=== PATIENT | female | born 1975 | race Caucasian/White ===

== ENCOUNTER 2018-09-30 11:50 | Inpatient (IN) | payer MEDICAID ==
[~2018-09-30] VITALS: Ht 170.2 cm; Wt 165.7 kg
[2018-09-30] VITALS (7 sets, daily range): BP systolic 119–142; BP diastolic 81–98; BMI 115.6
--- NOTE | 2018-09-30 20:08 | NUR ---
Pt arrive to ICU via EMS x4. Pt sedated on vent. PERRLA 3 mm, brisk reaction to light. L eyebrow piercing noted. ETT/OGT secured. ETT size 7.0, 24 cm midline. Vent settings: A/C rate of 12, tidal volume 500, Peep 5.0, FiO2 @ 100%, O2 sat 98%. S1S2 audible, HR 92 bpm, NSR showing on monitor, ST elevation noted. Exp wheezes heard bilat throughout all lobes. ABD large, BS hypoactive x4. Collado cath intact draining clear yellow urine. B/L wrist restraints in place, skin WNL. ABD has scabs noted. B/L heels, Stage III pressure ulcers, dressings CDI. Weak pedal pulses. Radial pulses palp. Rings noted on R middle finger and L ring finger, unable to get off at this time. Generalized swelling in upper and lower ext. 20G PIVs to L upper arm, R AC, R upper arm. R upper arm infusing Propofol @ 60 mcg/kg/min. Tight parameters set on ICU monitors.
--- NOTE | 2018-09-30 21:20 | NUR ---
Dr. Rubalcava at bedside. New orders recieved.
--- NOTE | 2018-09-30 21:30 | NUR ---
Called registration to register pt in [facility].
--- NOTE | 2018-09-30 21:50 | NUR ---
Called Dr. Juarez and informed him of pt's situation. New orders recieved.
--- NOTE | 2018-09-30 22:11 | NUR ---
X-ray at bedside, x3 assist for chest X-ray. Tech called back and stated that ETT and OGT were in place. Will cont with POC.
[2018-09-30 22:16] LABS: BASOPHILS 0.2 % (0-2); HEMATOCRIT 39.4 % (36.0-48.0); HEMOGLOBIN 11.2 g/dL (12-16); IMMATURE GRANULOCYTES 0.5 % (0-5); LYMPHOCYTES 10.6 % (15-50); MCH 23.9 pg (26.0-34.0); MCHC 28.4 g/dL (31.0-37.0); MCV 84.2 fL (80.0-100.0); MEAN PLATELET VOLUME 9.6 fL (7.4-10.4); MONOCYTES 12.7 % (2-11); PLATELET COUNT 153 10x3/uL (130-400); RBC 4.68 10x6/uL (4.00-5.40); RDW 17.1 % (11.5-14.5); WBC 9.2 10x3/uL (4.8-10.8)
[2018-09-30 22:20] LABS: APPEARANCE CLEAR (CLEAR); BILIRUBIN NEGATIVE (NEGATIVE); COLOR YELLOW (YELLOW); GLUCOSE NEGATIVE (NEGATIVE); KETONE NEGATIVE (NEGATIVE); NITRITE NEGATIVE (NEGATIVE); PROTEIN 1+ mg/dL (NEGATIVE); UROBILINOGEN NORMAL (NORMAL)
[2018-09-30 22:22] LABS: EPITHELIAL CELLS 0-5 /hpf (0-5)
[2018-09-30 22:23] LABS: BACTERIA MODERATE /hpf (NONE SEEN); YEAST >1+ WITH HYPHAE /hpf (NONE SEEN)
[2018-09-30 22:38] LABS: ALBUMIN 2.1 g/dL (3.4-5.0); ANION GAP 9.5 mmol/L (8-16); BILIRUBIN - TOTAL 0.43 mg/dL (0.2-1.3); CARBON DIOXIDE 32.5 mmol/L (21.0-32.0); PROTEIN - SERUM 6.9 g/dL (6.4-8.2)
[2018-09-30 22:39] LABS: MAGNESIUM - SERUM 1.9 mg/dL (1.8-2.4); PHOSPHOROUS 4.8 mg/dL (2.5-4.9); URIC ACID 8.4 mg/dL (2.6-7.2)
--- NOTE | 2018-09-30 22:50 | NUR ---
Labs called back to Dr. Rubalcava per request. No new orders at this time. Will cont with POC.
--- NOTE | 2018-09-30 23:00 | NUR ---
REASSESSMENT COMPLETE. SEE FLOWSHEET FOR ALL DETIALS. VSS. WILL CONT CLOSE MONITORING IN ICU.
[2018-10-01] VITALS (28 sets, daily range): BP systolic 124–171; BP diastolic 77–123; Ht 170.2 cm; Wt 165.7 kg
--- NOTE | 2018-10-01 03:00 | NUR ---
REASSESSMENT COMPLETE. PT IS STABLE AT THIS TIME WITH NO S/S OF ACUTE DISTRESS NOTED. NO CHANGES IN PT CONDITION. SEE FLOWSHEET FOR FURTHER DETIALS. ORAL CARE PROVIDED, REPOSITIONED FOR COMFORT. DECREASED PROPOFOL D/T RADHA'S SCALE. SEE IV FLOWSHEET. NO FURTHER NEEDS AT THIS TIME. WILL CONT WITH POC.
[2018-10-01] MEDS ORDERED: ACETAMINOPHEN325 MG PO (03:03)
[2018-10-01] MEDS ORDERED: GLUCAGEN1 MG/VIAL SC (03:04)
[2018-10-01] MEDS ORDERED: HYDROCODON-ACE1 EAC2 PO (03:04)
[2018-10-01] MEDS ORDERED: LEVEMIR FL100 UNIT/1 SC (03:05)
[2018-10-01] MEDS ORDERED: METOLAZONE5 MG PO (03:07)
[2018-10-01] MEDS ORDERED: LEVEMIR IN100 UNITS/ SC (03:07)
[2018-10-01] MEDS ORDERED: IPRAT-ALBUT 0.5-3 ML UPD (03:07)
[2018-10-01] MEDS ORDERED: ALBUTEROL2.5 MG/3 M INH (03:08)
[2018-10-01] MEDS ORDERED: BACLOFEN20 M1 PO (03:09)
[2018-10-01] MEDS ORDERED: CETIRIZINE HCL5 MG PO (03:10)
[2018-10-01] MEDS ORDERED: NEURONTIN 300300 MG PO (03:10)
[2018-10-01] MEDS ORDERED: ADVIL200 MG PO (03:11)
[2018-10-01] MEDS ORDERED: HUMALOG 30100 UNITS/ SC (03:13)
[2018-10-01] MEDS ORDERED: PROMETRIUM200 MG PO (03:14)
--- NOTE | 2018-10-01 05:00 | NUR ---
CHG BATH PROVIDED. UNABLE TO TURN AND PROVIDE NEW LINENS D/T DECREASED STAFFING. WILL CHANGE LINENS AT SHIFT CHANGE WHEN MORE NURSES ARE AVAILABLE. DECREASED PROPOFOL AND FENTANYL GTT, SEE IV FLOWSHEET AND RADHA'S SCORE. IV TUBING LABELED AND SWAB CAPPED. PATIÑO CARE PROVIDED. ORAL CARE PROVIDED WILL CONT WITH POC.
--- NOTE | 2018-10-01 06:15 | NUR ---
LAB AT BEDSIDE TO DRAW AM LAB.
[2018-10-01 06:39] LABS: BASOPHILS 0.2 % (0-2); EOSINOPHILS 3.9 % (0-7); HEMOGLOBIN 10.6 g/dL (12-16); IMMATURE GRANULOCYTES 0.5 % (0-5); LYMPHOCYTES 11.4 % (15-50); MCH 23.8 pg (26.0-34.0); MCHC 29.4 g/dL (31.0-37.0); MEAN PLATELET VOLUME 9.2 fL (7.4-10.4); MONOCYTES 8.2 % (2-11); NEUTROPHILS 75.8 % (40-80); RBC 4.46 10x6/uL (4.00-5.40); RDW 16.9 % (11.5-14.5); WBC 8.5 10x3/uL (4.8-10.8)
[2018-10-01 06:53] LABS: ANION GAP 11.5 mmol/L (8-16); CALCIUM 8.4 mg/dL (8.5-10.1); CARBON DIOXIDE 28.9 mmol/L (21.0-32.0); POTASSIUM - SERUM 5.4 mmol/L (3.5-5.1)
[2018-10-01 07:11] LABS: MCV 80.7 fL (80.0-100.0); PLATELET COUNT 191 10x3/uL (130-400)
--- NOTE | 2018-10-01 07:21 | NUR ---
RECTAL TUBE PLACED, COMPLETE LINEN CHANGE PROVIDED.
--- NOTE | 2018-10-01 08:58 | NUR ---
0700 CHANGED LINEN REPOSITINED IN BED WITH ASSIST X 6 ASSESSMENT COMPLETE
--- NOTE | 2018-10-01 09:43 | NUR ---
Pt admitted 09/30/18 with a stage 3 pressure injury on left lateral foot measuring 2cm x 2cm x 0.5cm x 0.5cm from 12 to 12 oclock. Right heel has a stage 3 pressure injury measuring 2cm x 2cm x 1cm x 1cm from 12 to 12 oclock. On right and left ischial tuberosities there is red blanchable spots with nickel sized wound beds covered in white necrotic tissue (unstageable pressure injuries) No drainage noted. Pt is on a speciality bed and mattress. She has a f/c and a rectal tube. Recommendations: Turn/reposition every 2 hours Float heels Protect bony prominences Zinc oxide paste for perineal redness. Wound care will continue monitoring.
--- NOTE | 2018-10-01 11:05 | HP ---
PATIENT: DOT MIXON MEDICAL RECORD: [id number] ACCOUNT: [id number] LOCATION:[facility] D.2310 : 75 ADMISSION DATE: 09/30/18 PCP: RASHAD GALLEGOS MD HISTORY AND PHYSICAL EXAMINATION HISTORY OF PRESENT ILLNESS: This is a 43-year-old morbidly obese female that was admitted to [facility]. She is a chronic CO2 retainer and smoked up until 2 years ago prior to admission. All the history and physical has been taken from Dr. King's history and physical as well as conversation I had with him earlier today. REVIEW OF SYSTEMS: Unobtainable. PAST MEDICAL HISTORY: Anesthesia complication with severe nausea and vomiting, cellulitis, diabetes type 2, hyperlipidemia, hypertension, and lymphedema. PAST SURGICAL HISTORY: Dental surgery, dilatation and curettage of the uterus (D&C), leg surgery, and tonsillectomy. ALLERGIES: DOXYCYCLINE WITH FACIAL SWELLING. SHE IS ALSO ALLERGIC TO LATEX. SOCIAL HISTORY: Smoking; she is a former smoker, quit 2 years ago according to the notes. Alcohol use, no use. FAMILY HISTORY: Mother had diabetes, hypertension, and hyperlipidemia. Father had diabetes and hyperlipidemia. PHYSICAL EXAMINATION: VITAL SIGNS: She is 118/70, pulse is 86, and respiratory is ventilated. GENERAL: This is a morbidly obese female, intubated and sedated on the ventilator after arriving from [place]. She is over 700 pounds according to her scale. HEENT: Pupils are reactive to light. ET tube is in place. CHEST: Regular rhythm. LUNGS: Sounds are distant. ABDOMEN: Bowel sounds, morbidly obese. I could not appreciate hepatosplenomegaly on deep palpation. EXTREMITIES: She has +2 femoral pulses. She has +2 brachial pulses. Lymphedema with skin changes of the lower extremities. Negative Babinski bilaterally. GENITOURINARY: Collado to gravity with yellow urine. No gross hematuria. SKIN: Tattoos are noted. ASSESSMENT AND PLAN: 1. Acute kidney injury. Lab is being sent of CMP, CBC, blood cultures, uric acid, CPK, and another urinalysis. We will review her medications. 2. LATEX ALLERGY. 3. Morbid obesity. 4. Hypercapnic respiratory failure. Appreciate pulmonary critical care. 5. Hyperkalemia with acidosis. 6. Lymphedema. Difficult to ascertain her volume status, but with her acute kidney injury, we will hold diuresis at this time. 7. Hypertension. We will follow her blood pressure. Currently controlled. 8. Diabetes. We will place her on a sliding scale. 9. Hyperlipidemia. HISTORY AND PHYSICAL [id number] DOT MIXON 10. Incomplete database. No family has accompanied her. PLAN: Please see orders. TRANSINT:[id number] Voice Confirmation ID: [id number] DOCUMENT ID: [id number] YA FINLEY MD at 1105 CC: [id number] DICTATION DATE: 09/30/182036 [employer] BOATMAN: 09/30/182109 ADM IN [place] [id number] [place] [address]
--- NOTE | 2018-10-01 13:50 | MORECARE ---
CASE MANAGEMENT DISCHARGE SUMMARY PATIENT: DOT MIXON UNIT: [id number] ADM DATE: 09/30/18 AGE: 43 : 75 SEX: F ROOM/BED: D.2310 AUTHOR: RITESH LLOYD PHYSICIAN: REFERRING PHYSICIAN: YA FINLEY MD DATE OF SERVICE: 10/01/18 Discharge Plan Patient Name: DOT MIXON [facility] 1975 Planned Disposition: Anticipated Discharge Date: Discharge Date: Expected LOS: Initial Reviewer: [email or web address] Initial Review Date: 09/30/2018 Generated: 10/01/18 2:50 pm Comments DCP- Discharge Planning Updated by [email or web address]: Aundrea Noel on 10/01/18 12:[address] CM attempted to meet with patient for discharge planning /needs. Patient is currently sedated on vent no family available at this time. CM will continue to follow and assist as needed with discharge planning / needs. Patient Name: DOT MIXON Page [phone] at 1350 All edits/amendments must be made on the electronic document DICTATION DATE: 10/01/18 134 [employer] FLOOR INSTALLER: FLIP 10/01/18 134 RPT#: [id number] DC DATE: STATUS: ADM IN [facility] [address] [place] [address] END OF REPORT
[2018-10-01 14:16] LABS: APPEARANCE CLOUDY (CLEAR); BILIRUBIN NEGATIVE (NEGATIVE); COLOR YELLOW (YELLOW); GLUCOSE NEGATIVE (NEGATIVE); KETONE NEGATIVE (NEGATIVE); NITRITE NEGATIVE (NEGATIVE); PROTEIN 1+ mg/dL (NEGATIVE); UROBILINOGEN NORMAL (NORMAL)
[2018-10-01 14:17] LABS: BACTERIA MODERATE /hpf (NONE SEEN); EPITHELIAL CELLS 0-5 /hpf (0-5); MUCUS <1+ /lpf (NONE SEEN); RED CELLS - URINE 0-5 /hpf (0-5); WHITE CELLS - URINE 0-5 /hpf (0-5); YEAST >1+ WITH HYPHAE /hpf (NONE SEEN)
[2018-10-01 16:25] LABS: % SATURATION 9 % (15-55); IRON 23 ug/dl (35-150); TOTAL IRON BIND CAPACITY 244 ug/dl (260-445); UNSAT IRON BIND CAPACITY 221 ug/dl (150-375)
--- NOTE | 2018-10-01 19:00 | NUR ---
SHIFT ASSESSMENT COMPLETE. PT IS UNABLE TO FOLLOW COMMANDS AND DOES NOT RESPOND TO VERBAL OR DEEP STIMULI, DECREASED SEDATION MED TO TEST NEURO FUNCTION. PERRLA, 3 MM, BRISK REACTION TO LIGHT. ETT/OGT SECURED, ETT SIZE 7.0, 24 CM MIDLINE AT THE LIP. VENT SETTINGS: A/C RATE OF 24, TIDAL VOLUME 450, FIO2 @ 45%, PEEP 5.0, O2 SAT 98%. SUCTIONED VIA INLINE, LUIS SECRETIONS NOTED. L IJ CVL NOTED, FLUSHED, SWAB CAPPED. S1S2 AUDIBLE, HR 62 NSR SHOWING ON MONITOR. CRACKLES HEARD BILAT THROUGHOUT ALL LOBES. L FA 20G PIV S/L. R UPPER ARM 20G PIV INFUSING PROPOFOL @ 30 MCG/KG/MIN, R FA 20G PIV INFUSING FENTANYL PLANT MAINTENANCE ENGINEER + NS @ KVO. ABD LARGE, SKIN TIGHT, SCABS/SORES NOTED, BS HYPOACTIVE X4. PATIÑO CATH INTACT DRAINING CONCENTRATED URINE. RECTAL TUBE IN PLACE, NO FECAL MATTER PRESENT AT THIS TIME. B/L POSTERIOR THIGH UNSTAGABLE PRESSURE ULCERS MEASURING 2X2, NO DRAINAGE OR EXUDATE. L LATERAL HEEL STAGE III PRESSURE ULCER, 2X2X0.5, R HEEL STAGE III PRESSURE ULCER 2X2X1, NO DRAINAGE OR EXUDATE, DRESSING INTACT. TIGHT PARAMETERS SET ON ICU MONITORS. VAT PRECAUTIONS IN PLACE. ALL NEEDS MET. WILL CONT CLOSE MONITORING IN ICU.
--- NOTE | 2018-10-01 19:32 | NUR ---
0900 HAD BECOME AGITATED INCREASED PROPOFOL TO 30MCG/MIN TOLLERATING WELL
--- NOTE | 2018-10-01 19:33 | NUR ---
1100 [facility] 168 HUMALOG 4 UNIT GIVEN
--- NOTE | 2018-10-01 19:34 | NUR ---
1300 INCREASED AND DOCUMENTED PROPOFOL AT 35 MCG/ MIN FOR AGITATIOIN WITH INCREASED RR AND BP
--- NOTE | 2018-10-01 19:35 | NUR ---
1500 LEFT IJ PLACEMENT BY LC JOHNSON FOR SURGEONS STAT CXR VALIDATED PLACEMENT
--- NOTE | 2018-10-01 19:36 | NUR ---
1700 [facility] 196 HUMULIN 8UNITS SQ GIVEN PER NEW ORDER
--- NOTE | 2018-10-01 21:00 | NUR ---
CVP MONITOR SET UP.
--- NOTE | 2018-10-01 21:10 | NUR ---
PM MEDS GIVEN. ORAL CARE PROVIDED, REPOSITIONED USING BAIRMAX II BED. VSS. WILL CONT WITH POC.
--- NOTE | 2018-10-01 21:45 | NUR ---
HR, BP, AND PEAK PRESSURES INCREASED. PT BREATHING OVER VENT AND COUGHING. INCREASED SEDATION MEDS PER ORDERS, SEE IV GTT FLOWSHEET FOR FURTHER DETIALS.
--- NOTE | 2018-10-01 22:00 | NUR ---
D/C L FA PIV, CATH TIP INTACT, DRESSING APPLIED.
--- NOTE | 2018-10-01 22:10 | NUR ---
CVP READING 24. PRN LASIX ADMIN PER ORDER FOR CVP > 12.
--- NOTE | 2018-10-01 23:00 | NUR ---
REASSESSMENT COMPLETE. NO CHANGES IN PT CONDITION. REPOSITIONED VIA BAIRMAX II. ORAL CARE PROVIDED. SEE FLOWSHEET FOR FURTHER DETIALS. WILL CONT CLOSE MONITORING IN ICU.
[2018-10-02] VITALS (24 sets, daily range): BP systolic 123–174; BP diastolic 70–115
--- NOTE | 2018-10-02 01:00 | NUR ---
REPOSITIONED FOR COMFORT. RT AT BEDSIDE PROVIDING ORAL CARE. VSS. WILL CONT WITH POC.
--- NOTE | 2018-10-02 03:00 | NUR ---
REASSESSMENT COMPLETE PER FLOWSHEET. REPOSITIONED FOR COMFORT. VSS. ORAL CARE PROVIDED. ALL NEEDS MET.
--- NOTE | 2018-10-02 05:00 | NUR ---
CHG BATH AND LINEN CHANGE PROVIDED. ORAL CARE PROVIDED. VSS. NO FURTHER NEEDS AT THIS TIME.
[2018-10-02 05:41] LABS: BASOPHILS 0.1 % (0-2); EOSINOPHILS 0.1 % (0-7); HEMATOCRIT 38.1 % (36.0-48.0); HEMOGLOBIN 11.5 g/dL (12-16); IMMATURE GRANULOCYTES 0.2 % (0-5); LYMPHOCYTES 5.4 % (15-50); MCH 23.8 pg (26.0-34.0); MCHC 30.2 g/dL (31.0-37.0); MEAN PLATELET VOLUME 9.6 fL (7.4-10.4); MONOCYTES 1.7 % (2-11); NEUTROPHILS 92.5 % (40-80); PLATELET COUNT 217 10x3/uL (130-400); RBC 4.84 10x6/uL (4.00-5.40); RDW 16.8 % (11.5-14.5); WBC 8.8 10x3/uL (4.8-10.8)
[2018-10-02 06:53] LABS: ALBUMIN 1.9 g/dL (3.4-5.0); BILIRUBIN - TOTAL 0.38 mg/dL (0.2-1.3); CALCIUM 8.6 mg/dL (8.5-10.1); CREATININE - SERUM 2.1 mg/dL (0.6-1.3); PHOSPHOROUS 5.4 mg/dL (2.5-4.9); PROTEIN - SERUM 6.4 g/dL (6.4-8.2); THYROID STIMULATING HORMONE 0.95 uIU/mL (0.36-3.74)
[2018-10-02 06:54] LABS: MCV 78.7 fL (80.0-100.0)
--- NOTE | 2018-10-02 07:00 | NUR ---
RECEIVED REPORT FROM CHEESE PRODUCTION SUPERVISOR. PT RESTING IN BED ON VENT SEDATED ON PROPOFOL AND FENTANLY TO LEFT IJ. VSS. ASSISTED IN TURNING PATIENT, GIVING BED BATH, AND REMOVED RECTAL TUBE. CVP 16. HEELS PROPPED ON PILLOW. WILL CONTINUE TO MONITOR
--- NOTE | 2018-10-02 07:00 | NUR ---
BOTTOM LINENS CHANGED X4 ASSIST. LT JUGULAR CVL DRESSING CHANGE VIA BAG MACHINE TENDER, DATED AND LABELED.
[2018-10-02 07:14] LABS: ANION GAP 13.4 mmol/L (8-16)
[2018-10-02 07:16] LABS: POTASSIUM - SERUM 6.4 mmol/L (3.5-5.1)
--- NOTE | 2018-10-02 07:30 | NUR ---
NOTIFIED DR. FINLEY OF HIGH POTASSIUM PERMISSION TO GIVE PRN LASIX OBTAINED.
--- NOTE | 2018-10-02 09:00 | NUR ---
PT RESTING IN BED C VSS. SUCTIONED ETT AND ORALLY.
--- NOTE | 2018-10-02 10:00 | NUR ---
HUNG NEW TUBE FEED BAG AND STARTED OSMOLYTE 1.0 AT 20ML/HR. 100 CC FLUSH Q 4 HOURS PRESCRIBED.
--- NOTE | 2018-10-02 10:27 | NUR ---
CHANGED DRESSING TO J-TUBE SITE AND CLEANED WITH GAUZE AND DERMAL WOUND CLEANSER
--- NOTE | 2018-10-02 11:32 | NUR ---
CHANGED OUT PROPOFOL TUBING, TIMED AND DATED.
[2018-10-02 12:12] LABS: FOLATE (FOLIC ACID) - SERUM 4.8 ng/mL (>3.0)
[2018-10-02 12:37] LABS: ANION GAP 9.7 mmol/L (8-16); CALCIUM 8.4 mg/dL (8.5-10.1); CARBON DIOXIDE 34.5 mmol/L (21.0-32.0)
[2018-10-02 12:47] LABS: POTASSIUM - SERUM 6.2 mmol/L (3.5-5.1)
--- NOTE | 2018-10-02 13:30 | NUR ---
DR. PARMAR DC'D BUMEX DRIP. DR. FINLEY IS AWARE.
--- NOTE | 2018-10-02 14:33 | NUR ---
NOTIFIED DR. PARMAR OF SYSTOLIC BP IN 170'S. NO ORDERS GIVEN
--- NOTE | 2018-10-02 15:00 | NUR ---
PT RESTING IN BED SEDATED ON VENT. VSS.
--- NOTE | 2018-10-02 17:05 | NUR ---
PT RESTING IN BED SEDATED ON VENT. CALL GARDNER IN REACH.
--- NOTE | 2018-10-02 19:00 | NUR ---
SHIFT ASSESSMENT COMPLETE. DROPLET PRECAUTIONS IN PLACE AND FOLLOWED. PT IS SEDATED ON VENT, PERRLA 3 MM, BRISK REACTION TO LIGHT. ETT/OGT SECURED. VENT SETTINGS: A/C RATE OF 24, TIDAL VOLUME 450, FIO2 50%, PEEP 7.0, O2 SAT 97%. OGT PLACEMENT CHECK VIA AUSCULTATION. LT JUGULAR CVL INFUSING PROPOFOL @ 30 MCG/KG/MIN (60 ML/HR), FENTANYL @ 50 MCG/HR (1 ML/HR), NS+ABX @ KVO. S1S2 AUDIBLE, HR 81 NSR SHOWING ON MONITOR. CRACKLES HEARD BILAT THROUGHOUT ALL LOBES. SUCTIONED VIA INLINE, LUIS SECRETIONS NOTED. ABD LARGE, SKIN TIGHT, SCABS/SORES NOTED. HYPOACTIVE BS X4. 20G PIV TO R UPPER AND R FA, S/L. PATIÑO CATH INTACT DRAINING CLEAR YELLOW URINE. +2 PITTING EDEMA NOTED ON LOWER EXT. SEE SKIN ASSESSMENT FOR PRESSURE ULCER DOCUMENTATION. WEAK PEDAL PULSES. RADIAL PULSES PRESENT. PT IS ON BAIRMAX II BED THAT AUTOMATICALLY TURNS. ORAL CARE PROVIDED. TIGHT PARAMETERS SET ON ICU MONITORS, VAT PRECAUTIONS IN PLACE. WILL CONT CLOSE MONITORING IN ICU.
[2018-10-02 19:13] LABS: ANION GAP 8.6 mmol/L (8-16); CALCIUM 8.3 mg/dL (8.5-10.1); CARBON DIOXIDE 33.4 mmol/L (21.0-32.0)
--- NOTE | 2018-10-02 21:00 | NUR ---
NO FAMILY AT VISITATION. PM MEDS GIVEN. FSBS 285, 16 UN INSULIN GIVEN PER HIGH RESISTANCE SCALE. ORAL CARE PROVIDED. WILL CONT WITH POC.
--- NOTE | 2018-10-02 22:16 | NUR ---
PT THRASHING HEAD BACK AND FORTH. EDUCATED HER ON THE ETT AND VENT, SHE IS ABLE TO FOLLOW COMMANDS AT THIS TIME. INCREASED PROPOFOL PER FLOWSHEET. WILL COTN CLOSE MONITORING.
--- NOTE | 2018-10-02 22:30 | NUR ---
NEPRO TF INITATED @ 10 ML/HR WITH 20CC FLUSH Q2H.
--- NOTE | 2018-10-02 23:00 | NUR ---
REASSESSMENT COMPLETE. PT FOLLOWS COMMANDS, WHEN SHE IS AWAKE SHE BUCKS THE VENT. REORIENTED. SHE IS RESTING AT THIS TIME. S1S2 AUDIBLE, CRACKLES HEARD BILAT THROUGHOUT ALL LOBES. REPOSITIONED FOR COMFORT. NO FURTHER CHANGES. SEE FLOWSHEET FOR FURTHER DETIALS. VSS. WILL CONT WITH POC.
--- NOTE | 2018-10-02 23:44 | NUR ---
PT VERY AGGITATED AND BUCKING VENT. TRIED TO REORIENT. INCREASED PROPOFOL, SEE IV GTT FLOWSHEET.
[2018-10-03] VITALS (24 sets, daily range): BP systolic 134–175; BP diastolic 77–106
--- NOTE | 2018-10-03 01:00 | NUR ---
REPOSITIONED FOR COMFORT. VSS. ORAL CARE PROVIDED. NO CHANGES IN PT CONDITION. WILL CONT TO MONITOR CLOSELY.
--- NOTE | 2018-10-03 03:00 | NUR ---
REASSESSMENT COMPLETE. NO CHANGES IN PT CONDITION. ORAL CARE PROVIDED, PT GETS VERY AGGITATED WITH ORAL CARE. REORIENTED AND EXPLAINED THE BENEFITS OF ORAL CARE TO HER. SEE FLOWSHEET FOR FURTHER DETIALS. VSS. 2G VANC INFUSING. WILL CONT WITH POC.
[2018-10-03 04:23] LABS: BASOPHILS 0.1 % (0-2); EOSINOPHILS 0 % (0-7); HEMOGLOBIN 11.2 g/dL (12-16); IMMATURE GRANULOCYTES 0.3 % (0-5); LYMPHOCYTES 5.9 % (15-50); MCH 23.7 pg (26.0-34.0); MCHC 30.3 g/dL (31.0-37.0); MCV 78.4 fL (80.0-100.0); MEAN PLATELET VOLUME 9.6 fL (7.4-10.4); MONOCYTES 6.4 % (2-11); NEUTROPHILS 87.3 % (40-80); PLATELET COUNT 252 10x3/uL (130-400); RBC 4.72 10x6/uL (4.00-5.40); RDW 17.1 % (11.5-14.5)
[2018-10-03 04:34] LABS: WBC 11.8 10x3/uL (4.8-10.8)
--- NOTE | 2018-10-03 05:00 | NUR ---
CHG BATH GIVEN. REPOSITIONED FOR COMFORT. ORAL CARE AND PATIÑO CARE PROVIDED. PT TOLERATED WELL. WILL CONT WITH POC.
[2018-10-03 05:17] LABS: ALKALINE PHOSPHATASE 44 U/L (46-116); BILIRUBIN - TOTAL 0.26 mg/dL (0.2-1.3); CALCIUM 7.8 mg/dL (8.5-10.1); GLUCOSE 246 mg/dL (74-106); MAGNESIUM - SERUM 1.8 mg/dL (1.8-2.4); PHOSPHOROUS 4.6 mg/dL (2.5-4.9); PROTEIN - SERUM 6.7 g/dL (6.4-8.2); UREA NITROGEN 46 mg/dL (7-18)
[2018-10-03 05:20] LABS: ALT (SGPT) 5 U/L (10-68); CREATININE - SERUM 0.3 mg/dL (0.6-1.3); eGFR NON AFRICAN AMERICAN > 90 mL/min (90-120)
[2018-10-03 05:30] LABS: CALC OSMOLALITY 289 mosm/kg (275-300); CHLORIDE - SERUM 97 mmol/L (98-107); POTASSIUM - SERUM 5.9 mmol/L (3.5-5.1); SODIUM 135 mmol/L (136-145)
--- NOTE | 2018-10-03 07:00 | NUR ---
SHIFT ASSESSMENT COMPLETED. PT CARE ASSUMED. MONITORS ON AND WORKING, VITALS STABLE, PATIÑO STAT LOCKED IN PLACE. SEE FLOW SHEET FOR FURTHER DETIALS, WILL CONTINUE TO OBSERVE.
--- NOTE | 2018-10-03 09:00 | NUR ---
PT TURNED AND REPOSITIONED AT THIS TIME. MONITORS ON AND WORKING, VITALS STABLE, ORAL CARE PROVIDED, WILL CONTINUE TO OBSERVE.
--- NOTE | 2018-10-03 11:00 | NUR ---
NO CHANGES, SEE FLOW SHEET FOR FURTHER DETIALS, WILL CONTINUE TO OBSERVE.
--- NOTE | 2018-10-03 12:01 | NUR ---
Nutrition follow-up: Pt intubated, sedated with propofol currently @ 60 ml/hr OGT in place and Nepro has started @ 10 ml/hr with 20 ml H2O flush Q 2 hours Labs reviewed; K elevated Wt: 656# Recommend Nepro advance to goal rate of 30 ml/hr with propofol @ 60 ml/hr. Due to low volume TF recommend daily liquid MVI 30 ml Proteinex protein supplement TID to increase protein intake. RDN following.
--- NOTE | 2018-10-03 13:00 | NUR ---
PT TURNED AND REPOSITONED FOR COMFORT, ORAL CARE AND HCG BATH DONE AT THIS TIME WELL. NO SIGNS/SYMPTOMS OF PAIN OR DISCOMFORT NOTED. VITALS STABLE, WILL CONTINUE TO OBSERVE.
--- NOTE | 2018-10-03 15:00 | NUR ---
NO CHANGES, SEE FLOW SHEET FOR FURTHER DETAILS, MONITORS ON AND WORKING, VITALS STABLE. WILL CONTINUE TO OBSERVE.
--- NOTE | 2018-10-03 17:00 | NUR ---
PT TURNED AND REPOSITIONED, ORAL CARE PROVIDED AT THIS TIME, DRESSINGS TO HEELS CHANGED, MONITORS ON AND WORKING. ATTEMPTED TO CALL CLINICAL TRANSFORMATION SPECIALIST TO VERIFY PTS PHARMACY, CONTACT NUMBER IS NOT A WORKING NUMBER. NO SIGNS/SYMPTOMS OF PAIN OR DISCOMFORT NOTED AT THIS TIME, WILL CONTINUE TO OBSERVE.
--- NOTE | 2018-10-03 19:00 | NUR ---
SHIFT ASSESSMENT COMPLETE. PT IS SEDATED ON VENT. ETT/OGT SECURED WITH TUBE TAMER. BUDRLA, 3 MM, BRISK REACTION TO LIGHT. SHE OPENS HER EYES TO SPEECH AND IS ABLE TO LOCALIZE PAIN. ETT SIZE 7.0, 23 CM MIDLINE AT THE LIP. VENT SETTINGS: A/C RATE OF 20, TIDAL VOLUME 500, FIO2 50%, PEEP 7.0, O2 SAT 97-99%. L IJ CVL INFUSING NS @ KVO, PROPOFOL @ 40 MCG/KG/MIN (80 ML/HR), AND FENTANYL @ 75 MCG/HR (1.5 ML/HR). S1S2 AUDIBLE, HR 70-74 BPM, NSR SHOWING ON MONITOR. CRACKLES HEARD BILAT THROUGHOUT ALL LOBES. ABD TIGHT, SCABS NOTED. OGT INFUSING NEPRO @ 30 ML/HR WITH A 20CC FLUSH Q2H, PLACEMENT CHECKED WITH AUSCULTATION AND ASPIRATION, 0 RESIDUAL. BS HYPOACTIVE X4. PATIÑO CATH INTACT DRAINING CLEAR YELLOW URINE. RADIAL PULSES PALP. +1 EDEMA IN LOWER EXT. SEE SKIN ASSESSMENT FLOWSHEET FOR DETIALS OF PRESSURE ULCERS. 20G PIV TO R UPPER ARM AND FA, S/L. VSS. SEE FLOWSHEET FOR FURTHER DETIALS. ORAL CARE PROVIDED VIA RT. REPOSITIONED FOR COMFORT. WILL CONT WITH POC.
--- NOTE | 2018-10-03 21:00 | NUR ---
PM MEDS GIVEN WITHOUT DIFFICULTY. FSBS 202, 12 UN INSULIN GIVEN PER SLIDING SCALE. REPOSITIONED FOR COMFORT VIA BARIMAX II BED. ORAL CARE PROVIDED. WILL CONT WITH POC.
--- NOTE | 2018-10-03 23:00 | NUR ---
REASSESSMENT COMPLETE. B/L POSTERIOR THIGH PRESSURE ULCERS ARE UNSTAGEABLE, MEASURING 4X2. WILL INFORM AM AND WOUND NURSE OF THESE FINDINGS. CHG BED BATH AND COMPLETE LINEN CHANGE PROVIDED. PT TOLERATED WELL. NO FURTHER CHANGES AT THIS TIME. VSS. SEE FLOWSHEET FOR FURTHER DETIALS. WILL CONT WITH POC.
[2018-10-04] VITALS (22 sets, daily range): BP systolic 106–188; BP diastolic 59–109
--- NOTE | 2018-10-04 01:30 | NUR ---
ALL IV TUBING CHANGED AND LABELED. ORAL CARE PROVIDED VIA RT. REPOSITIONED VIA BARIMAXX II BED. TF BAG CHANGED, DATED, LABELED. WILL CONT WITH POC.
--- NOTE | 2018-10-04 03:15 | NUR ---
D/C R FA PIV, CATH TIP INTACT. DRESSING APPLIED TO SITE.
--- NOTE | 2018-10-04 03:58 | NUR ---
PT BUCKING VENT AND THRASHING HEAD BACK AND FORTH. INCREASED PROPOFOL PER RADHA'S SCORE AND ORDERS. WILL CONT TO MONITOR CLOSELY.
[2018-10-04 04:22] LABS: BASOPHILS 0.2 % (0-2); EOSINOPHILS 1.3 % (0-7); HEMATOCRIT 39.2 % (36.0-48.0); HEMOGLOBIN 11.7 g/dL (12-16); IMMATURE GRANULOCYTES 0.3 % (0-5); LYMPHOCYTES 7.4 % (15-50); MCH 23.6 pg (26.0-34.0); MCHC 29.8 g/dL (31.0-37.0); MCV 79.2 fL (80.0-100.0); MEAN PLATELET VOLUME 9.9 fL (7.4-10.4); MONOCYTES 5.1 % (2-11); NEUTROPHILS 85.7 % (40-80); PLATELET COUNT 273 10x3/uL (130-400); RBC 4.95 10x6/uL (4.00-5.40); RDW 17.1 % (11.5-14.5); WBC 11.7 10x3/uL (4.8-10.8)
[2018-10-04 04:31] LABS: ANION GAP 8.7 mmol/L (8-16); CALCIUM 8.6 mg/dL (8.5-10.1); CARBON DIOXIDE 35.4 mmol/L (21.0-32.0); PHOSPHOROUS 4.9 mg/dL (2.5-4.9); POTASSIUM - SERUM 5.1 mmol/L (3.5-5.1)
[2018-10-04 04:33] LABS: CREATININE - SERUM 1.8 mg/dL (0.6-1.3)
--- NOTE | 2018-10-04 05:00 | NUR ---
PT VERY AGGITATED, COUGHING AND THRASHING HEAD IN BED. INCREASED PROPOFOL PER ORDERS. WILL CONT WITH POC.
--- NOTE | 2018-10-04 07:00 | NUR ---
REPORT RECEIVED FROM NIGHT NURSE. PT RESTING IN BED SEDATED ON VENT WITH PROPOFOL AT 55MCG--111ML/HR. PROFOFOL AT 75MCG--1.5ML/HR. NS AT 5ML/HR. ALL INFUSING THROUGH LEFT IJ. VSS. WILL CONTINUE TO MONITOR
--- NOTE | 2018-10-04 08:33 | NUR ---
NOTIFIED DR. HUDSON OF HIGH PCO2 ON THIS AM ABG. NO ORDERS GIVEN.
--- NOTE | 2018-10-04 09:27 | NUR ---
RECALCULATED DIPRIVAN DRIP AFTER CHANGING WEIGHT FROM 335 KG TO NEW WEIGHT OF 310 KG. DIPRIVAN WAS AT 55MCG INFUSING AT 111ML/HR. AFTER KG CHANGE AND LEAVING AT 55MCG, NEW RATE IS 102ML/HR. WILL CONTINUE TO MONITOR
--- NOTE | 2018-10-04 09:29 | NUR ---
Nutrition follow-up: Intubated, sedated Nepro increased to 40 ml/hr labs reviewed RDN following.
--- NOTE | 2018-10-04 11:00 | NUR ---
VSS. WILL CONTINUE TO MONITOR. SEDATED ON VENT
--- NOTE | 2018-10-04 13:00 | NUR ---
SEDATED ON VENT C VSS. WILL CONTINUE TO MONITOR
--- NOTE | 2018-10-04 15:00 | NUR ---
SUCTIONED ETT AND OGT. ORAL CARE GIVEN. TITRATING FENTANYL AND DIPRIVAN TOLERATED.
--- NOTE | 2018-10-04 17:00 | NUR ---
EMPTIED PATIÑO AND SUCTIONED. VSS. WILL CONTINUE TO MONITOR
--- NOTE | 2018-10-04 17:50 | NUR ---
CHANGED PROPOFOL TUBING
--- NOTE | 2018-10-04 19:10 | NUR ---
RECEIVED PATIENT CARE - PT INTUBATED/SEDATED - SYSTOLIC BP ELEVATATION NOTED. PT COUGHING ON VENT SUCTION AND ORAL CARE PERFORMED AT THIS TIME. SEE ADL FLOWSHEET. LINES AND TUBING CHECKED AND DOCUMENTED SEE IV DRIP FLOWSHEET. OGT PLACEMENT CHECKED, AIR BOLUS AUDIBLE LUQ- NO RESIDUALS. SHIFT ASSESSMENT COMPLETED SEE FLOWSHEET. CPOC
--- NOTE | 2018-10-04 19:45 | NUR ---
PATIENT UNABLE TO TOLERATE SEDATION VACATION AT THIS TIME. BECOMES UNCOMPLIANT AND AGITATED ON THE A/C ON THE VENTILATOR. SYSTOLIC,DYSTOLIC, AND HEART RATES INCREASES. RESTORED SEDATION SETTINGS BACK TO ORIGINAL RATES, WILL CONTINUE TO MONITOR SEDATION STATUS
--- NOTE | 2018-10-04 21:58 | NUR ---
HS MEDICATIONS RECEIVED. SEE EMAR FOR ADMINISTRATION. VSS CPOC
--- NOTE | 2018-10-04 22:15 | NUR ---
SEDATION VACATION ATTEMPTED. SEE IV DRIP SHEET FOR RATE CHANGES. PATIENT UNABLE TO TOLERATE AT THIS TIME. INCREASE IN HEART RATE AND SYSTOLIC AND DYSTOLIC BLOOD PRESSURE. NON COMPLIANT WITH VENTILATOR.
--- NOTE | 2018-10-04 23:10 | NUR ---
REASSESSMENT COMPLETED SEE FLOWSHEET.
[2018-10-05] VITALS (26 sets, daily range): BP systolic 90–208; BP diastolic 47–131
--- NOTE | 2018-10-05 01:34 | NUR ---
PATIENT INTUBATED/SEDATED, NOT FOLLOWING COMMANDS, OPENS EYES TO STIMULUS. RT AT BEDSIDE. VSS CPOC
--- NOTE | 2018-10-05 03:15 | NUR ---
REASSESSMENT COMPLETED SEE FLOWSHEET
--- NOTE | 2018-10-05 05:15 | NUR ---
PATIENT INTUBATED/SEDATED VSS CPOC
--- NOTE | 2018-10-05 07:00 | NUR ---
RECEIVED BEDSIDE REPORT ON PATIENT AND ASSUMED CARE. PATIENT SEDATED ON VENT, VSS. BBS CLEAR WITH CRACKLES NOTED TO RIGHT LOWER AND DIMINISHED TO LEFT LOWER. PATIÑO CATH SECURED WITH DEVICE AND DRAINING GREEN CLEAR URINE, EMPTIED 1100 CC. BILATERAL WRIST RESTRAINTS IN PLACE, DISTAL CMS GOOD. PATIENT TURNED AND REPOSITIONED IN BED. CVL TO LEFT JUGULAR PATENT, DRESSING CDI, IVS INFUSING W/O DIFFICULTY. D/C'D IV TO RIGHT UPPER ARM. TUBE FEEDING AT GOAL AND TOLERATING WITH 25 CC RESIDUAL. PLACEMENT CHECKED VIA ASCULTATION. HEAD TO TOE ASSESSMENT COMPLETED.
[2018-10-05 07:01] LABS: BASOPHILS 0.2 % (0-2); EOSINOPHILS 1.1 % (0-7); HEMATOCRIT 35.3 % (36.0-48.0); HEMOGLOBIN 10.4 g/dL (12-16); IMMATURE GRANULOCYTES 0.2 % (0-5); LYMPHOCYTES 8.1 % (15-50); MCH 23.3 pg (26.0-34.0); MCHC 29.5 g/dL (31.0-37.0); MCV 79.1 fL (80.0-100.0); MEAN PLATELET VOLUME 9.2 fL (7.4-10.4); MONOCYTES 8.2 % (2-11); NEUTROPHILS 82.2 % (40-80); PLATELET COUNT 209 10x3/uL (130-400); RBC 4.46 10x6/uL (4.00-5.40); RDW 17.3 % (11.5-14.5); WBC 9.4 10x3/uL (4.8-10.8)
[2018-10-05 07:13] LABS: ANION GAP 8.4 mmol/L (8-16); CALCIUM 8.4 mg/dL (8.5-10.1); CARBON DIOXIDE 36.7 mmol/L (21.0-32.0); CREATININE - SERUM 1.5 mg/dL (0.6-1.3); MAGNESIUM - SERUM 1.7 mg/dL (1.8-2.4); PHOSPHOROUS 4.9 mg/dL (2.5-4.9); POTASSIUM - SERUM 5.1 mmol/L (3.5-5.1)
--- NOTE | 2018-10-05 09:00 | NUR ---
PATIENT TURNED AND REPOSITIONED. VSS.
--- NOTE | 2018-10-05 09:55 | NUR ---
PROPOFOL GTT DISCONTINUED PER DR. RIVERA AND PRECEDEX STARTED.
--- NOTE | 2018-10-05 10:00 | NUR ---
PATIENT AGITATED, HITTING SIDE RAILS ON BED, NOT FOLLOWING COMMANDS, BP 181/123 (134), PRECEDEX GTT INCREASED.
--- NOTE | 2018-10-05 10:37 | NUR ---
PATIENT AGITATED, HITTING SIDE RAILS, NOT FOLLOWING COMMANDS, UNABLE TO CONSOLE, HR 90, BP 191/131 (155), PRECEDEX GTT INCREASED AND DR. NICOLE CHEEK.
--- NOTE | 2018-10-05 10:47 | NUR ---
UPDATED DR. RIVERA, ORDERS VERSED 2 MG Q1H PRN.
--- NOTE | 2018-10-05 10:55 | NUR ---
DR. PARMAR AT ROOM UPDATED AND EXAMINES PATIENT.
--- NOTE | 2018-10-05 11:05 | NUR ---
PATIENT REASSESSMENT COMPLETED. PATIENT RESTING EASIER, HOWEVER BP REMAINS ELEVATED 194/112 (141), STILL NOT FOLLOWING COMMANDS. HR 74. REPOSITIONED IN BED.
--- NOTE | 2018-10-05 13:05 | NUR ---
PATIENT GIVEN COMPLETE BATH, BM PRESENT, SOFT BROWN, LARGE. CLEANED AND LINENS CHANGED. VSS. REPOSITIONED IN BED.
--- NOTE | 2018-10-05 13:30 | NUR ---
PATIENT FENTANYL GTT DECREASED TO 300 MCG/HR, 6 CC/HR.
--- NOTE | 2018-10-05 14:27 | NUR ---
PATIENT FENTANYL GTT DECREASED TO 200 MCG/KG/HR, PRECEDEX GTT AT 0.9 MCG/KG/H OR 69.8 CC/HR AND PRN VERSED GIVEN. PATIENT VSS STABLE.
--- NOTE | 2018-10-05 15:07 | NUR ---
PATIENT REASSESSMENT COMPLETED. VSS. TURNED AND REPOSTIONED.
--- NOTE | 2018-10-05 15:25 | NUR ---
DRESSINGS TO BILATERAL HEELS CHANGED, NO DRAINAGE NOTED.
--- NOTE | 2018-10-05 17:04 | NUR ---
PATIENT TURNED AND REPOSTIONED IN BED.
--- NOTE | 2018-10-05 21:05 | NUR ---
NO VISITORS PRESENT AT THIS TIME, ORAL CARE AND SUCTIONING PROVIDED, PT TOLERATED WELL, POSITIONED VIA BED AND SUPPORTED WITH PILLOWS.
--- NOTE | 2018-10-05 23:34 | NUR ---
EMPTIED 4800 CC OF CLEAR LIGHT GREEN URINE FROM PATIÑO, PT REPOSITIONED FOR COMFORT, ORAL CARE PROVIDED.
[2018-10-06] VITALS (24 sets, daily range): BP systolic 131–188; BP diastolic 83–116
--- NOTE | 2018-10-06 01:45 | NUR ---
ORAL CARE AND SUCTIONING PROVIDED PER RT, PT POSITIONED FOR COMFORT SUPPORTED WITH PILLOWS. VSS, SR ON CM.
[2018-10-06 05:23] LABS: BASOPHILS 0.2 % (0-2); HEMOGLOBIN 11.7 g/dL (12-16); IMMATURE GRANULOCYTES 0.2 % (0-5); LYMPHOCYTES 16.1 % (15-50); MCH 23.5 pg (26.0-34.0); MCV 78.3 fL (80.0-100.0); MEAN PLATELET VOLUME 9.9 fL (7.4-10.4); MONOCYTES 13.3 % (2-11); NEUTROPHILS 69.2 % (40-80); PLATELET COUNT 221 10x3/uL (130-400); RBC 4.98 10x6/uL (4.00-5.40); WBC 8.7 10x3/uL (4.8-10.8)
[2018-10-06 05:39] LABS: ANION GAP 7.2 mmol/L (8-16); CALCIUM 8.9 mg/dL (8.5-10.1); CARBON DIOXIDE 39.3 mmol/L (21.0-32.0); CREATININE - SERUM 1.5 mg/dL (0.6-1.3); PHOSPHOROUS 4.5 mg/dL (2.5-4.9); POTASSIUM - SERUM 4.5 mmol/L (3.5-5.1); VANCOMYCIN - RANDOM 20.7 ug/mL (10.0-20.0)
--- NOTE | 2018-10-06 06:26 | NUR ---
AGITATION NOTED, PT PULLING AT RESTRAINTS AND SHAKING HEAD. PRN VERSED 2 MG ADMINISTERED PER MD ORDER.
--- NOTE | 2018-10-06 19:00 | NUR ---
SHIFT ASSESSMENT COMPLETE. PT IS SEDATED ON VENT, RADHA SCORE OF 4. SHE IS ABLE TO FOLLOW COMMANDS. PT IS TRYING TO SPEAK. INFORMED HER THAT SHE HAS A TUBE IN HER MOUTH AND THAT I COULDN'T UNDERSTAND WHAT SHE WAS TRYING TO SAY. PROVIDED PEN AND PAPER FOR HER TO WRITE, UNABLE TO UNDERSTAND. WILL TRY AGAIN AT A LATER TIME. PERRLA, 3 MM, BRISK REACTION TO LIGHT. ETT/OGT SECURED, SIZE 7.0, 22 CM AT THE LIP. PT IS ON SPONT VENT SETTINGS AT THIS TIME, RR 18, O2 SAT 97-98%. S1S2 AUDIBLE, HR 90 BPM, NSR SHOWING ON MONITOR. DIMINISHED LUNG SOUNDS HEARD BILAT WITH CRACKLES NOTED. SUCTIONED, LUIS SECRETIONS SEEN IN TUBE. ABD LARGE, SOFT, BS HYPOACTIVE X4. NEPRO TF INFUSING VIA OGT, 0 RESIDUAL, PLACEMENT CHECKED VIA AUSCULTATION. NEPRO @ 40 ML/HR WITH 20CC FLUSH Q2H. L JUGULAR CVL INFUSING PRECEDEX @ 1 MCG/KG/MIN (77.5 ML/HR), FENTANYL @ 200 MCG/HR (4 ML/HR, WRITTEN ORDER TO INCREASE FENT VIA DR. HUDSON, SEE PROGRESS NOTE DATED 10/04/18), AND NS @ KVO+ABX (5 ML/HR). PATIÑO CATH NOTED, CLEAR YELLOW URINE NOTED. RADIAL PULSES PALP, PEDAL PULSES WEAK, GENERALIZED EDEMA NOTED. SEE SKIN ASSESSMENT FLOWSHEET FOR PRESSURE ULCER DOCUMENTATION. ORAL CARE PROVIDED. REPOSITIONED VIA BARIMAXX II BED. ALL NEEDS MET. WILL CONT WITH POC.
--- NOTE | 2018-10-06 20:03 | NUR ---
Nutrition follow-up: Pt remains intubated, sedated Nepro @ 40 ml/hr Labs reviewed Wt: 686# +BM RDN following.
--- NOTE | 2018-10-06 21:00 | NUR ---
ORAL CARE PROVIDED. RT AT BEDSIDE. VENT SETTINGS CHANGED TO A/C RATE OF 20, TIDAL VOLUME 500, FIO2 @ 65%, PEEP 7.0. SPOKE WITH DR. RIVERA AND INFORMED HIM OF THE CHANGES MADE. NO NEW ORDERS AT THIS TIME. WILL CONT WITH POC.
--- NOTE | 2018-10-06 23:00 | NUR ---
REASSESSMENT COMPLETE. NO CHANGES IN PT CONDITION. VSS. SEE FLOWSHEET FOR FURTHER DETIALS. WILL CONT WITH POC.
--- NOTE | 2018-10-06 23:30 | NUR ---
PT'S TEMP 99.7 AXILLARY, FAN ON PT, SHE IS VERY WARM TO TOUCH. WILL CONT TO MONITOR TEMP CLOSELY.
[2018-10-07] VITALS (28 sets, daily range): BP systolic 85–193; BP diastolic 52–101
--- NOTE | 2018-10-07 01:00 | NUR ---
COMPLETE LINEN CHANGE PROVIDED. PT PASSING GAS AND LOOSE STOOL. REDDNESS NOTED ON BUTTOCKS. L LATERAL PRESSURE ULCER OOZING BLOODY DRAINAGE. CLEANSED. REPOSITIONED FOR COMFORT. ORAL CARE PROVIDED VIA RT. NO FURTHER NEEDS AT THIS TIME. WILL CONT WITH POC.
--- NOTE | 2018-10-07 01:00 | NUR ---
REPAIRER HANDTOOLS AND PRIMARY TUBING CHANGED, DATED AND LABELED.
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
--- NOTE | 2018-10-07 03:50 | NUR ---
PT GRABBING SIDE RAILS AND SHAKING BED BACK AND FORTH. TRIED TO REORIENT. BP 191/108, HR 108 SINUS TACH. PRN VERSED ADMIN. WILL CONT TO REORIENT.
--- NOTE | 2018-10-07 05:00 | NUR ---
PT'S BP REMAINS ELEVATED AT THIS TIME SECONDARY TO AGGITATION. TRYING TO REORIENT. WILL CALL BP IN TO PRIMARY IF BP DOES NOT START TO TREND DOWN WHEN PT CALMS DOWN. PRN MEDS GIVEN. WILL CONT TO MONITOR CLOSELY.
--- NOTE | 2018-10-07 05:49 | NUR ---
PT'S BP REMAINS ELEVATED. PAGING DR. PARMAR.
--- NOTE | 2018-10-07 05:54 | NUR ---
DR. PARMAR NOTIFIED OF BP. NO NEW ORDERS AT THIS TIME. WILL CONT WITH POC.
--- NOTE | 2018-10-07 06:09 | NUR ---
UNABLE TO GIVE LASIX AT THIS TIME DUE TO DECREASED SUPPLY IN [facility]. PAGING PHARMACY NOW FOR LASIX AND PRECEDEX.
--- NOTE | 2018-10-07 06:31 | NUR ---
PAGED PHARMACY AGAIN. NO ANSWER AT THIS TIME. WILL TRY BACK FOR MEDS.
--- NOTE | 2018-10-07 07:00 | NUR ---
RECEIVED BEDSDIE REPORT ON PATIENT AND ASSUMED CARE. VSS. PATIENT AWAKE ON VENT, FOLLOWING COMMANDS. FENTANYL GTT AT 200 MCG/HR, PRECEDEX IS CURRENTLY NOT INFUSING DO TO BEING OUT AND NONE ON UNIT. PHARMACY CONTACTED. HEAD TO TOE ASSESSMENT COMPLETED. PATIENT TURNED AND REPOSITIONED IN BED.
--- NOTE | 2018-10-07 08:05 | NUR ---
DR. RIVERA AT ROOM UPDATED AND EXAMINES PATIENT. VSS. TO PLACE ON PRESSURE SUPPORT TRAIL TO WEAN FROM VENT SUPPORT, FENTANYL HELD AND TUBE FEEDING HELD FOR POSSIBLE EXTUBATION.
--- NOTE | 2018-10-07 09:15 | NUR ---
PATIENT TURNED AND RESPOSITIONED IN BED. VSS. MEDS GIVEN PER JUL.
--- NOTE | 2018-10-07 11:00 | NUR ---
REASSESSMENT COMPLETED. VSS. TURNED AND REPOSITIONED IN BED.
--- NOTE | 2018-10-07 12:21 | NUR ---
DR. RIVERA AT ROOM UPDATED, ADVISED TO DECREASE PRESSURE SUPPORT TO 10/7 AND TO GET AN ABG IN 30 MINUTES. RT ADVISED.
--- NOTE | 2018-10-07 13:01 | NUR ---
PATIENT TURNED AND REPOSITIONED IN BED. PRECEDEX GTT WEANING DECREASED TO 0.7 MCG/KG/HR.
--- NOTE | 2018-10-07 13:16 | NUR ---
RT AT ROOM FOR NIF TEST AND ABGS. PRECEDEX TURNED OFF PENDING POSSIBLE EXTUBATION.
--- NOTE | 2018-10-07 13:46 | NUR ---
SPOKE TO DR. RIVERA AND UPDATED ON ABG PH 7.402; PCO2 64.1; PO2 102 HC03 39.3; BE 12.3 SPO3 97.6 NIF -50 RSVI 24, ADVISED TO EXTUBATE TO BIPAP 25/11 WITH FIO2 40%. D/C SEDATION ON JUL. RT ADVISED AND PATIENT EXTUBATED AT 1348.
--- NOTE | 2018-10-07 14:02 | NUR ---
PATIENT ON BIPAP 15/7 AT 40% FIO2, VSS. TOLERATING WELL.
--- NOTE | 2018-10-07 14:27 | NUR ---
FIO2 INCREASED FROM 40% TO 50% PER RT DUE TO SPO2 89%.
--- NOTE | 2018-10-07 15:07 | NUR ---
REASSESSMENT COMPLETED. PATIENT ON BIPAP FIO2 50% SPO2 92%, VSS. RESTING QUIETLY.
--- NOTE | 2018-10-07 17:00 | NUR ---
PATIENT WITH LARGE SOFT BROWN BM, CLEANED AND COMPLETE BATH GIVEN, LINEN CHANGED. PATIENT DESAT TO UPPER 70%, FIO2 INCREASED TO 100% ADN THEN DECREASED TO 80% AFTER RECOVERED, SPO2 - 93%, HR - 110. TURNED AND REPOSITIONED IN BED. RT TO BEDSIDE.
--- NOTE | 2018-10-07 17:28 | NUR ---
SPOKE TO DR. RIVERA REGARDING PATIENTS DESAT AND CURRENTLY ON 80% WITH SPO2 - 92% AND HR IN 110-115. ADVISED TO WATCH AND MAY NEED TO REINTUBATE IF FURTHER DECOMPENSATION. STATED HE WOULD USE A 8.0-8.5 ETT IF REINTUBATION IS REQUIRED. STATED TO HOLD ALL PO MEDS AT CURRENT TIME.
--- NOTE | 2018-10-07 19:05 | NUR ---
Received patient resting in bed with eyes open, assessment completed per flowsheet. Patient answers appropriately/follows instructions. S1/S2 noted Sinus Tach on telemetry with HR 113, rythmic and regular. Breathing is shallow/irregular on BiPAP 80% with O2 sat 93%, lung sounds clear bilateral upper with diminished lower. Abdomen is obese/soft with bowel sounds hypoactive x4, non-tender. Collado secured, clear yellow urine noted. Upper pulses palpable with lower pulses weak, cap refill < 3 sec with skin warm/dry. Denies pain or other needs at this time, see flowsheet for details. All VSS and will continue to monitor.
--- NOTE | 2018-10-07 20:40 | NUR ---
Spoke to Dr Juarez via phone with new orders received, BiPAP changed to 18/8 by RT and BP meds held.
--- NOTE | 2018-10-07 23:00 | NUR ---
Patient laying in bed with eyes closed, no s/s of distress at this time. S1/S2 noted NSR on telemetry with HR 93, rythmic and regular. Breathing is shallow/unlabored on BiPAP 80% with O2 sat 95%, lung sounds clear bilateral upper with diminished mid and lower. All pulses palpable with cap refill < 3 sec, skin warm/dry. Repositioned for comfort, no further needs at this time. See flowsheet for details, all VSS and will continue to monitor.
[2018-10-08] VITALS (25 sets, daily range): BP systolic 80–113; BP diastolic 41–95
--- NOTE | 2018-10-08 01:00 | NUR ---
Patient resting in bed on BiPAP 80% with O2 sat 95%, no s/s of distress at this time. Repositioned for comfort, no further needs and will continue to monitor.
--- NOTE | 2018-10-08 02:58 | NUR ---
Reassessment completed per flowsheet, no changes noted from previous assessment. S1/S2 noted NSR on telemetry with HR 95, rythmic and regular. Braething is shallow/unlabored on BiPAP 80% with O2 sat 94%, lung sounds clear bilateral upper with diminished mid and lower. Upper pulses palpable with lower pulses weak, cap refill < 3 sec with skin warm/dry. Repositioned for comfort, see flowsheet for details. All VSS and will continue to monitor.
--- NOTE | 2018-10-08 04:00 | NUR ---
Bed Bath given, partial linen change performed. Patient tolerated, no s/s of distress and will continue to monitor.
[2018-10-08 04:43] LABS: BASOPHILS 0.2 % (0-2); EOSINOPHILS 2.3 % (0-7); HEMOGLOBIN 10.9 g/dL (12-16); IMMATURE GRANULOCYTES 0.3 % (0-5); LYMPHOCYTES 7.8 % (15-50); MCH 23.4 pg (26.0-34.0); MCHC 27.3 g/dL (31.0-37.0); MEAN PLATELET VOLUME 9.4 fL (7.4-10.4); MONOCYTES 7.5 % (2-11); NEUTROPHILS 81.9 % (40-80); PLATELET COUNT 239 10x3/uL (130-400); RBC 4.65 10x6/uL (4.00-5.40); RDW 17.3 % (11.5-14.5)
--- NOTE | 2018-10-08 05:00 | NUR ---
Patient resting on BiPAP 80% with O2 sat 94%, repositioned for comfort. All VSS and will continue to monitor.
[2018-10-08 05:08] LABS: ALBUMIN 2.2 g/dL (3.4-5.0); ANION GAP 6.8 mmol/L (8-16); BILIRUBIN - TOTAL 0.45 mg/dL (0.2-1.3); CALCIUM 8.6 mg/dL (8.5-10.1); CREATININE - SERUM 1.8 mg/dL (0.6-1.3); POTASSIUM - SERUM 4.8 mmol/L (3.5-5.1); PROTEIN - SERUM 7.7 g/dL (6.4-8.2)
--- NOTE | 2018-10-08 07:15 | NUR ---
REPORT RECEIVED. 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 PT IS ON BIPAP AT 80%. PT HAS LEFT IJ. SHE HAS A PATIÑO. HEAD TO TOE ASSESSMENT COMPLETED. SEVERAL WOUNDS NOTED AND DOCUMENTED. LUNGS ARE COARSE. VSS. WILL CONTINUE TO MONITOR.
--- NOTE | 2018-10-08 09:30 | NUR ---
PT HAD INCONTINENT BOWEL MOVEMENT. PT GIVEN BED BATH. USED CHG. PT REPOSITIONED.
--- NOTE | 2018-10-08 09:55 | NUR ---
NUTRITION F/U PT REMAINS IN ISOLATION. EXTUBATED. TUBE FEEDS DC'D. WILL PROVIDE DIET WHEN ORDERED, MONITOR PT PROGRESS. RD FOLLOWING
--- NOTE | 2018-10-08 11:45 | NUR ---
BLOOD GAS BEING DRAWN FOR DR RIVERA.
--- NOTE | 2018-10-08 12:02 | NUR ---
DR RIVERA IN WITH PT.
--- NOTE | 2018-10-08 13:32 | NUR ---
PT RESTING QUIETLY. BIPAP HAS BEEN CHANGED TO 60% FIO2. OTHER SETTINGS CHANGED PER RT. VSS. WILL CONTINUE TO MONITOR.
--- NOTE | 2018-10-08 15:46 | NUR ---
DRESSINGS TO RIGHT HEEL AND LEFT FOOT CHANGED. WET TO DRY DRESSINGS DONE. PT TOLERATED WELL. REPOSITIONED IN BED. VSS.
--- NOTE | 2018-10-08 17:38 | NUR ---
VSS. ON BIPAP. MASK FIXED PER RT. 60%. BS 143. REQUIRED NO COVERAGE. REPOSITIONED.
--- NOTE | 2018-10-08 19:15 | NUR ---
Received patient resting in bed on BiPAP with eyes closed, assessment completed per flowsheet. Patient speech garbled, answers/nods appropriately and follows instructions. S1/S2 noted NSR on telemetry with HR 94, rythmic and regular. Breathing is shallow on BiPAP 60% with O2 sat 96%, crackles noted bilateral upper and mid with diminished lower. Abdomen is obese/soft with bowel sounds hypoactive x4, non-tender. Collado secured, clear yellow urine noted. Swelling/weakness noted all extremties, all pulses palpable with cap refill < 3 sec. Denies pain or other needs, repositioned for comfort. See flowsheet for details, all VSS and will continue to monitor.
--- NOTE | 2018-10-08 19:52 | MORECARE ---
CASE MANAGEMENT DISCHARGE SUMMARY PATIENT: DOT MIXON UNIT: [id number] ADM DATE: 09/30/18 AGE: 43 : 75 SEX: F ROOM/BED: D.2310 AUTHOR: RITESH LLOYD PHYSICIAN: REFERRING PHYSICIAN: YA FINLEY MD DATE OF SERVICE: 10/08/18 Discharge Plan Patient Name: DOT MIXON Facility: [facility]:[place] : 1975 Planned Disposition: Anticipated Discharge Date: Discharge Date: Expected LOS: Initial Reviewer: [email or web address] Initial Review Date: 09/30/2018 Generated: 10/08/18 8:52 pm Comments DCP- Discharge Planning Updated by [email or web address]: Aundrea Noel on 10/08/18 6:[address] CM attempted to meet with patient for discharge planning /needs. Patient is currently on BiPap and wasn't able to speak to CM. No family available at this time. CM will continue to follow and assist as needed with discharge planning / needs. DCP- Discharge Planning Updated by [email or web address]: Aundrea Noel on 10/01/18 12:[address] CM attempted to meet with patient for discharge planning /needs. Patient is currently sedated on vent no family available at this time. CM will continue to follow and assist as needed with discharge planning / needs. Last DP export: 10/01/18 12:50 p Patient Name: DOT MIXON Page [id number] at 1952 All edits/amendments must be made on the electronic document DICTATION DATE: 10/08/181951 SECURITIES CLERK: FLIP 10/08/181951 RPT#: [id number] DC DATE: STATUS: ADM IN [facility] [address] [place] [address] END OF REPORT
--- NOTE | 2018-10-08 21:00 | NUR ---
No visitors at this time, explained medication/BiPAP with patient stated understanding. Repositioned for comfort, no further needs and will continue to monitor.
--- NOTE | 2018-10-08 23:10 | NUR ---
Reassessment completed per flowsheet, no changes from previous assessment. Patient answers/nods appropriately, follows instructions. S1/S2 noted NSR on telemetry with HR 98, rythmic and regular. Breathing is shallow on BiPAP 60% with O2 sat 92%, crackles noted bilateral upper and mid with diminished lower. All pulses palpable with cap refill < 3 sec, skin warm/dry. Denies pain or other needs, repositioned for comfort. See flowsheet for details, all VSS and will continue to monitor.
[2018-10-09] VITALS (24 sets, daily range): BP systolic 92–144; BP diastolic 53–81
--- NOTE | 2018-10-09 01:00 | NUR ---
Patient sleeping in bed on BiPAP 60% with O2 sat 94%, no s/s of distress at this time. All VSS and will continue to monitor.
--- NOTE | 2018-10-09 02:45 | NUR ---
Reassessment completed per flowsheet, no changes from previous assessment. S1/S2 noted Sinus Tach on telemetry with HR 101, rythmic and regular. Breathing is shallow on BiPAP 60% with O2 sat 94%, crackles noted bilateral upper and mid with diminished lower. All pulses palpable wtih cap refill < 3 sec, skin warm/dry. Repositioned for comfort, denies pain or other needs at this time. See flowsheet for details, all VSS and will continue to monitor.
--- NOTE | 2018-10-09 04:40 | NUR ---
Partial bed bath/linen change performed, CVL dressing changed per protocol. Repositioned for comfort, no further needs and will continue to monitor.
[2018-10-09 05:44] LABS: BASOPHILS 0.3 % (0-2); EOSINOPHILS 4.6 % (0-7); HEMATOCRIT 35.3 % (36.0-48.0); IMMATURE GRANULOCYTES 0.3 % (0-5); LYMPHOCYTES 8.5 % (15-50); MCH 23.8 pg (26.0-34.0); MCHC 28.3 g/dL (31.0-37.0); NEUTROPHILS 79.3 % (40-80); RBC 4.21 10x6/uL (4.00-5.40); RDW 17.1 % (11.5-14.5); WBC 11.8 10x3/uL (4.8-10.8)
[2018-10-09 05:49] LABS: MCV 83.8 fL (80.0-100.0); PLATELET COUNT 182 10x3/uL (130-400)
[2018-10-09 06:22] LABS: ALBUMIN 2.1 g/dL (3.4-5.0); ANION GAP 6.9 mmol/L (8-16); BILIRUBIN - TOTAL 0.36 mg/dL (0.2-1.3); CALCIUM 8.5 mg/dL (8.5-10.1); CARBON DIOXIDE 39.7 mmol/L (21.0-32.0); CREATININE - SERUM 2.2 mg/dL (0.6-1.3); POTASSIUM - SERUM 4.6 mmol/L (3.5-5.1)
--- NOTE | 2018-10-09 07:00 | NUR ---
SHIFT ASSESSMENT COMPLETED. PT CARE ASSUMED, MONITORS ON AND WORKING, VITALS STABLE, NO SIGNS/SYMPTOMS OF PAIN OR DISCOMFORT NOTED. PT ON BIPAP, AWAKE AND ALERT, SEE FLOW SHEET FOR FURTHER DETAILS. CALL LIGHT WITHIN REACH, WILL CONTINUE TO OBSERVE.
--- NOTE | 2018-10-09 09:00 | NUR ---
PT ON HIGH FLOW NC AND TOLERATING WELL. NO SIGNS/SYMPTOMS OF PAIN OR DISCOMFORT NOTED. WILL CONTINUE TO OBSERVE.
--- NOTE | 2018-10-09 09:01 | NUR ---
NUTRITION F/U PT REMAINS ON BIPAP. NO CURRENT DIET ORDER. WILL CONTINUE TO MONITOR PT PROGRESS, PROVIDE DIET WHEN ADVANCED. RD FOLLOWING
--- NOTE | 2018-10-09 11:00 | NUR ---
NO CHANGES, PT CHANGED TO ROOM 2303 TO CLEAN OTHER SIDE OF UNIT. MONITORS ON AND WORKING, VITALS STABLE, NO SIGNS/SYMPTOMS OF PAIN OR DISCOMFORT NOTED. SEE FLOW SHEET FOR FURTHER DETAILS. WILL CONTINUE TO OBSERVE.
--- NOTE | 2018-10-09 13:00 | NUR ---
PT TOLERATING HIGH FLOW NC WELL, NO SIGNS/SYMPTOMS OF PAIN OR DISCOMFORT NOTED. PT AWAKE AND ALERT, CALL LIGHT WITHIN REACH, WILL CONTINUE TO OBSERVE.
--- NOTE | 2018-10-09 15:00 | NUR ---
NO CHNAGES SEE FLOW SHEET FOR FURTHER DETAILS, CALL LIGHT WITHIN REACH, WILL CONTINUE TO OBSERVE.
--- NOTE | 2018-10-09 16:49 | MORECARE ---
CASE MANAGEMENT DISCHARGE SUMMARY PATIENT: DOT MIXON UNIT: [id number] ADM DATE: 09/30/18 AGE: 43 : 75 SEX: F ROOM/BED: D.2303 AUTHOR: RITESH LLOYD PHYSICIAN: REFERRING PHYSICIAN: YA FINLEY MD DATE OF SERVICE: 10/09/18 Discharge Plan Patient Name: DOT MIXON Facility: [facility]:[place] : 1975 Planned Disposition: Anticipated Discharge Date: Discharge Date: Expected LOS: Initial Reviewer: [email or web address] Initial Review Date: 10/09/2018 Generated: 10/09/18 5:49 pm DCP- Discharge Planning Updated by [email or web address]: Aundrea Noel on 10/08/18 6:[address] CM attempted to meet with patient for discharge planning /needs. Patient is currently on BiPap and wasn't able to speak to CM. No family available at this time. CM will continue to follow and assist as needed with discharge planning / needs. DCP- Discharge Planning Updated by [email or web address]: Aundrea Noel on 10/01/18 12:[address] CM attempted to meet with patient for discharge planning /needs. Patient is currently sedated on vent no family available at this time. CM will continue to follow and assist as needed with discharge planning / needs. Last DP export: 10/08/18 6:52 p Patient Name: DOT MIXON Page [id number] at 1649 All edits/amendments must be made on the electronic document DICTATION DATE: 10/09/181647 VISION CARE ASSOCIATE: FLIP 10/09/181647 RPT#: [id number] DC DATE: STATUS: ADM IN [facility] [address] [place] [address] END OF REPORT
--- NOTE | 2018-10-09 16:58 | MORECARE ---
CASE MANAGEMENT DISCHARGE SUMMARY PATIENT: DOT MIXON UNIT: [id number] ADM DATE: 09/30/18 AGE: 43 : 75 SEX: F ROOM/BED: D.2303 AUTHOR: PREMA,DOC PHYSICIAN: REFERRING PHYSICIAN: YA FINLEY MD DATE OF SERVICE: 10/09/18 Discharge Plan Patient Name: DOT MIXON Facility: [facility]:[place] : 1975 Planned Disposition: Anticipated Discharge Date: Discharge Date: Expected LOS: Initial Reviewer: [email or web address] Initial Review Date: 10/09/2018 Generated: 10/09/18 5:58 pm DCP- Discharge Planning Updated by [email or web address]: Aundrea Noel on 10/08/18 6:[address] CM attempted to meet with patient for discharge planning /needs. Patient is currently on BiPap and wasn't able to speak to CM. No family available at this time. CM will continue to follow and assist as needed with discharge planning / needs. DCP- Discharge Planning Updated by [id number]: Aundrea Noel on 10/01/18 12:[address] CM attempted to meet with patient for discharge planning /needs. Patient is currently sedated on vent no family available at this time. CM will continue to follow and assist as needed with discharge planning / needs. DCPIA - Discharge Planning Initial Assessment Updated by [id number]: Aundrea Noel on 10/09/18 4:55 pm * Is the patient Alert and Oriented? Yes * How many steps to enter\exit or inside your home? * PCP Lauren with [facility] * Pharmacy [facility] [place] * Preadmission Environment Home with Family * ADLs Partial Dependent * Partial ADLs (Assistance needed) Ambulation Bathing Dressing Eating Medication Management Toileting Transfers * Other Equipment Electric Lift chair, BSC, Trilogy ([facility]) * List name and contact numbers for known caregivers / representatives who currently or will assist patient after discharge: Raquel celestin? - [phone] * Verbal permission to speak to the caregivers and representatives has been obtained from the patient. Yes * Community resources currently utilized Home Health * Please name any agencies selected above. [facility] * Additional services required to return to the preadmission environment? No * Can the patient safely return to the preadmission environment? Yes * Has this patient been hospitalized within the prior 30 days at any hospital? No Last DP export: 10/09/18 3:49 p Patient Name: DOT MIXON Page 11914 at 1658 All edits/amendments must be made on the electronic document DICTATION DATE: 10/09/181656 PROGRESSIVE CARE UNIT REGISTERED NURSE: FLIP 10/09/181656 RPT#: [id number] DC DATE: STATUS: ADM IN [facility] [address] [place] [address] END OF REPORT
--- NOTE | 2018-10-09 17:00 | NUR ---
PT TURNED AND REPOSITIONED FOR COMFORT, NO SIGNS/SYMPTOMS OF PAIN OR DISCOMFORT NOTED AT THIS TIME, WILL CONTINUE TO OBSERVE.
--- NOTE | 2018-10-09 17:17 | MORECARE ---
CASE MANAGEMENT DISCHARGE SUMMARY PATIENT: DOT MIXON UNIT: [id number] ADM DATE: 09/30/18 AGE: 43 : 75 SEX: F ROOM/BED: D.2303 AUTHOR: RITESH LLOYD PHYSICIAN: REFERRING PHYSICIAN: YA RUBALCAVA MD DATE OF SERVICE: 10/09/18 Discharge Plan Patient Name: DOT MIXON Facility: [facility]:[place] : 1975 Planned Disposition: Anticipated Discharge Date: Discharge Date: Expected LOS: Initial Reviewer: [email or web address] Initial Review Date: 10/09/2018 Generated: 10/09/18 6:17 pm Comments DCP- Discharge Planning Updated by [email or web address]: Aundrea Noel on 10/09/18 4:[address] Patient Name: DOT MIXON Admission Status: Urgent Accout number: [id number] Admission Date: 09-30-2018 : 1975 Admission Diagnosis:ACUTE KIDNEY FAILURE, UNSPECIFIED Attending: Ya Rubalcava Current LOS: 9 Anticipated DC Date: Planned Disposition: Primary Insurance: [place] Discharge Planning Comments: CM met with patient at bedside. She states that she lives [address] [place] [address] . She lives with her harsha García Flinton [phone]. She states that she does have home health with [facility] and her fianc? is her caregiver. She states that she has an Electric chair, BSC and trilogy with [facility]. Patient states that she needs a shower chair, walker and suction cup grab bars for shower. Patient would like to go home upon discharge and resume care with [facility]. KATY form signed for [facility]. Patient is not a candidate for LTACH due Medicaid being a payer source and not covered under Medicaid. CM will continue to follow and assist as needed with discharge planning / needs. Automatic Pilot Mechanic: Aundrea Noel DCP- Discharge Planning Updated by [email or web address]: Aundrea Noel on 10/08/18 6:[address] CM attempted to meet with patient for discharge planning /needs. Patient is currently on BiPap and wasn't able to speak to CM. No family available at this time. CM will continue to follow and assist as needed with discharge planning / needs. DCP- Discharge Planning Updated by [email or web address]: Aundrea Noel on 10/01/18 12:[address] CM attempted to meet with patient for discharge planning /needs. Patient is currently sedated on vent no family available at this time. CM will continue to follow and assist as needed with discharge planning / needs. DCPIA - Discharge Planning Initial Assessment Updated by [email or web address]: Aundrea Noel on 10/09/18 4:55 pm * Is the patient Alert and Oriented? Yes * How many steps to enter\exit or inside your home? * PCP Lauren with [facility] * Pharmacy [facility] [place] * Preadmission Environment Home with Family * ADLs Partial Dependent * Partial ADLs (Assistance needed) Ambulation Bathing Dressing Eating Medication Management Toileting Transfers * Other Equipment Electric Lift chair, BSC, Trilogy ([facility]) * List name and contact numbers for known caregivers / representatives who currently or will assist patient after discharge: Raquel celestin? - [phone] * Verbal permission to speak to the caregivers and representatives has been obtained from the patient. Yes * Community resources currently utilized Home Health * Please name any agencies selected above. [facility] * Additional services required to return to the preadmission environment? No * Can the patient safely return to the preadmission environment? Yes * Has this patient been hospitalized within the prior 30 days at any hospital? No Last DP export: 10/09/18 3:58 p Patient Name: DOT MIXON Page [id number] at 1717 All edits/amendments must be made on the electronic document DICTATION DATE: 10/09/181715 MANAGER TRAINEE: FLIP 10/09/181715 RPT#: [id number] DC DATE: STATUS: ADM IN [facility] [address] [place] [address] END OF REPORT
--- NOTE | 2018-10-09 19:22 | NUR ---
PT LAYING IN BED WITH BIPAP ON. AAOX4. ANSWERS ALL QUESTIONS. DENIES ANY NEEDS AT THIS TIME. LEFT IJ NOTED. ASSESSMENT COMPLETE. SEE FLOWSHEET FOR FULL H2T DETAILS. F/C DRAINING TO GRAVITY. BED ROTATION ON. VSS. SAFETY MEASURES IN PLACE. CBIR.
--- NOTE | 2018-10-09 21:25 | NUR ---
HS MEDS GIVEN. TOLERATED WELL. PT ASKING FOR A SHOWER AND A BEDSIDE COMMODE. EXPLAINED TO PT HOW CRITICAL HER CONDITION IS. VERBALIZED UNDERSTANDING. VSS.
--- NOTE | 2018-10-09 23:09 | NUR ---
REASSESSMET COMPLETE. NO CHANGES NOTED IN PT CONDITION. VSS. REMAINS NPO. BED TURN ASSIST ON, SAFETY MEASURES IN PLACE. CBIR.
[2018-10-10] VITALS (22 sets, daily range): BP systolic 17–147; BP diastolic 59–88
[2018-10-10 04:59] LABS: BASOPHILS 0.2 % (0-2); EOSINOPHILS 3.5 % (0-7); HEMOGLOBIN 9.7 g/dL (12-16); IMMATURE GRANULOCYTES 0.6 % (0-5); LYMPHOCYTES 9.7 % (15-50); MCH 23.2 pg (26.0-34.0); MCHC 27.7 g/dL (31.0-37.0); MCV 83.7 fL (80.0-100.0); MEAN PLATELET VOLUME 9.9 fL (7.4-10.4); MONOCYTES 6.8 % (2-11); NEUTROPHILS 79.2 % (40-80); PLATELET COUNT 174 10x3/uL (130-400); RBC 4.18 10x6/uL (4.00-5.40); RDW 16.8 % (11.5-14.5); WBC 9.5 10x3/uL (4.8-10.8)
[2018-10-10 05:09] LABS: ANION GAP 8.3 mmol/L (8-16); CALCIUM 8.4 mg/dL (8.5-10.1); CARBON DIOXIDE 39.3 mmol/L (21.0-32.0); CREATININE - SERUM 2.2 mg/dL (0.6-1.3); PHOSPHOROUS 5.4 mg/dL (2.5-4.9); POTASSIUM - SERUM 4.6 mmol/L (3.5-5.1)
--- NOTE | 2018-10-10 07:00 | NUR ---
RECEIVED REPORT FROM BHARATH GALLO. PT RESTING STABLE IN BED AWAKE AND ALERT ON BIPAP TO ORDERED SETTINGS.
--- NOTE | 2018-10-10 07:41 | NUR ---
PATIENT GIVEN FULL HIBBA CLEANSE BATH. ALL LINENS CHANGED INCLUDING GOWN. ALSO REPLACED PATIÑO CATHETER SINCE IT FELL OUT DURING BATH.
--- NOTE | 2018-10-10 07:41 | NUR ---
UPDATE GIVEN TO DR. RIVERA, NEW ORDERS RECIEVED
--- NOTE | 2018-10-10 09:00 | NUR ---
PT COMPLAINS OF PAIN. DR. RIVERA WILL NOT ALLOW ANY PAIN MEDICATION IT MAY DEPRESS RESPIRATION
--- NOTE | 2018-10-10 11:45 | NUR ---
PLACED PATIENT ON HIGH FLOW NC AT 7 LITERS. O2 SATS 89%-92%. DR. RIVERA STATED JUST DONT LET IT DROP BELOW 88%
--- NOTE | 2018-10-10 13:33 | NUR ---
ASSISTED PATIENT ONTO BED LEE.
--- NOTE | 2018-10-10 15:00 | NUR ---
PT RESTING IN BED ALERT AND ORIENTED DOING WELL ON NASAL CANULA AT 7 LITERS/MIN. STILL COMPLAINS OF PAIN. VSS
[2018-10-10 15:05] LABS: APPEARANCE CLEAR (CLEAR); COLOR STRAW (YELLOW); GLUCOSE NEGATIVE (NEGATIVE); KETONE MODERATE mg/dL (NEGATIVE); NITRITE NEGATIVE (NEGATIVE); PROTEIN 2+ mg/dL (NEGATIVE); SPECIFIC GRAVITY 1.015 (1.005-1.020)
[2018-10-10 15:06] LABS: BILIRUBIN NEGATIVE (NEGATIVE); UROBILINOGEN NORMAL (NORMAL)
[2018-10-10 15:12] LABS: WHITE CELLS - URINE 0-5 /hpf (0-5)
[2018-10-10 15:13] LABS: AMORPHOUS SEDIMENT <1+ /lpf (NONE SEEN); BACTERIA MODERATE /hpf (NONE SEEN); EPITHELIAL CELLS 0-5 /hpf (0-5)
--- NOTE | 2018-10-10 17:00 | NUR ---
TURNED PATIENT TO RIGHT SIDE.
--- NOTE | 2018-10-10 19:46 | NUR ---
BEDSIDE SHIFT REPORT GIVEN BY DEPARTING RN. PT LAYING IN BED WITH EYES CLOSED. REQUESTS JELLO AND APPLESAUCE. ACCOMMODATED. AAOX4. LEFT IJ NOTED AND INFUSING MD FIERRODERED MEDS. VSS. NO DISTRESS NOTED. ASSESSMENT COMPLETE. SEE FLOWSHEET FOR DETAILS. SAFETY MEASURES IN PLACE. CBIR. BED ROTATION ON.
--- NOTE | 2018-10-10 21:55 | NUR ---
HS MEDS GIVEN. TOLERATED WELL.
--- NOTE | 2018-10-10 23:11 | NUR ---
REASSESSMENT COMPLETE. NO CHANGES NOTED IN PT CONDITION. VSS. DENIES ANY NEEDS. NO SS OF DISTRESS. SAFETY MEASURES IN PLACE. BED ROTATION ON. CBIR.
[2018-10-11] VITALS (26 sets, daily range): BP systolic 80–198; BP diastolic 60–843
--- NOTE | 2018-10-11 | NUR ---
MONITOR ALARMING O2 82% SOLID WAVE FORM. UPON ENTERING ROOM, PT HIGH FLOW NASAL CANNULA OFF. BIPAP PLACED. TOLERATING WELL. O2 95%.
--- NOTE | 2018-10-11 02:55 | NUR ---
REASSESSMENT COMPLETE. NO NEW CHANGES NOTED IN PT CONDITION. BED ROTATION ON. VSS. ASLEEP SHOWING NO SS OF DISTRESS. SAFETY MEASURES IN PLACE. CBIR.
[2018-10-11 05:01] LABS: BASOPHILS 0.3 % (0-2); EOSINOPHILS 4.1 % (0-7); HEMATOCRIT 34.6 % (36.0-48.0); IMMATURE GRANULOCYTES 0.5 % (0-5); LYMPHOCYTES 11.9 % (15-50); MCH 24.3 pg (26.0-34.0); MCHC 28.9 g/dL (31.0-37.0); MCV 84.2 fL (80.0-100.0); MEAN PLATELET VOLUME 9.5 fL (7.4-10.4); MONOCYTES 10.7 % (2-11); NEUTROPHILS 72.5 % (40-80); PLATELET COUNT 182 10x3/uL (130-400); RBC 4.11 10x6/uL (4.00-5.40); WBC 7.5 10x3/uL (4.8-10.8)
[2018-10-11 05:18] LABS: ANION GAP 5.9 mmol/L (8-16); CALCIUM 8.6 mg/dL (8.5-10.1); CREATININE - SERUM 2.2 mg/dL (0.6-1.3); PHOSPHOROUS 4.8 mg/dL (2.5-4.9); POTASSIUM - SERUM 4.5 mmol/L (3.5-5.1)
[2018-10-11 05:22] LABS: CARBON DIOXIDE 40.6 mmol/L (21.0-32.0)
--- NOTE | 2018-10-11 07:47 | NUR ---
C/O SOB, PLACED ON BIPAP
--- NOTE | 2018-10-11 09:44 | NUR ---
NUTRITION F/U CHART REVIEWED. PT ON PUREED DIET WITH HONEY THICK LIQUIDS. PER NURSING REPORT PT WITH ONLY APPLESAUCE THIS AM 2/2 BIPAP. WILL CONTINUE TO PROVIDE DIET, MONITOR PT PROGRESS. RD FOLLOWING
--- NOTE | 2018-10-11 11:27 | EC ---
PATIENT:DOT MIXON DATE OF SERVICE: 09/30/18 SEX: F MEDICAL RECORD: [id number] DATE OF : [birth year] LOCATION:D[facility] D.230 AGE OF PATIENT: 43 ADMISSION DATE: 09/30/18 REFERRING PHYSICIAN: INTERPRETING PHYSICIAN: ZANDRA ADDISON MD ECHOCARDIOGRAM REPORT ECHO CHARGES 4 ECHO COMPLETE Date: 10/01/18 CLINICAL DIAGNOSIS: SOB ECHOCARDIOGRAPHIC MEASUREMENTS (adult normal given) AC root (d.<3.7cm) 3.2 cm LV Septum d (<1.2 cm> 1.6 cm Valve Excursion 2.0 cm LV Septum (systole) 2.3 cm Left Atria (s.<4.0cm> 5.1 cm LVPW d(<1.2cm) 1.4 cm RV (d.<2.3cm) 3.6 cm LVPW (sytole) 1.9 cm LV diastole(<5.6CM) 4.9 cm MV E-F(>70mm/sec) cm LV systole 2.8 cm LVOT Diameter 2.2 cm MV exc.(>10mm) cm Est.ejection fraction (50-75%) % DOPPLER: LVIT cm/sec A 65.0 cm/sec E 101 cm/sec LA cm/sec RVSP 50.1 mmHg LVOT 81.0 cm/sec AOP1/2T m/s Asc. Ao 116 cm/sec RVOT 76.0 cm/sec RA cm/sec PA 100 cm/sec AV Gradient Peak 5.4 mmHg AV Mean 2.8 mmHg AV Area 2.5 cm MV Gradient Peak 4.2 mmHg MV Mean 1.6 mmHg MV Area cm COMMENTS: Pharmacovigilance Specialist: Carlo QUINNOE Lead Sewage Plant Operator: 1 Dr. Addison TAPE# PACS Pericardial Effusion N DATE OF SERVICE: 10/01/2018 PROCEDURE: Echocardiogram. FINDINGS: 1. Left ventricular chamber size is within normal limits. Left ventricular systolic function is normal. Overall ejection fraction estimated at 50%. 2. Left atrium is enlarged at 5.1 cm. Right atrium and right ventricular chamber sizes are as well mildly dilated. 3. Valvular structures have normal structure and motion. ECHOCARDIOGRAM REPORT [id number] DOT MIXON 4. Doppler interrogation reveals mild tricuspid regurgitation, no other valvular insufficiency or stenosis. Pulmonary systolic pressure is elevated estimated at 50 mmHg. 5. No evidence of pericardial effusion or left ventricular thrombus. TRANSINT:[id number] Voice Confirmation ID: [id number] DOCUMENT ID: [id number] ZANDRA ADDISON MD at 1127 CC: [id number] DICTATION DATE: 10/02/18 1021 PAN DEVULCANIZER HELPER: 10/02/18 1107 ADM IN [place] [id number] [place] [id number]
--- NOTE | 2018-10-11 14:17 | NUR ---
PER DR RIVERA, TAKE PT OFF BIPAP AND PLACE BACK ON HS FOR SLEEP
--- NOTE | 2018-10-11 15:42 | MORECARE ---
CASE MANAGEMENT DISCHARGE SUMMARY PATIENT: DOT MIXON UNIT: [id number] ADM DATE: 09/30/18 AGE: 43 : [birth year] SEX: F ROOM/BED: D.2303 AUTHOR: RITESH LLOYD PHYSICIAN: REFERRING PHYSICIAN: YA RUBALCAVA MD DATE OF SERVICE: 10/11/18 Discharge Plan Patient Name: DOT MIXON Facility: [facility]:[place] : 1975 Planned Disposition: Anticipated Discharge Date: Discharge Date: Expected LOS: Initial Reviewer: [email or web address] Initial Review Date: 10/09/2018 Generated: 10/11/18 4:42 pm Comments DCP- Discharge Planning Updated by [email or web address]: Aundrea Noel on 10/11/18 2:[address] CM spoke with regarding LTACH placement. Patient is Medicaid only therefore patient is not an LTACH candidate. Dr. Juarez states he would like patient transferred back to [facility] once patient is more stable. CM will continue to follow and assist as needed with discharge planning / needs. DCP- Discharge Planning Updated by [email or web address]: Aundrea Noel on 10/09/18 4:[address] Patient Name: DOT MIXON Admission Status: Urgent Accout number: [id number] Admission Date: 09-30-2018 : 1975 Admission Diagnosis:ACUTE KIDNEY FAILURE, UNSPECIFIED Attending: Ya Rubalcava Current LOS: 9 Anticipated DC Date: Planned Disposition: Primary Insurance: [place] Discharge Planning Comments: CM met with patient at bedside. She states that she lives [address] [place] [address] . She lives with her fiancRosy Schofield [phone]. She states that she does have home health with [facility] and her fianc? is her caregiver. She states that she has an Electric chair, BSC [facility]. Patient states that she needs a shower chair, walker and suction cup grab bars for shower. Patient would like to go home upon discharge and resume care with [facility]. KATY form signed for [facility]. Patient is not a candidate for LTACH due Medicaid being a payer source and not covered under Medicaid. CM will continue to follow and assist as needed with discharge planning / needs. Golf Coach: Aundrea Noel DCP- Discharge Planning Updated by [id number]: Aundrea Noel on 10/08/18 6:[address] CM attempted to meet with patient for discharge planning /needs. Patient is currently on BiPap and wasn't able to speak to CM. No family available at this time. CM will continue to follow and assist as needed with discharge planning / needs. DCP- Discharge Planning Updated by [id number]: Aundrea Noel on 10/01/18 12:[address] CM attempted to meet with patient for discharge planning /needs. Patient is currently sedated on vent no family available at this time. CM will continue to follow and assist as needed with discharge planning / needs. DCPIA - Discharge Planning Initial Assessment Updated by [id number]: Aundrea Noel on 10/09/18 4:55 pm * Is the patient Alert and Oriented? Yes * How many steps to enter\exit or inside your home? * PCP Lauren with [facility] * Pharmacy [facility] * Preadmission Environment Home with Family * ADLs Partial Dependent * Partial ADLs (Assistance needed) Ambulation Bathing Dressing Eating Medication Management Toileting Transfers * Other Equipment Electric Lift chair, BSC, Trilogy ([facility]) * List name and contact numbers for known caregivers / representatives who currently or will assist patient after discharge: Raquel celestin? - [phone] * Verbal permission to speak to the caregivers and representatives has been obtained from the patient. Yes * Community resources currently utilized Home Health * Please name any agencies selected above. [facility] * Additional services required to return to the preadmission environment? No * Can the patient safely return to the preadmission environment? Yes * Has this patient been hospitalized within the prior 30 days at any hospital? No Last DP export: 10/09/18 4:17 p Patient Name: DOT MIXON Page [id number] at 1542 All edits/amendments must be made on the electronic document DICTATION DATE: 10/11/18 1541 CONTACT CENTER DIRECTOR: FLIP 10/11/18 1541 RPT#: [id number] DC DATE: STATUS: ADM IN [facility] [address] [place] [address] END OF REPORT
--- NOTE | 2018-10-11 19:00 | NUR ---
REPORT RECEIVED INITIAL ASSESSMENT COMPLETE. MORBIDLY OBESE PT SUPINE IN [facility] BED II. ALERT AND ORIENTED FOLLOWS COMMANDS ON CM WITH ALARMS ON AND AUDIBLE. BIPAP NOTED 60% WITH O2 SAT 98%. BREATH SOUNDS REL CLEAR SOME RHONCHI DIFFICULT TO AUSCULTATE DUE TO SIZE. ABD LARGE ROTUND BOWEL SOUNDS ACTIVE. PATIÑO PATENT DRAINING CLEAR YELLOW URINE TO BSD. GENERALIZED EDEMA BRUISING SCAB AND SORES GENERALIZED. PT REQUESTING BED LEE. PT UNABLE TO ASSIST WITH TURNING VERY DIFFICULT TO REPOSITION TO PLACE BEDPAN. CALL LIGHT IN REACH AND BED TURNED TO RELIEVE PRESSURE. NO DISTRESS NOTED DENIES PAIN WILL CONTINUE TO MONITOR
--- NOTE | 2018-10-11 19:20 | NUR ---
ANSWERED PTS CALL LIGHT SHE WANTS BIPAP OFF AND NEEDS BED LEE AGAIN. MODERATE BROWN SEMISOFT BM CLEANED AND PATIÑO CARE PROVIDED ALSO.
--- NOTE | 2018-10-11 19:55 | NUR ---
PTS HEART RATE UP TO 190'S UNCONTROLLED AFIB PAGED JC HEAD APN SHE ORDERED CARDIOLOGY CONSULT NO OTHER ORDERS AT THIS TIME
--- NOTE | 2018-10-11 20:00 | NUR ---
[facility] CARDIOLOGY MEDICAL CODING INSTRUCTOR INFORMED OF CONSULT AND OF HEART RHYTHM RATE CHANGE HE ORDERED CARDIZEM GTT AT 10 CC AN HOUR.
--- NOTE | 2018-10-11 20:30 | NUR ---
ANSWERED CALL LIGHT PT REQUESTING BED LEE, ONE LARGE SEMISOFT LIGHT BROWN BM PT CLEANED AND BED TURN ENGAGED
--- NOTE | 2018-10-11 21:30 | NUR ---
ANSWERED PTS CALL LIGHT REQUESTING WATER AND C/O NAUSEA INFORMED HAD TO CALL/PAGE PHYSICIAN TO GET ORDER FOR NAUSEA. BUT COULDNT DRINK WATER IF NAUSEATED AND ON BIPAP.
--- NOTE | 2018-10-11 21:33 | NUR ---
HAM HEAD APN INFORMED PT NAUSEATED. NEW ORDER SEBASTIAN NOTED.
--- NOTE | 2018-10-11 21:54 | NUR ---
MEDICATED WITH PRN MMED FOR N/V SEE EMAR
--- NOTE | 2018-10-11 22:30 | NUR ---
DENIES NAUSEA MED EFFECTIVE
--- NOTE | 2018-10-11 23:00 | NUR ---
REASSESSMENT MADE. BIPAP OFF FOR DRINK OF WATER AND THEN BACK ON. SEE FLOWSHEET. CARDIZEM GTT CONTINUES HEART RATE COMING DOWN
--- NOTE | 2018-10-11 23:20 | NUR ---
ANSWERED PTS CALL LIGHT REQUESTING WATER REMOVED BIPAP LONG ENOUGH TO BE GIVEN WATER THEN REPLACED BIPAP.
[2018-10-12] VITALS (25 sets, daily range): BP systolic 101–146; BP diastolic 53–81
--- NOTE | 2018-10-12 | NUR ---
ANSWERED PTS CALL LIGHT NEEDING BED LEE AGAIN LARGE SEMISOFT LIGHT BROWN BM COMPLETE CHG BED BATH AND PATIÑO CARE DONE
--- NOTE | 2018-10-12 01:00 | NUR ---
ANSWERED PTS CALL LIGHT NEEDS BED LEE SMALL PASTY LIGHT BROWN BM REPOSITIONED FOR COMFORT
--- NOTE | 2018-10-12 01:30 | NUR ---
BIPAP ALARM PT HAD TAKEN BIPAP OFF DROPS SATS TO 86% INFORMED TO KEEP ON NEEDED THE O2 AT THIS TIME
--- NOTE | 2018-10-12 03:00 | NUR ---
REASSESSMENT NO DISTRESS NOTED HEART RATE DOWN TO 110'S ON CARDIZEM GTT REPOSITIONED WITH BED TURN MODE CALL LIGHT IN REACH
--- NOTE | 2018-10-12 04:30 | NUR ---
ANSWERED PTS CALL LIGHT WANTS DRINK OF WATER BIPAP OFF FOR FEW MIN WATER GIVEN AND SATS DROPPED DOWN TO 80'S.
--- NOTE | 2018-10-12 06:00 | NUR ---
BIPAP ALARMING PT HAD TAKEN OFF BIPAP SATS DOWN TO 78% REPLACED BIPAP UP TO 92%
[2018-10-12 06:59] LABS: BASOPHILS 0.5 % (0-2); EOSINOPHILS 3.7 % (0-7); HEMATOCRIT 35.3 % (36.0-48.0); HEMOGLOBIN 9.7 g/dL (12-16); IMMATURE GRANULOCYTES 0.5 % (0-5); LYMPHOCYTES 11.5 % (15-50); MCH 23.3 pg (26.0-34.0); MCHC 27.5 g/dL (31.0-37.0); MCV 84.9 fL (80.0-100.0); MEAN PLATELET VOLUME 9.9 fL (7.4-10.4); MONOCYTES 8.6 % (2-11); NEUTROPHILS 75.2 % (40-80); PLATELET COUNT 211 10x3/uL (130-400); RBC 4.16 10x6/uL (4.00-5.40); WBC 8.5 10x3/uL (4.8-10.8)
[2018-10-12 07:15] LABS: ANION GAP 7.5 mmol/L (8-16); CALCIUM 8.8 mg/dL (8.5-10.1); CARBON DIOXIDE 39.2 mmol/L (21.0-32.0); PHOSPHOROUS 4.9 mg/dL (2.5-4.9); POTASSIUM - SERUM 4.7 mmol/L (3.5-5.1)
--- NOTE | 2018-10-12 07:56 | NUR ---
pt taken off bipap and placed on 15l high flow. face cleaned and i.s. started. encouraged use of is. PT PULLS 1000 WITH FAIR EFFORT.
--- NOTE | 2018-10-12 13:01 | NUR ---
BIPAP REMOVED AND ASSISTED PT WITH MEAL TRAY. INSTRUCTED PT TO TAKE SM BITES AND NOT TO TALK WHILE EATING. PT STILL TAKING VERY LARGE AMTS OF FOOD IN AT ONCE AND IS TALKING WHILE EATING. BEGAN TO FEED PT AND INSTRUCT MEANING OF SM BITS. PT CONTINUES TO TALK WITH FOOD IN MOUTH. DR CACERES HERE ON ROUNDS.
--- NOTE | 2018-10-12 19:00 | NUR ---
REPORT RECEIVED INITIAL ASSESSMENT COMPLETE. MORBID OBESE PT ON BIPAP AT 60% SHALLOW RESP ENCOURAGED PT TO TAKE DEEP BREATHS O2 SAT 93% PT KEEPS TALKING WANTING TO EAT BUT UNABLE TO TAKE OFF BIPAP LONG ENOUGH TO EAT AT THIS TIME. PT CONTINUES TO TALK INSTEAD OF TAKE DEEP BREATHS. BREATH SOUNDS DIFFICULT TO AUSCULTATE DUE TO PTS OBESITY. OBESE TO THE POINT ROM COMPROMISED. ON BARIKARE II BED WHICH HELPS TURN FOR POSITION CHANGES. CM READING SR ALARMS ON AND AUDIBLE CARDIZEM STILL INFUSING ORDERED. CALL LIGHT IN REACH SEE FLOWSHEETS FOR ASSESMENTS.
--- NOTE | 2018-10-12 21:00 | NUR ---
ANSWERED PTS CALL LIGHT SHE WANTS ICE CREAM INFORMED UNABLE TO BE OFF BIPAP AT THIS TIME
--- NOTE | 2018-10-12 23:00 | NUR ---
REASSESSMENT COMPLETE NO CHANGES SEE FLOWSHEETS CONTINUE POC
[2018-10-13] VITALS (23 sets, daily range): BP systolic 111–170; BP diastolic 64–95
--- NOTE | 2018-10-13 01:15 | NUR ---
PT RESTING WITH EYES CLOSED VSS NO DISTRESS NOTED BIPAP IN PLACE CPOC
--- NOTE | 2018-10-13 02:00 | NUR ---
ANSWERED PTS CALL LIGHT REPOSITIONED FOR COMFORT WITH WEDGES AND BED TURN WELL
--- NOTE | 2018-10-13 03:00 | NUR ---
REASSESSMENT MADE SEE FLOWSHEETS. PT CONTINUES ON CARDIZEM GTT. PT REQUIRING MORE O2 FROM LAST NIGHT PER BIPAP STILL AT 70 BUT HAVE HAD TO WAKE PT UP TO TAKE DEEPER BREATHS XRAY ORDERED FOR THIS AM UNABLE TO POSIITON PT FOR FILM WILL HAVE TO WAIT UNTIL NEXT SHIFT WITH MORE AVAILABLE ASSISTANCE DUE TO PTS SIZE
--- NOTE | 2018-10-13 05:00 | NUR ---
PT O2 SATS TRENDING DOWN MID 80'S RESTING WITH EYES CLOSED ONCE INSTRUCTED TO DEEP BREATHE IN FROM NOSE AND OUT MOUTH COMES UP TO 91%. BIPAP O2 INCREASED TO 80 ONCE REACHED 94% BACK DOWN TO 70.
--- NOTE | 2018-10-13 06:00 | NUR ---
PT REQUESTING REPOSITIONED UP IN BED. MAX INFLATE COMFORT GLIDE SHEET MOVED UP WITH ASSIST OF 4 NURSES.
[2018-10-13 06:34] LABS: BASOPHILS 0.5 % (0-2); EOSINOPHILS 5.1 % (0-7); HEMATOCRIT 36.5 % (36.0-48.0); HEMOGLOBIN 9.6 g/dL (12-16); LYMPHOCYTES 12.7 % (15-50); MCH 22.9 pg (26.0-34.0); MCHC 26.3 g/dL (31.0-37.0); MEAN PLATELET VOLUME 9.9 fL (7.4-10.4); MONOCYTES 6.8 % (2-11); NEUTROPHILS 73.9 % (40-80); PLATELET COUNT 213 10x3/uL (130-400); RBC 4.19 10x6/uL (4.00-5.40); RDW 16.9 % (11.5-14.5)
[2018-10-13 06:36] LABS: MCV 87.1 fL (80.0-100.0); WBC 6.3 10x3/uL (4.8-10.8)
[2018-10-13 06:49] LABS: ANION GAP 6.9 mmol/L (8-16); CREATININE - SERUM 1.8 mg/dL (0.6-1.3); PHOSPHOROUS 4.6 mg/dL (2.5-4.9); POTASSIUM - SERUM 4.7 mmol/L (3.5-5.1)
[2018-10-13 06:52] LABS: CARBON DIOXIDE 41.8 mmol/L (21.0-32.0)
--- NOTE | 2018-10-13 09:19 | NUR ---
PHYSICAL THERAPY HERE. PT ON BIPAP 80%. SPO2 90%.
--- NOTE | 2018-10-13 10:48 | NUR ---
BIPAP TAKEN OFF AND 15L OXYMIZER PLACED. PT FED APPLE SAUCE AND THICKENED WATER AND APPLE JUICE. INSTRUCTED PT TO SWALLOW AND NOT TALK DURING FEEDING. SPO2 DROPS TO 87% WHILE ON OXYMIZER. ENC TO COUGH AND DEEPBREATH AND USED IS. PT PULLS 250 ON I.S. DIFFICULTY TAKING DIRECTION.
--- NOTE | 2018-10-13 12:41 | NUR ---
OXYMIZER PLACED AND FED PT. SPO2 DROPS TO 87% AFTER OFF BIPAP X 5 MIN APPROX. INST PT TO COUGH AND DEEP BREATH AND SPO2 COMES BACK TO 90%. PT ATE APROX 50% OF MEAL. NO S&S ASPIRATION NOTED. FEEDING STOPPED WHEN SPO2 UNABLE TO RETURN TO 90%. BIPAP PLACED AGAIN. PT JUDIE WELL.
--- NOTE | 2018-10-13 15:30 | NUR ---
PARTIAL BATH AND LINENS CHANGED.
--- NOTE | 2018-10-13 15:40 | NUR ---
CHANGED BIPAP SETTING 31/12 INCREASED RATE PER ABG AND DR CACERES
--- NOTE | 2018-10-13 17:44 | NUR ---
BIPAP OFF, HIGHFLOW ON 15L. PT FED. SPO2 DROPS TO 84% AFTER 10MIN. BIPAP PLACED BACK ON. SPO2 90%.
--- NOTE | 2018-10-13 20:05 | NUR ---
PT RECEIVED ON BIPAP, TOLERATING WELL. NO NEEDS OR CONCERNS MADE KNOWN. CALL LIGHT IN REACH. WILL CONTINUE TO OBSERVE.
--- NOTE | 2018-10-13 21:50 | NUR ---
PT PLACED ON HIGH FLOW CANNULA AND RECEIVED THICKENED WATER. BEGAN TO DESAT AND PLACE BACK ON BIPAP. PT RESTING WITH EYES CLOSED AND CHEST RISING. CALL LIGHT IN REACH.
--- NOTE | 2018-10-13 23:39 | NUR ---
PT GIVEN THICKENED APPLE JUICE WITH BIPAP PLACE BACK ON PT. REASSESSMENT COMPLETED, SEE FLOW SHEET. WARM BLANKETS PROVIDED PER REQUEST. CALL LIGHT IN REACH.
[2018-10-14] VITALS (25 sets, daily range): BP systolic 106–163; BP diastolic 61–96
--- NOTE | 2018-10-14 01:04 | NUR ---
DRESSINGS TO RIGHT HEEL AND LEFT LATERAL FOOT. PT TOLERATED WELL. WILL CONTINUE TO OBSERVE.
--- NOTE | 2018-10-14 03:58 | NUR ---
PT RECEIVED THICKENED APPLE JUICE. ON BIPAP AT THIS TIME. REASSESSMENT COMPLETED, SEE FLOW SHEET. WILL CONTINUE TO OBSERVE.
[2018-10-14 05:40] LABS: BASOPHILS 0.5 % (0-2); EOSINOPHILS 5.6 % (0-7); HEMATOCRIT 35.1 % (36.0-48.0); HEMOGLOBIN 9.5 g/dL (12-16); IMMATURE GRANULOCYTES 0.6 % (0-5); LYMPHOCYTES 12.7 % (15-50); MCH 23.3 pg (26.0-34.0); MCHC 27.1 g/dL (31.0-37.0); MEAN PLATELET VOLUME 9.7 fL (7.4-10.4); MONOCYTES 9.8 % (2-11); NEUTROPHILS 70.8 % (40-80); PLATELET COUNT 222 10x3/uL (130-400); RBC 4.08 10x6/uL (4.00-5.40); RDW 16.6 % (11.5-14.5); WBC 6.2 10x3/uL (4.8-10.8)
[2018-10-14 05:52] LABS: ANION GAP 1.2 mmol/L (8-16); CALCIUM 9.2 mg/dL (8.5-10.1); CREATININE - SERUM 1.7 mg/dL (0.6-1.3); PHOSPHOROUS 3.7 mg/dL (2.5-4.9); POTASSIUM - SERUM 4.5 mmol/L (3.5-5.1)
[2018-10-14 05:54] LABS: CARBON DIOXIDE 45.3 mmol/L (21.0-32.0)
--- NOTE | 2018-10-14 06:41 | NUR ---
PT USING CALL LIGHT. REQUESTING ICE CHIPS AND REMINDED THAT SHE IS ON THICKENED LIQUIDS AT THIS TIME, DUE TO RISK FOR ASPIRATION. NO OTHER NEEDS. WILL CONTINUE TO OBSERVE.
--- NOTE | 2018-10-14 07:00 | NUR ---
SHIFT ASSESSMENT COMPLETED. PT CARE ASSUMED. MONITORS ON AND WORKING, VITALS STABLE, PT AWAKE AND ALERT, NO SIGNS/SYMPTOMS OF PAIN OR DISCOMFORT NOTED, CALL LIGHT WITHIN REACH, WILL CONTINUE TO OBSERVE.
--- NOTE | 2018-10-14 09:00 | NUR ---
PT SITTING UP IN BED EATING BREAKFAST, PT TOLERATES WELL. MONITORS ON AND WORKING, VITALS STABLE. NO SIGNS/SYMPTOMS OF PAIN OR DISCOMFORT NOTED AT THIS TIME, CALL LIGHT WITHIN REACH, WILL CONTINUE TO OBSERVE.
--- NOTE | 2018-10-14 09:39 | NUR ---
Nutrition follow-up: Diet: ADA puree with honey thick liquids PO intake ~50% of some meals; pt desats while eating. BIPAP most of the time; pt able to be off BIPAP for small amount of time Labs reviewed Wt: 625# RDN following.
--- NOTE | 2018-10-14 11:00 | NUR ---
PT SITTING UP IN BED EATING LUNCH, MONITORS ON AND WORKING VITALS STABLE, PT TOLERATING DIET WELL. CALL LIGHT WITHIN REACH, SEE FLOW SHEET FOR FURTHER DETIALS. WILL CONTINUE TO OBSERVE.
--- NOTE | 2018-10-14 13:00 | NUR ---
PT RESTING ON BIPAP. MONITORS ON AND WORKING, VITALS STABLE, NO SIGNS/SYMPTOMS OF PAIN OR DISOCOMFORT NOTED, WILL CONTINUE TO OBSERVE.
--- NOTE | 2018-10-14 15:00 | NUR ---
PT LYING IN BED RESTING, MONITORS ON AND WORKING, VITALS STABLE, CALL LIGHT WITHIN REACH. WILL CONTINUE TO OBSERVE.
--- NOTE | 2018-10-14 17:15 | NUR ---
PT PUT ON O2 AT 13L HIGH FLOW. PT IS ATTEMPTING TO EAT DINNER. STATES SHE IS WEAK AND SHAKEY AND NEEDS ASSISTANCE. ENCOURAGED PT TO TRY TO FEED SELF AND WOULD COME IN AND CHECK ON HER AND ASSIST. PT VERBALIZED UNDERSTANDING. VSS. WILL CONTINUE TO MONITOR.
--- NOTE | 2018-10-14 20:20 | NUR ---
MS RECEIVED WITH EYES OPEN. ON BIPAP WITH RT AT BEDSIDE. NO NEEDS MADE KNOWN AT THIS TIME. ASSESSMENT COMPLETED, SEE FLOW SHEET. CALL LIGHT IN REACH. WILL CONTINUE TO OBSERVE.
--- NOTE | 2018-10-14 22:13 | NUR ---
PT RECEIVED MEDICATIONS PER MAR, TOLERATED WELL. BIPAP REMOVED FOR ADIMINISTRATION OF MEDICATIONS AND TO DRINK. PLACED ON HIGH FLOW N/C 13LPM. PT REPOSITIONED FOR COMFORT. PT PLACE BACK ON BIPAP AND RESTING WITH EYES CLOSED AND CHEST RISING AT THIS TIME. CALL LIGHT IN REACH. WILL CONTINUE TO OBSERVE.
--- NOTE | 2018-10-14 23:45 | NUR ---
PT REQUESTING TO REMOVE BIPAP, REMINDED THAT SHE NEEDS TO MAINTAIN BIPAP USE AND NEEDS TO KEEP IT ON MUCH POSSIBLE. REASESSMENT COMPLETED. WILL CONTINUE TO OBSERVE. CALL LIGHT IN REACH.
[2018-10-15] VITALS (24 sets, daily range): BP systolic 121–166; BP diastolic 61–98
--- NOTE | 2018-10-15 01:20 | NUR ---
PT CONTINUES BIPAP. EYES CLOSED AND CHEST RISING AT THIS TIME. VSS. NO S/S OF DISTRESS. CALL LIGHT IN REACH. WILL CONTINUE TO OBSERVE.
--- NOTE | 2018-10-15 04:26 | NUR ---
REASSESSMENT COMPLETED, SEE FLOW SHEET. CONTINUES BIPAP. DRINK PROVIDED, AND TOLERATED WELL, BUT BEGINNING TO DESAT, WITH BIPAP STARTED. LABS DRAWN. CALL LIGHT IN REACH. WILL CONTINUE TO OBSERVE.
[2018-10-15 04:43] LABS: BASOPHILS 0.5 % (0-2); EOSINOPHILS 4.4 % (0-7); HEMOGLOBIN 9.7 g/dL (12-16); IMMATURE GRANULOCYTES 0.6 % (0-5); LYMPHOCYTES 12.6 % (15-50); MCH 23.2 pg (26.0-34.0); MCHC 26.9 g/dL (31.0-37.0); MCV 85.9 fL (80.0-100.0); MEAN PLATELET VOLUME 9.3 fL (7.4-10.4); MONOCYTES 10.7 % (2-11); NEUTROPHILS 71.2 % (40-80); PLATELET COUNT 216 10x3/uL (130-400); RBC 4.19 10x6/uL (4.00-5.40); RDW 16.7 % (11.5-14.5); WBC 6.4 10x3/uL (4.8-10.8)
[2018-10-15 04:59] LABS: CALC OSMOLALITY 300 mosm/kg (275-300); CALCIUM 9.1 mg/dL (8.5-10.1); CHLORIDE - SERUM 103 mmol/L (98-107); CREATININE - SERUM 1.5 mg/dL (0.6-1.3); GLUCOSE 189 mg/dL (74-106); MAGNESIUM - SERUM 1.9 mg/dL (1.8-2.4); PHOSPHOROUS 3.3 mg/dL (2.5-4.9); POTASSIUM - SERUM 4.3 mmol/L (3.5-5.1); SODIUM 141 mmol/L (136-145); UREA NITROGEN 55 mg/dL (7-18); eGFR NON AFRICAN AMERICAN 40 mL/min (90-120)
[2018-10-15 05:05] LABS: CARBON DIOXIDE 46.2 mmol/L (21.0-32.0)
--- NOTE | 2018-10-15 07:20 | NUR ---
REPORT RECEIVED. ASSESSMENT COMPLETE PER FLOW SHEET. VSS. WILL CONTNIUE TO MONITOR
--- NOTE | 2018-10-15 09:20 | NUR ---
DR HUDSON AT SIDE GIVEN UPDATE
--- NOTE | 2018-10-15 10:40 | NUR ---
DR PARMAR AT BEDSIDE GIVEN UDPATE
--- NOTE | 2018-10-15 11:00 | NUR ---
REASSESSMENT COMPLETE PER FLOW SHEET. VSS. NO NEW CHANGES WILL CONTINUE TO MONTIOR
--- NOTE | 2018-10-15 13:00 | NUR ---
COMPLETE BB LINEN CHANGE ADM. CHG BATH ADM.
--- NOTE | 2018-10-15 13:01 | NUR ---
OT NOTE: ATTEMPTED TO PERFORM SUPINE TO SIT ON EOB, HOWEVER, REQUIRED MAX ASSIST OF 3-4. PT CONT TO STATE THAT SHE COULD NOT BREATH AND HAD TO LIE DOWN. ABLE TO TOLERATE APPROX 1 MIN. EDUCATED ON IMPORTANCE OF MOVING UE/LE THROUGHOUT THE DAY, OR SHE WOULD ONLY GET MORE WEAK. PT ABLE TO DEMONSTRATE ABILITY TO REACH FOR AND HOLD TRAPEZE..WHETHER SHE WILL PERFORM 10 REPS THROUGHOUT THE DAY IS QUESTIONABLE. POSITIONED PT UP IN BED WITH MAX ASSIST X 3 FOR BETTER POSITIONING FOR FEEDING. PT ABLE TO REACH TRAY AND FEED SELF AFTER FULL SET UP OF TRAY. UBALDO MCKINLEY, OTR/L
--- NOTE | 2018-10-15 14:55 | NUR ---
OT NOTE: PT COMPLETED BED MOB TASKS WITH MAX X3. PT EXHIBITS SELF LIMITING BEHAVIORS. PT COMPLETED BUE AROM AX WITH EXTENSIVE ENCOURAGEMENT. THANK YOU, ELI OAKES
--- NOTE | 2018-10-15 15:07 | NUR ---
REASSESSMENT COMPLET EPER FLOW SHEET. VSS. NO NEW CHANGES PT RESTING COMFORTABLY WILL CONTNIUE TO MONITOR
--- NOTE | 2018-10-15 17:05 | NUR ---
PT RESTING AT THIS TIME, NO NEEDS NOTED, WILL CON'T TO MONITOR
--- NOTE | 2018-10-15 19:00 | NUR ---
REPORT RECEIVED, RECEIVED PATIENT IN BED. AWAKE, ALERT AND ORIENTED X 4. SPEECH CLEAR. DENIES PAIN. SHIFT ASSESSMENT COMPLETED PER FLOW SHEET WITH NO ACUTE DISTRESS OBSERVED. MONITORS CONNECTED TO PATIENT WITH ALARMS SET. VSS. CALL LIGHT IN REACH AND ABLE TO UTILIZE TO MAKE NEEDS KNOWN.
--- NOTE | 2018-10-15 20:13 | MORECARE ---
CASE MANAGEMENT DISCHARGE SUMMARY PATIENT: DOT MIXON UNIT: [id number] ADM DATE: 09/30/18 AGE: 43 : 75 SEX: F ROOM/BED: D.2303 AUTHOR: RITESH LLOYD PHYSICIAN: REFERRING PHYSICIAN: YA RUBALCAVA MD DATE OF SERVICE: 10/15/18 Discharge Plan Patient Name: DOT MIXON Facility: [facility]:[place] : 1975 Planned Disposition: Anticipated Discharge Date: Discharge Date: Expected LOS: Initial Reviewer: [email or web address] Initial Review Date: 10/09/2018 Generated: 10/15/18 9:13 pm Comments DCP- Discharge Planning Updated by [email or web address]: Aundrea Noel on 10/15/18 7:[address] CM checking with residential facilities regarding possible placement. CM having barriers related to patient's weight and facilities not being able to accommodate a patient of her size. At this time [facility], [facility], [place], and [place] have all denied patient. CM will continue to seek placement. CM will continue to follow and assist as needed with discharge planning / needs. DCP- Discharge Planning Updated by [email or web address]: Aundrea Noel on 10/11/18 2:[address] CM spoke with regarding LTACH placement. Patient is Medicaid only therefore patient is not an LTACH candidate. Dr. Juarez states he would like patient transferred back to [facility] once patient is more stable. CM will continue to follow and assist as needed with discharge planning / needs. DCP- Discharge Planning Updated by [id number]: Aundrea Noel on 10/09/18 4:[address] Patient Name: DOT MIXON Admission Status: Urgent Accout number: [id number] Admission Date: 09-30-2018 : 1975 Admission Diagnosis:ACUTE KIDNEY FAILURE, UNSPECIFIED Attending: Ya Rubalcava Current LOS: 9 Anticipated DC Date: Planned Disposition: Primary Insurance: MED[place]ID [place] Discharge Planning Comments: CM met with patient at bedside. She states that she lives [address] [place] [address] . She lives with her fianc? Raquel Schofield [phone]. She states that she does have home health with [facility] and her fianc? is her caregiver. She states that she has an Electric chair, BSC and trilogy with [facility]. Patient states that she needs a shower chair, walker and suction cup grab bars for shower. Patient would like to go home upon discharge and resume care with [facility] . KATY form signed for [facility] . Patient is not a candidate for LTACH due Medicaid being a payer source and not covered under Medicaid. CM will continue to follow and assist as needed with discharge planning / needs. Rough Carpenter: Aundrea Noel DCP- Discharge Planning Updated by [email or web address]: Aundrea Noel on 10/08/18 6:[address] CM attempted to meet with patient for discharge planning /needs. Patient is currently on BiPap and wasn't able to speak to CM. No family available at this time. CM will continue to follow and assist as needed with discharge planning / needs. DCP- Discharge Planning Updated by [email or web address]: Aundrea Noel on 10/01/18 12:[address] CM attempted to meet with patient for discharge planning /needs. Patient is currently sedated on vent no family available at this time. CM will continue to follow and assist as needed with discharge planning / needs. DCPIA - Discharge Planning Initial Assessment Updated by [email or web address]: Aundrea Noel on 10/09/18 4:55 pm * Is the patient Alert and Oriented? Yes * How many steps to enter\exit or inside your home? * PCP Lauren with [facility] * Pharmacy [facility] * Preadmission Environment Home with Family * ADLs Partial Dependent * Partial ADLs (Assistance needed) Ambulation Bathing Dressing Eating Medication Management Toileting Transfers * Other Equipment Electric Lift chair, BSC, Trilogy ([facility]) * List name and contact numbers for known caregivers / representatives who currently or will assist patient after discharge: Raquel celestin? - [phone] * Verbal permission to speak to the caregivers and representatives has been obtained from the patient. Yes * Community resources currently utilized Home Health * Please name any agencies selected above. [facility] * Additional services required to return to the preadmission environment? No * Can the patient safely return to the preadmission environment? Yes * Has this patient been hospitalized within the prior 30 days at any hospital? No Last DP export: 10/11/18 2:42 p Patient Name: DOT MIXON Page [id number] at 2013 All edits/amendments must be made on the electronic document DICTATION DATE: 10/15/182012 POLISHER EYEGLASS FRAMES: FLIP 10/15/182012 RPT#: [id number] DC DATE: STATUS: ADM IN [facility] [address] [place] [address] END OF REPORT
--- NOTE | 2018-10-15 21:00 | NUR ---
VSS. NO ACUTE DISTRESS OBSERVED.
--- NOTE | 2018-10-15 23:00 | NUR ---
REASSESSMENT COMPLETED PER FLOW SHEET WITH NO ACUTE DISTRESS OBSERVED. VSS
[2018-10-16] VITALS (23 sets, daily range): BP systolic 129–164; BP diastolic 71–99
--- NOTE | 2018-10-16 01:00 | NUR ---
RESTING WITH EYES CLOSED, EASILY ROUSED AND ALERT. VSS. NO ACUTE DISTRESS OBSERVED. CALL LIGHT IN REACH
--- NOTE | 2018-10-16 03:00 | NUR ---
REASSESSMENT COMPLETED PER FLOW SHEET WITH NO CHANGES OR ACUTE DISTRESS OBSERVED. VSS. CALL LIGHT IN REACH
--- NOTE | 2018-10-16 05:00 | NUR ---
CVL DRSG CHANGED. VSS. NO ACUTE DISTRESS OBSERVED. CALL LIGHT IN REACH
[2018-10-16 05:13] LABS: BASOPHILS 0.3 % (0-2); EOSINOPHILS 0.5 % (0-7); HEMATOCRIT 37.7 % (36.0-48.0); HEMOGLOBIN 10.3 g/dL (12-16); IMMATURE GRANULOCYTES 0.8 % (0-5); LYMPHOCYTES 6.3 % (15-50); MCH 23.4 pg (26.0-34.0); MCHC 27.3 g/dL (31.0-37.0); MCV 85.5 fL (80.0-100.0); MEAN PLATELET VOLUME 9.5 fL (7.4-10.4); MONOCYTES 0.9 % (2-11); NEUTROPHILS 91.2 % (40-80); PLATELET COUNT 221 10x3/uL (130-400); RBC 4.41 10x6/uL (4.00-5.40); WBC 7.6 10x3/uL (4.8-10.8)
[2018-10-16 05:26] LABS: CALCIUM 9.4 mg/dL (8.5-10.1); CREATININE - SERUM 1.5 mg/dL (0.6-1.3); MAGNESIUM - SERUM 1.9 mg/dL (1.8-2.4); PHOSPHOROUS 3.6 mg/dL (2.5-4.9)
[2018-10-16 05:27] LABS: ANION GAP 2.3 mmol/L (8-16); POTASSIUM - SERUM 5.2 mmol/L (3.5-5.1)
[2018-10-16 05:28] LABS: CARBON DIOXIDE 44.9 mmol/L (21.0-32.0)
--- NOTE | 2018-10-16 07:00 | NUR ---
REPORT RECEIVED. ASSESSMENT COMPLETE PER FLOW SHEET. VSS PT SLEEPING COMFORRTABLY DR FINLEY AT BEDSIDE. GIVEN UPDATE. WILL CONTINUE TO MONITOR
--- NOTE | 2018-10-16 08:55 | NUR ---
OSMAN FROM [facility] AT BEDSIDE. GIVEN UPDATE
--- NOTE | 2018-10-16 09:07 | NUR ---
NUTRITION F/U LOW CARB, LOW FAT 1200 CALORIE DIET PER MD. PUREED WITH THICKENED LIQUIDS. WILL CONTINUE TO MONITOR PT PROGRESS. RD FOLLOWING
--- NOTE | 2018-10-16 11:00 | NUR ---
REASSESSMENT COMPLETE PER FLOW SHEET. VSS. NO NEW CHANGES WILL CONTINUE TO MONITOR
--- NOTE | 2018-10-16 13:10 | NUR ---
PT SLEEPING COMFORTABLY VSS NO NEW CHANGES WILL CONTINUE TO MONITOR
--- NOTE | 2018-10-16 14:09 | NUR ---
OT NOTE: PT CURRENTLY WITH BIPAP IN PLACE; SATS AT 96. PERFORMED PROM TO LES AND A/AROM EXS WITH UES. PT ABLE TO TOLERATED LESS THAN 5 REPS. PT NOT INITITATING ANY TASKS INCLUDING PULLING UP BLANKET, MOVING PILLOW, REPOSITIONING ETC. EXPLAINED TO PT THAT THE LESS SHE DOES, THE WEAKER SHE WILL GET. VERY POOR MOTIVATION ON THIS DATE. WILL CONT TO WORK WITH PT FOR STRENGTH AND ENDURANCE. UBALDO MCKINLEY, OTR/L
--- NOTE | 2018-10-16 15:03 | NUR ---
REASSESSMENT COMPLETE PER FLOW SHEET. VSS. NO NEW CHANGES PT RESTING COMFORTALBY WILL CONTINUE ZOFIA ONITOR
--- NOTE | 2018-10-16 17:00 | NUR ---
ASSISTED ONTO BED SMALL BM NOTED. ATE 100% DINNER. NEEDS MET
--- NOTE | 2018-10-16 19:00 | NUR ---
REPORT RECEIVED. RECEIVED PATIENT IN BED. AWAKE AND ALERT, ORIENTED X 4. SPEECH CLEAR AND APPROPRIATE. MONITORS CONNECTED TO PATIENT WITH ALARMS SET. VSS. SHIFT ASSESSMENT COMPLETED PER FLOW SHEET WITH NO ACUTE DISTRESS OBSERVED. CALL LIGHT IN REACH AND ABLE TO UTILIZE TO MAKE NEEDS KNOWN
--- NOTE | 2018-10-16 21:00 | NUR ---
AWAKE AND ALERT. VSS. NO ACUTE DISTRESS OBSERVED.
--- NOTE | 2018-10-16 23:00 | NUR ---
REASSESSMENT COMPLETED PER FLOW SHEET WITH NO CHANGES OR ACUTE DISTRESS OBSERVED AT PRESENT. VSS
[2018-10-17] VITALS (21 sets, daily range): BP systolic 124–160; BP diastolic 71–104
[2018-10-17 04:48] LABS: BASOPHILS 0.1 % (0-2); EOSINOPHILS 0 % (0-7); HEMATOCRIT 37.1 % (36.0-48.0); HEMOGLOBIN 10.3 g/dL (12-16); IMMATURE GRANULOCYTES 1.2 % (0-5); LYMPHOCYTES 6.5 % (15-50); MCH 23.3 pg (26.0-34.0); MCHC 27.8 g/dL (31.0-37.0); MCV 83.9 fL (80.0-100.0); MEAN PLATELET VOLUME 9.4 fL (7.4-10.4); MONOCYTES 0.9 % (2-11); NEUTROPHILS 91.3 % (40-80); PLATELET COUNT 221 10x3/uL (130-400); RBC 4.42 10x6/uL (4.00-5.40); RDW 16.5 % (11.5-14.5); WBC 7.7 10x3/uL (4.8-10.8)
[2018-10-17 05:03] LABS: ANION GAP 6.2 mmol/L (8-16); CALCIUM 9.3 mg/dL (8.5-10.1); CREATININE - SERUM 1.6 mg/dL (0.6-1.3); MAGNESIUM - SERUM 1.8 mg/dL (1.8-2.4); PHOSPHOROUS 3.6 mg/dL (2.5-4.9); POTASSIUM - SERUM 5.3 mmol/L (3.5-5.1)
--- NOTE | 2018-10-17 05:05 | NUR ---
AWAKE AND ALERT. VSS. NO ACUTE DISTRESS OBSERVED. CALL LIGHT IN REACH
[2018-10-17 05:09] LABS: CARBON DIOXIDE 41.1 mmol/L (21.0-32.0)
--- NOTE | 2018-10-17 07:00 | NUR ---
RECEIVED PATIENT FROM BHARATH CORRAL. PATIENT RESTING IN BED ON BIPAP. AWAKE ALERT AND ORIENTED. LIJ SALINE LOCKED. ON BIPAP AT 20/8 55% FI02. DRESSINGS TO HEELS BILATERALLY. PATIÑO IN PLACE. VSS. WILL CONTINUE TO MONITOR.
--- NOTE | 2018-10-17 09:00 | NUR ---
PT ATE 100% BREAKFAST. PLACED BIPAP BACK ON AT THIS TIME TO ASSIST WITH CO2 REMOVAL. VSS. TURNED PT TO LEFT SIDE.
--- NOTE | 2018-10-17 11:00 | NUR ---
REMOVED BIPAP AND PLACED BACK ON NC AT 11 LITERS/MIN PER DR. HUDSON ORDERS. SERVED BREAKFAST TRAY
--- NOTE | 2018-10-17 13:00 | NUR ---
PT ATE 100% LUNCH. TOLERATING HIGH FLOW NC WELL.
--- NOTE | 2018-10-17 14:35 | NUR ---
PLACED PT ON BED LEE FOR BM. HAD SMALL BM. NURSE CLEANED.
--- NOTE | 2018-10-17 19:00 | NUR ---
REPORT RECEIVED. RECEIVED PATIENT IN BED. AWAKE AND ALERT. ORIENTED X 4. SPEECH CLEAR. SHIFT ASSESSMENT COMPLETED PER FLOW SHEET WITH NO ACUTE DISTRESS OBERVED. MONITORS CONNECTED TO PATIENT WITH ALARMS SET. VSS. CALL LIGHT IN REACH AND ABLE TO UTILIZE TO MAKE NEEDS KNOWN.
--- NOTE | 2018-10-17 21:00 | NUR ---
AWAKE AND ALERT. VSS. NO ACUTE DISTRESS OBSERVED
--- NOTE | 2018-10-17 23:00 | NUR ---
REASSESSMENT COMPLETED PER FLOW SHEET WITH NO CHANGES OR ACUTE DISTRESS OBSERVED. VSS
[2018-10-18] VITALS (24 sets, daily range): BP systolic 120–156; BP diastolic 76–118
--- NOTE | 2018-10-18 01:00 | NUR ---
RESTING WITH EYES CLOSED. VSS
--- NOTE | 2018-10-18 03:00 | NUR ---
REASSESSMENT COMPLETED PER FLOW SHEET WITH NO CHANGES OR ACUTE DISTRESS OBSERVED. VSS.
--- NOTE | 2018-10-18 05:00 | NUR ---
AWAKE AND ALERT. VSS. NO ACUTE DISTRESS OBSERVED. ASSISTED WITH REPOSITIONING
[2018-10-18 05:52] LABS: BASOPHILS 0 % (0-2); EOSINOPHILS 0 % (0-7); HEMATOCRIT 36.4 % (36.0-48.0); HEMOGLOBIN 10.3 g/dL (12-16); IMMATURE GRANULOCYTES 0.8 % (0-5); LYMPHOCYTES 6.2 % (15-50); MCH 23.6 pg (26.0-34.0); MCHC 28.3 g/dL (31.0-37.0); MCV 83.3 fL (80.0-100.0); MEAN PLATELET VOLUME 9.4 fL (7.4-10.4); MONOCYTES 1.6 % (2-11); NEUTROPHILS 91.4 % (40-80); PLATELET COUNT 211 10x3/uL (130-400); RBC 4.37 10x6/uL (4.00-5.40); RDW 16.7 % (11.5-14.5); WBC 7.3 10x3/uL (4.8-10.8)
[2018-10-18 06:13] LABS: ANION GAP 6.5 mmol/L (8-16); CALCIUM 9.4 mg/dL (8.5-10.1); CARBON DIOXIDE 38.9 mmol/L (21.0-32.0); CREATININE - SERUM 1.7 mg/dL (0.6-1.3); MAGNESIUM - SERUM 1.7 mg/dL (1.8-2.4); PHOSPHOROUS 4.4 mg/dL (2.5-4.9); POTASSIUM - SERUM 5.4 mmol/L (3.5-5.1)
--- NOTE | 2018-10-18 07:00 | NUR ---
PT RESTING IN BED C CALL GARDNER IN REACH ON HIGH FLOW NC AT 10 L/MIN. VSS. WILL CONTINUE TO MONITOR
--- NOTE | 2018-10-18 08:53 | NUR ---
Nutrition follow-up: Diet: puree with honey thick liquids strict weight loss diet. No carbs, fat, sugar; only protein and nonstarchy vegetables. Pt allowed snacks of sugar free low calorie foods 3x/day. PO intake 100% of meals, snacks at this time Labs reviewed Wt: 664# -> 74# weight loss since admit due to diuresing, low shauna diet +BM RDN following.
--- NOTE | 2018-10-18 09:00 | NUR ---
PT ATE 100% BREAKFAST. MAINTAINANCE HERE TO FIX CALL LIGHT THAT RIPPED OUT OF THE WALL. VSS
--- NOTE | 2018-10-18 11:00 | NUR ---
PT RESTING IN BED C CALL GARDNER IN REACH. NO COMPLAINTS. WILL CONTINUE TO MONITOR. STILL ON HIGH FLOW NC AT 10 LITERS.
--- NOTE | 2018-10-18 13:00 | NUR ---
SITTING UP IN BED AWAKE AND ALERT WITH STABLE VS. ATE 75% LUNCH. TOLERATING HIGH FLOW NC AT 10 LITERS WELL. WILL CONTINUE TO MONITOR
--- NOTE | 2018-10-18 15:00 | NUR ---
PATIENT HAD BM. NURSES CLEANED AND CHANGED
[2018-10-18 15:30] LABS: ANION GAP 8.1 mmol/L (8-16); CALCIUM 8.9 mg/dL (8.5-10.1); CARBON DIOXIDE 37.2 mmol/L (21.0-32.0); CREATININE - SERUM 1.7 mg/dL (0.6-1.3); POTASSIUM - SERUM 5.3 mmol/L (3.5-5.1)
--- NOTE | 2018-10-18 17:00 | NUR ---
TOOK PATIENT OFF BIPAP AND BACK ON HIGH FLOW NC AT 11L/MIN. SERVED DINNER TRAY. WILL CONTINUE TO MONITOR
--- NOTE | 2018-10-18 19:58 | NUR ---
PT RECEIVED WITH EYES OPEN. CONCERNED OF TV, WAS RECEIVING SOUND BUT NO PICTURE, CONNECTIONS SECURE. TOLD PT I WOULD SEE IF IT IS JUST HER ROOM OR ALL TVS. PROGRAMMING STARTED RESETTING I WAS LEAVING ROOM. NO OTHER NEEDS MADE KNOWN. CALL LIGHT IN REACH. WILL CONTINUE TO OBSERVE.
--- NOTE | 2018-10-18 21:59 | NUR ---
PT RECEIVED MEDICATIONS PER MAR, TOLERATED. PT REPOSITIONED FOR COMFORT. CALL LIGHT IN REACH. WILL CONTINUE TO OBSERVE.
--- NOTE | 2018-10-18 23:20 | NUR ---
PT RESTING WITH EYES CLOSED AND CHEST RISING. EASILY AWOKEN. REASSESSMENT COMPLETED, SEE FLOW SHEET. CALL LIGHT IN REACH. WILL CONTINUE TO OBSERVE.
[2018-10-19] VITALS (22 sets, daily range): BP systolic 95–158; BP diastolic 72–100
--- NOTE | 2018-10-19 02:30 | NUR ---
PT RESTING WITH EYES CLOSED AND CHEST RISING. NO S/S OF DISTRESS. CALL LIGHT IN REACH. WILL CONTINUE TO OBSERVE.
--- NOTE | 2018-10-19 03:13 | NUR ---
REASSESSMENT COMPLETED, SEE FLOW SHEET.
[2018-10-19 04:44] LABS: BASOPHILS 0 % (0-2); EOSINOPHILS 0 % (0-7); HEMATOCRIT 37.9 % (36.0-48.0); HEMOGLOBIN 10.7 g/dL (12-16); IMMATURE GRANULOCYTES 1.3 % (0-5); MCH 23.8 pg (26.0-34.0); MCHC 28.2 g/dL (31.0-37.0); MCV 84.2 fL (80.0-100.0); MEAN PLATELET VOLUME 9.2 fL (7.4-10.4); MONOCYTES 1.4 % (2-11); NEUTROPHILS 91.3 % (40-80); PLATELET COUNT 194 10x3/uL (130-400); RDW 16.9 % (11.5-14.5); WBC 7.7 10x3/uL (4.8-10.8)
[2018-10-19 04:55] LABS: ANION GAP 8.2 mmol/L (8-16); CALCIUM 8.9 mg/dL (8.5-10.1); CARBON DIOXIDE 36.1 mmol/L (21.0-32.0); CREATININE - SERUM 1.5 mg/dL (0.6-1.3); MAGNESIUM - SERUM 1.8 mg/dL (1.8-2.4); PHOSPHOROUS 4.9 mg/dL (2.5-4.9); POTASSIUM - SERUM 5.3 mmol/L (3.5-5.1)
--- NOTE | 2018-10-19 08:37 | NUR ---
PT TAKEN OFF BIPAP FOR BREAKFAST AND PLACED ON HIGHFLO 10L NC. TAKEN OFF BED LEE. MOD SIZE STOOL NOTED.
--- NOTE | 2018-10-19 09:31 | NUR ---
PT PLACED BACK ON BIPAP ORDERED. PT JUDIE WELL.
--- NOTE | 2018-10-19 12:22 | NUR ---
ASSISTED PT WITH GETTING ON AND OFF BED LEE X 2 PERSON ASST. PT HAD SOFT BROWN STOOL. LG AMT.
--- NOTE | 2018-10-19 14:48 | NUR ---
PT PLACED BACK ON BIPAP ORDERED.
--- NOTE | 2018-10-19 18:55 | NUR ---
1630- PT PLACED BACK ON OXYMIZER, DINNER TRAY GIVEN AND PT FEEDS SELF WITH OUT PROBLEMS.
--- NOTE | 2018-10-19 19:00 | NUR ---
PT IN BED IN LOW FOWLERS POSITION. ALERT AND ORIENTED X4. RESPIRATIONS EVEN AND UNLABORED. VITAL SIGNS STABLE AND AFEBRILE. NO VISUAL CUES OF DISTRESS NOTED. DENIES ANY OTHER NEEDS AT THIS TIME. BED LOW, SIDE RAILS UP X2. CALL LIGHT IN REACH. WILL CONTINUE TO MONITOR.
--- NOTE | 2018-10-19 22:39 | NUR ---
pt on bipap for the night. 31/12, 55% SPO2 98% HR 103
[2018-10-20] VITALS (23 sets, daily range): BP systolic 113–172; BP diastolic 57–112
[2018-10-20 03:53] LABS: BASOPHILS 0 % (0-2); EOSINOPHILS 0.6 % (0-7); HEMATOCRIT 36.8 % (36.0-48.0); HEMOGLOBIN 10.5 g/dL (12-16); IMMATURE GRANULOCYTES 1.3 % (0-5); LYMPHOCYTES 6.6 % (15-50); MCH 23.7 pg (26.0-34.0); MCHC 28.5 g/dL (31.0-37.0); MCV 83.1 fL (80.0-100.0); MEAN PLATELET VOLUME 9.4 fL (7.4-10.4); MONOCYTES 2.4 % (2-11); NEUTROPHILS 89.1 % (40-80); PLATELET COUNT 159 10x3/uL (130-400); RBC 4.43 10x6/uL (4.00-5.40); RDW 17.3 % (11.5-14.5); WBC 7.1 10x3/uL (4.8-10.8)
[2018-10-20 04:25] LABS: ANION GAP 7.2 mmol/L (8-16); CALCIUM 8.9 mg/dL (8.5-10.1); CREATININE - SERUM 1.6 mg/dL (0.6-1.3); MAGNESIUM - SERUM 1.9 mg/dL (1.8-2.4); PHOSPHOROUS 4.5 mg/dL (2.5-4.9); POTASSIUM - SERUM 5.2 mmol/L (3.5-5.1)
--- NOTE | 2018-10-20 08:30 | NUR ---
PT TAKEN OFF BED LEE. BM SM AMT. BATHED AND REPOSITIONED FOR BREAKFAST. PLACED OFF BIPAP AND ON HIGHFLOW NC. PT JUDIE WELL.
--- NOTE | 2018-10-20 11:23 | NUR ---
PT ON 10L OXYMIZER. DR HUDSON HERE. DR PARMAR HERE.
--- NOTE | 2018-10-20 13:52 | NUR ---
OT NOTE: PT DOING BETTER TODAY; BED MOB WITH MAX ASSIST; UE AND LE EXS WITH ASSIST FOR LES. UBALDO MCKINLEY, OTR/L
--- NOTE | 2018-10-20 14:04 | NUR ---
OT NOTE: PT COMPLETED UE AROM AX. THANK YOU, ELI OAKES
--- NOTE | 2018-10-20 15:05 | NUR ---
PT ON BIPAP FOR 2 HRS. BIPAP OFF AND OXYMIZER PLACED ORDERED.
--- NOTE | 2018-10-20 17:49 | NUR ---
MEAL TRAY PROVIDED AND PT FED SELF.
--- NOTE | 2018-10-20 18:17 | NUR ---
PT ASKING FOR BIPAP. STATES " SLEEPY". BIPAP PLACED 55% ORDERED.
--- NOTE | 2018-10-20 19:47 | NUR ---
PT RECEIVED ON BIPAP 55% WATCHING TV. HEAD OF BED RAISED PER REQUEST FOR COMFORT. BIPAP REMOVED AND HIGHFLOW CANNULA AT 10LMP PLACED. NO OTHER NEEDS MADE KNOWN. CALL LIGHT IN REACH. WILL CONTINUE TO OBSERVE.
--- NOTE | 2018-10-20 21:55 | NUR ---
PT WITH EYES OPEN WATCHING TV WITH HIGH FLOW N/C 10L. TOLERATING WELL. MEDICATIONS GIVEN PER MAR. NO NEEDS MADE KNOWN. CALL LIGHT IN REACH.
--- NOTE | 2018-10-20 23:38 | NUR ---
REASSESSMENT COMPLETED, SEE FLOW SHEET. NO NEEDS NOTED. VSS. CALL LIGHT IN REACH. WILL CONTINUE TO OBSERVE.
[2018-10-21] VITALS (24 sets, daily range): BP systolic 128–191; BP diastolic 76–108
--- NOTE | 2018-10-21 01:10 | NUR ---
PT RESTING ON BIPAP WITH EYES CLOSED. NO S/S OF DISTRESS. CALL LIGHT IN REACH. WILL CONTINUE TO OBSERVE.
--- NOTE | 2018-10-21 03:27 | NUR ---
REASSESSMENT COMPLETED, SEE FLOW SHEET.
[2018-10-21 06:02] LABS: BASOPHILS 0 % (0-2); EOSINOPHILS 0.3 % (0-7); HEMATOCRIT 36.6 % (36.0-48.0); HEMOGLOBIN 10.8 g/dL (12-16); IMMATURE GRANULOCYTES 0.9 % (0-5); MCH 23.6 pg (26.0-34.0); MCHC 29.5 g/dL (31.0-37.0); MEAN PLATELET VOLUME 9.4 fL (7.4-10.4); MONOCYTES 3.4 % (2-11); NEUTROPHILS 86.4 % (40-80); PLATELET COUNT 136 10x3/uL (130-400); RBC 4.58 10x6/uL (4.00-5.40); WBC 6.7 10x3/uL (4.8-10.8)
[2018-10-21 06:04] LABS: MCV 79.9 fL (80.0-100.0)
[2018-10-21 06:31] LABS: ANION GAP 6.5 mmol/L (8-16); CALCIUM 8.7 mg/dL (8.5-10.1); CARBON DIOXIDE 34.8 mmol/L (21.0-32.0); CREATININE - SERUM 1.3 mg/dL (0.6-1.3); MAGNESIUM - SERUM 1.7 mg/dL (1.8-2.4); PHOSPHOROUS 4.4 mg/dL (2.5-4.9); POTASSIUM - SERUM 5.3 mmol/L (3.5-5.1)
--- NOTE | 2018-10-21 07:00 | NUR ---
PT RESTING IN BED WITH VSS. ASSISTED PATIENT ON AND OFF BED LEE. CLEANED AND WIPED WITH HELP OF OTHER NURSE.
--- NOTE | 2018-10-21 09:00 | NUR ---
AWAKE ALERT AND ORIENTED WITH VSS ON HIGH FLOW NC AT 7L/MIN. WILL CONTINUE TO MONITOR
--- NOTE | 2018-10-21 09:27 | NUR ---
Nutrition follow-up: Diet: ADA puree with honey thick liquids PO intake 100% of meals Labs reviewed No new wt to assess +BM Pt remains on BIPAP RDN following.
--- NOTE | 2018-10-21 09:50 | NUR ---
PT TAKEN TO ELECTRONIC ENGINEERING DRAFTSPERSON AT THIS TIME
--- NOTE | 2018-10-21 11:00 | NUR ---
PT ASSISTED PATIENT TO SIT UP ON SIDE OF BED TO DANGLE FEET FOR A FEW MINUTES. PATIENT GOT DIZZY SO THEY LAYED HER BACK DOWN.
--- NOTE | 2018-10-21 12:49 | NUR ---
PLACED PATIENT BACK ON BIPAP AFTER LUNCH
--- NOTE | 2018-10-21 17:47 | NUR ---
OT NOTE: PT WITH INCREASED PARTICIPATION TODAY. ATTEMPTED BED MOB WITH MAX ASSIST BUT WAS ATLEAST ATTEMPTING TO ASSIST WITH ROLLING SIDE TO SIDE; ABLE TO PERFORM SUPINE TO SIT WITH MAX ASSIST X 2. UNABLE TO TOLERATE SITTING UP FOR GREATER THAN 45 SECONDS SHE STATED THAT SHE WAS TOO DIZZY AND HAD TO LIE BACK DOWN. SIT TO SUPINE WITH MAX ASSIST X 2; PT ABLE TO USE TRAPEZE BAR TO ASSIST WITH SCOOTING UP IN BED. 02 SATS REMAINED AROUND 92% WITH02 ONLY. UE AROM EXS AND LE EXS WITH EXT ASSIST FOR Drake OLIVAS. UBALDO MCKINLEY, OTR/L
--- NOTE | 2018-10-21 19:45 | NUR ---
PT WITH EYES OPEN WATCHING TV. HR 104, OTHER VSS. ON HIGH FLOW N/C 7LPM. PT WANTING PHONE AND ASSISTANCE PROVIDED. NO OTHER NEEDS MADE KNOWN. CALL LIGHT IN REACH. WILL CONTINUE TO OBSERVE.
--- NOTE | 2018-10-21 21:55 | NUR ---
PT ASSISTED ON BEDPAN. PT REMOVED FROM BEDPAN WITH MEDIUM BM NOTED. BACK WASHED AND NEW PAD PROVIDED. PT TOLERATED WELL. CALL LIGHT IN REACH. WILL CONTINUE TO OBSERVE.
--- NOTE | 2018-10-21 22:34 | NUR ---
BATH GIVEN WITH COMPLETE LINEN CHANGE. PT ABLE TO PARTIALLY ROLL AND CAN HOLD SELF ONCE ROLLED ON SIDE, WITHOUT S/S OF DISTRESS. SPO2 MAINTAINED 90% OR GREATER WHILE ON SIDE ON 7LPM HI FLOW N/C. PT WASHES FACE AND ABLE TO PULL SKIN FOLDS. NO OTHER NEEDS MADE KNOWN. CALL LIGHT IN REACH. WILL CONTINUE TO OBSERVE.
[2018-10-22] VITALS (9 sets, daily range): BP systolic 134–161; BP diastolic 75–90
--- NOTE | 2018-10-22 01:50 | NUR ---
PT CONTINUES BIPAP, TOLERATING WELL. CALL LIGHT IN REACH. WILL CONTINUE TO OBSERVE.
--- NOTE | 2018-10-22 03:34 | NUR ---
PT CONTINUES BIPAP. REASSESSMENT COMPLETED, SEE FLOW SHEET. CALL LIGHT IN REACH. WILL CONTINUE TO OBSERVE.
[2018-10-22 06:02] LABS: BASOPHILS 0 % (0-2); EOSINOPHILS 0.4 % (0-7); HEMATOCRIT 36.8 % (36.0-48.0); IMMATURE GRANULOCYTES 0.4 % (0-5); LYMPHOCYTES 6.8 % (15-50); MCH 23.8 pg (26.0-34.0); MCHC 29.9 g/dL (31.0-37.0); MCV 79.7 fL (80.0-100.0); MEAN PLATELET VOLUME 9.7 fL (7.4-10.4); MONOCYTES 4.1 % (2-11); NEUTROPHILS 88.3 % (40-80); PLATELET COUNT 127 10x3/uL (130-400); RBC 4.62 10x6/uL (4.00-5.40); RDW 17.4 % (11.5-14.5); WBC 7.5 10x3/uL (4.8-10.8)
--- NOTE | 2018-10-22 06:06 | NUR ---
PT RESTING WITH EYES CLOSED. CONTINUES BIPAP. NO S/S OF DISTRESS. CALL LIGHT IN REACH.
[2018-10-22 06:21] LABS: ALBUMIN 2.5 g/dL (3.4-5.0); ANION GAP 7.8 mmol/L (8-16); BILIRUBIN - TOTAL 0.44 mg/dL (0.2-1.3); CALCIUM 8.8 mg/dL (8.5-10.1); CARBON DIOXIDE 34.5 mmol/L (21.0-32.0); CREATININE - SERUM 1.3 mg/dL (0.6-1.3); POTASSIUM - SERUM 5.3 mmol/L (3.5-5.1); PROTEIN - SERUM 7.5 g/dL (6.4-8.2)
--- NOTE | 2018-10-22 07:15 | NUR ---
REPORT RECEIVED. PT RESTING QUIETLY. CURRENTLY ON BIPAP AT 45%. WEARS AT NIGHT AND BID FOR 2 HRS EACH. WEARS HIGH FLOW NC AT 7L WHEN OFF BIPAP. PT HAS KAYLYN. PT ON [facility] SOFT DIET. HEAD TO TOE ASSESSMENT COMPLETE. ON ROTATING ABILIO MAX BED. VSS. WILL CONTINUE TO MONITOR. CALL LIGHT IN REACH.
--- NOTE | 2018-10-22 09:00 | NUR ---
ON O2 AT 4L VIA NC.
--- NOTE | 2018-10-22 09:40 | NUR ---
DR RIVERA STATED PT COULD GO TO FLOOR AFTER GETTING PERIPHERAL IV ACCESS.
--- NOTE | 2018-10-22 11:15 | NUR ---
PT RESTING QUIETLY. ON O2 AT 4L VIA NC. VSS. NO COMPLAINTS OR NEEDS AT THIS TIME. WILL CONTINUE TO MONITOR.
--- NOTE | 2018-10-22 11:53 | MORECARE ---
CASE MANAGEMENT DISCHARGE SUMMARY PATIENT: DOT MIXON UNIT: [id number] ADM DATE: 09/30/18 AGE: 43 : 75 SEX: F ROOM/BED: D.2303 AUTHOR: PREMA,DOC PHYSICIAN: REFERRING PHYSICIAN: YA RUBALCAVA MD DATE OF SERVICE: 10/22/18 Discharge Plan Patient Name: DOT MIXON Facility: [facility]:[place] : 1975 Planned Disposition: Anticipated Discharge Date: Discharge Date: Expected LOS: Initial Reviewer: [email or web address] Initial Review Date: 10/09/2018 Generated: 10/22/18 12:52 pm Comments DCP- Discharge Planning Updated by [email or web address]: Aundrea Noel on 10/22/18 10:[address] Angel from [facility] came by last week to see patient and to obtain records. KATY was given verbally per patient for [facility] at that time. Angel later called back and stated to notify him when patient is closer to discharge. CM attempted to call Angel this morning in regards possible discharge by the end of the week. He stated he was in a meeting and would call back later. Meantime I have asked nursing for a weight on patient since there hasn't been one recorded since 10/10/18. Nursing stated that the bed scale isn't working. CM will continue to follow and assist as needed for discharge planning / needs. DCP- Discharge Planning Updated by [id number]: Aundrea Noel on 10/15/18 7:[address] CM checking with shelter facilities regarding possible placement. CM having barriers related to patient's weight and facilities not being able to accommodate a patient of her size. At this time [facility], [facility], [facility], and [facility] have all denied patient. CM will continue to seek placement. CM will continue to follow and assist as needed with discharge planning / needs. DCP- Discharge Planning Updated by [email or web address]: Aundrea Noel on 10/11/18 2:[address] CM spoke with regarding LTACH placement. Patient is Medicaid only therefore patient is not an LTACH candidate. Dr. Juarez states he would like patient transferred back to [facility] once patient is more stable. CM will continue to follow and assist as needed with discharge planning / needs. DCP- Discharge Planning Updated by [id number]: Aundrea Noel on 10/09/18 4:[address] Patient Name: DOT MIXON Admission Status: Urgent Accout number: [id number] Admission Date: 09-30-2018 : 1975 Admission Diagnosis:ACUTE KIDNEY FAILURE, UNSPECIFIED Attending: Ya Rubalcava Current LOS: 9 Anticipated DC Date: Planned Disposition: Primary Insurance: [place] Discharge Planning Comments: CM met with patient at bedside. She states that she lives [address] [phone]. She lives with her fianc? Raquel Schofield [phone]. She states that she does have home health with [facility] and her fianc? is her caregiver. She states that [facility] Electric [facility] Patient states that she needs a shower chair, walker and suction cup grab bars for shower. Patient would like to go home upon discharge and resume care with [facility]. KATY form signed for [facility]. Patient is not a candidate for LTACH due Medicaid being a payer source and not covered under Medicaid. CM will continue to follow and assist as needed with discharge planning / needs. Batting Machine Operator Insulation: Aundrea Noel DCP- Discharge Planning Updated by [id number]: Aundrea Noel on 10/08/18 6:[address] CM attempted to meet with patient for discharge planning /needs. Patient is currently on BiPap and wasn't able to speak to CM. No family available at this time. CM will continue to follow and assist as needed with discharge planning / needs. DCP- Discharge Planning Updated by [email or web address]: Aundrea Noel on 10/01/18 12:[address] CM attempted to meet with patient for discharge planning /needs. Patient is currently sedated on vent no family available at this time. CM will continue to follow and assist as needed with discharge planning / needs. DCPIA - Discharge Planning Initial Assessment Updated by [email or web address]: Aundrea Noel on 10/09/18 4:55 pm * Is the patient Alert and Oriented? Yes * How many steps to enter\exit or inside your home? * PCP Lauren with [facility] * Pharmacy [facility] * Preadmission Environment Home with Family * ADLs Partial Dependent * Partial ADLs (Assistance needed) Ambulation Bathing Dressing Eating Medication Management Toileting Transfers * Other Equipment Electric Lift chair, BSC, Trilogy ([facility]) * List name and contact numbers for known caregivers / representatives who currently or will assist patient after discharge: Raquel celestin? - [phone] * Verbal permission to speak to the caregivers and representatives has been obtained from the patient. Yes * Community resources currently utilized Home Health * Please name any agencies selected above. [facility] * Additional services required to return to the preadmission environment? No * Can the patient safely return to the preadmission environment? Yes * Has this patient been hospitalized within the prior 30 days at any hospital? No Last DP export: 10/15/18 7:13 pm Patient Name: ODT MIXON Page [id number] at 1153 All edits/amendments must be made on the electronic document DICTATION DATE: 10/22/18 1152 SCHOOL LUNCH MONITOR: FLIP 10/22/18 1152 RPT#: [id number] DC DATE: STATUS: ADM IN [facility] [address] [place] [address] END OF REPORT
--- NOTE | 2018-10-22 12:01 | MORECARE ---
CASE MANAGEMENT DISCHARGE SUMMARY PATIENT: DOT MIXON UNIT: [id number] ADM DATE: 09/30/18 AGE: 43 : 75 SEX: F ROOM/BED: D.2303 AUTHOR: PREMA,DOC PHYSICIAN: REFERRING PHYSICIAN: YA RUBALCAVA MD DATE OF SERVICE: 10/22/18 Discharge Plan Patient Name: DOT MIXON Facility: [facility]:[place] : 1975 Planned Disposition: Anticipated Discharge Date: Discharge Date: Expected LOS: Initial Reviewer: [email or web address] Initial Review Date: 10/09/2018 Generated: 10/22/18 1:01 pm Comments DCP- Discharge Planning Updated by [email or web address]: Aundrea Noel on 10/22/18 10:[address] CM has been working with patient to try to get in touch with her Fianc? Raquel Schofield. He hasn't been answering the phone. CM tried to assist by looking up his mother and sister on Facebook to see if there was a phone number linked to their accounts but there wasn't. 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 CM gave patient phone numbers to both [place] in [place]. CM also looked up her [facility] phone number so she could call about her belongings in her home. CM will continue to follow and assist as needed with discharge planning / needs. DCP- Discharge Planning Updated by [email or web address]: Aundrea Noel on 10/22/18 10:[address] Angel from [facility] came by last week to see patient and to obtain records. KATY was given verbally per patient for [facility] at that time. Angel later called back and stated to notify him when patient is closer to discharge. CM attempted to call Angel this morning in regards possible discharge by the end of the week. He stated he was in a meeting and would call back later. Meantime I have asked nursing for a weight on patient since there hasn't been one recorded since 10/10/18. Nursing stated that the bed scale isn't working. CM will continue to follow and assist as needed for discharge planning / needs. DCP- Discharge Planning Updated by [id number]: Aundrea Noel on 10/15/18 7:[address] CM checking with alf facilities regarding possible placement. CM having barriers related to patient's weight and facilities not being able to accommodate a patient of her size. At this time [facility], [facility], [place], and [facility] have all denied patient. CM will continue to seek placement. CM will continue to follow and assist as needed with discharge planning / needs. DCP- Discharge Planning Updated by [id number]: Aundrea Noel on 10/11/18 2:[address] CM spoke with regarding LTACH placement. Patient is Medicaid only therefore patient is not an LTACH candidate. Dr. Juarez states he would like patient transferred back to [facility] once patient is more stable. CM will continue to follow and assist as needed with discharge planning / needs. DCP- Discharge Planning Updated by [email or web address]: Aundrea Noel on 10/09/18 4:[address] Patient Name: DOT MIXON Admission Status: Urgent Accout number: [id number] Admission Date: 09-30-2018 : 1975 Admission Diagnosis:ACUTE KIDNEY FAILURE, UNSPECIFIED Attending: Ya Rubalcava Current LOS: 9 Anticipated DC Date: Planned Disposition: Primary Insurance: MEDICAID [place] Discharge Planning Comments: CM met with patient at bedside. She states that she lives [address] [place] [address] . She lives with her harsha Schofield [phone]. She states that she does have home health with [facility] and her fianc? is her caregiver. She states that she has an Electric chair, BSC and [facility]. Patient states that she needs a shower chair, walker and suction cup grab bars for shower. Patient would like to go home upon discharge and resume care with [facility] . KATY form signed for [facility] . Patient is not a candidate for LTACH due Medicaid being a payer source and not covered under Medicaid. CM will continue to follow and assist as needed with discharge planning / needs. Scrap Breaker: Aundrea Noel DCP- Discharge Planning Updated by [email or web address]: Aundrea Noel on 10/08/18 6:[address] CM attempted to meet with patient for discharge planning /needs. Patient is currently on BiPap and wasn't able to speak to CM. No family available at this time. CM will continue to follow and assist as needed with discharge planning / needs. DCP- Discharge Planning Updated by [email or web address]: Aundrea Noel on 10/01/18 12:[address] CM attempted to meet with patient for discharge planning /needs. Patient is currently sedated on vent no family available at this time. CM will continue to follow and assist as needed with discharge planning / needs. DCPIA - Discharge Planning Initial Assessment Updated by [email or web address]: Aundrea Noel on 10/09/18 4:55 pm * Is the patient Alert and Oriented? Yes * How many steps to enter\exit or inside your home? * PCP Lauren with [facility] * Pharmacy [facility] [place] * Preadmission Environment Home with Family * ADLs Partial Dependent * Partial ADLs (Assistance needed) Ambulation Bathing Dressing Eating Medication Management Toileting Transfers * Other Equipment Electric Lift chair, BSC, Trilogy ([facility]) * List name and contact numbers for known caregivers / representatives who currently or will assist patient after discharge: Raquel celestin? - [phone] * Verbal permission to speak to the caregivers and representatives has been obtained from the patient. Yes * Community resources currently utilized Home Health * Please name any agencies selected above. [facility] * Additional services required to return to the preadmission environment? No * Can the patient safely return to the preadmission environment? Yes * Has this patient been hospitalized within the prior 30 days at any hospital? No Last DP export: 10/22/18 10:52 a Patient Name: DOT MIXON Page [id number] at 1201 All edits/amendments must be made on the electronic document DICTATION DATE: 10/22/18 1200 COMPUTER GAME PROGRAMMER: FLIP 10/22/18 1200 RPT#: [id number] DC DATE: STATUS: ADM IN [facility] [address] [place] [address] END OF REPORT
--- NOTE | 2018-10-22 12:38 | NUR ---
TRIED TO CALL REPORT TO MED 2. SAT ON HOLD FOR 15 MINUTES.
--- NOTE | 2018-10-22 14:33 | NUR ---
PATIENT ARRIVED FROM ICU WITH ICU STAFF AND A BARIATRIC BED. WE ARE IN THE PROCESS OF INFLATING THE BED NOW. CALLED [employer] FOR WEDGES TO KEEP THE PATIENT COMFORTABLE. WE HAVE CALLED ICU AND THEY ARE ATTEMPTING TO INFLATE, CALLED WOUND CARE AND [facility] THEY ARE COMING TO HELP US INFLATE THE BED.
--- NOTE | 2018-10-22 14:38 | NUR ---
I HAVE CALL RICKY TO SEE ABOUT HAVING SOMEONE COME LOOK AT BED. SHE TRANSFERRED ME TO [facility] AND SHE IS GOING TO HAVE TO CALL LOUISA BRAND TO HAVE SOMEONE COME LOOK AT BED. WE HAVE WEDGES COMING.
--- NOTE | 2018-10-22 18:30 | NUR ---
PATIENT IS RESTING COMFORTABLY AT THIS TIME ON HER BACK. SHE IS DOING HER RESPIRATORY TREATMENT. SHE ASKED TO USE THE BEDPAN AND SHE WAS ABLE TO ROLL WITH THE USE OF THE SPECIALTY BED AND THE TRAPEAZE BAR. THE AIR MATTRESS ISSUE WAS RESOLVED SHORTLY AFTER CONTACTING THE MANUFACTURE COMPANY.
--- NOTE | 2018-10-22 22:11 | NUR ---
WATHCING TV QUIELTY WITH NO DISTRESS NOTED. O2 @ 4L PER NC ON. NO DISTRESS NOTED. LEFT IJ INTACT WITH NO REDNESS OR EDEMA NOTED. PATIÑO PATENT AND DRAINING CLEAR YELLOW URINE. CL IN REACH.NO COMPLAINTS VOICED.
[2018-10-23] VITALS: BP 158/88
--- NOTE | 2018-10-23 02:58 | NUR ---
I have reviewed this patient and I concur with the Shift Assessment completed by the Licensed Practical Nurse today this shift.
[2018-10-23 04:00] VITALS: BP 149/81
[2018-10-23 05:10] LABS: BASOPHILS 0 % (0-2); EOSINOPHILS 1.3 % (0-7); HEMATOCRIT 38.9 % (36.0-48.0); HEMOGLOBIN 11.6 g/dL (12-16); IMMATURE GRANULOCYTES 0.5 % (0-5); LYMPHOCYTES 8.9 % (15-50); MCH 23.8 pg (26.0-34.0); MCHC 29.8 g/dL (31.0-37.0); MCV 79.7 fL (80.0-100.0); MEAN PLATELET VOLUME 10.1 fL (7.4-10.4); MONOCYTES 4.7 % (2-11); NEUTROPHILS 84.6 % (40-80); PLATELET COUNT 130 10x3/uL (130-400); RBC 4.88 10x6/uL (4.00-5.40); RDW 17.6 % (11.5-14.5); WBC 8.6 10x3/uL (4.8-10.8)
[2018-10-23 05:36] LABS: ANION GAP 7.7 mmol/L (8-16); CARBON DIOXIDE 33.2 mmol/L (21.0-32.0); CREATININE - SERUM 1.4 mg/dL (0.6-1.3); POTASSIUM - SERUM 4.9 mmol/L (3.5-5.1)
--- NOTE | 2018-10-23 08:19 | NUR ---
RESUMING PT CARE, PT LAYING IN BED WITH EYES CLOSED, RESPIRATIONS EVEN AND UNLABORED. CALL LIGHT IN REACH. WILL CONTINUE TO MONITOR AND FOLLOW PLAN OF CARE.
[2018-10-23 08:44] VITALS: BP 146/67
[2018-10-23 11:40] VITALS: BP 140/69
--- NOTE | 2018-10-23 12:30 | NUR ---
PT RESTING IN BED, DENIES ANY NEEDS AT THIS TIME. WILL CONT TO FOLLOW POC
--- NOTE | 2018-10-23 13:19 | NUR ---
PT PLACED ON HOME TRIOLGY WITH 3LO2 BLEED IN. WILL CHECK AGB IN 2HRS
[2018-10-23 15:46] VITALS: BP 139/68
--- NOTE | 2018-10-23 18:05 | MORECARE ---
CASE MANAGEMENT DISCHARGE SUMMARY PATIENT: DOT MIXON UNIT: [id number] ADM DATE: 09/30/18 AGE: 43 : 75 SEX: F ROOM/BED: D.2108 AUTHOR: PREMA,DOC PHYSICIAN: REFERRING PHYSICIAN: ELOISE GIVENS MD DATE OF SERVICE: 10/23/18 Discharge Plan Patient Name: DOT MIXON Facility: [facility]:[place] : 1975 Planned Disposition: Anticipated Discharge Date: Discharge Date: Expected LOS: Initial Reviewer: [email or web address] Initial Review Date: 10/09/2018 Generated: 10/23/18 7:05 pm Comments DCP- Discharge Planning Updated by [id number]: Eunice Vo on 10/23/18 5:[address] LATE ENTRY Abel GARCIA, COST ACCOUNTING ANALYST, SPOKE W/ ME THIS AM. SHE HAD NOT REC CB FROM [facility]. CM WILL FOLLOW UP IN THE AM REGARDING DECISION AND PROJECTED DISCHARGE DATE. FOLLOW UP SPEECH THERAPY EVAL COMPLETED. UPDATED WEIGHT REPORTEDLY IS 660 LBS. PATIENT TO HAVE ABG'S TODAY AFTER TRILOGY. PULMONARY NOTE REQUEST SNF PLACEMENT IN [place]. THE PATIENT'S PLAN IS FOR SNF REHAB AT [facility]. CM WORKING ON PLACEMENT AT APPROPRIATE FACILITY W/ CAPABILITY TO PROVIDE HER NEEDS, [facility]. DCP- Discharge Planning Updated by [id number]: Aundrea Noel on 10/22/18 10:[address] CM has been working with patient to try to get in touch with her Igor Schofield. He hasn't been answering the phone. CM tried to assist by looking up his mother and sister on Facebook to see if there was a phone number linked to their accounts but there wasn't. 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 CM gave patient phone numbers to both [place] in [place]. CM also looked up her landlords phone number so she could call about her belongings in her home. CM will continue to follow and assist as needed with discharge planning / needs. DCP- Discharge Planning Updated by [id number]: Aundrea Noel on 10/22/18 10:[address] Angel from [facility] came by last week to see patient and to obtain records. KATY was given verbally per patient for [facility] at that time. Anegl later called back and stated to notify him when patient is closer to discharge. CM attempted to call Angel this morning in regards possible discharge by the end of the week. He stated he was in a meeting and would call back later. Meantime I have asked nursing for a weight on patient since there hasn't been one recorded since 10/10/18. Nursing stated that the bed scale isn't working. CM will continue to follow and assist as needed for discharge planning / needs. DCP- Discharge Planning Updated by [id number]: Aundrea Noel on 10/15/18 7:[address] CM checking with long term facilities regarding possible placement. CM having barriers related to patient's weight and facilities not being able to accommodate a patient of her size. At this time [facility], [facility], [place], and [place] have all denied patient. CM will continue to seek placement. CM will continue to follow and assist as needed with discharge planning / needs. DCP- Discharge Planning Updated by [email or web address]: Aundrea Noel on 10/11/18 2:[address] CM spoke with regarding LTACH placement. Patient is Medicaid only therefore patient is not an LTACH candidate. Dr. Juarez states he would like patient transferred back to [facility] once patient is more stable. CM will continue to follow and assist as needed with discharge planning / needs. DCP- Discharge Planning Updated by [id number]: Aundrea Noel on 10/09/18 4:[address] Patient Name: DOT MIXON Admission Status: Urgent Accout number: [id number] Admission Date: 09-30-2018 : 1975 Admission Diagnosis:ACUTE KIDNEY FAILURE, UNSPECIFIED Attending: Junior Rubalcava Current LOS: 9 Anticipated DC Date: Planned Disposition: Primary Insurance: MEDICAID [place] Discharge Planning Comments: CM met with patient at bedside. She states that she lives [address] [place] [address] . She lives with her firuth Schofield [phone]. She states that she does have home health with [facility] and her fianc? is her caregiver. She states that she has an Electric chair, BSC and trilogy with [facility]. Patient states that she needs a shower chair, walker and suction cup grab bars for shower. Patient would like to go home upon discharge and resume care with [facility]. KATY form signed for [facility]. Patient is not a candidate for LTACH due Medicaid being a payer source and not covered under Medicaid. CM will continue to follow and assist as needed with discharge planning / needs. Environmental Marketing Representative: Aundrea Noel DCP- Discharge Planning Updated by [email or web address]: Aundrea Noel on 10/08/18 6:[address] CM attempted to meet with patient for discharge planning /needs. Patient is currently on BiPap and wasn't able to speak to CM. No family available at this time. CM will continue to follow and assist as needed with discharge planning / needs. DCP- Discharge Planning Updated by [id number]: Aundrea Noel on 10/01/18 12:[address] CM attempted to meet with patient for discharge planning /needs. Patient is currently sedated on vent no family available at this time. CM will continue to follow and assist as needed with discharge planning / needs. DCPIA - Discharge Planning Initial Assessment Updated by [email or web address]: Aundrea Noel on 10/09/18 4:55 pm * Is the patient Alert and Oriented? Yes * How many steps to enter\exit or inside your home? * PCP Lauren with [facility] * Pharmacy [facility] * Preadmission Environment Home with Family * ADLs Partial Dependent * Partial ADLs (Assistance needed) Ambulation Bathing Dressing Eating Medication Management Toileting Transfers * Other Equipment Electric Lift chair, BSC, Trilogy ([facility]) * List name and contact numbers for known caregivers / representatives who currently or will assist patient after discharge: Raquel celestin? - [phone] * Verbal permission to speak to the caregivers and representatives has been obtained from the patient. Yes * Community resources currently utilized Home Health * Please name any agencies selected above. [facility] * Additional services required to return to the preadmission environment? No * Can the patient safely return to the preadmission environment? Yes * Has this patient been hospitalized within the prior 30 days at any hospital? No Last DP export: 10/22/18 11:01 a Patient Name: DOT MIXON Page 40762 at 1805 All edits/amendments must be made on the electronic document DICTATION DATE: 10/23/181803 CONCRETE BLOCK MASON: FLIP 10/23/181803 RPT#: [id number] DC DATE: STATUS: ADM IN [facility] [address] [place] [address] END OF REPORT
--- NOTE | 2018-10-23 19:25 | NUR ---
PT HAS RESP IN ROOM GIVING A BREATHING TREATMENT. PT IS ALERT, ASKING AND ANSWERING QUESTIONS PROPERLY. PT BEDLOW AND CALL LIGHT IN REACH. PT RECEIVED NO SUGAR ADDED ICE CREAM. NAME AND DATE PLACED ON BOARD. VERBALIZED UNDERSTANDING OF ISOLATION PROTOCOL. PT HAS NO S/S OF DISTRESS. DENIES ANY OTHER NEEDS. WILL CPOC
[2018-10-23 20:00] VITALS: BP 108/56
--- NOTE | 2018-10-23 22:31 | NUR ---
FSBS IS 255 16 UNITS GIVEN ORDERED. LOVENOX GIVEN ORDERED. PT SOLU MED GIVEN. FLUSHED LEFT ARM 22G BRUISE NOTED IV PATENT. LEFT IJ TRIPLE LUMEN FLUSHED ALL THREE LUMEN. SWAB CAP PLACED. PT GIVEN A NOURISHEMENT. PATIÑO NOTED. PT HAS NO S/S OF DISTRESS. WILL CPOC
[2018-10-24] VITALS (7 sets, daily range): BP systolic 129–156; BP diastolic 60–81
--- NOTE | 2018-10-24 02:39 | NUR ---
ASKED PT IF SHE WAS READY TO PUT TRILOGY ON. SHE BECAME BELLIGERANT. SAYS NO SHE DOESN'T UNDERSTAND WHY SHE HAS TO PUT IT ON AT THIS TIME. IT IS 0230 I EXPLAINED THAT MD WANTS HER ON THE MACHINE IN ORDER TO SEE THAT IT WILL MAINTAIN HER ADEQUATELY BEFORE SHE LEAVES HERE. I EXPLAINED THAT I UNDERSTAND THAT SHE HAS REFUSED IT FROM MY OTHER THERAPIST REPEATEDLY. I ALSO REMINDED HER THAT SHE WAS CRITICALLY ILL, NEAR WHEN SHE ARRIVED AND HAS MADE REMARKABLE PROGRESS AND DOES NOT NEED TO BACKSLIDE BY NOT WEARING HER TROLOGY/BIPAP ORDERED BY . SHE SAID "GIVE ME THE GODDAMN THING, DON'T TOUCH ME" "ILL PUT IT ON, YOU CAN TURN IT ON AND GET OUT" PT PUT TRILOGY ON THEN TOLD ME TO GET OUT AND SHUT HER DOOR. I THANKED HER I LEFT AND LET RN KNOW IT WAS IN PLACE.
--- NOTE | 2018-10-24 07:32 | NUR ---
ROUNDING DONE WITH PATIENT BEING IN DROPLET ISOLATION. ON TRILOGY AT THIS MOMENT. VERY OBESE, ON BARIATRIC BED. ON EP, NO LABS AT THIS MOMENT.
--- NOTE | 2018-10-24 13:02 | NUR ---
CLEANED UP AGAIN FROM STOOL ON BEDPAN. EMPTIED 1900 CC OF URINE FROM PATIÑO CATH, THIS IS ADDED TO 1000 CC ALREADY EMPTIED. CALL LIGHT IN USE. PATIENT WANTED TO BE PLACED ON HER TRIOLOGY, DONE.
--- NOTE | 2018-10-24 14:18 | NUR ---
OFF TRILOGY AND BACK ON NASAL CANNULA.
[2018-10-24 15:08] LABS: BASOPHILS 0 % (0-2); EOSINOPHILS 0 % (0-7); HEMATOCRIT 40.1 % (36.0-48.0); HEMOGLOBIN 12.3 g/dL (12-16); IMMATURE GRANULOCYTES 0.4 % (0-5); LYMPHOCYTES 5.8 % (15-50); MCH 23.9 pg (26.0-34.0); MCHC 30.7 g/dL (31.0-37.0); MEAN PLATELET VOLUME 10.5 fL (7.4-10.4); MONOCYTES 1.5 % (2-11); NEUTROPHILS 92.3 % (40-80); PLATELET COUNT 126 10x3/uL (130-400); RBC 5.14 10x6/uL (4.00-5.40); RDW 17.9 % (11.5-14.5); WBC 10.2 10x3/uL (4.8-10.8)
[2018-10-24 15:24] LABS: CALCIUM 8.6 mg/dL (8.5-10.1); CARBON DIOXIDE 31.3 mmol/L (21.0-32.0); CREATININE - SERUM 1.5 mg/dL (0.6-1.3); POTASSIUM - SERUM 5.3 mmol/L (3.5-5.1)
--- NOTE | 2018-10-24 16:57 | MORECARE ---
CASE MANAGEMENT DISCHARGE SUMMARY PATIENT: DOT MIXON UNIT: [id number] ADM DATE: 09/30/18 AGE: 43 : 75 SEX: F ROOM/BED: D.2108 AUTHOR: PREMA,DOC PHYSICIAN: REFERRING PHYSICIAN: ELOISE GIVENS MD DATE OF SERVICE: 10/24/18 Discharge Plan Patient Name: DOT MIXON Facility: [facility]:[place] : 1975 Planned Disposition: Anticipated Discharge Date: Discharge Date: Expected LOS: Initial Reviewer: [email or web address] Initial Review Date: 10/09/2018 Generated: 10/24/18 5:57 pm Comments DCP- Discharge Planning Updated by [email or web address]: Eunice Vo on 10/24/18 3:[address] LATE ENTRY 0915 REC TELEPHONE CALL FROM ANGEL SÁNCHEZ THIS AM. [facility] NURSING TO REVIEW CLINICAL TODAY. HE WILL ADVISE THIS AFTERNOON REGARDING ACCEPTANCE. 1325 REC TELEPHONE CALL FROM ANGEL. [facility] CANNOT MEET THE PATIENT'S NEEDS. THEIR BARIATRIC SERVICES HAS CAPABILITY FOR 550 LBS. KADI SINGH, SPOKE WITH ENOCH CARDOZO, CLINICAL LIAISON, FOR [facility] SERVICE. SHE DOES NOT HAVE A FACILITY THAT CAN PROVIDE CARE FOR THIS PATIENT. HER FACILITIES ARE [facility], [facility], [facility], [facility] AND [facility]. WILL CONTINUE TO SEARCH. WILL UPDATE THE PATIENT. DCP- Discharge Planning Updated by [email or web address]: Eunice Vo on 10/23/18 5:[address] LATE ENTRY 1100 RADHA, DIRECTOR OF ONCOLOGY, SPOKE W/ ME THIS AM. SHE HAD NOT REC CB FROM ANGEL AT [facility]. KADI WILL FOLLOW UP IN THE AM REGARDING DECISION AND PROJECTED DISCHARGE DATE. FOLLOW UP SPEECH THERAPY EVAL COMPLETED. UPDATED WEIGHT REPORTEDLY IS 660 LBS. PATIENT TO HAVE ABG'S TODAY AFTER TRILOGY. PULMONARY NOTE REQUEST SNF PLACEMENT IN [place]. THE PATIENT'S PLAN IS FOR SNF REHAB [facility]. CM WORKING ON PLACEMENT AT APPROPRIATE FACILITY W/ CAPABILITY TO PROVIDE HER NEEDS, [facility]. DCP- Discharge Planning Updated by [id number]: Radha Noel on 10/22/18 10:[address] CM has been working with patient to try to get in touch with her Igor Schofield. He hasn't been answering the phone. CM tried to assist by looking up his mother and sister on [employer] to see if there was a phone number linked to their accounts but there wasn't. 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 CM gave patient phone numbers to both [place] in [place]. CM also looked up her landlor phone number so she could call about her belongings in her home. CM will continue to follow and assist as needed with discharge planning / needs. DCP- Discharge Planning Updated by [email or web address]: Radha Noel on 10/22/18 10:[address] Angel from [facility] came by last week to see patient and to obtain records. KATY was given verbally per patient for [facility] at that time. Angel later called back and stated to notify him when patient is closer to discharge. CM attempted to call Angel this morning in regards possible discharge by the end of the week. He stated he was in a meeting and would call back later. Meantime I have asked nursing for a weight on patient since there hasn't been one recorded since 10/10/18. Nursing stated that the bed scale isn't working. CM will continue to follow and assist as needed for discharge planning / needs. DCP- Discharge Planning Updated by [email or web address]: Radha Noel on 10/15/18 7:[address] CM checking with senior living facilities regarding possible placement. CM having barriers related to patient's weight and facilities not being able to accommodate a patient of her size. At this time [facility], [facility], [place], and [place] have all denied patient. CM will continue to seek placement. CM will continue to follow and assist as needed with discharge planning / needs. DCP- Discharge Planning Updated by [email or web address]: Radha Noel on 10/11/18 2:[address] CM spoke with regarding LTACH placement. Patient is Medicaid only therefore patient is not an LTACH candidate. Dr. Juarez states he would like patient transferred back to [facility] once patient is more stable. CM will continue to follow and assist as needed with discharge planning / needs. DCP- Discharge Planning Updated by [email or web address]: Radha Noel on 10/09/18 4:[address] Patient Name: DOT MIXON Admission Status: Urgent Accout number: [id number] Admission Date: 09-30-2018 : 1975 Admission Diagnosis:ACUTE KIDNEY FAILURE, UNSPECIFIED Attending: Junior Rubalcava Current LOS: 9 Anticipated DC Date: Planned Disposition: Primary Insurance: MEDICAID [place] Discharge Planning Comments: CM met with patient at bedside. She states that she lives [address] [phone]. She lives with her fianc? Raquel Schofield [phone]. She states that she does have home health with [facility] and her fianc? is her caregiver. She states that she has an Electric chair, BSC and trilogy with [facility]. Patient states that she needs a shower chair, walker and suction cup grab bars for shower. Patient would like to go home upon discharge and resume care with [facility]. KATY form signed for [facility]. Patient is not a candidate for LTACH due Medicaid being a payer source and not covered under Medicaid. CM will continue to follow and assist as needed with discharge planning / needs. Lemon Grower: Radha Noel DCP- Discharge Planning Updated by [email or web address]: Radha Noel on 10/08/18 6:[address] CM attempted to meet with patient for discharge planning /needs. Patient is currently on BiPap and wasn't able to speak to CM. No family available at this time. CM will continue to follow and assist as needed with discharge planning / needs. DCP- Discharge Planning Updated by [id number]: Radha Noel on 10/01/18 12:[address] CM attempted to meet with patient for discharge planning /needs. Patient is currently sedated on vent no family available at this time. CM will continue to follow and assist as needed with discharge planning / needs. DCPIA - Discharge Planning Initial Assessment Updated by [email or web address]: Radha Noel on 10/09/18 4:55 pm * Is the patient Alert and Oriented? Yes * How many steps to enter\exit or inside your home? * PCP Lauren with [facility] * Pharmacy [facility] * Preadmission Environment Home with Family * ADLs Partial Dependent * Partial ADLs (Assistance needed) Ambulation Bathing Dressing Eating Medication Management Toileting Transfers * Other Equipment Electric Lift chair, BSC, Trilogy ([facility]) * List name and contact numbers for known caregivers / representatives who currently or will assist patient after discharge: Raquel celestin? - [phone] * Verbal permission to speak to the caregivers and representatives has been obtained from the patient. Yes * Community resources currently utilized Home Health * Please name any agencies selected above. [facility] * Additional services required to return to the preadmission environment? No * Can the patient safely return to the preadmission environment? Yes * Has this patient been hospitalized within the prior 30 days at any hospital? No Last DP export: 10/23/18 5:05 p Patient Name: DOT MIXON Page [id number] at 1657 All edits/amendments must be made on the electronic document DICTATION DATE: 10/24/181655 HAND WRAPPER OPERATOR: FLIP 10/24/181655 RPT#: [id number] DC DATE: STATUS: ADM IN [facility] [address] [place] [address] END OF REPORT
--- NOTE | 2018-10-24 18:11 | NUR ---
OT NOTE: PT COMPLETED BED TASKS WITH MAX A. PT COMPLETED EOB SITTING WITH CGA. PT COMPLETED BUE AROM AXS AT EOB. THANK YOU,ELI OAKES
--- NOTE | 2018-10-24 20:03 | NUR ---
RECIEVED UP IN BED WITH O2@3 LITERS PER NC IN PLACE. ALERT AND ORIENTED X4. F/C INTACT WITH CLEAR YELLOW UNRINE IN BEDSIDE DRAINAGE BAG. REMAINS IN DROPLET ISOLATION R/T MRSA. DENIES ANY NEEDS AT THIS TIME.
[2018-10-25 01:29] VITALS: BP 134/71
[2018-10-25 05:53] LABS: BASOPHILS 0 % (0-2); EOSINOPHILS 0 % (0-7); HEMATOCRIT 38.3 % (36.0-48.0); HEMOGLOBIN 11.6 g/dL (12-16); IMMATURE GRANULOCYTES 0.3 % (0-5); LYMPHOCYTES 7.5 % (15-50); MCH 23.7 pg (26.0-34.0); MCHC 30.3 g/dL (31.0-37.0); MCV 78.3 fL (80.0-100.0); MEAN PLATELET VOLUME 10.5 fL (7.4-10.4); MONOCYTES 1.4 % (2-11); NEUTROPHILS 90.8 % (40-80); PLATELET COUNT 107 10x3/uL (130-400); RBC 4.89 10x6/uL (4.00-5.40); RDW 18.1 % (11.5-14.5)
[2018-10-25 05:57] LABS: ANION GAP 10.3 mmol/L (8-16); CALCIUM 9.1 mg/dL (8.5-10.1); CARBON DIOXIDE 30.1 mmol/L (21.0-32.0); CREATININE - SERUM 1.4 mg/dL (0.6-1.3); MAGNESIUM - SERUM 1.8 mg/dL (1.8-2.4); POTASSIUM - SERUM 5.4 mmol/L (3.5-5.1)
[2018-10-25 06:00] LABS: WBC 7.1 10x3/uL (4.8-10.8)
[2018-10-25 06:22] VITALS: BP 140/76
--- NOTE | 2018-10-25 07:00 | NUR ---
ALERT ABLE TO VOICE NEEDS. USES TRAPEZE BAR TO HELP ROLL SELF OVER. SHE IS NOT ABLE TO USE LEGS WELL ARMS. HER LOWER LEGS/FEET ARE BROWN IN COLOR WITH SOME LYPHEMDEMIC APPEARENCE. SHE IS OBESE. CL IN REACH. F/C IS PATENT WITH CLEAR YELLOW URINE DRAINING. LEFT IJ IS INTACT WITH SITE CLEAR.
[2018-10-25 08:13] VITALS: BP 132/58
[2018-10-25 11:45] VITALS: BP 147/72
--- NOTE | 2018-10-25 12:00 | NUR ---
ONLY COMPLAINT WAS WITH HER FOOD AND SHE CALLED AND SPOKE WITH THE KITCHEN. RESP EVEN WITHOUT LABOR O2 ON. SHE WAS PLACED ON BEDPAN AND ABLE TO HELP TURN FOR THIS.
--- NOTE | 2018-10-25 12:34 | NUR ---
Nutrition follow-up: ADA diet upgraded to mechanical soft with thin liquids per speech PO intake 100% of meals Labs reviewed Last weight recorded: 664# +BM RDN following.
--- NOTE | 2018-10-25 12:45 | NUR ---
SHE HAS RIGHT 3RD TOE AMPUTATION. LEGS ARE UP ON PILLOWS. ALERT ABLE TO VOICE NEEDS.
--- NOTE | 2018-10-25 15:00 | NUR ---
SHE HAS A UNSTAGEABLE PU TO HER LEFT LATERAL FOOT AND HER RIGHT HEEL. WOUND CARE NURSE STATED BECAUSE ITS NOT OPEN JUST PAINT THE AREAS WITH BETADINE.
--- NOTE | 2018-10-25 17:30 | NUR ---
ALERT NO C/O VOICED. CL IN REACH. RESP EVEN WITHOUT LABOR NO CHANGE IN STATUS NOTED.
--- NOTE | 2018-10-25 19:16 | MORECARE ---
CASE MANAGEMENT DISCHARGE SUMMARY PATIENT: DOT MIXON UNIT: [id number] ADM DATE: 09/30/18 AGE: 43 : 75 SEX: F ROOM/BED: D.2101 AUTHOR: PREMA,DOC PHYSICIAN: REFERRING PHYSICIAN: ELOISE GIVENS MD DATE OF SERVICE: 10/25/18 Discharge Plan Patient Name: DOT MIXON Facility: [facility]:[place] : 1975 Planned Disposition: Anticipated Discharge Date: Discharge Date: Expected LOS: Initial Reviewer: [email or web address] Initial Review Date: 10/09/2018 Generated: 10/25/18 8:15 pm Comments DCP- Discharge Planning Updated by [id number]: Eunice Vo on 10/25/18 6:[address] CM SPOKE CECILIA PATIENT 10/24/18 PM REGARDING SERACH. SHE WANTS TO GO TO FACILITY NEAR [place]. CM EXPLAINED SHE HAD SPECIAL NEEDS THAT COULD NOT BE MET AT ANY FACILITY IN [place]. SHE UNDERSTANDS. SHE STATES SHE CANNOT RETURN TO HER HOME. 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 THE TRAILER WOULD NEED A NEW REINFORCED FLOOR. SHE CANNOT AMBULATE . SHE MISSES HER FRIENDS. INTERNET SEARCH WITH NO FINDINGS FOR FACILITIES. TC TO [facility] CASE MANAGEMENT DEPARTMENT. WANDA SAAVEDRA, PERFORATOR- SUPERVISIOR TO THERAPY ADMINISTRATIVE ASSISTANT. HAD TO LEAVE A VOICE MAIL REQUESTING ASSISTANCE FOR RESOURCE FOR SNF BARIATRIC SERVICES. AWAITED CALL BACK. TELEPHONE CALL TO [facility] [place]. LEFT VOICE MAIL MESSAGE FOR MS ROONEY, ADMISSION COORDINATOR. NO SERVICE AVAILABLE AT HER FACILITY. SHE STATES THERE IS A FACILITY IN [place] , THE ONLY ONE IN [facility], THAT CAN ACCOMMODATE A PATIENT UP TO 1000 LBS. SHE COULD NOT RECALL THE NAME. SHE STATES THEY GENERALLY HAVE A WAITING LIST. CM WILL SEARCH. DCP- Discharge Planning Updated by [id number]: Eunice Vo on 10/24/18 3:[address] LATE ENTRY 914 REC TELEPHONE CALL FROM ANGEL SÁNCHEZ THIS AM. [facility] NURSING TO REVIEW CLINICAL TODAY. HE WILL ADVISE THIS AFTERNOON REGARDING ACCEPTANCE. 1325 REC TELEPHONE CALL FROM ANGEL. [facility] CANNOT MEET THE PATIENT'S NEEDS. THEIR BARIATRIC SERVICES HAS CAPABILITY FOR 550 LBS. KADI SINGH, SPOKE WITH ENOCH CARDOZO, CLINICAL LIAISON, FOR [facility] SERVICE. SHE DOES NOT HAVE A FACILITY THAT CAN PROVIDE CARE FOR THIS PATIENT. HER FACILITIES ARE [facility], [facility], [facility], [facility] AND [facility]. WILL CONTINUE TO SEARCH. WILL UPDATE THE PATIENT. DCP- Discharge Planning Updated by [id number]: Eunice Vo on 10/23/18 5:[address] LATE ENTRY 1100 RADHA, CONSTRUCTION DRIVER, SPOKE W/ ME THIS AM. SHE HAD NOT REC CB FROM ANGEL AT [facility]. CM WILL FOLLOW UP IN THE AM REGARDING DECISION AND PROJECTED DISCHARGE DATE. FOLLOW UP SPEECH THERAPY EVAL COMPLETED. UPDATED WEIGHT REPORTEDLY IS 660 LBS. PATIENT TO HAVE ABG'S TODAY AFTER TRILOGY. PULMONARY NOTE REQUEST SNF PLACEMENT IN [place]. THE PATIENT'S PLAN IS FOR SNF REHAB AT [facility]. CM WORKING ON PLACEMENT AT APPROPRIATE FACILITY W/ CAPABILITY TO PROVIDE HER NEEDS, [facility]. DCP- Discharge Planning Updated by [id number]: Radha Noel on 10/22/18 10:[address] CM has been working with patient to try to get in touch with her RejililiRosy García Chandu. He hasn't been answering the phone. KADI tried to assist by looking up his mother and sister on [employer] to see if there was a phone number linked to their accounts but there wasn't. 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 CM gave patient phone numbers to both [place] in [place]. KADI also looked up her [employer] phone number so she could call about her belongings in her home. CM will continue to follow and assist as needed with discharge planning / needs. DCP- Discharge Planning Updated by [email or web address]: Radha Noel on 10/22/18 10:[address] Angel from [facility] came by last week to see patient and to obtain records. KATY was given verbally per patient for [facility] at that time. Angel later called back and stated to notify him when patient is closer to discharge. CM attempted to call Angel this morning in regards possible discharge by the end of the week. He stated he was in a meeting and would call back later. Meantime I have asked nursing for a weight on patient since there hasn't been one recorded since 10/10/18. Nursing stated that the bed scale isn't working. CM will continue to follow and assist as needed for discharge planning / needs. DCP- Discharge Planning Updated by [id number]: Radha Noel on 10/15/18 7:[address] CM checking with jail facilities regarding possible placement. CM having barriers related to patient's weight and facilities not being able to accommodate a patient of her size. At this time [facility], [facility], [place], and [place] have all denied patient. CM will continue to seek placement. CM will continue to follow and assist as needed with discharge planning / needs. DCP- Discharge Planning Updated by [id number]: Radha Noel on 10/11/18 2:[address] CM spoke with regarding LTACH placement. Patient is Medicaid only therefore patient is not an LTACH candidate. Dr. Juarez states he would like patient transferred back to [facility] once patient is more stable. CM will continue to follow and assist as needed with discharge planning / needs. DCP- Discharge Planning Updated by [id number]: Radha Noel on 10/09/18 4:[address] Patient Name: DOT MIXON Admission Status: Urgent Accout number: [id number] Admission Date: 09-30-2018 : 1975 Admission Diagnosis:ACUTE KIDNEY FAILURE, UNSPECIFIED Attending: Junior Rubalcava Current LOS: 9 Anticipated DC Date: Planned Disposition: Primary Insurance: MEDICAID [place] Discharge Planning Comments: CM met with patient at bedside. She states that she lives [address] [place] [address] . She lives with her fiancRosy Schofield [phone]. She states that she does have home health with [facility] and her fianc? is her caregiver. She states that she has an Electric chair, BSC and trilogy with [facility]. Patient states that she needs a shower chair, walker and suction cup grab bars for shower. Patient would like to go home upon discharge and resume care with [facility] . KATY form signed for [facility]. Patient is not a candidate for LTACH due Medicaid being a payer source and not covered under Medicaid. CM will continue to follow and assist as needed with discharge planning / needs. Pulverizing And Sifting Operator: Radha Noel DCP- Discharge Planning Updated by [id number]: Radha Noel on 10/08/18 6:[address] CM attempted to meet with patient for discharge planning /needs. Patient is currently on BiPap and wasn't able to speak to CM. No family available at this time. CM will continue to follow and assist as needed with discharge planning / needs. DCP- Discharge Planning Updated by [id number]: Radha Noel on 10/01/18 12:[address] CM attempted to meet with patient for discharge planning /needs. Patient is currently sedated on vent no family available at this time. CM will continue to follow and assist as needed with discharge planning / needs. DCPIA - Discharge Planning Initial Assessment Updated by [email or web address]: Radha Noel on 10/09/18 4:55 pm * Is the patient Alert and Oriented? Yes * How many steps to enter\exit or inside your home? * PCP Lauren with [facility] * Pharmacy [facility] [place] * Preadmission Environment Home with Family * ADLs Partial Dependent * Partial ADLs (Assistance needed) Ambulation Bathing Dressing Eating Medication Management Toileting Transfers * Other Equipment Electric Lift chair, BSC, Trilogy ([facility]) * List name and contact numbers for known caregivers / representatives who currently or will assist patient after discharge: Raquel celestin? - [phone] * Verbal permission to speak to the caregivers and representatives has been obtained from the patient. Yes * Community resources currently utilized Home Health * Please name any agencies selected above. [facility] * Additional services required to return to the preadmission environment? No * Can the patient safely return to the preadmission environment? Yes * Has this patient been hospitalized within the prior 30 days at any hospital? No Last DP export: 10/24/18 3:57 p Patient Name: DOT MIXON Page 54770 at 1916 All edits/amendments must be made on the electronic document DICTATION DATE: 10/25/181914 BLOW TORCH BURNER: DM 10/25/181914 RPT#: [id number] DC DATE: STATUS: ADM IN [facility] [address] [place] [address] END OF REPORT
[2018-10-25 20:00] VITALS: BP 143/74
--- NOTE | 2018-10-25 20:01 | NUR ---
EVENING ROUNDS COMPLETED. REPORT RECEIVED. PT SITTING UP IN BED WITH EYES OPEN, RR EVEN AND UNLABORED. BED IN LOW POSITION. NO S/S OF DISTRESS NOTED. OXYGEN AT 3 LITERS BY NASAL CANNULA. 800 MLS OF CLEAR LIGHT YELLOW OUTPUT EMPTIED FROM PATIÑO. INTRODUCED SELF TO PT. PT DENIES FURTHER NEEDS AT THIS TIME. CALL LIGHT IN REACH. WILL CTM.
--- NOTE | 2018-10-26 00:48 | NUR ---
I HAVE ASKED THE PATIENT TWICE TONIGHT TO PUT HER BIPAP/TRILOGY ON AND PATIENT STATED SHE WILL PUT IT ON WHEN SHE GETS READY.TIME IS 00:49
--- NOTE | 2018-10-26 03:13 | NUR ---
ASSISTED PT IN APPLYING TRILOGY DEVICE, EMPTIED 500 MLS LIGHT YELLOW OUTPUT FROM PATIÑO. PT DENIES FURTHER NEEDS AT THIS TIME. CALL LIGHT IN REACH. WILL CTM.
[2018-10-26 04:00] VITALS: BP 142/70
[2018-10-26 05:50] LABS: BASOPHILS 0 % (0-2); EOSINOPHILS 0 % (0-7); HEMATOCRIT 38.9 % (36.0-48.0); IMMATURE GRANULOCYTES 0.4 % (0-5); LYMPHOCYTES 8.4 % (15-50); MCH 24.1 pg (26.0-34.0); MCHC 30.8 g/dL (31.0-37.0); MCV 78.1 fL (80.0-100.0); MONOCYTES 1.9 % (2-11); NEUTROPHILS 89.3 % (40-80); PLATELET COUNT 121 10x3/uL (130-400); RBC 4.98 10x6/uL (4.00-5.40); RDW 18.3 % (11.5-14.5); WBC 7.8 10x3/uL (4.8-10.8)
[2018-10-26 06:06] LABS: CALCIUM 9.2 mg/dL (8.5-10.1); CARBON DIOXIDE 28.9 mmol/L (21.0-32.0); CREATININE - SERUM 1.5 mg/dL (0.6-1.3); MAGNESIUM - SERUM 1.9 mg/dL (1.8-2.4); POTASSIUM - SERUM 4.9 mmol/L (3.5-5.1)
--- NOTE | 2018-10-26 07:10 | NUR ---
REPORT RECEIVED FROM PATTERNMAKER AND PATIENT CARE ASSUMED. PATIENT AWAKE, ALERT AND ORIENTED X 4. PATIENT IS STABLE AND VSS. PATIENT CONTINUES TO BE ON DROPLET PRECAUTIONS. PATIENT DENIES ANY NEEDS OR PAIN. WILL CONTINUE WITH PLAN OF CARE. SR UP X 2 BED IN LOW POSITION AND CALL LIGHT IN REACH.
[2018-10-26 08:33] VITALS: BP 142/86
--- NOTE | 2018-10-26 10:47 | NUR ---
PATIENT IS STABLE AND VSS. PATIENT TALKING ON TELEPHONE DENIES ANY NEEDS OR PAIN. ASSESSMENT COMPLETED. SR UP X 2 BED IN LOW POSITION AND CALL LIGHT IN REACH.
[2018-10-26 12:16] VITALS: BP 158/76
[2018-10-26 15:45] VITALS: BP 134/77
--- NOTE | 2018-10-26 16:15 | NUR ---
PATIENT HAD SMALL, SOFT BROWN BM. PATIENT CLEANED AND LINEN CHANGED. PATIENT DENIES ANY NEEDS OR PAIN. WILL CONTINUE TO MONITOR. SR UP X 2 BED IN LOW POSTION AND CALL LIGHT IN REACH.
--- NOTE | 2018-10-26 19:45 | NUR ---
RECIEVED UP IN BED WITH EYES OPEN AND TV ON. ALERT AND ORIENTED X4. BEDFAST AT THIS TIME. IJ TO LEFTSIDE OF NECK. 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 F/C INTACT WITH CLEAR YELLOW URINE TO BEDSIDE DRAINAGE BAG. DENIES ANY NEEDS AT THIS TIME.
[2018-10-26 20:00] VITALS: BP 138/67
[2018-10-27] VITALS: BP 148/76
[2018-10-27 04:00] VITALS: BP 136/70
[2018-10-27 06:42] LABS: BASOPHILS 0 % (0-2); EOSINOPHILS 1.3 % (0-7); HEMATOCRIT 38.7 % (36.0-48.0); HEMOGLOBIN 11.8 g/dL (12-16); IMMATURE GRANULOCYTES 0.2 % (0-5); LYMPHOCYTES 17.1 % (15-50); MCHC 30.5 g/dL (31.0-37.0); MCV 78.7 fL (80.0-100.0); MEAN PLATELET VOLUME 10.7 fL (7.4-10.4); MONOCYTES 6.9 % (2-11); NEUTROPHILS 74.5 % (40-80); RBC 4.92 10x6/uL (4.00-5.40); RDW 18.7 % (11.5-14.5); WBC 8.5 10x3/uL (4.8-10.8)
[2018-10-27 06:47] LABS: PLATELET COUNT 155 10x3/uL (130-400)
--- NOTE | 2018-10-27 07:00 | NUR ---
RECEIVED REPORT. ASSUMED CARE OF PATIENT. PATIENT REMAINS IN ISOLATION. RESTING WILL WITH EYES CLOSED. RESP EVEN AND UNLABORED. PATIENT USING HOME TRILOGY UNIT AT THIS TIME. NO DISTRESS.
[2018-10-27 07:11] LABS: ANION GAP 14.1 mmol/L (8-16); CARBON DIOXIDE 27.8 mmol/L (21.0-32.0); CREATININE - SERUM 1.4 mg/dL (0.6-1.3); MAGNESIUM - SERUM 1.6 mg/dL (1.8-2.4); POTASSIUM - SERUM 3.9 mmol/L (3.5-5.1)
[2018-10-27 08:31] VITALS: BP 136/74
--- NOTE | 2018-10-27 09:40 | NUR ---
FSBS 176. 40 UNITS LANTUS ADMINISTERED ORDERED.
--- NOTE | 2018-10-27 11:37 | NUR ---
FSBS 167. 8 UNITS HUMULIN R ADMINISTERED PER SLIDING SCALE.
[2018-10-27 12:06] VITALS: BP 137/69
[2018-10-27 15:04] VITALS: BP 132/71
--- NOTE | 2018-10-27 16:59 | NUR ---
FSBS 272. 16 UNITS HUMULIN INSULIN ADMINISTERED PER SLIDING SCALE.
[2018-10-27 20:00] VITALS: BP 135/76
--- NOTE | 2018-10-27 20:23 | NUR ---
RECIEVED UP IN BED WITH EYES OPEN AND TV ON. ALERT AND ORIENTED X4. BEDFAST AT THIS TIME. 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 F/C PATENT WITH CLEAR YELLOW URINE TO BEDSIDE DRAINAGE SYSTEM. IJ TO LEFT SIDE OF NECK WITH TRIPLE LUMENS. SL AT THIS TIME. DENIES ANY NEEDS AT THIS TIME.
[2018-10-28] VITALS: BP 126/70
[2018-10-28 04:00] VITALS: BP 133/67
[2018-10-28 07:12] LABS: BASOPHILS 0 % (0-2); EOSINOPHILS 1.8 % (0-7); HEMATOCRIT 38.6 % (36.0-48.0); IMMATURE GRANULOCYTES 0.6 % (0-5); MCH 24.2 pg (26.0-34.0); MCHC 31.1 g/dL (31.0-37.0); MCV 77.8 fL (80.0-100.0); MONOCYTES 7.3 % (2-11); NEUTROPHILS 71.3 % (40-80); PLATELET COUNT 133 10x3/uL (130-400); RBC 4.96 10x6/uL (4.00-5.40); RDW 18.6 % (11.5-14.5)
[2018-10-28 07:48] LABS: CALCIUM 8.8 mg/dL (8.5-10.1); CARBON DIOXIDE 27.7 mmol/L (21.0-32.0); CREATININE - SERUM 1.5 mg/dL (0.6-1.3); MAGNESIUM - SERUM 1.8 mg/dL (1.8-2.4); POTASSIUM - SERUM 3.7 mmol/L (3.5-5.1)
--- NOTE | 2018-10-28 07:57 | MORECARE ---
CASE MANAGEMENT DISCHARGE SUMMARY PATIENT: DOT MIXON UNIT: [id number] ADM DATE: 09/30/18 AGE: 43 : 75 SEX: F ROOM/BED: D.2101 AUTHOR: RITESH LLOYD PHYSICIAN: REFERRING PHYSICIAN: ELOISE GIVENS MD DATE OF SERVICE: 10/28/18 Discharge Plan Patient Name: DOT MIXON Facility: [facility]:[place] : 1975 Planned Disposition: Senior Living Facility Anticipated Discharge Date: Discharge Date: Expected LOS: Initial Reviewer: [email or web address] Initial Review Date: 10/09/2018 Generated: 10/28/18 8:57 am Comments DCP- Discharge Planning Updated by [id number]: Eunice Vo on 10/25/18 6:[address] [facility] REGARDING SERACH. SHE WANTS TO GO TO FACILITY NEAR [place]. CM EXPLAINED SHE HAD SPECIAL NEEDS THAT COULD NOT BE MET AT ANY FACILITY IN [place]. SHE UNDERSTANDS. SHE STATES SHE CANNOT RETURN TO HER HOME. 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 THE TRAILER WOULD NEED A NEW REINFORCED FLOOR. SHE CANNOT AMBULATE . SHE MISSES HER FRIENDS. INTERNET SEARCH WITH NO FINDINGS FOR FACILITIES. TC TO [facility] CASE MANAGEMENT DEPARTMENT. WANDA SAAVEDRA, WIREWORKER- SUPERVISIOR TO PERSONAL TRAINER. HAD TO LEAVE A VOICE MAIL REQUESTING ASSISTANCE FOR RESOURCE FOR SNF BARIATRIC SERVICES. AWAITED CALL BACK. TELEPHONE CALL TO [facility] [place]. LEFT VOICE MAIL MESSAGE FOR MS ROONEY, ADMISSION COORDINATOR. NO SERVICE AVAILABLE AT HER FACILITY. SHE STATES THERE IS A FACILITY IN [place] , THE ONLY ONE IN THE [facility], THAT CAN ACCOMMODATE A PATIENT UP TO 1000 LBS. SHE COULD NOT RECALL THE NAME. SHE STATES THEY GENERALLY HAVE A WAITING LIST. CM WILL SEARCH. DCP- Discharge Planning Updated by [id number]: Eunice Vo on 10/24/18 3:[address] LATE ENTRY 914 REC TELEPHONE CALL FROM ANGEL SÁNCHEZ THIS AM. [facility] NURSING TO REVIEW CLINICAL TODAY. HE WILL ADVISE THIS AFTERNOON REGARDING ACCEPTANCE. 1325 REC TELEPHONE CALL FROM ANGEL. [facility] CANNOT MEET THE PATIENT'S NEEDS. THEIR BARIATRIC SERVICES HAS CAPABILITY FOR 550 LBS. KADI SINGH, SPOKE WITH ENOCH CARDOZO, CLINICAL LIAISON, FOR [facility] SERVICE. SHE DOES NOT HAVE A FACILITY THAT CAN PROVIDE CARE FOR THIS PATIENT. HER FACILITIES ARE [facility], [facility], [facility], [facility]. WILL CONTINUE TO SEARCH. WILL UPDATE THE PATIENT. DCP- Discharge Planning Updated by [id number]: Eunice Vo on 10/23/18 5:[address] LATE ENTRY Abel GARCIA, BLOCK MECHANIC, SPOKE W/ ME THIS AM. SHE HAD NOT REC CB FROM ANGEL AT [facility]. CM WILL FOLLOW UP IN THE AM REGARDING DECISION AND PROJECTED DISCHARGE DATE. FOLLOW UP SPEECH THERAPY EVAL COMPLETED. UPDATED WEIGHT REPORTEDLY IS 660 LBS. PATIENT TO HAVE ABG'S TODAY AFTER TRILOGY. PULMONARY NOTE REQUEST SNF PLACEMENT IN [place]. THE PATIENT'S PLAN IS FOR SNF REHAB AT [facility]. CM WORKING ON PLACEMENT AT APPROPRIATE FACILITY W/ CAPABILITY TO PROVIDE HER NEEDS, [facility]. DCP- Discharge Planning Updated by [id number]: Aundrea Noel on 10/22/18 10:[address] KADI has been working with patient to try to get in touch with her RejililiRosy Antonyes. He hasn't been answering the phone. CM tried to assist by looking up his mother and sister on [employer] to see if there was a phone number linked to their accounts but there wasn't. 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 CM gave patient phone numbers to both [place] in [place]. CM also looked [facility] phone number so she could call about her belongings in her home. CM will continue to follow and assist as needed with discharge planning / needs. DCP- Discharge Planning Updated by [id number]: Aundrea Noel on 10/22/18 10:[address] Angel from [facility] came by last week to see patient and to obtain records. KATY was given verbally per patient for [facility] at that time. Angel later called back and stated to notify him when patient is closer to discharge. CM attempted to call Angel this morning in regards possible discharge by the end of the week. He stated he was in a meeting and would call back later. Meantime I have asked nursing for a weight on patient since there hasn't been one recorded since 10/10/18. Nursing stated that the bed scale isn't working. CM will continue to follow and assist as needed for discharge planning / needs. DCP- Discharge Planning Updated by [id number]: Aundrea Noel on 10/15/18 7:[address] CM checking with penitentiary facilities regarding possible placement. CM having barriers related to patient's weight and facilities not being able to accommodate a patient of her size. At this time [facility], [facility], [place], and [place] have all denied patient. CM will continue to seek placement. CM will continue to follow and assist as needed with discharge planning / needs. DCP- Discharge Planning Updated by [email or web address]: Aundrea Noel on 10/11/18 2:[address] CM spoke with regarding LTACH placement. Patient is Medicaid only therefore patient is not an LTACH candidate. Dr. Juarez states he would like patient transferred back to [facility] once patient is more stable. CM will continue to follow and assist as needed with discharge planning / needs. DCP- Discharge Planning Updated by [email or web address]: Aundrea Noel on 10/09/18 4:[address] Patient Name: DOT MIXON Admission Status: Urgent Accout number: [id number] Admission Date: 09-30-2018 : 1975 Admission Diagnosis:ACUTE KIDNEY FAILURE, UNSPECIFIED Attending: Junior Rubalcava Current LOS: 9 Anticipated DC Date: Planned Disposition: Primary Insurance: MEDICAID [place] Discharge Planning Comments: CM met with patient at bedside. She states that she lives [address] [place] [address] . She lives with her fianc? Raquel Schofield [phone]. She states that she does have home health with [facility] and her fianc? is her caregiver. She states that she has an Electric chair, BSC and [facility]. Patient states that she needs a shower chair, walker and suction cup grab bars for shower. Patient would like to go home upon discharge and resume care with [facility]. KATY form signed for Parmjit . Patient is not a candidate for LTACH due Medicaid being a payer source and not covered under Medicaid. CM will continue to follow and assist as needed with discharge planning / needs. Cleat Blanker: Aundrea Noel DCP- Discharge Planning Updated by [id number]: Aundrea Noel on 10/08/18 6:[address] CM attempted to meet with patient for discharge planning /needs. Patient is currently on BiPap and wasn't able to speak to CM. No family available at this time. CM will continue to follow and assist as needed with discharge planning / needs. DCP- Discharge Planning Updated by [id number]: Aundrea Noel on 10/01/18 12:[address] CM attempted to meet with patient for discharge planning /needs. Patient is currently sedated on vent no family available at this time. CM will continue to follow and assist as needed with discharge planning / needs. DCPIA - Discharge Planning Initial Assessment Updated by [email or web address]: Aundrea Noel on 10/09/18 4:55 pm * Is the patient Alert and Oriented? Yes * How many steps to enter\exit or inside your home? * PCP Lauren with [facility] * Pharmacy [facility] [place] * Preadmission Environment Home with Family * ADLs Partial Dependent * Partial ADLs (Assistance needed) Ambulation Bathing Dressing Eating Medication Management Toileting Transfers * Other Equipment Electric Lift chair, BSC, Trilogy ([facility]) * List name and contact numbers for known caregivers / representatives who currently or will assist patient after discharge: Raquel celestin? - [phone] * Verbal permission to speak to the caregivers and representatives has been obtained from the patient. Yes * Community resources currently utilized Home Health * Please name any agencies selected above. [facility] * Additional services required to return to the preadmission environment? No * Can the patient safely return to the preadmission environment? Yes * Has this patient been hospitalized within the prior 30 days at any hospital? No Last DP export: 10/25/18 6:15 p Patient Name: DOT MIXON Page 20338 at 0757 All edits/amendments must be made on the electronic document DICTATION DATE: 10/28/18 0756 LIGHT INDUSTRIAL SUPERVISOR: FLIP 10/28/18 0756 RPT#: [id number] DC DATE: STATUS: ADM IN [facility] [address] [place] [address] END OF REPORT
[2018-10-28 09:04] VITALS: BP 131/68
--- NOTE | 2018-10-28 14:02 | NUR ---
OT NOTE: MADE NUMEROUS ATTEMPTS TO FIGURE OUT HOW TO PERFORM SIT TO STAND. PERFORMED SUPINE TO SIT WITH MAX ASSIST. STATIC SITTING ON EOB BUT PT BEGAN TO SLIDE OFF OF BED. REQUIRED MAX X 3 TO RETURN FROM SIT TO SUPINE. MAX ASSIST FOR BED LEE PLACEMENT; MAX ASSIST TO REPOSITION UP IN BED. UBALDO MCKINLEY, OTR/L
--- NOTE | 2018-10-28 14:40 | NUR ---
OT NOTE: PT COMPLETED BED MOB TASKS WITH STEWART Lisa THANK YOU, ELI OAKES
[2018-10-28 17:06] VITALS: BP 127/68
--- NOTE | 2018-10-28 17:15 | MORECARE ---
CASE MANAGEMENT DISCHARGE SUMMARY PATIENT: DOT MIXON UNIT: [id number] ADM DATE: 09/30/18 AGE: 43 : 75 SEX: F ROOM/BED: D.2101 AUTHOR: PREMA,DOC PHYSICIAN: REFERRING PHYSICIAN: ELOISE GIVENS MD DATE OF SERVICE: 10/28/18 Discharge Plan Patient Name: DOT MIXON Facility: [facility]:[place] : 1975 Planned Disposition: Chcf Facility Anticipated Discharge Date: Discharge Date: Expected LOS: Initial Reviewer: [id number] Initial Review Date: 10/09/2018 Generated: 10/28/18 6:15 pm Comments DCP- Discharge Planning Updated by [email or web address]: Sam Basurto on 10/28/18 4:[address] Patient Name: DOT MIXON Encounter No: [id number] : 1975 Primary Insurance: MEDICAID [place] Anticipated DC Date: Planned Disposition: Chcf Facility External Planned Provider: TO BE DETERMINED DCP follow-up note: CM REVIEWED CHART, MET WITH PT IN ROOM. PT CONCERNED THAT HER FIANCE AND "FUR BABIES" ARE BEING EVICTED FROM THE APARTMENT. PT ENCOURAGED PT TO FOCUS ON HER RECOVERY. PT IS AWARE THAT SHE NEEDS GENERAL SURGERY PHYSICIAN ASSISTANT NURSING CARE AND WILL GO TO ANY ACCEPTING FACILITY AT THIS TIME. PT HAS BEEN ASKING THERAPY TO GET HER OUT OF BED BUT THE BED WILL NOT GO LOW ENOUGH AND THE MATTRESS IS TO SLIPPERY AND THEY ARE AFRAID THEY WILL DROP HER AND SHE WILL NOT BE ABLE TO GET BACK IN BED. CM CALLED [facility] IN [place], THEY ARE NOT ABLE TO MEET PT'S NEEDS. CM CALLED [facility] [place], THEY HAVE NO AVAILABLE BERIATRIC BED AT THIS TIME. CM CALLED [facility] [place], THEY CANNOT MEET PT'S NEEDS. CM WAS DIRECTED IN CONVERSTATIONS WITH ABOVE PROVIDERS TO CALL [facility] [place] [facility] FOR POSSIBLE PLACEMENT. CM WILL CONTINUE TO WORK TO ATTEMPT TO SECURE PLACEMENT AT ANY ACCEPTING NURSING FACILITY. Sam Basurto, CASE MANAGEMENT DCP- Discharge Planning Updated by [email or web address]: Eunice Vo on 10/25/18 6:[address] CM SPOKE [facility] PATIENT 6/13/19 PM REGARDING SERACH. SHE WANTS TO GO TO FACILITY NEAR [place]. CM EXPLAINED SHE HAD SPECIAL NEEDS THAT COULD NOT BE MET AT ANY FACILITY IN [place]. SHE UNDERSTANDS. SHE STATES SHE CANNOT RETURN TO HER HOME. 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 THE TRAILER WOULD NEED A NEW REINFORCED FLOOR. SHE CANNOT AMBULATE . SHE MISSES HER FRIENDS. INTERNET SEARCH WITH NO FINDINGS FOR FACILITIES. TC TO [facility] CASE MANAGEMENT DEPARTMENT. AWAIT MARIMAR SAAVEDRA, SOIL FERTILITY EXTENSION SPECIALIST- SUPERVISIOR TO CORRECTIONS CASEWORKER. HAD TO LEAVE A VOICE MAIL REQUESTING ASSISTANCE FOR RESOURCE FOR SNF BARIATRIC SERVICES. AWAITED CALL BACK. TELEPHONE CALL TO [facility]. LEFT VOICE MAIL MESSAGE FOR MS ROONEY, ADMISSION COORDINATOR. NO SERVICE AVAILABLE AT HER FACILITY. SHE STATES THERE IS A FACILITY IN [place] , THE ONLY ONE [facility], THAT CAN ACCOMMODATE A PATIENT UP TO 1000 LBS. SHE COULD NOT RECALL THE NAME. SHE STATES THEY GENERALLY HAVE A WAITING LIST. CM WILL SEARCH. DCP- Discharge Planning Updated by [id number]: Eunice Vo on 10/24/18 3:[address] LATE ENTRY 0915 REC TELEPHONE CALL FROM ANGEL SÁNCHEZ THIS AM. [facility] NURSING TO REVIEW CLINICAL TODAY. HE WILL ADVISE THIS AFTERNOON REGARDING ACCEPTANCE. 1325 REC TELEPHONE CALL FROM ANGEL. [facility] CANNOT MEET THE PATIENT'S NEEDS. THEIR BARIATRIC SERVICES HAS CAPABILITY FOR 550 LBS. KADI SINGH, SPOKE WITH ENOCH CARDOZO, CLINICAL LIAISON, FOR [facility] SERVICE. SHE DOES NOT HAVE A FACILITY THAT CAN PROVIDE CARE FOR THIS PATIENT. HER FACILITIES ARE [facility], [facility], [facility], [facility] AND [facility]. WILL CONTINUE TO SEARCH. WILL UPDATE THE PATIENT. DCP- Discharge Planning Updated by [id number]: Eunice Vo on 10/23/18 5:[address] LATE ENTRY 1100 RADHA, SEWER TAPPER, SPOKE W/ ME THIS AM. SHE HAD NOT REC CB FROM ANGEL AT [facility]. KADI WILL FOLLOW UP IN THE AM REGARDING DECISION AND PROJECTED DISCHARGE DATE. FOLLOW UP SPEECH THERAPY EVAL COMPLETED. UPDATED WEIGHT REPORTEDLY IS 660 LBS. PATIENT TO HAVE ABG'S TODAY AFTER TRILOGY. PULMONARY NOTE REQUEST SNF PLACEMENT IN [place]. THE PATIENT'S PLAN IS FOR SNF REHAB AT [facility]. CM WORKING ON PLACEMENT AT APPROPRIATE FACILITY W/ CAPABILITY TO PROVIDE HER NEEDS, [facility]. DCP- Discharge Planning Updated by [email or web address]: Radha Noel on 10/22/18 10:[address] CM has been working with patient to try to get in touch with her Igor Schofield. He hasn't been answering the phone. CM tried to assist by looking up his mother and sister on [employer] to see if there was a phone number linked to their accounts but there wasn't. 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 CM gave patient phone numbers to both [place] in [place]. CM also [facility] phone number so she could call about her belongings in her home. CM will continue to follow and assist as needed with discharge planning / needs. DCP- Discharge Planning Updated by [id number]: Radha Noel on 10/22/18 10:[address] Angel from [facility] came by last week to see patient and to obtain records. KATY was given verbally per patient for [facility] at that time. Angel later called back and stated to notify him when patient is closer to discharge. CM attempted to call Angel this morning in regards possible discharge by the end of the week. He stated he was in a meeting and would call back later. Meantime I have asked nursing for a weight on patient since there hasn't been one recorded since 10/10/18. Nursing stated that the bed scale isn't working. CM will continue to follow and assist as needed for discharge planning / needs. DCP- Discharge Planning Updated by [email or web address]: Radha Noel on 10/15/18 7:[address] CM checking with mcc facilities regarding possible placement. CM having barriers related to patient's weight and facilities not being able to accommodate a patient of her size. At this time [facility], [facility], [place], and [place] have all denied patient. CM will continue to seek placement. CM will continue to follow and assist as needed with discharge planning / needs. DCP- Discharge Planning Updated by [id number]: Radha Noel on 10/11/18 2:[address] CM spoke with regarding LTACH placement. Patient is Medicaid only therefore patient is not an LTACH candidate. Dr. Juarez states he would like patient transferred back to [facility] once patient is more stable. CM will continue to follow and assist as needed with discharge planning / needs. DCP- Discharge Planning Updated by [id number]: Radha Noel on 10/09/18 4:[address] Patient Name: DOT MIXON Admission Status: Urgent Accout number: [id number] Admission Date: 09-30-2018 : 1975 Admission Diagnosis:ACUTE KIDNEY FAILURE, UNSPECIFIED Attending: Junior Rubalcava Current LOS: 9 Anticipated DC Date: Planned Disposition: Primary Insurance: MEDICAID [place] Discharge Planning Comments: CM met with patient at bedside. She states that she lives [address] [place] [address] . She lives with her firuth Schofield [phone]. She states that she does have home health with [facility] and her fianc? is her caregiver. She states that she has an Electric chair, BSC and [facility]. Patient states that she needs a shower chair, walker and suction cup grab bars for shower. Patient would like to go home upon discharge and resume care with [facility]. KATY form signed for [facility] . Patient is not a candidate for LTACH due Medicaid being a payer source and not covered under Medicaid. CM will continue to follow and assist as needed with discharge planning / needs. Health Center Associate: Radha Noel DCP- Discharge Planning Updated by [id number]: Radha Noel on 10/08/18 6:[address] CM attempted to meet with patient for discharge planning /needs. Patient is currently on BiPap and wasn't able to speak to CM. No family available at this time. CM will continue to follow and assist as needed with discharge planning / needs. DCP- Discharge Planning Updated by [id number]: Radha Noel on 10/01/18 12:[address] CM attempted to meet with patient for discharge planning /needs. Patient is currently sedated on vent no family available at this time. CM will continue to follow and assist as needed with discharge planning / needs. DCPIA - Discharge Planning Initial Assessment Updated by [email or web address]: Radha Noel on 10/09/18 4:55 pm * Is the patient Alert and Oriented? Yes * How many steps to enter\\exit or inside your home? * PCP Lauren with [facility] * Pharmacy [facility] [place] * Preadmission Environment Home with Family * ADLs Partial Dependent * Partial ADLs (Assistance needed) Ambulation Bathing Dressing Eating Medication Management Toileting Transfers * Other Equipment Electric Lift chair, BSC, Trilogy ([facility]) * List name and contact numbers for known caregivers / representatives who currently or will assist patient after discharge: Raquel celestin? - [phone] * Verbal permission to speak to the caregivers and representatives has been obtained from the patient. Yes * Community resources currently utilized Home Health * Please name any agencies selected above. [facility] * Additional services required to return to the preadmission environment? No * Can the patient safely return to the preadmission environment? Yes * Has this patient been hospitalized within the prior 30 days at any hospital? No Last DP export: 10/28/18 6:57 a Patient Name: DOT MIXON Page 03911 at 1715 All edits/amendments must be made on the electronic document DICTATION DATE: 10/28/181714 DIRECTOR OF INDUSTRIAL RELATIONS: FLIP 10/28/181714 RPT#: [id number] DC DATE: STATUS: ADM IN [facility] [address] [place] [address] END OF REPORT
[2018-10-28 18:38] VITALS: BP 124/80
--- NOTE | 2018-10-28 19:22 | NUR ---
RECIEVED UP IN BED WITH EYES CLOSED. EASILY AROUSES WITH VERBAL STIMULI. DSG TO BOTH FEET CDI. ORIENTED X4. IV ACCESS TO LEFT IJ SL.. REMAINS IN DROPLET ISOLATION. DENIES ANY NEEDS AT TTHIS TIME.
[2018-10-28 20:00] VITALS: BP 128/69
[2018-10-29] VITALS: BP 139/74
[2018-10-29 00:58] LABS: APPEARANCE CLOUDY (CLEAR); COLOR YELLOW (YELLOW); NITRITE NEGATIVE (NEGATIVE)
[2018-10-29 00:59] LABS: BILIRUBIN NEGATIVE (NEGATIVE); GLUCOSE 500 mg/dL (NEGATIVE); KETONE NEGATIVE (NEGATIVE); PROTEIN 3+ mg/dL (NEGATIVE); UROBILINOGEN NORMAL (NORMAL)
[2018-10-29 01:04] LABS: BACTERIA FEW /hpf (NONE SEEN); EPITHELIAL CELLS 0-5 /hpf (0-5); RED CELLS - URINE 0-5 /hpf (0-5); WHITE CELLS - URINE 0-5 /hpf (0-5); YEAST >1+ WITH HYPHAE /hpf (NONE SEEN)
[2018-10-29 04:00] VITALS: BP 133/73
[2018-10-29 05:14] LABS: BASOPHILS 0 % (0-2); EOSINOPHILS 0.9 % (0-7); HEMATOCRIT 37.6 % (36.0-48.0); HEMOGLOBIN 11.5 g/dL (12-16); IMMATURE GRANULOCYTES 0.7 % (0-5); LYMPHOCYTES 15.9 % (15-50); MCHC 30.6 g/dL (31.0-37.0); MCV 78.3 fL (80.0-100.0); MEAN PLATELET VOLUME 10.1 fL (7.4-10.4); MONOCYTES 7.7 % (2-11); NEUTROPHILS 74.8 % (40-80); PLATELET COUNT 128 10x3/uL (130-400); RDW 18.7 % (11.5-14.5); WBC 8.6 10x3/uL (4.8-10.8)
[2018-10-29 05:24] LABS: ANION GAP 10.3 mmol/L (8-16); CALCIUM 8.5 mg/dL (8.5-10.1); CARBON DIOXIDE 29.3 mmol/L (21.0-32.0); CREATININE - SERUM 1.8 mg/dL (0.6-1.3); MAGNESIUM - SERUM 1.7 mg/dL (1.8-2.4); POTASSIUM - SERUM 3.6 mmol/L (3.5-5.1)
--- NOTE | 2018-10-29 08:17 | NUR ---
AWAKE NO DISTRESS. HILL ROM REP HERE AND ADJUSTED BED FOR COMFORT. NO DISTRESS AT PRESENT TIME.
[2018-10-29 08:20] VITALS: BP 130/78
--- NOTE | 2018-10-29 10:11 | NUR ---
SITTING UP IN BED ALERT AND ORIENTED X4. PLEASANT AFFECT. DENIES ANY NEEDS OR PAIN. CONTINUES ON 3L VIA NC
[2018-10-29 12:31] VITALS: BP 130/86
--- NOTE | 2018-10-29 13:57 | NUR ---
SITTING UP IN BED WATCHING TV. DENIES ANY NEEDS OR PAIN. NO SIGNS OF DISTRESS NOTED. CALL LIGHT WITHIN REACH, FALL PRECAUTIONS IN PLACE. WILL CONTINUE TO MONITOR
--- NOTE | 2018-10-29 15:13 | NUR ---
Nutrition follow-up: Visited with pt re: food choices Pt has been unhappy with menu selections. RDN helped pt with menus selections and provided education of diet. RDN will continue to help pt with menu selections during hospital stay.
--- NOTE | 2018-10-29 16:15 | MORECARE ---
CASE MANAGEMENT DISCHARGE SUMMARY PATIENT: DOT MIXON UNIT: [id number] ADM DATE: 09/30/18 AGE: 43 : 75 SEX: F ROOM/BED: D.2101 AUTHOR: PREMA,DOC PHYSICIAN: REFERRING PHYSICIAN: ELOISE GIVENS MD DATE OF SERVICE: 10/29/18 Discharge Plan Patient Name: DOT MIXON Facility: [facility]:[place] : 1975 Planned Disposition: Residential Facility Anticipated Discharge Date: Discharge Date: Expected LOS: Initial Reviewer: [id number] Initial Review Date: 10/09/2018 Generated: 10/29/18 5:15 pm Comments DCP- Discharge Planning Updated by [id number]: Sam Basurto on 10/28/18 4:[address] Patient Name: DOT MIXON Encounter No: [id number] : 1975 Primary Insurance: MEDICAID [place] Anticipated DC Date: Planned Disposition: Residential Facility External Planned Provider: TO BE DETERMINED DCP follow-up note: CM REVIEWED CHART, MET WITH PT IN ROOM. PT CONCERNED THAT HER FIANCE AND "FUR BABIES" ARE BEING EVICTED FROM THE APARTMENT. PT ENCOURAGED PT TO FOCUS ON HER RECOVERY. PT IS AWARE THAT SHE NEEDS EDUCATIONAL TECHNOLOGY COORDINATOR NURSING CARE AND WILL GO TO ANY ACCEPTING FACILITY AT THIS TIME. PT HAS BEEN ASKING THERAPY TO GET HER OUT OF BED BUT THE BED WILL NOT GO LOW ENOUGH AND THE MATTRESS IS TO SLIPPERY AND THEY ARE AFRAID THEY WILL DROP HER AND SHE WILL NOT BE ABLE TO GET BACK IN BED. CM CALLED [facility] IN [place], THEY ARE NOT ABLE TO MEET PT'S NEEDS. CM CALLED [facility] IN [place], THEY HAVE NO AVAILABLE BERIATRIC BED AT THIS TIME. CM CALLED [facility] IN [place], THEY CANNOT MEET PT'S NEEDS. CM WAS DIRECTED IN CONVERSTATIONS WITH ABOVE PROVIDERS TO CALL [facility] IN [place] AND [facility] FOR POSSIBLE PLACEMENT. CM WILL CONTINUE TO WORK TO ATTEMPT TO SECURE PLACEMENT AT ANY ACCEPTING NURSING FACILITY. Sam Basurto, CASE MANAGEMENT DCP- Discharge Planning Updated by [id number]: Eunice Vo on 10/25/18 6:[address] [facility] PATIENT 6/13/19 PM REGARDING SERACH. SHE WANTS TO GO TO FACILITY NEAR [place]. CM EXPLAINED SHE HAD SPECIAL NEEDS THAT COULD NOT BE MET AT ANY FACILITY IN [place]. SHE UNDERSTANDS. SHE STATES SHE CANNOT RETURN TO HER HOME. 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 THE TRAILER WOULD NEED A NEW REINFORCED FLOOR. SHE CANNOT AMBULATE . SHE MISSES HER FRIENDS. INTERNET SEARCH WITH NO FINDINGS FOR FACILITIES. TC TO [facility] CASE MANAGEMENT DEPARTMENT. AWAIT MARIMAR SAAVEDRA, DRESS CUTTER- SUPERVISIOR TO PRODUCTION REPAIRER. HAD TO LEAVE A VOICE MAIL REQUESTING ASSISTANCE FOR RESOURCE FOR SNF BARIATRIC SERVICES. AWAITED CALL BACK. TELEPHONE CALL TO [facility]. LEFT VOICE MAIL MESSAGE FOR MS ROONEY, ADMISSION COORDINATOR. NO SERVICE AVAILABLE AT HER FACILITY. SHE STATES THERE IS A FACILITY IN [place] , THE ONLY ONE IN THE [facility], THAT CAN ACCOMMODATE A PATIENT UP TO 1000 LBS. SHE COULD NOT RECALL THE NAME. SHE STATES THEY GENERALLY HAVE A WAITING LIST. CM WILL SEARCH. DCP- Discharge Planning Updated by [id number]: Eunice Vo on 10/24/18 3:[address] LATE ENTRY 0915 REC TELEPHONE CALL FROM ANGEL SÁNCHEZ THIS AM. [facility] NURSING TO REVIEW CLINICAL TODAY. HE WILL ADVISE THIS AFTERNOON REGARDING ACCEPTANCE. 1325 REC TELEPHONE CALL FROM ANGEL. [facility] CANNOT MEET THE PATIENT'S NEEDS. THEIR BARIATRIC SERVICES HAS CAPABILITY FOR 550 LBS. KADI SINGH, SPOKE WITH ENOCH CARDOZO, CLINICAL LIAISON, FOR [facility] SERVICE. SHE DOES NOT HAVE A FACILITY THAT CAN PROVIDE CARE FOR THIS PATIENT. HER FACILITIES ARE [facility], [facility], [facility], [facility] AND [facility]. WILL CONTINUE TO SEARCH. WILL UPDATE THE PATIENT. DCP- Discharge Planning Updated by [id number]: Eunice Vo on 10/23/18 5:[address] LATE ENTRY 1100 RADHA, DIETETIC AIDE, SPOKE W/ ME THIS AM. SHE HAD NOT REC CB FROM ANGEL AT [facility]. KADI WILL FOLLOW UP IN THE AM REGARDING DECISION AND PROJECTED DISCHARGE DATE. FOLLOW UP SPEECH THERAPY EVAL COMPLETED. UPDATED WEIGHT REPORTEDLY IS 660 LBS. PATIENT TO HAVE ABG'S TODAY AFTER TRILOGY. PULMONARY NOTE REQUEST SNF PLACEMENT IN [place]. THE PATIENT'S PLAN IS FOR SNF REHAB AT [facility]. CM WORKING ON PLACEMENT AT APPROPRIATE FACILITY W/ CAPABILITY TO PROVIDE HER NEEDS, [facility]. DCP- Discharge Planning Updated by [email or web address]: Radha Noel on 10/22/18 10:[address] CM has been working with patient to try to get in touch with her Igor Schofield. He hasn't been answering the phone. CM tried to assist by looking up his mother and sister on Facebook to see if there was a phone number linked to their accounts but there wasn't. 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 CM gave patient phone numbers to both [place] in [place]. CM also [facility] phone number so she could call about her belongings in her home. CM will continue to follow and assist as needed with discharge planning / needs. DCP- Discharge Planning Updated by [id number]: Radha Noel on 10/22/18 10:[address] Angel from [facility] came by last week to see patient and to obtain records. KATY was given verbally per patient for [facility] at that time. Angel later called back and stated to notify him when patient is closer to discharge. CM attempted to call Angel this morning in regards possible discharge by the end of the week. He stated he was in a meeting and would call back later. Meantime I have asked nursing for a weight on patient since there hasn't been one recorded since 10/10/18. Nursing stated that the bed scale isn't working. CM will continue to follow and assist as needed for discharge planning / needs. DCP- Discharge Planning Updated by [email or web address]: Radha Noel on 10/15/18 7:[address] CM checking with [facility] facilities regarding possible placement. CM having barriers related to patient's weight and facilities not being able to accommodate a patient of her size. At this time [facility], [facility], [place], and [place] have all denied patient. CM will continue to seek placement. CM will continue to follow and assist as needed with discharge planning / needs. DCP- Discharge Planning Updated by [id number]: Radha Noel on 10/11/18 2:[address] CM spoke with regarding LTACH placement. Patient is Medicaid only therefore patient is not an LTACH candidate. Dr. Juarez states he would like patient transferred back to [facility] once patient is more stable. CM will continue to follow and assist as needed with discharge planning / needs. DCP- Discharge Planning Updated by [id number]: Radha Noel on 10/09/18 4:[address] Patient Name: DOT MIXON Admission Status: Urgent Accout number: [id number] Admission Date: 09-30-2018 : 1975 Admission Diagnosis:ACUTE KIDNEY FAILURE, UNSPECIFIED Attending: Junior Rubalcava Current LOS: 9 Anticipated DC Date: Planned Disposition: Primary Insurance: MEDICAID [place] Discharge Planning Comments: CM met with patient at bedside. She states that she lives [address] [place] [address] . She lives with her firuth Schofield [phone]. She states that she does have home health with [facility] and her fianc? is her caregiver. She states that she has an Electric chair, BSC and [facility]. Patient states that she needs a shower chair, walker and suction cup grab bars for shower. Patient would like to go home upon discharge and resume care with [facility]. KATY form signed for [facility] . Patient is not a candidate for LTACH due Medicaid being a payer source and not covered under Medicaid. CM will continue to follow and assist as needed with discharge planning / needs. Grease And Tallow Pumper: Radha Noel DCP- Discharge Planning Updated by [id number]: Radha Noel on 10/08/18 6:[address] CM attempted to meet with patient for discharge planning /needs. Patient is currently on BiPap and wasn't able to speak to CM. No family available at this time. CM will continue to follow and assist as needed with discharge planning / needs. DCP- Discharge Planning Updated by [email or web address]: Radha Noel on 10/01/18 12:[address] CM attempted to meet with patient for discharge planning /needs. Patient is currently sedated on vent no family available at this time. CM will continue to follow and assist as needed with discharge planning / needs. DCPIA - Discharge Planning Initial Assessment Updated by [id number]: Radha Noel on 10/09/18 4:55 pm * Is the patient Alert and Oriented? Yes * How many steps to enter\\exit or inside your home? * PCP Lauren with [facility] * [facility]acy [facility] * Preadmission Environment Home with Family * ADLs Partial Dependent * Partial ADLs (Assistance needed) Ambulation Bathing Dressing Eating Medication Management Toileting Transfers * Other Equipment Electric Lift chair, BSC, Trilogy ([facility]) * List name and contact numbers for known caregivers / representatives who currently or will assist patient after discharge: Raquel celestin? - [phone] * Verbal permission to speak to the caregivers and representatives has been obtained from the patient. Yes * Community resources currently utilized Home Health * Please name any agencies selected above. [facility] * Additional services required to return to the preadmission environment? No * Can the patient safely return to the preadmission environment? Yes * Has this patient been hospitalized within the prior 30 days at any hospital? No External Providers External Provider: OTHER-OTHER Next Contact Date: 10/29/2018 Service Request Date: Service Type: Resolution: Reviewer: Comments: External Provider: OTHER-OTHER Next Contact Date: 10/29/2018 Service Request Date: Service Type: Resolution: Reviewer: Comments: External Provider: [facility] Next Contact Date: 10/29/2018 Service Request Date: Service Type: Resolution: Reviewer: Comments: Last DP export: 10/28/18 4:15 p Patient Name: DOT MIXON Page 19591 at 1615 All edits/amendments must be made on the electronic document DICTATION DATE: 10/29/18 1615 ENVIRONMENTAL AIDE: FLIP 10/29/18 1615 RPT#: [id number] RI DATE: STATUS: ADM IN [facility] [address] [place] [address] END OF REPORT
--- NOTE | 2018-10-29 16:23 | MORECARE ---
CASE MANAGEMENT DISCHARGE SUMMARY PATIENT: DOT MIXON UNIT: [id number] ADM DATE: 09/30/18 AGE: 43 : 75 SEX: F ROOM/BED: D.2101 AUTHOR: PREMA,DOC PHYSICIAN: REFERRING PHYSICIAN: ELOISE GIVENS MD DATE OF SERVICE: 10/29/18 Discharge Plan Patient Name: DOT MIXON Facility: [facility]:[place] : 1975 Planned Disposition: Snf Facility Anticipated Discharge Date: Discharge Date: Expected LOS: Initial Reviewer: [id number] Initial Review Date: 10/09/2018 Generated: 10/29/18 5:23 pm Comments DCP- Discharge Planning Updated by [email or web address]: Sam Basurto on 10/28/18 4:[address] Patient Name: DOT MIXON Encounter No: [id number] : 1975 Primary Insurance: MEDICAID [place] Anticipated DC Date: Planned Disposition: Snf Facility External Planned Provider: TO BE DETERMINED DCP follow-up note: CM REVIEWED CHART, MET WITH PT IN ROOM. PT CONCERNED THAT HER FIANCE AND "FUR BABIES" ARE BEING EVICTED FROM THE APARTMENT. PT ENCOURAGED PT TO FOCUS ON HER RECOVERY. PT IS AWARE THAT SHE NEEDS ASPHALT MIXER NURSING CARE AND WILL GO TO ANY ACCEPTING FACILITY AT THIS TIME. PT HAS BEEN ASKING THERAPY TO GET HER OUT OF BED BUT THE BED WILL NOT GO LOW ENOUGH AND THE MATTRESS IS TO SLIPPERY AND THEY ARE AFRAID THEY WILL DROP HER AND SHE WILL NOT BE ABLE TO GET BACK IN BED. CM CALLED [facility] IN [place], THEY ARE NOT ABLE TO MEET PT'S NEEDS. CM CALLED [facility] IN [place], THEY HAVE NO AVAILABLE BERIATRIC BED AT THIS TIME. CM CALLED [facility] IN [place], THEY CANNOT MEET PT'S NEEDS. CM WAS DIRECTED IN CONVERSTATIONS WITH ABOVE PROVIDERS TO CALL [facility] IN [place] AND [facility] FOR POSSIBLE PLACEMENT. CM WILL CONTINUE TO WORK TO ATTEMPT TO SECURE PLACEMENT AT ANY ACCEPTING NURSING FACILITY. Sam Basurto, CASE MANAGEMENT DCP- Discharge Planning Updated by [id number]: Eunice Vo on 10/25/18 6:[address] CM SPOKE [facility] PATIENT 6/13/19 PM REGARDING SERACH. SHE WANTS TO GO TO FACILITY NEAR [place]. CM EXPLAINED SHE HAD SPECIAL NEEDS THAT COULD NOT BE MET AT ANY FACILITY IN [place]. SHE UNDERSTANDS. SHE STATES SHE CANNOT RETURN TO HER HOME. 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 THE TRAILER WOULD NEED A NEW REINFORCED FLOOR. SHE CANNOT AMBULATE . SHE MISSES HER FRIENDS. INTERNET SEARCH WITH NO FINDINGS FOR FACILITIES. TC TO [facility] CASE MANAGEMENT DEPARTMENT. AWAIT MARIMAR SAAVEDRA, IRRIGATION EQUIPMENT INSTALLER- SUPERVISIOR TO WHITE METAL CASTER. HAD TO LEAVE A VOICE MAIL REQUESTING ASSISTANCE FOR RESOURCE FOR SNF BARIATRIC SERVICES. AWAITED CALL BACK. TELEPHONE CALL TO [facility]. LEFT VOICE MAIL MESSAGE FOR MS ROONEY, ADMISSION COORDINATOR. NO SERVICE AVAILABLE AT HER FACILITY. SHE STATES THERE IS A FACILITY IN [place] , THE ONLY ONE IN THE [facility], THAT CAN ACCOMMODATE A PATIENT UP TO 1000 LBS. SHE COULD NOT RECALL THE NAME. SHE STATES THEY GENERALLY HAVE A WAITING LIST. CM WILL SEARCH. DCP- Discharge Planning Updated by [id number]: Eunice Vo on 10/24/18 3:[address] LATE ENTRY 0915 REC TELEPHONE CALL FROM ANGEL SÁNCHEZ THIS AM. [facility] NURSING TO REVIEW CLINICAL TODAY. HE WILL ADVISE THIS AFTERNOON REGARDING ACCEPTANCE. 1325 REC TELEPHONE CALL FROM ANGEL. [facility] CANNOT MEET THE PATIENT'S NEEDS. THEIR BARIATRIC SERVICES HAS CAPABILITY FOR 550 LBS. KADI SINGH, SPOKE WITH ENOCH CARDOZO, CLINICAL LIAISON, FOR [facility] SERVICE. SHE DOES NOT HAVE A FACILITY THAT CAN PROVIDE CARE FOR THIS PATIENT. HER FACILITIES ARE [facility], [facility], [facility] AND [facility]. WILL CONTINUE TO SEARCH. WILL UPDATE THE PATIENT. DCP- Discharge Planning Updated by [email or web address]: Eunice Vo on 10/23/18 5:[address] LATE ENTRY 1100 RADHA, INFORMATION SECURITY SPECIALIST, SPOKE W/ ME THIS AM. SHE HAD NOT REC CB FROM ANGEL AT [facility]. KADI WILL FOLLOW UP IN THE AM REGARDING DECISION AND PROJECTED DISCHARGE DATE. FOLLOW UP SPEECH THERAPY EVAL COMPLETED. UPDATED WEIGHT REPORTEDLY IS 660 LBS. PATIENT TO HAVE ABG'S TODAY AFTER TRILOGY. PULMONARY NOTE REQUEST SNF PLACEMENT IN [place]. THE PATIENT'S PLAN IS FOR SNF REHAB AT [facility]. CM WORKING ON PLACEMENT AT APPROPRIATE FACILITY W/ CAPABILITY TO PROVIDE HER NEEDS, [facility]. DCP- Discharge Planning Updated by [id number]: Radha Noel on 10/22/18 10:[address] CM has been working with patient to try to get in touch with her Igor Schofield. He hasn't been answering the phone. CM tried to assist by looking up his mother and sister on Facebook to see if there was a phone number linked to their accounts but there wasn't. 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 CM gave patient phone numbers to both [place] in [place]. CM also looked up her [facility] phone number so she could call about her belongings in her home. CM will continue to follow and assist as needed with discharge planning / needs. DCP- Discharge Planning Updated by [id number]: Radha Noel on 10/22/18 10:[address] Angel from [facility] came by last week to see patient and to obtain records. KATY was given verbally per patient for [facility] at that time. Angel later called back and stated to notify him when patient is closer to discharge. CM attempted to call Angel this morning in regards possible discharge by the end of the week. He stated he was in a meeting and would call back later. Meantime I have asked nursing for a weight on patient since there hasn't been one recorded since 10/10/18. Nursing stated that the bed scale isn't working. CM will continue to follow and assist as needed for discharge planning / needs. DCP- Discharge Planning Updated by [id number]: Radha Noel on 10/15/18 7:[address] CM checking with care home facilities regarding possible placement. CM having barriers related to patient's weight and facilities not being able to accommodate a patient of her size. At this time [facility], [facility], [place], and [place] have all denied patient. CM will continue to seek placement. CM will continue to follow and assist as needed with discharge planning / needs. DCP- Discharge Planning Updated by [id number]: Radha Noel on 10/11/18 2:[address] CM spoke with regarding LTACH placement. Patient is Medicaid only therefore patient is not an LTACH candidate. Dr. Juarez states he would like patient transferred back to [facility] once patient is more stable. CM will continue to follow and assist as needed with discharge planning / needs. DCP- Discharge Planning Updated by [email or web address]: Radha Noel on 10/09/18 4:[address] Patient Name: DOT MIXON Admission Status: Urgent Accout number: [id number] Admission Date: 09-30-2018 : 1975 Admission Diagnosis:ACUTE KIDNEY FAILURE, UNSPECIFIED Attending: Junior Rubalcava Current LOS: 9 Anticipated DC Date: Planned Disposition: Primary Insurance: MEDICAID [place] Discharge Planning Comments: CM met with patient at bedside. She states that she lives [address] [place] [address] . She lives with her firuth Schofield [phone]. She states that she does have home health with [facility] and her fianc? is her caregiver. She states that she has an Electric chair, BSC and [facility]. Patient states that she needs a shower chair, walker and suction cup grab bars for shower. Patient would like to go home upon discharge and resume care with [facility]. KATY form signed for [facility] . Patient is not a candidate for LTACH due Medicaid being a payer source and not covered under Medicaid. CM will continue to follow and assist as needed with discharge planning / needs. Cook Jelly: Radha Noel DCP- Discharge Planning Updated by [email or web address]: Radha Noel on 10/08/18 6:[address] CM attempted to meet with patient for discharge planning /needs. Patient is currently on BiPap and wasn't able to speak to CM. No family available at this time. CM will continue to follow and assist as needed with discharge planning / needs. DCP- Discharge Planning Updated by [id number]: Radha Noel on 10/01/18 12:[address] CM attempted to meet with patient for discharge planning /needs. Patient is currently sedated on vent no family available at this time. CM will continue to follow and assist as needed with discharge planning / needs. DCPIA - Discharge Planning Initial Assessment Updated by [id number]: Radha Noel on 10/09/18 4:55 pm * Is the patient Alert and Oriented? Yes * How many steps to enter\\exit or inside your home? * PCP Lauren with [facility] * [facility]acy [facility] * Preadmission Environment Home with Family * ADLs Partial Dependent * Partial ADLs (Assistance needed) Ambulation Bathing Dressing Eating Medication Management Toileting Transfers * Other Equipment Electric Lift chair, BSC, Trilogy ([facility]) * List name and contact numbers for known caregivers / representatives who currently or will assist patient after discharge: Raquel celestin? - [phone] * Verbal permission to speak to the caregivers and representatives has been obtained from the patient. Yes * Community resources currently utilized Home Health * Please name any agencies selected above. [facility] * Additional services required to return to the preadmission environment? No * Can the patient safely return to the preadmission environment? Yes * Has this patient been hospitalized within the prior 30 days at any hospital? No External Providers External Provider: OTHER-OTHER Next Contact Date: 10/29/2018 Service Request Date: Service Type: Resolution: Reviewer: Comments: External Provider: OTHER-OTHER Next Contact Date: 10/29/2018 Service Request Date: Service Type: Resolution: Reviewer: Comments: External Provider: OTHER-OTHER Next Contact Date: 10/29/2018 Service Request Date: Service Type: Resolution: Reviewer: Comments: Last DP export: 10/29/18 3:15 p Patient Name: DOT MIXON Page 16100 at 1623 All edits/amendments must be made on the electronic document DICTATION DATE: 10/29/181621 BASS MECHANISM MAKER: FLIP 10/29/181621 RPT#: [id number] DC DATE: STATUS: ADM IN [facility] [address] [place] [address] END OF REPORT
--- NOTE | 2018-10-29 16:30 | MORECARE ---
CASE MANAGEMENT DISCHARGE SUMMARY PATIENT: DOT MIXON UNIT: [id number] ADM DATE: 09/30/18 AGE: 43 : 75 SEX: F ROOM/BED: D.2101 AUTHOR: PREMA,DOC PHYSICIAN: REFERRING PHYSICIAN: ELOISE GIVENS MD DATE OF SERVICE: 10/29/18 Discharge Plan Patient Name: DOT MIXON Facility: [facility]:[place] : 1975 Planned Disposition: Long-Term Facility Anticipated Discharge Date: Discharge Date: Expected LOS: Initial Reviewer: [id number] Initial Review Date: 10/09/2018 Generated: 10/29/18 5:30 pm Comments DCP- Discharge Planning Updated by [email or web address]: Sam Basurto on 10/28/18 4:[address] Patient Name: DOT MIXON Encounter No: [id number] : 1975 Primary Insurance: MEDICAID [place] Anticipated DC Date: Planned Disposition: Long-Term Facility External Planned Provider: TO BE DETERMINED DCP follow-up note: CM REVIEWED CHART, MET WITH PT IN ROOM. PT CONCERNED THAT HER FIANCE AND "FUR BABIES" ARE BEING EVICTED FROM THE APARTMENT. PT ENCOURAGED PT TO FOCUS ON HER RECOVERY. PT IS AWARE THAT SHE NEEDS THREAD CUTTER NURSING CARE AND WILL GO TO ANY ACCEPTING FACILITY AT THIS TIME. PT HAS BEEN ASKING THERAPY TO GET HER OUT OF BED BUT THE BED WILL NOT GO LOW ENOUGH AND THE MATTRESS IS TO SLIPPERY AND THEY ARE AFRAID THEY WILL DROP HER AND SHE WILL NOT BE ABLE TO GET BACK IN BED. CM CALLED [facility] IN [place], THEY ARE NOT ABLE TO MEET PT'S NEEDS. CM CALLED [facility] IN [place], THEY HAVE NO AVAILABLE BERIATRIC BED AT THIS TIME. CM CALLED [facility] IN [place], THEY CANNOT MEET PT'S NEEDS. CM WAS DIRECTED IN CONVERSTATIONS WITH ABOVE PROVIDERS TO CALL [facility] IN [place] AND [facility] FOR POSSIBLE PLACEMENT. CM WILL CONTINUE TO WORK TO ATTEMPT TO SECURE PLACEMENT AT ANY ACCEPTING NURSING FACILITY. Sam Basurto, CASE MANAGEMENT DCP- Discharge Planning Updated by [id number]: Eunice Vo on 10/25/18 6:[address] CM SPOKE [facility] PATIENT 6/13/19 PM REGARDING SERACH. SHE WANTS TO GO TO FACILITY [place]AR [place]. CM EXPLAINED SHE HAD SPECIAL NEEDS THAT COULD NOT BE MET AT ANY FACILITY IN [place]. SHE UNDERSTANDS. SHE STATES SHE CANNOT RETURN TO HER HOME. 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 THE TRAILER WOULD NEED A NEW REINFORCED FLOOR. SHE CANNOT AMBULATE . SHE MISSES HER FRIENDS. INTERNET SEARCH WITH NO FINDINGS FOR FACILITIES. TC TO [facility] CASE MANAGEMENT DEPARTMENT. AWAIT MARIMAR SAAVEDRA, MECHATRONICS TECHNICIAN- SUPERVISIOR TO CROP ADJUSTER. HAD TO LEAVE A VOICE MAIL REQUESTING ASSISTANCE FOR RESOURCE FOR SNF BARIATRIC SERVICES. AWAITED CALL BACK. TELEPHONE CALL TO [facility]. LEFT VOICE MAIL MESSAGE FOR MS ROONEY, ADMISSION COORDINATOR. NO SERVICE AVAILABLE AT HER FACILITY. SHE STATES THERE IS A FACILITY IN [place] , THE ONLY ONE IN THE [facility], THAT CAN ACCOMMODATE A PATIENT UP TO 1000 LBS. SHE COULD NOT RECALL THE NAME. SHE STATES THEY GENERALLY HAVE A WAITING LIST. CM WILL SEARCH. DCP- Discharge Planning Updated by [id number]: Eunice Vo on 10/24/18 3:[address] LATE ENTRY 0915 REC TELEPHONE CALL FROM ANGEL SÁNCHEZ THIS AM. [facility] NURSING TO REVIEW CLINICAL TODAY. HE WILL ADVISE THIS AFTERNOON REGARDING ACCEPTANCE. 1325 REC TELEPHONE CALL FROM ANGEL. [facility] CANNOT MEET THE PATIENT'S NEEDS. THEIR BARIATRIC SERVICES HAS CAPABILITY FOR 550 LBS. KADI SINGH, SPOKE WITH ENOCH CARDOZO, CLINICAL LIAISON, FOR [facility] SERVICE. SHE DOES NOT HAVE A FACILITY THAT CAN PROVIDE CARE FOR THIS PATIENT. HER FACILITIES ARE THE [facility], [facility], [facility], [facility] AND [facility]. WILL CONTINUE TO SEARCH. WILL UPDATE THE PATIENT. DCP- Discharge Planning Updated by [email or web address]: Eunice Vo on 10/23/18 5:[address] LATE ENTRY 1100 RADHA, INVOICE MACHINE OPERATOR, SPOKE W/ ME THIS AM. SHE HAD NOT REC CB FROM ANGEL AT [facility]. KADI WILL FOLLOW UP IN THE AM REGARDING DECISION AND PROJECTED DISCHARGE DATE. FOLLOW UP SPEECH THERAPY EVAL COMPLETED. UPDATED WEIGHT REPORTEDLY IS 660 LBS. PATIENT TO HAVE ABG'S TODAY AFTER TRILOGY. PULMONARY NOTE REQUEST SNF PLACEMENT IN [place]. THE PATIENT'S PLAN IS FOR SNF REHAB AT [facility]. CM WORKING ON PLACEMENT AT APPROPRIATE FACILITY W/ CAPABILITY TO PROVIDE HER NEEDS, [facility]. DCP- Discharge Planning Updated by [email or web address]: Radha Noel on 10/22/18 10:[address] CM has been working with patient to try to get in touch with her Igor Schofield. He hasn't been answering the phone. CM tried to assist by looking up his mother and sister on Facebook to see if there was a phone number linked to their accounts but there wasn't. 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 CM gave patient phone numbers to both [place] in [place]. CM also looked up her [facility] phone number so she could call about her belongings in her home. CM will continue to follow and assist as needed with discharge planning / needs. DCP- Discharge Planning Updated by [email or web address]: Radha Noel on 10/22/18 10:[address] Angel from [facility] came by last week to see patient and to obtain records. KATY was given verbally per patient for [facility] at that time. Angel later called back and stated to notify him when patient is closer to discharge. CM attempted to call Angel this morning in regards possible discharge by the end of the week. He stated he was in a meeting and would call back later. Meantime I have asked nursing for a weight on patient since there hasn't been one recorded since 10/10/18. Nursing stated that the bed scale isn't working. CM will continue to follow and assist as needed for discharge planning / needs. DCP- Discharge Planning Updated by [id number]: Radha Noel on 10/15/18 7:[address] CM checking with custodial facilities regarding possible placement. CM having barriers related to patient's weight and facilities not being able to accommodate a patient of her size. At this time [facility], [facility], [facility], and [place] have all denied patient. CM will continue to seek placement. CM will continue to follow and assist as needed with discharge planning / needs. DCP- Discharge Planning Updated by [email or web address]: Radha Noel on 10/11/18 2:[address] CM spoke with regarding LTACH placement. Patient is Medicaid only therefore patient is not an LTACH candidate. Dr. Juarez states he would like patient transferred back to [facility] once patient is more stable. CM will continue to follow and assist as needed with discharge planning / needs. DCP- Discharge Planning Updated by [id number]: Radha Noel on 10/09/18 4:[address] Patient Name: DOT MIXON Admission Status: Urgent Accout number: [id number] Admission Date: 09-30-2018 : 1975 Admission Diagnosis:ACUTE KIDNEY FAILURE, UNSPECIFIED Attending: Junior Rubalcava Current LOS: 9 Anticipated DC Date: Planned Disposition: Primary Insurance: MEDICAID [place] Discharge Planning Comments: CM met with patient at bedside. She states that she lives [address] [place] [address] . She lives with her firuth Schofield [phone]. She states that she does have home health with [facility] and her fianc? is her caregiver. She states that she [facility] Electric [facility]. Patient states that she needs a shower chair, walker and suction cup grab bars for shower. Patient would like to go home upon discharge and resume care with [facility]. KATY form signed for [facility] . Patient is not a candidate for LTACH due Medicaid being a payer source and not covered under Medicaid. CM will continue to follow and assist as needed with discharge planning / needs. Cattle Driver: Radha Noel DCP- Discharge Planning Updated by [email or web address]: Radha Nole on 10/08/18 6:[address] CM attempted to meet with patient for discharge planning /needs. Patient is currently on BiPap and wasn't able to speak to CM. No family available at this time. CM will continue to follow and assist as needed with discharge planning / needs. DCP- Discharge Planning Updated by [id number]: Radha Noel on 10/01/18 12:[address] CM attempted to meet with patient for discharge planning /needs. Patient is currently sedated on vent no family available at this time. CM will continue to follow and assist as needed with discharge planning / needs. DCPIA - Discharge Planning Initial Assessment Updated by [email or web address]: Radha Noel on 10/09/18 4:55 pm * Is the patient Alert and Oriented? Yes * How many steps to enter\\exit or inside your home? * PCP Lauren with [facility] * [facility]acy [facility] [place] * Preadmission Environment Home with Family * ADLs Partial Dependent * Partial ADLs (Assistance needed) Ambulation Bathing Dressing Eating Medication Management Toileting Transfers * Other Equipment Electric Lift chair, BSC, Trilogy ([facility]) * List name and contact numbers for known caregivers / representatives who currently or will assist patient after discharge: Raquel celestin? - [phone] * Verbal permission to speak to the caregivers and representatives has been obtained from the patient. Yes * Community resources currently utilized Home Health * Please name any agencies selected above. [facility] * Additional services required to return to the preadmission environment? No * Can the patient safely return to the preadmission environment? Yes * Has this patient been hospitalized within the prior 30 days at any hospital? No External Providers External Provider: OTHER-OTHER Next Contact Date: 10/29/2018 Service Request Date: Service Type: Resolution: Reviewer: Comments: Last DP export: 10/29/18 3:23 p Patient Name: DOT MIXON Page 38211 at 1630 All edits/amendments must be made on the electronic document DICTATION DATE: 10/29/18 1630 ARMHOLE BASTER JUMPBASTING: FLIP 10/29/18 1630 RPT#: [id number] [place] DATE: STATUS: ADM IN [place] [address] [place] [address] END OF REPORT
--- NOTE | 2018-10-29 16:46 | MORECARE ---
CASE MANAGEMENT DISCHARGE SUMMARY PATIENT: DOT MIXON UNIT: [id number] ADM DATE: 09/30/18 AGE: 43 : 75 SEX: F ROOM/BED: D.2102 AUTHOR: PREMA,DOC PHYSICIAN: REFERRING PHYSICIAN: ELOISE GIVENS MD DATE OF SERVICE: 10/29/18 Discharge Plan Patient Name: DOT MIXON Facility: [facility]:[place] : 1975 Planned Disposition: Correction Facility Anticipated Discharge Date: Discharge Date: Expected LOS: Initial Reviewer: [id number] Initial Review Date: 10/09/2018 Generated: 10/29/18 5:45 pm Comments DCP- Discharge Planning Updated by [id number]: Sam Basurto on 10/29/18 3:[address] Patient Name: DOT MIXON Encounter No: [id number] : 1975 Primary Insurance: MEDICAID [place] Anticipated DC Date: Planned Disposition: Correction Facility External Planned Provider: TO BE DETERMINED DCP follow-up note: CM SPOKE TO PT VIA PHONE WHO INFORMED CM THAT THEY GOT HER ON A NEW BED AND HER WEIGHT IS 314 POUNDS. CM MET WITH PT IN ROOM, LOOKED AT BED SCALE TO DETERMINE IF IT WAS SHOWING POUNDS OR KILOGRAMS. DURING CONVERSATION WITH PT, PT WAS OFFENDED WHEN CM ASKED ABOUT PT'S KNOWN WEIGHT PRIOR TO HOSPITAL STAY AND WHERE PT'S WEIGHT WAS OBTAINED. CM OBSERVED THAT STANDARD BATHROOM SCALES AVAILABLE AT MOST RETAILERS DO NOT GO UP TO PT'S CURRENT WEIGHT FOR HOME MEEASUREMENT. CM APOLOGIZED TO PT FOR ANY OFFENSE, EXPLAINED THAT ACCURATE WEIGHT WAS ABSOLUTELY NECESSARY TO FIND PLACEMENT FOR PT; PT REPORTED UNDERSTANDING. CM SPOKE TO NURSE AND DISCUSSED NEW BED SCALE. AFTER INVESTIGATION, IT WAS DETERMINED THAT THE BED WAS REGISTERING KILOGRAMS, NOT POUNDS. PT;S CURRENT WEIGHT IS [address] CM SPO[address] JUAREZ WHO INFORMED CM THAT PT IS STABLE AND HE WANTS HER OUT OF THE HOSPITAL. CM NOTIFIED CM ARCHITECTURAL INTERN OF DR. ORR WISHES AND ASSURED ARCHITECTURAL INTERN THAT CM IS WORKING TO FIND A SAFE DISCHARGE PLACEMENT. CM CALLED [facility] [place] AND [facility] FOR POSSIBLE PLACEMENT, NEITHER HAS CAPABILITY OF CARING FOR PT AT HER CURRENT WEIGHT AND HAD NO RECOMMMENDATIONS. CM CALLED [facility], SPOKE TO SUAD WHO WILL REVIEW PT AND GET BACK WITH CM. CM FAXED REFERRAL TO [facility] FOR FPC CARE. CM FAXED REFERRALS WITH REQUEST FOR PLACEMENT AND TO FORWARD REFERRAL TO ANY FACILITY THAT MIGHT CONSIDER PATIENT FOR SKILLED NURSING CARE TO: [facility], [facility], [place], [facility] AND [facility]. [facility] [place], THEY CANNOT TAKE PT THEIR EQUIPMENT WILL NOT HANDLE THE WEIGHT AND HAD NO SUGGESTIONS FOR PLACEMENT. CM WAITING ADMISSION DETERMINATION FROM [facility], [facility], [facility] AND [facility]. CM WILL CONTINUE TO WORK TO ATTEMPT TO SECURE PLACEMENT AT ANY ACCEPTING NURSING FACILITY. Sam Basurto, CASE MANAGEMENT DCP- Discharge Planning Updated by [id number]: Sam Basurto on 10/28/18 4:[address] Patient Name: DOT MIXON Encounter No: [id number] : 1975 Primary Insurance: MEDICAID [place] Anticipated DC Date: Planned Disposition: Correction Facility External Planned Provider: TO BE DETERMINED DCP follow-up note: CM REVIEWED CHART, MET WITH PT IN ROOM. PT CONCERNED THAT HER FIANCE AND "FUR BABIES" ARE BEING EVICTED FROM THE APARTMENT. PT ENCOURAGED PT TO FOCUS ON HER RECOVERY. PT IS AWARE THAT SHE NEEDS SKILLED NURSING NURSING CARE AND WILL GO TO ANY ACCEPTING FACILITY AT THIS TIME. PT HAS BEEN ASKING THERAPY TO GET HER OUT OF BED BUT THE BED WILL NOT GO LOW ENOUGH AND THE MATTRESS IS TO SLIPPERY AND THEY ARE AFRAID THEY WILL DROP HER AND SHE WILL NOT BE ABLE TO GET BACK IN BED. CM CALLED [facility] IN [place], THEY ARE NOT ABLE TO MEET PT'S NEEDS. CM CALLED [facility] IN [place], THEY HAVE NO AVAILABLE BERIATRIC BED AT THIS TIME. CM CALLED [facility] IN [place], THEY CANNOT MEET PT'S NEEDS. CM WAS DIRECTED IN CONVERSTATIONS WITH ABOVE PROVIDERS TO CALL [facility] IN [place] AND [facility] FOR POSSIBLE PLACEMENT. CM WILL CONTINUE TO WORK TO ATTEMPT TO SECURE PLACEMENT AT ANY ACCEPTING NURSING FACILITY. Sam Basurto, CASE MANAGEMENT DCP- Discharge Planning Updated by [id number]: Eunice Vo on 10/25/18 6:[address] CM SPOKE [facility] PATIENT 10/24/18 PM REGARDING SERACH. SHE WANTS TO GO TO FACILITY NEAR [place]. CM EXPLAINED SHE HAD SPECIAL NEEDS THAT COULD NOT BE MET AT ANY FACILITY IN [place]. SHE UNDERSTANDS. SHE STATES SHE CANNOT RETURN TO HER HOME. 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 THE TRAILER WOULD NEED A NEW REINFORCED FLOOR. SHE CANNOT AMBULATE . SHE MISSES HER FRIENDS. INTERNET SEARCH WITH NO FINDINGS FOR FACILITIES. TC TO [facility] CASE MANAGEMENT DEPARTMENT. AWAIT MARIMAR SAAVEDRA, PATENT ATTORNEY- SUPERVISIOR TO SEWER DIGGER. HAD TO LEAVE A VOICE MAIL REQUESTING ASSISTANCE FOR RESOURCE FOR SNF BARIATRIC SERVICES. AWAITED CALL BACK. TELEPHONE CALL TO [place]. LEFT VOICE MAIL MESSAGE FOR MS ROONEY, ADMISSION COORDINATOR. NO SERVICE AVAILABLE AT HER FACILITY. SHE STATES THERE IS A FACILITY IN [place] , THE ONLY ONE IN THE [facility], THAT CAN ACCOMMODATE A PATIENT UP TO 1000 LBS. SHE COULD NOT RECALL THE NAME. SHE STATES THEY GENERALLY HAVE A WAITING LIST. CM WILL SEARCH. DCP- Discharge Planning Updated by [id number]: Eunice Vo on 10/24/18 3:[address] LATE ENTRY 0915 REC TELEPHONE CALL FROM ANGEL SÁNCHEZ THIS AM. [facility] NURSING TO REVIEW CLINICAL TODAY. HE WILL ADVISE THIS AFTERNOON REGARDING ACCEPTANCE. 1325 REC TELEPHONE CALL FROM ANGEL. [facility] CANNOT MEET THE PATIENT'S NEEDS. THEIR BARIATRIC SERVICES HAS CAPABILITY FOR 550 LBS. KADI SINGH, SPOKE WITH ENOCH CARDOZO, CLINICAL LIAISON, FOR [facility] SERVICE. SHE DOES NOT HAVE A FACILITY THAT CAN PROVIDE CARE FOR THIS PATIENT. HER FACILITIES ARE THE [facility], [facility], [facility], [facility] AND [facility]. WILL CONTINUE TO SEARCH. WILL UPDATE THE PATIENT. DCP- Discharge Planning Updated by [id number]: Eunice Vo on 10/23/18 5:[address] LATE ENTRY 1100 RADHA, CONTINUOUS IMPROVEMENT COORDINATOR, SPOKE W/ ME THIS AM. SHE HAD NOT REC CB FROM ANGEL AT [facility]. CM WILL FOLLOW UP IN THE AM REGARDING DECISION AND PROJECTED DISCHARGE DATE. FOLLOW UP SPEECH THERAPY EVAL COMPLETED. UPDATED WEIGHT REPORTEDLY IS 660 LBS. PATIENT TO HAVE ABG'S TODAY AFTER TRILOGY. PULMONARY NOTE REQUEST SNF PLACEMENT IN [place]. THE PATIENT'S PLAN IS FOR SNF REHAB AT [facility]. CM WORKING ON PLACEMENT AT APPROPRIATE FACILITY W/ CAPABILITY TO PROVIDE HER NEEDS, [facility]. DCP- Discharge Planning Updated by [id number]: Radha Noel on 10/22/18 10:[address] CM has been working with patient to try to get in touch with her Firuth Schofield. He hasn't been answering the phone. CM tried to assist by looking up his mother and sister on Facebook to see if there was a phone number linked to their accounts but there wasn't. 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 CM gave patient phone numbers to both [place] in [place]. CM also looked up her [employer] phone number so she could call about her belongings in her home. CM will continue to follow and assist as needed with discharge planning / needs. DCP- Discharge Planning Updated by [id number]: aRdha Noel on 10/22/18 10:[address] Angel from [facility] came by last week to see patient and to obtain records. KATY was given verbally per patient for [facility] at that time. Angel later called back and stated to notify him when patient is closer to discharge. CM attempted to call Angel this morning in regards possible discharge by the end of the week. He stated he was in a meeting and would call back later. Meantime I have asked nursing for a weight on patient since there hasn't been one recorded since 10/10/18. Nursing stated that the bed scale isn't working. CM will continue to follow and assist as needed for discharge planning / needs. DCP- Discharge Planning Updated by [id number]: Radha Noel on 10/15/18 7:[address] CM checking with intermediate facilities regarding possible placement. CM having barriers related to patient's weight and facilities not being able to accommodate a patient of her size. At this time [facility], [facility], [facility], and [place] have all denied patient. CM will continue to seek placement. CM will continue to follow and assist as needed with discharge planning / needs. DCP- Discharge Planning Updated by [id number]: Radha Noel on 10/11/18 2:[address] CM spoke with regarding LTACH placement. Patient is Medicaid only therefore patient is not an LTACH candidate. Dr. Juarez states he would like patient transferred back to [facility] once patient is more stable. CM will continue to follow and assist as needed with discharge planning / needs. DCP- Discharge Planning Updated by [email or web address]: Radha Noel on 10/09/18 4:[address] Patient Name: DOT MIXON Admission Status: Urgent Accout number: [id number] Admission Date: 09-30-2018 : 1975 Admission Diagnosis:ACUTE KIDNEY FAILURE, UNSPECIFIED Attending: Junior Rubalcava Current LOS: 9 Anticipated DC Date: Planned Disposition: Primary Insurance: MEDICAID [place] Discharge Planning Comments: CM met with patient at bedside. She states that she lives [address] [place] [address] . She lives with her firuth Schofield [phone]. She states that she does have home health with [facility] and her filili? is her caregiver. She states that she has an Electric chair, BSC and [facility]. Patient states that she needs a shower chair, walker and suction cup grab bars for shower. Patient would like to go home upon discharge and resume care with [facility]. KATY form signed for [facility] . Patient is not a candidate for LTACH due Medicaid being a payer source and not covered under Medicaid. CM will continue to follow and assist as needed with discharge planning / needs. Office Inspector: Radha Noel DCP- Discharge Planning Updated by [id number]: Radha Noel on 10/08/18 6:[address] CM attempted to meet with patient for discharge planning /needs. Patient is currently on BiPap and wasn't able to speak to CM. No family available at this time. CM will continue to follow and assist as needed with discharge planning / needs. DCP- Discharge Planning Updated by [email or web address]: Radha Noel on 10/01/18 12:[address] CM attempted to meet with patient for discharge planning /needs. Patient is currently sedated on vent no family available at this time. CM will continue to follow and assist as needed with discharge planning / needs. DCPIA - Discharge Planning Initial Assessment Updated by [id number]: Radha Noel on 10/09/18 4:55 pm * Is the patient Alert and Oriented? Yes * How many steps to enter\\exit or inside your home? * PCP Lauren with [facility] * Pharmacy [facility] [place] * Preadmission Environment Home with Family * ADLs Partial Dependent * Partial ADLs (Assistance needed) Ambulation Bathing Dressing Eating Medication Management Toileting Transfers * Other Equipment Electric Lift chair, BSC, Trilogy ([facility]) * List name and contact numbers for known caregivers / representatives who currently or will assist patient after discharge: Raquel celestin? - [phone] * Verbal permission to speak to the caregivers and representatives has been obtained from the patient. Yes * Community resources currently utilized Home Health * Please name any agencies selected above. [facility] * Additional services required to return to the preadmission environment? No * Can the patient safely return to the preadmission environment? Yes * Has this patient been hospitalized within the prior 30 days at any hospital? No Last DP export: 10/29/18 3:30 p Patient Name: DOT MIXON Page [id number] at 1646 All edits/amendments must be made on the electronic document DICTATION DATE: 10/29/181644 PROFESSOR OF MEDICINE: FLIP 10/29/181644 RPT#: [id number] DC DATE: STATUS: ADM IN [facility] [address] [place] [address] END OF REPORT
--- NOTE | 2018-10-29 18:26 | NUR ---
BLOOD SUGAR RECHECK. 469. DR PARMAR HERE AND ORDERS RECEIVED. 25 UNITS OF INSULIN ORDERED. LANTUS UP TO 65 U
[2018-10-29 18:42] VITALS: BP 126/86
--- NOTE | 2018-10-29 19:04 | NUR ---
RECIEVED UP IN BED WITH EYES OPEN AND TV ON. APPEARS IN A GOOD MOOD. VERY TALKATIVE. ALERT AND ORIENTED X4. LEFT IJ SL. REMAINS BEDFAST AND ON DROPLET PRECAUTIONS. F/C INTACT WITH CLOUDY YELLOW URINE TO BEDSIDE DRAINAGE BAG. O2@ 2 LITERS PER N/C IN PLACE. REPORTED ELEVATED BLOODE SUGARS AND INTERVENTIONS BY OFF GOING NURSE. WILL RECHECK BLOOD SUGARS WHEN NIGHT MEDICATIONS ARE GIVEN. DSGS TO BOTH FEET CDI. DENIES ANY NEEDS AT THIS TIME.
[2018-10-29 20:00] VITALS: BP 123/70
[2018-10-30 04:00] VITALS: BP 135/72
--- NOTE | 2018-10-30 07:30 | NUR ---
RECEIVED A/A/OX4. DENIES ANY PAIN AT PRESENT TIME AND VOICES NO REQUESTS. LEFT IJ TRIALYSIS PATENT WITH DRESSING C/D/I. ASSESSMENT COMPLETED. PATIÑO DRAINING CLOUDY YELLOW URINE TO BEDSIDE DRAINAGE. WILL CONTINUE POC.
[2018-10-30 07:35] LABS: BASOPHILS 0.1 % (0-2); EOSINOPHILS 1.3 % (0-7); HEMATOCRIT 38.9 % (36.0-48.0); HEMOGLOBIN 12.1 g/dL (12-16); IMMATURE GRANULOCYTES 0.6 % (0-5); LYMPHOCYTES 14.9 % (15-50); MCH 24.2 pg (26.0-34.0); MCHC 31.1 g/dL (31.0-37.0); MCV 77.8 fL (80.0-100.0); MONOCYTES 7.1 % (2-11); RDW 18.9 % (11.5-14.5); WBC 9.5 10x3/uL (4.8-10.8)
[2018-10-30 07:43] LABS: PLATELET COUNT 180 10x3/uL (130-400)
[2018-10-30 08:19] LABS: ANION GAP 14.3 mmol/L (8-16); CALCIUM 9.3 mg/dL (8.5-10.1); CARBON DIOXIDE 26.4 mmol/L (21.0-32.0); CREATININE - SERUM 1.5 mg/dL (0.6-1.3); POTASSIUM - SERUM 3.7 mmol/L (3.5-5.1)
[2018-10-30 09:23] VITALS: BP 135/72
--- NOTE | 2018-10-30 12:55 | NUR ---
I have reviewed this patient and I concur with the Shift Assessment completed by the Licensed Practical Nurse today this shift.
[2018-10-30 13:18] VITALS: BP 140/52
--- NOTE | 2018-10-30 15:58 | NUR ---
OT NOTE: PT STATED THAT SHE WAS IN A BAD MOOD BECAUSE DR WOULD NOT LISTEN TO WHAT SHE HAD TO SAY. SHE STATED THAT DR WANTED TO DISCHARGE HER HOME, BUT SHE TOLD HIM THAT SHE COULD NOT WALK. PT CONTINUED TO VENT FRUSTRATIONS. INSTRUCTED PT THAT WE HAD TO GET TO WORK AND INSTRUCTED TO SIT UP ON EOB. PT CONTINUES TO REQUIRE EXTENSIVE ASSIST WITH SUPINE TO SIT, HOWEVER, HAS IMPROVED GREATLY SINCE ICU. AFTER GETTING PT TO EOB, HER SITTING BALANCE WAS GOOD. SHE WAS ABLE TO TOLERATED SITTING ON EOB X 15 MIN. ABLE TO PERFORM UE AROM EXS WITH EXTENSIVE REST BREAKS. ATTEMPTED TO GET PT TO PERFORM KNEE EXTENSION WHILE SITTING ON EOB. PT UNABLE TO EXT EITHER LEG AGAINST GRAVITY. IT WILL BE IMPOSSIBLE FOR PT TO BEAR WT THROUGH LES IF SHE CANT EXTEND AGAINST GRAVITY. EXPLAINED THIS TO PT AND EXPLAINED THAT SHE WOULD NOT BE ABLE TO RETURN HOME WITHOUT ASSIST OF A ALYSSA. PT STATES THAT HER FIANCE WAS HELPING HER TRANSFER TO [facility] CHAIR WHEN SHE WAS AT HOME, BUT WAS NOT SURE WHERE SHE WOULD BE GOING UPON DC. EDUCATED PT ON IMPORTANCE OF DOING UE AND LE EXS IN BED IF SHE EVER WANTED TO BE ABLE TO AMBULATE OR TRANSFER AGAIN. UBALDO MCKINLEY, OTR/L
--- NOTE | 2018-10-30 16:30 | NUR ---
PT MOVED OFF OF ABILIO BED AND BED TO ZERO. PLACED BACK ON BED AND READING OF 374 LBS. DRESSING TO TRIALYSIS CHANGED AND PT TOLERATED WELL.
--- NOTE | 2018-10-30 17:56 | NUR ---
OT NOTE: PT COMPLETED BED MOB WITH MAX A. PT COMPLETED EOB SITTING WITH SBA. PT COMPLETED UE AROM WITH SBA. PT COMPLETED GROOMING TASK WITH SET UP. THANK YOU, ELI OAKES
--- NOTE | 2018-10-30 19:49 | NUR ---
REPORT REECIEVED AND ROUNDING COMPLETE. PT LAYING IN BED RECIEVING A BREATHING TREATMENT AT THIS TIME. PT IS ISO FOR DROPLET. PT HAS A PATIÑO WITH YELLOW/CONENTRATED URINNE IN BAG. PT IS SHOWING NO S/SX OF DISTRESS AT THIS TIME. CALL LIGHT WITHIN REACH AND BED IN LOWEST POSITION.
[2018-10-30 20:00] VITALS: BP 118/64
[2018-10-31] VITALS (7 sets, daily range): BP systolic 118–138; BP diastolic 62–73
--- NOTE | 2018-10-31 04:00 | NUR ---
I have reviewed this patient and I concur with the Shift Assessment completed by the Licensed Practical Nurse today this shift.
[2018-10-31 04:52] LABS: ANION GAP 13.4 mmol/L (8-16); CARBON DIOXIDE 27.2 mmol/L (21.0-32.0); CREATININE - SERUM 1.6 mg/dL (0.6-1.3); POTASSIUM - SERUM 3.6 mmol/L (3.5-5.1)
[2018-10-31 05:11] LABS: BASOPHILS 0.1 % (0-2); EOSINOPHILS 0.7 % (0-7); HEMATOCRIT 37.5 % (36.0-48.0); HEMOGLOBIN 11.9 g/dL (12-16); IMMATURE GRANULOCYTES 0.7 % (0-5); LYMPHOCYTES 12.8 % (15-50); MCH 24.5 pg (26.0-34.0); MCHC 31.7 g/dL (31.0-37.0); MCV 77.3 fL (80.0-100.0); MEAN PLATELET VOLUME 10.7 fL (7.4-10.4); MONOCYTES 5.3 % (2-11); NEUTROPHILS 80.4 % (40-80); RBC 4.85 10x6/uL (4.00-5.40); RDW 18.8 % (11.5-14.5); WBC 11.1 10x3/uL (4.8-10.8)
[2018-10-31 05:12] LABS: PLATELET COUNT 132 10x3/uL (130-400)
--- NOTE | 2018-10-31 08:02 | MORECARE ---
CASE MANAGEMENT DISCHARGE SUMMARY PATIENT: DOT MIXON UNIT: [id number] ADM DATE: 09/30/18 AGE: 43 : 75 SEX: F ROOM/BED: D.2102 AUTHOR: PREMA,DOC PHYSICIAN: REFERRING PHYSICIAN: ELOISE GIVENS MD DATE OF SERVICE: 10/31/18 Discharge Plan Patient Name: DOT MIXON Facility: [facility]:[place] : 1975 Planned Disposition: Group Home Facility Anticipated Discharge Date: Discharge Date: Expected LOS: Initial Reviewer: [id number] Initial Review Date: 10/09/2018 Generated: 10/31/18 9:01 am Comments DCP- Discharge Planning Updated by [id number]: Sam Basurto on 10/29/18 3:[address] Patient Name: DOT MIXON Encounter No: [id number] : 1975 Primary Insurance: MEDICAID [place] Anticipated DC Date: Planned Disposition: Group Home Facility External Planned Provider: TO BE DETERMINED DCP follow-up note: CM SPOKE TO PT VIA PHONE WHO INFORMED CM THAT THEY GOT HER ON A NEW BED AND HER WEIGHT IS 314 POUNDS. CM MET WITH PT IN ROOM, LOOKED AT BED SCALE TO DETERMINE IF IT WAS SHOWING POUNDS OR KILOGRAMS. DURING CONVERSATION WITH PT, PT WAS OFFENDED WHEN CM ASKED ABOUT PT'S KNOWN WEIGHT PRIOR TO HOSPITAL STAY AND WHERE PT'S WEIGHT WAS OBTAINED. CM OBSERVED THAT STANDARD BATHROOM SCALES AVAILABLE AT MOST RETAILERS DO NOT GO UP TO PT'S CURRENT WEIGHT FOR HOME MEEASUREMENT. CM APOLOGIZED TO PT FOR ANY OFFENSE, EXPLAINED THAT ACCURATE WEIGHT WAS ABSOLUTELY NECESSARY TO FIND PLACEMENT FOR PT; PT REPORTED UNDERSTANDING. CM SPOKE TO NURSE AND DISCUSSED NEW BED SCALE. AFTER INVESTIGATION, IT WAS DETERMINED THAT THE BED WAS REGISTERING KILOGRAMS, NOT POUNDS. PT;S CURRENT WEIGHT IS [address] CM SPOKE TO DR JUAREZ WHO INFORMED CM THAT PT IS STABLE AND HE WANTS HER OUT OF THE HOSPITAL. CM NOTIFIED CM DAIRY ASSOCIATE OF DR. ORR WISHES AND ASSURED DAIRY ASSOCIATE THAT CM IS WORKING TO FIND A SAFE DISCHARGE PLACEMENT. CM CALLED [facility] IN [place] AND [facility] FOR POSSIBLE PLACEMENT, NEITHER HAS CAPABILITY OF CARING FOR PT AT HER CURRENT WEIGHT AND HAD NO RECOMMMENDATIONS. CM CALLED [facility], SPOKE TO SUAD WHO WILL REVIEW PT AND GET BACK WITH CM. CM FAXED REFERRAL TO [facility] FOR USP CARE. CM FAXED REFERRALS WITH REQUEST FOR PLACEMENT AND TO FORWARD REFERRAL TO ANY FACILITY THAT MIGHT CONSIDER PATIENT FOR INTERMEDIATE CARE TO: [facility], [facility], [facility] AND [facility]. CM CALLED [facility] IN [place], THEY CANNOT TAKE PT THEIR EQUIPMENT WILL NOT HANDLE THE WEIGHT AND HAD NO SUGGESTIONS FOR PLACEMENT. CM WAITING ADMISSION DETERMINATION FROM [facility], [place], [facility] AND [facility]. CM WILL CONTINUE TO WORK TO ATTEMPT TO SECURE PLACEMENT AT ANY ACCEPTING NURSING FACILITY. Sam Basurto, CASE MANAGEMENT DCP- Discharge Planning Updated by [id number]: Sam Basurto on 10/28/18 4:[address] Patient Name: DOT MIXON Encounter No: [id number] : 1975 Primary Insurance: MEDICAID [place] Anticipated DC Date: Planned Disposition: Group Home Facility External Planned Provider: TO BE DETERMINED DCP follow-up note: CM REVIEWED CHART, MET WITH PT IN ROOM. PT CONCERNED THAT HER FIANCE AND "FUR BABIES" ARE BEING EVICTED FROM THE APARTMENT. PT ENCOURAGED PT TO FOCUS ON HER RECOVERY. PT IS AWARE THAT SHE NEEDS INTERMEDIATE NURSING CARE AND WILL GO TO ANY ACCEPTING FACILITY AT THIS TIME. PT HAS BEEN ASKING THERAPY TO GET HER OUT OF BED BUT THE BED WILL NOT GO LOW ENOUGH AND THE MATTRESS IS TO SLIPPERY AND THEY ARE AFRAID THEY WILL DROP HER AND SHE WILL NOT BE ABLE TO GET BACK IN BED. CM CALLED [facility] IN [place], THEY ARE NOT ABLE TO MEET PT'S NEEDS. CM CALLED [facility] IN [place], THEY HAVE NO AVAILABLE BERIATRIC BED AT THIS TIME. CM CALLED [facility] IN [place], THEY CANNOT MEET PT'S NEEDS. CM WAS DIRECTED IN CONVERSTATIONS WITH ABOVE PROVIDERS TO CALL [facility] IN [place] AND [facility] FOR POSSIBLE PLACEMENT. CM WILL CONTINUE TO WORK TO ATTEMPT TO SECURE PLACEMENT AT ANY ACCEPTING NURSING FACILITY. Sam Basurto, CASE MANAGEMENT DCP- Discharge Planning Updated by [id number]: Eunice Vo on 10/25/18 6:[address] CM SPOKE JOSE CARLOS PATIENT 10/24/18 PM REGARDING SERACH. SHE WANTS TO GO TO FACILITY [place]AR [place]. CM EXPLAINED SHE HAD SPECIAL NEEDS THAT COULD NOT BE MET AT ANY FACILITY IN [place]. SHE UNDERSTANDS. SHE STATES SHE CANNOT RETURN TO HER HOME. 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 THE TRAILER WOULD NEED A NEW REINFORCED FLOOR. SHE CANNOT AMBULATE . SHE MISSES HER FRIENDS. INTERNET SEARCH WITH NO FINDINGS FOR FACILITIES. TC TO [facility] CASE MANAGEMENT DEPARTMENT. AWAIT MARIMAR SAAVEDRA, WOOD MACHINE CARVER- SUPERVISIOR TO CHEMICAL PATHOLOGIST. HAD TO LEAVE A VOICE MAIL REQUESTING ASSISTANCE FOR RESOURCE FOR SNF BARIATRIC SERVICES. AWAITED CALL BACK. TELEPHONE CALL TO [place]. LEFT VOICE MAIL MESSAGE FOR MS ROONEY, ADMISSION COORDINATOR. NO SERVICE AVAILABLE AT HER FACILITY. SHE STATES THERE IS A FACILITY IN [place] , THE ONLY ONE IN THE [facility], THAT CAN ACCOMMODATE A PATIENT UP TO 1000 LBS. SHE COULD NOT RECALL THE NAME. SHE STATES THEY GENERALLY HAVE A WAITING LIST. CM WILL SEARCH. DCP- Discharge Planning Updated by [id number]: Eunice Vo on 10/24/18 3:[address] LATE ENTRY 0915 REC TELEPHONE CALL FROM ANGEL SÁNCHEZ THIS AM. [facility] NURSING TO REVIEW CLINICAL TODAY. HE WILL ADVISE THIS AFTERNOON REGARDING ACCEPTANCE. 1325 REC TELEPHONE CALL FROM ANGEL. [facility] CANNOT MEET THE PATIENT'S NEEDS. THEIR BARIATRIC SERVICES HAS CAPABILITY FOR 550 LBS. KADI SINGH, SPOKE WITH ENOCH CARDOZO, CLINICAL LIAISON, FOR [facility] SERVICE. SHE DOES NOT HAVE A FACILITY THAT CAN PROVIDE CARE FOR THIS PATIENT. HER FACILITIES ARE [facility], [facility], [facility], [facility] AND [facility]. WILL CONTINUE TO SEARCH. WILL UPDATE THE PATIENT. DCP- Discharge Planning Updated by [id number]: Eunice Vo on 10/23/18 5:[address] LATE ENTRY 1100 RADHA, RAILROAD SIGNAL TECHNICIAN, SPOKE W/ ME THIS AM. SHE HAD NOT REC CB FROM ANGEL AT [facility]. CM WILL FOLLOW UP IN THE AM REGARDING DECISION AND PROJECTED DISCHARGE DATE. FOLLOW UP SPEECH THERAPY EVAL COMPLETED. UPDATED WEIGHT REPORTEDLY IS 660 LBS. PATIENT TO HAVE ABG'S TODAY AFTER TRILOGY. PULMONARY NOTE REQUEST SNF PLACEMENT IN [place]. THE PATIENT'S PLAN IS FOR SNF REHAB AT [facility]. CM WORKING ON PLACEMENT AT APPROPRIATE FACILITY W/ CAPABILITY TO PROVIDE HER NEEDS, [facility]. DCP- Discharge Planning Updated by [id number]: Radha Noel on 10/22/18 10:[address] CM has been working with patient to try to get in touch with her Firuth Schofield. He hasn't been answering the phone. CM tried to assist by looking up his mother and sister on Facebook to see if there was a phone number linked to their accounts but there wasn't. 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 CM gave patient phone numbers to both ME in [place]. CM also looked up her [employer] phone number so she could call about her belongings in her home. CM will continue to follow and assist as needed with discharge planning / needs. DCP- Discharge Planning Updated by [id number]: Radha Noel on 10/22/18 10:[address] Angel from [facility] ([place], [place]) came by last week to see patient and to obtain records. KATY was given verbally per patient for [facility] ([place], [place]) at that time. Angel later called back and stated to notify him when patient is closer to discharge. CM attempted to call Angel this morning in regards possible discharge by the end of the week. He stated he was in a meeting and would call back later. Meantime I have asked nursing for a weight on patient since there hasn't been one recorded since 10/10/18. Nursing stated that the bed scale isn't working. CM will continue to follow and assist as needed for discharge planning / needs. DCP- Discharge Planning Updated by [id number]: Radha Noel on 10/15/18 7:[address] CM checking with care home facilities regarding possible placement. CM having barriers related to patient's weight and facilities not being able to accommodate a patient of her size. At this time [facility], [facility], [facility], and [facility] have all denied patient. CM will continue to seek placement. CM will continue to follow and assist as needed with discharge planning / needs. DCP- Discharge Planning Updated by [id number]: Radha Noel on 10/11/18 2:[address] CM spoke with regarding LTACH placement. Patient is Medicaid only therefore patient is not an LTACH candidate. Dr. Juarez states he would like patient transferred back to [facility] once patient is more stable. CM will continue to follow and assist as needed with discharge planning / needs. DCP- Discharge Planning Updated by [id number]: Radha Noel on 10/09/18 4:[address] Patient Name: DOT MIXON Admission Status: Urgent Accout number: [id number] Admission Date: 09-30-2018 : 1975 Admission Diagnosis:ACUTE KIDNEY FAILURE, UNSPECIFIED Attending: Junior Rubalcava Current LOS: 9 Anticipated DC Date: Planned Disposition: Primary Insurance: MEDICAID [place] Discharge Planning Comments: CM met with patient at bedside. She states that she lives [address] [place] [address] . She lives with her firuth Schofield [phone]. She states that she does have home health with [facility] and her filili? is her caregiver. She states that she has an Electric chair, BSC and [facility]. Patient states that she needs a shower chair, walker and suction cup grab bars for shower. Patient would like to go home upon discharge and resume care with [facility]. KATY form signed for [facility] . Patient is not a candidate for LTACH due Medicaid being a payer source and not covered under Medicaid. CM will continue to follow and assist as needed with discharge planning / needs. Deputy Clerk Of Superior Court: Radha Noel DCP- Discharge Planning Updated by [id number]: Radha Noel on 10/08/18 6:[address] CM attempted to meet with patient for discharge planning /needs. Patient is currently on BiPap and wasn't able to speak to CM. No family available at this time. CM will continue to follow and assist as needed with discharge planning / needs. DCP- Discharge Planning Updated by [id number]: Radha Noel on 10/01/18 12:[address] CM attempted to meet with patient for discharge planning /needs. Patient is currently sedated on vent no family available at this time. CM will continue to follow and assist as needed with discharge planning / needs. DCPIA - Discharge Planning Initial Assessment Updated by [id number]: Radha Noel on 10/09/18 4:55 pm * Is the patient Alert and Oriented? Yes * How many steps to enter\\exit or inside your home? * PCP Lauren with [facility] * Pharmacy [facility] [place] * Preadmission Environment Home with Family * ADLs Partial Dependent * Partial ADLs (Assistance needed) Ambulation Bathing Dressing Eating Medication Management Toileting Transfers * Other Equipment Electric Lift chair, BSC, Trilogy ([facility]) * List name and contact numbers for known caregivers / representatives who currently or will assist patient after discharge: Raquel celestin? - [phone] * Verbal permission to speak to the caregivers and representatives has been obtained from the patient. Yes * Community resources currently utilized Home Health * Please name any agencies selected above. [facility] * Additional services required to return to the preadmission environment? No * Can the patient safely return to the preadmission environment? Yes * Has this patient been hospitalized within the prior 30 days at any hospital? No External Providers External Provider: [facility] Next Contact Date: 10/31/2018 Service Request Date: Service Type: Resolution: Reviewer: Comments: Last DP export: 10/29/18 3:46 p Patient Name: DOT MIXON Page [id number] at 0802 All edits/amendments must be made on the electronic document DICTATION DATE: 10/31/18800 SHEET METAL INSTALLER: FLIP 10/31/18800 RPT#: [id number] DC DATE: STATUS: ADM IN [facility] [address] [place] [address] END OF REPORT
--- NOTE | 2018-10-31 08:09 | MORECARE ---
CASE MANAGEMENT DISCHARGE SUMMARY PATIENT: DOT MIXON UNIT: [id number] ADM DATE: 09/30/18 AGE: 43 : 75 SEX: F ROOM/BED: D.2103 AUTHOR: PREMA,DOC PHYSICIAN: REFERRING PHYSICIAN: ELOISE GIVENS MD DATE OF SERVICE: 10/31/18 Discharge Plan Patient Name: DOT MIXON Facility: [facility]:[place] : 1975 Planned Disposition: Snf Facility Anticipated Discharge Date: Discharge Date: Expected LOS: Initial Reviewer: [id number] Initial Review Date: 10/09/2018 Generated: 10/31/18 9:08 am Comments DCP- Discharge Planning Updated by [email or web address]: Sam Basurto on 10/29/18 3:[address] Patient Name: DOT MIXON Encounter No: [id number] : 1975 Primary Insurance: MEDICAID [place] Anticipated DC Date: Planned Disposition: Snf Facility External Planned Provider: TO BE DETERMINED DCP follow-up note: CM SPOKE TO PT VIA PHONE WHO INFORMED CM THAT THEY GOT HER ON A NEW BED AND HER WEIGHT IS 314 POUNDS. CM MET WITH PT IN ROOM, LOOKED AT BED SCALE TO DETERMINE IF IT WAS SHOWING POUNDS OR KILOGRAMS. DURING CONVERSATION WITH PT, PT WAS OFFENDED WHEN CM ASKED ABOUT PT'S KNOWN WEIGHT PRIOR TO HOSPITAL STAY AND WHERE PT'S WEIGHT WAS OBTAINED. CM OBSERVED THAT STANDARD BATHROOM SCALES AVAILABLE AT MOST RETAILERS DO NOT GO UP TO PT'S CURRENT WEIGHT FOR HOME MEEASUREMENT. CM APOLOGIZED TO PT FOR ANY OFFENSE, EXPLAINED THAT ACCURATE WEIGHT WAS ABSOLUTELY NECESSARY TO FIND PLACEMENT FOR PT; PT REPORTED UNDERSTANDING. CM SPOKE TO NURSE AND DISCUSSED NEW BED SCALE. AFTER INVESTIGATION, IT WAS DETERMINED THAT THE BED WAS REGISTERING KILOGRAMS, NOT POUNDS. PT;S CURRENT WEIGHT IS [address] CM SPO[address] JUAREZ WHO INFORMED CM THAT PT IS STABLE AND HE WANTS HER OUT OF THE HOSPITAL. CM NOTIFIED CM NEWS VIDEOTAPE EDITOR OF DR. ORR WISHES AND ASSURED NEWS VIDEOTAPE EDITOR THAT CM IS WORKING TO FIND A SAFE DISCHARGE PLACEMENT. CM CALLED [facility] IN [place] AND [facility] FOR POSSIBLE PLACEMENT, NEITHER HAS CAPABILITY OF CARING FOR PT AT HER CURRENT WEIGHT AND HAD NO RECOMMMENDATIONS. CM CALLED [facility], SPOKE TO SUAD WHO WILL REVIEW PT AND GET BACK WITH CM. CM FAXED REFERRAL TO [facility] FOR ALF CARE. CM FAXED REFERRALS WITH REQUEST FOR PLACEMENT AND TO FORWARD REFERRAL TO ANY FACILITY THAT MIGHT CONSIDER PATIENT FOR SHELTER CARE TO: [facility], [facility], [facility]. CM CALLED [facility] IN [place], THEY CANNOT TAKE PT THEIR EQUIPMENT WILL NOT HANDLE THE WEIGHT AND HAD NO SUGGESTIONS FOR PLACEMENT. CM WAITING ADMISSION DETERMINATION FROM [facility], [facility], [facility] AND [facility]. CM WILL CONTINUE TO WORK TO ATTEMPT TO SECURE PLACEMENT AT ANY ACCEPTING NURSING FACILITY. Sam Basurto, CASE MANAGEMENT DCP- Discharge Planning Updated by [id number]: Sam Basurto on 10/28/18 4:[address] Patient Name: DOT MIXON Encounter No: [id number] : 1975 Primary Insurance: MEDICAID [place] Anticipated DC Date: Planned Disposition: Snf Facility External Planned Provider: TO BE DETERMINED DCP follow-up note: CM REVIEWED CHART, MET WITH PT IN ROOM. PT CONCERNED THAT HER FIANCE AND "FUR BABIES" ARE BEING EVICTED FROM THE APARTMENT. PT ENCOURAGED PT TO FOCUS ON HER RECOVERY. PT IS AWARE THAT SHE NEEDS SHELTER NURSING CARE AND WILL GO TO ANY ACCEPTING FACILITY AT THIS TIME. PT HAS BEEN ASKING THERAPY TO GET HER OUT OF BED BUT THE BED WILL NOT GO LOW ENOUGH AND THE MATTRESS IS TO SLIPPERY AND THEY ARE AFRAID THEY WILL DROP HER AND SHE WILL NOT BE ABLE TO GET BACK IN BED. CM CALLED [facility] IN [place], THEY ARE NOT ABLE TO MEET PT'S NEEDS. CM CALLED [facility] IN [place], THEY HAVE NO AVAILABLE BERIATRIC BED AT THIS TIME. CM CALLED [facility] IN [place], THEY CANNOT MEET PT'S NEEDS. CM WAS DIRECTED IN CONVERSTATIONS WITH ABOVE PROVIDERS TO CALL [facility] IN [place] AND [facility] FOR POSSIBLE PLACEMENT. CM WILL CONTINUE TO WORK TO ATTEMPT TO SECURE PLACEMENT AT ANY ACCEPTING NURSING FACILITY. Sam Basurto, CASE MANAGEMENT DCP- Discharge Planning Updated by [id number]: Eunice Vo on 10/25/18 6:[address] CM SPOKE JOSE CARLOS PATIENT 10/24/18 PM REGARDING SERACH. SHE WANTS TO GO TO FACILITY NEAR [place]. CM EXPLAINED SHE HAD SPECIAL NEEDS THAT COULD NOT BE MET AT ANY FACILITY IN [place]. SHE UNDERSTANDS. SHE STATES SHE CANNOT RETURN TO HER HOME. 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 THE TRAILER WOULD NEED A NEW REINFORCED FLOOR. SHE CANNOT AMBULATE . SHE MISSES HER FRIENDS. INTERNET SEARCH WITH NO FINDINGS FOR FACILITIES. TC TO [facility] CASE MANAGEMENT DEPARTMENT. AWAIT MARIMAR SAAVEDRA, SPONGE BUFFER- SUPERVISIOR TO RACING CAR DRIVER. HAD TO LEAVE A VOICE MAIL REQUESTING ASSISTANCE FOR RESOURCE FOR SNF BARIATRIC SERVICES. AWAITED CALL BACK. TELEPHONE CALL TO [place], [place]. LEFT VOICE MAIL MESSAGE FOR MS ROONEY, ADMISSION COORDINATOR. NO SERVICE AVAILABLE AT HER FACILITY. SHE STATES THERE IS A FACILITY IN [place] , THE ONLY ONE IN THE [facility], THAT CAN ACCOMMODATE A PATIENT UP TO 1000 LBS. SHE COULD NOT RECALL THE NAME. SHE STATES THEY GENERALLY HAVE A WAITING LIST. CM WILL SEARCH. DCP- Discharge Planning Updated by [id number]: Eunice Vo on 10/24/18 3:[address] LATE ENTRY 0915 REC TELEPHONE CALL FROM ANGEL SÁNCHEZ THIS AM. [facility] NURSING TO REVIEW CLINICAL TODAY. HE WILL ADVISE THIS AFTERNOON REGARDING ACCEPTANCE. 1325 REC TELEPHONE CALL FROM ANGEL. [facility] CANNOT MEET THE PATIENT'S NEEDS. THEIR BARIATRIC SERVICES HAS CAPABILITY FOR 550 LBS. KADI SINGH, SPOKE WITH ENOCH CARDOZO, CLINICAL LIAISON, FOR [facility] SERVICE. SHE DOES NOT HAVE A FACILITY THAT CAN PROVIDE CARE FOR THIS PATIENT. HER FACILITIES ARE [facility], [facility], [facility], [facility] AND [facility]. WILL CONTINUE TO SEARCH. WILL UPDATE THE PATIENT. DCP- Discharge Planning Updated by [id number]: Eunice Vo on 10/23/18 5:[address] LATE ENTRY 1100 RADHA, STOCK CUTTER, SPOKE W/ ME THIS AM. SHE HAD NOT REC CB FROM ANGEL AT [facility]. CM WILL FOLLOW UP IN THE AM REGARDING DECISION AND PROJECTED DISCHARGE DATE. FOLLOW UP SPEECH THERAPY EVAL COMPLETED. UPDATED WEIGHT REPORTEDLY IS 660 LBS. PATIENT TO HAVE ABG'S TODAY AFTER TRILOGY. PULMONARY NOTE REQUEST SNF PLACEMENT IN [place]. THE PATIENT'S PLAN IS FOR SNF REHAB AT [facility]. CM WORKING ON PLACEMENT AT APPROPRIATE FACILITY W/ CAPABILITY TO PROVIDE HER NEEDS, [facility]. DCP- Discharge Planning Updated by [id number]: Radha Noel on 10/22/18 10:[address] CM has been working with patient to try to get in touch with her Firuth Schofield. He hasn't been answering the phone. CM tried to assist by looking up his mother and sister on Facebook to see if there was a phone number linked to their accounts but there wasn't. 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 CM gave patient phone numbers to both [place] in [place]. CM also looked up her [email or web address] phone number so she could call about her belongings in her home. CM will continue to follow and assist as needed with discharge planning / needs. DCP- Discharge Planning Updated by [id number]: Radha Noel on 10/22/18 10:[address] Angel from [facility] came by last week to see patient and to obtain records. KATY was given verbally per patient for [facility] at that time. Angel later called back and stated to notify him when patient is closer to discharge. CM attempted to call Angel this morning in regards possible discharge by the end of the week. He stated he was in a meeting and would call back later. Meantime I have asked nursing for a weight on patient since there hasn't been one recorded since 10/10/18. Nursing stated that the bed scale isn't working. CM will continue to follow and assist as needed for discharge planning / needs. DCP- Discharge Planning Updated by [id number]: Radha Noel on 10/15/18 7:[address] CM checking with alf facilities regarding possible placement. CM having barriers related to patient's weight and facilities not being able to accommodate a patient of her size. At this time [facility], [facility], [place], and [facility] have all denied patient. CM will continue to seek placement. CM will continue to follow and assist as needed with discharge planning / needs. DCP- Discharge Planning Updated by [email or web address]: Radha Noel on 10/11/18 2:[address] CM spoke with regarding LTACH placement. Patient is Medicaid only therefore patient is not an LTACH candidate. Dr. Juarez states he would like patient transferred back to [facility] once patient is more stable. CM will continue to follow and assist as needed with discharge planning / needs. DCP- Discharge Planning Updated by [id number]: Radha Noel on 10/09/18 4:[address] Patient Name: DOT MIXON Admission Status: Urgent Accout number: [id number] Admission Date: 09-30-2018 : 1975 Admission Diagnosis:ACUTE KIDNEY FAILURE, UNSPECIFIED Attending: Junior Rubalcava Current LOS: 9 Anticipated DC Date: Planned Disposition: Primary Insurance: MEDICAID [place] Discharge Planning Comments: CM met with patient at bedside. She states that she lives [address] [place] [address] . She lives with her firuth Schofield [phone]. She states that she does have home health with [facility] and her filili? is her caregiver. She states that she has an Electric chair, BSC and [facility]. Patient states that she needs a shower chair, walker and suction cup grab bars for shower. Patient would like to go home upon discharge and resume care with [facility]. KATY form signed for [facility] . Patient is not a candidate for LTACH due Medicaid being a payer source and not covered under Medicaid. CM will continue to follow and assist as needed with discharge planning / needs. Automotive Heavy Mechanic: Radha Noel DCP- Discharge Planning Updated by [email or web address]: Radha Noel on 10/08/18 6:[address] CM attempted to meet with patient for discharge planning /needs. Patient is currently on BiPap and wasn't able to speak to CM. No family available at this time. CM will continue to follow and assist as needed with discharge planning / needs. DCP- Discharge Planning Updated by [email or web address]: Radha Noel on 10/01/18 12:[address] CM attempted to meet with patient for discharge planning /needs. Patient is currently sedated on vent no family available at this time. CM will continue to follow and assist as needed with discharge planning / needs. DCPIA - Discharge Planning Initial Assessment Updated by [id number]: Radha Noel on 10/09/18 4:55 pm * Is the patient Alert and Oriented? Yes * How many steps to enter\\exit or inside your home? * PCP Lauren with [facility] * Pharmacy [facility] * Preadmission Environment Home with Family * ADLs Partial Dependent * Partial ADLs (Assistance needed) Ambulation Bathing Dressing Eating Medication Management Toileting Transfers * Other Equipment Electric Lift chair, BSC, Trilogy ([facility]) * List name and contact numbers for known caregivers / representatives who currently or will assist patient after discharge: Raquel celestin? - [phone] * Verbal permission to speak to the caregivers and representatives has been obtained from the patient. Yes * Community resources currently utilized Home Health * Please name any agencies selected above. [facility] * Additional services required to return to the preadmission environment? No * Can the patient safely return to the preadmission environment? Yes * Has this patient been hospitalized within the prior 30 days at any hospital? No External Providers External Provider: [facility] Next Contact Date: 10/31/2018 Service Request Date: Service Type: Resolution: Reviewer: Comments: Last DP export: 10/31/18 7:01 a Patient Name: DOT MIXON Page [phone] at 0809 All edits/amendments must be made on the electronic document DICTATION DATE: 10/31/18807 CAGER OPERATOR: FLIP 10/31/18807 RPT#: [id number] DC DATE: STATUS: ADM IN [facility] [address] [place] [address] END OF REPORT
--- NOTE | 2018-10-31 08:15 | MORECARE ---
CASE MANAGEMENT DISCHARGE SUMMARY PATIENT: DOT MIXON UNIT: [id number] ADM DATE: 09/30/18 AGE: 43 : 75 SEX: F ROOM/BED: D.2106 AUTHOR: PREMA,DOC PHYSICIAN: REFERRING PHYSICIAN: ELOISE GIVENS MD DATE OF SERVICE: 10/31/18 Discharge Plan Patient Name: DOT MIXON Facility: [facility]:[place] : 1975 Planned Disposition: Assisted Facility Anticipated Discharge Date: Discharge Date: Expected LOS: Initial Reviewer: [id number] Initial Review Date: 10/09/2018 Generated: 10/31/18 9:15 am Comments DCP- Discharge Planning Updated by [id number]: Sam Basurto on 10/29/18 3:[address] Patient Name: DOT MIXON Encounter No: [id number] : 1975 Primary Insurance: [place] Anticipated DC Date: Planned Disposition: Assisted Facility External Planned Provider: TO BE DETERMINED DCP follow-up note: CM SPOKE TO PT VIA PHONE WHO INFORMED CM THAT THEY GOT HER ON A NEW BED AND HER WEIGHT IS 314 POUNDS. CM MET WITH PT IN ROOM, LOOKED AT BED SCALE TO DETERMINE IF IT WAS SHOWING POUNDS OR KILOGRAMS. DURING CONVERSATION WITH PT, PT WAS OFFENDED WHEN CM ASKED ABOUT PT'S KNOWN WEIGHT PRIOR TO HOSPITAL STAY AND WHERE PT'S WEIGHT WAS OBTAINED. CM OBSERVED THAT STANDARD BATHROOM SCALES AVAILABLE AT MOST RETAILERS DO NOT GO UP TO PT'S CURRENT WEIGHT FOR HOME MEEASUREMENT. CM APOLOGIZED TO PT FOR ANY OFFENSE, EXPLAINED THAT ACCURATE WEIGHT WAS ABSOLUTELY NECESSARY TO FIND PLACEMENT FOR PT; PT REPORTED UNDERSTANDING. CM SPOKE TO NURSE AND DISCUSSED NEW BED SCALE. AFTER INVESTIGATION, IT WAS DETERMINED THAT THE BED WAS REGISTERING KILOGRAMS, NOT POUNDS. PT;S CURRENT WEIGHT IS [address] CM SPO[address] TO [address] JUAREZ WHO INFORMED CM THAT PT IS STABLE AND HE WANTS HER OUT OF THE HOSPITAL. CM NOTIFIED CM DEVELOPMENT ADMINISTRATOR OF DR. ORR WISHES AND ASSURED DEVELOPMENT ADMINISTRATOR THAT CM IS WORKING TO FIND A SAFE DISCHARGE PLACEMENT. CM CALLED [facility] [place] [facility] FOR [facility]IBLE PLACEMENT, NEITHER HAS CAPABILITY OF CARING FOR PT AT HER CURRENT WEIGHT AND HAD NO RECOMMMENDATIONS. CM CALLED [facility], SPOKE TO SUAD WHO WILL REVIEW PT AND GET BACK WITH CM. CM FAXED REFERRAL TO [facility] FOR CORRECTION CARE. CM FAXED REFERRALS WITH REQUEST FOR PLACEMENT AND TO FORWARD REFERRAL TO ANY FACILITY THAT MIGHT CONSIDER PATIENT FOR SKILLED NURSING CARE TO: [facility], [facility], [facility] AND [facility]. CM CALLED [facility] IN [place], THEY CANNOT TAKE PT THEIR EQUIPMENT WILL NOT HANDLE THE WEIGHT AND HAD NO SUGGESTIONS FOR PLACEMENT. CM WAITING ADMISSION DETERMINATION FROM [facility], [facility], [facility] AND [facility]. CM WILL CONTINUE TO WORK TO ATTEMPT TO SECURE PLACEMENT AT ANY ACCEPTING NURSING FACILITY. Sam Basurto, CASE MANAGEMENT DCP- Discharge Planning Updated by [id number]: Sam Basurto on 10/28/18 4:[address] Patient Name: DOT MIXON Encounter No: [id number] : 1975 Primary Insurance: [place] Anticipated DC Date: Planned Disposition: Assisted Facility External Planned Provider: TO BE DETERMINED DCP follow-up note: CM REVIEWED CHART, MET WITH PT IN ROOM. PT CONCERNED THAT HER FIANCE AND "FUR BABIES" ARE BEING EVICTED FROM THE APARTMENT. PT ENCOURAGED PT TO FOCUS ON HER RECOVERY. PT IS AWARE THAT SHE NEEDS SKILLED NURSING NURSING CARE AND WILL GO TO ANY ACCEPTING FACILITY AT THIS TIME. PT HAS BEEN ASKING THERAPY TO GET HER OUT OF BED BUT THE BED WILL NOT GO LOW ENOUGH AND THE MATTRESS IS TO SLIPPERY AND THEY ARE AFRAID THEY WILL DROP HER AND SHE WILL NOT BE ABLE TO GET BACK IN BED. CM CALLED [facility] IN [place], THEY ARE NOT ABLE TO MEET PT'S NEEDS. CM CALLED [facility] IN [place], THEY HAVE NO AVAILABLE BERIATRIC BED AT THIS TIME. CM CALLED [facility] IN [place], THEY CANNOT MEET PT'S NEEDS. CM WAS DIRECTED IN CONVERSTATIONS WITH ABOVE PROVIDERS TO CALL [facility] [place] AND [facility] FOR POSSIBLE PLACEMENT. CM WILL CONTINUE TO WORK TO ATTEMPT TO SECURE PLACEMENT AT ANY ACCEPTING NURSING FACILITY. Sam Basurto, CASE MANAGEMENT DCP- Discharge Planning Updated by [id number]: Eunice Vo on 10/25/18 6:[address] CM SPOKE JOSE CARLOS PATIENT 10/24/18 PM REGARDING SERACH. SHE WANTS TO GO TO FACILITY NEAR [place]. CM EXPLAINED SHE HAD SPECIAL NEEDS THAT COULD NOT BE MET AT ANY FACILITY IN [place]. SHE UNDERSTANDS. SHE STATES SHE CANNOT RETURN TO HER HOME. 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 THE TRAILER WOULD NEED A NEW REINFORCED FLOOR. SHE CANNOT AMBULATE . SHE MISSES HER FRIENDS. INTERNET SEARCH WITH NO FINDINGS FOR FACILITIES. TC TO [facility] CASE MANAGEMENT DEPARTMENT. AWAIT MARIMAR SAAVEDRA, PRODUCTION ZONE LEADER- SUPERVISIOR TO PSYCHIATRY TEACHER. HAD TO LEAVE A VOICE MAIL REQUESTING ASSISTANCE FOR RESOURCE FOR SNF BARIATRIC SERVICES. AWAITED CALL BACK. TELEPHONE CALL TO [place], [place]. LEFT VOICE MAIL MESSAGE FOR MS ROONEY, ADMISSION COORDINATOR. NO SERVICE AVAILABLE AT HER FACILITY. SHE STATES THERE IS A FACILITY IN [place] , THE ONLY ONE IN THE [facility], THAT CAN ACCOMMODATE A PATIENT UP TO 1000 LBS. SHE COULD NOT RECALL THE NAME. SHE STATES THEY GENERALLY HAVE A WAITING LIST. CM WILL SEARCH. DCP- Discharge Planning Updated by [id number]: Eunice Vo on 10/24/18 3:[address] LATE ENTRY 0915 REC TELEPHONE CALL FROM ANGEL SÁNCHEZ THIS AM. [facility] NURSING TO REVIEW CLINICAL TODAY. HE WILL ADVISE THIS AFTERNOON REGARDING ACCEPTANCE. 1325 REC TELEPHONE CALL FROM ANGEL. [facility] CANNOT MEET THE PATIENT'S NEEDS. THEIR BARIATRIC SERVICES HAS CAPABILITY FOR 550 LBS. KADI SINGH, SPOKE WITH ENOCH CARDOZO, CLINICAL LIAISON, FOR [facility] SERVICE. SHE DOES NOT HAVE A FACILITY THAT CAN PROVIDE CARE FOR THIS PATIENT. HER FACILITIES ARE [facility], [facility], [facility], [facility] AND [facility]. WILL CONTINUE TO SEARCH. WILL UPDATE THE PATIENT. DCP- Discharge Planning Updated by [id number]: Eunice Vo on 10/23/18 5:[address] LATE ENTRY 1100 RADHA, MATHEMATICAL SCIENCES PROFESSOR, SPOKE W/ ME THIS AM. SHE HAD NOT REC CB FROM ANGEL AT [facility]. CM WILL FOLLOW UP IN THE AM REGARDING DECISION AND PROJECTED DISCHARGE DATE. FOLLOW UP SPEECH THERAPY EVAL COMPLETED. UPDATED WEIGHT REPORTEDLY IS 660 LBS. PATIENT TO HAVE ABG'S TODAY AFTER TRILOGY. PULMONARY NOTE REQUEST SNF PLACEMENT IN [place]. THE PATIENT'S PLAN IS FOR SNF REHAB AT [facility]. CM WORKING ON PLACEMENT AT APPROPRIATE FACILITY W/ CAPABILITY TO PROVIDE HER NEEDS, [facility]. DCP- Discharge Planning Updated by [id number]: Radha Noel on 10/22/18 10:[address] CM has been working with patient to try to get in touch with her Firuth Schofield. He hasn't been answering the phone. CM tried to assist by looking up his mother and sister on Facebook to see if there was a phone number linked to their accounts but there wasn't. 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 CM gave patient phone numbers to both PR in [place]. CM also looked up her [employer] phone number so she could call about her belongings in her home. CM will continue to follow and assist as needed with discharge planning / needs. DCP- Discharge Planning Updated by [id number]: Radha Noel on 10/22/18 10:[address] Angel from [facility] came by last week to see patient and to obtain records. KATY was given verbally per patient for [facility] at that time. Angel later called back and stated to notify him when patient is closer to discharge. CM attempted to call Angel this morning in regards possible discharge by the end of the week. He stated he was in a meeting and would call back later. Meantime I have asked nursing for a weight on patient since there hasn't been one recorded since 10/10/18. Nursing stated that the bed scale isn't working. CM will continue to follow and assist as needed for discharge planning / needs. DCP- Discharge Planning Updated by [id number]: Radha Noel on 10/15/18 7:[address] CM checking with usp facilities regarding possible placement. CM having barriers related to patient's weight and facilities not being able to accommodate a patient of her size. At this time [facility], [facility], [facility], and [facility] have all denied patient. CM will continue to seek placement. CM will continue to follow and assist as needed with discharge planning / needs. DCP- Discharge Planning Updated by [id number]: Radha Noel on 10/11/18 2:[address] CM spoke with regarding LTACH placement. Patient is Medicaid only therefore patient is not an LTACH candidate. Dr. Juarez states he would like patient transferred back to [facility] once patient is more stable. CM will continue to follow and assist as needed with discharge planning / needs. DCP- Discharge Planning Updated by [id number]: Radha Noel on 10/09/18 4:[address] Patient Name: DOT MIXON Admission Status: Urgent Accout number: [id number] Admission Date: 09-30-2018 : 1975 Admission Diagnosis:ACUTE KIDNEY FAILURE, UNSPECIFIED Attending: Junior Rubalcava Current LOS: 9 Anticipated DC Date: Planned Disposition: Primary Insurance: MED[place]ID [place] Discharge Planning Comments: CM met with patient at bedside. She states that she lives [address] [place] [address] . She lives with her firuth Schofield [phone]. She states that she does have home health with [facility] and her filili? is her caregiver. She states that she [facility] an Electric chair, BSC and [facility]. Patient states that she needs a shower chair, walker and suction cup grab bars for shower. Patient would like to go home upon discharge and resume care with [facility]. KATY form signed for [facility] . Patient is not a candidate for LTACH due Medicaid being a payer source and not covered under Medicaid. CM will continue to follow and assist as needed with discharge planning / needs. Computer Game Programmer: Radha Noel DCP- Discharge Planning Updated by [id number]: Radha Noel on 10/08/18 6:[address] CM attempted to meet with patient for discharge planning /needs. Patient is currently on BiPap and wasn't able to speak to CM. No family available at this time. CM will continue to follow and assist as needed with discharge planning / needs. DCP- Discharge Planning Updated by [id number]: Radha Noel on 10/01/18 12:[address] CM attempted to meet with patient for discharge planning /needs. Patient is currently sedated on vent no family available at this time. CM will continue to follow and assist as needed with discharge planning / needs. DCPIA - Discharge Planning Initial Assessment Updated by [id number]: Radha Noel on 10/09/18 4:55 pm * Is the patient Alert and Oriented? Yes * How many steps to enter\\exit or inside your home? * PCP Lauren with [facility] * Pharmacy [facility] [place] * Preadmission Environment Home with Family * ADLs Partial Dependent * Partial ADLs (Assistance needed) Ambulation Bathing Dressing Eating Medication Management Toileting Transfers * Other Equipment Electric Lift chair, BSC, Trilogy ([facility]) * List name and contact numbers for known caregivers / representatives who currently or will assist patient after discharge: Raquel celestin? - [phone] * Verbal permission to speak to the caregivers and representatives has been obtained from the patient. Yes * Community resources currently utilized Home Health * Please name any agencies selected above. [facility] * Additional services required to return to the preadmission environment? No * Can the patient safely return to the preadmission environment? Yes * Has this patient been hospitalized within the prior 30 days at any hospital? No External Providers External Provider: [facility] Next Contact Date: 10/31/2018 Service Request Date: Service Type: Resolution: Reviewer: Comments: [facility] Next Contact Date: 10/31/2018 Service Request Date: Service Type: Resolution: Reviewer: Comments: Last DP export: 10/31/18 7:08 a Patient Name: DOT MIXON Page [id number] at 0815 All edits/amendments must be made on the electronic document DICTATION DATE: 10/31/18813 FUR GRADER: FLIP 10/31/18813 RPT#: [id number] IN DATE: STATUS: ADM IN [facility] [address] [place] [address] END OF REPORT
--- NOTE | 2018-10-31 08:21 | MORECARE ---
CASE MANAGEMENT DISCHARGE SUMMARY PATIENT: DOT MIXON UNIT: [id number] ADM DATE: 09/30/18 AGE: 43 : 75 SEX: F ROOM/BED: D.2107 AUTHOR: PREMA,DOC PHYSICIAN: REFERRING PHYSICIAN: ELOISE GIVENS MD DATE OF SERVICE: 10/31/18 Discharge Plan Patient Name: DOT MIXON Facility: [facility]:[place] : 1975 Planned Disposition: Senior Living Facility Anticipated Discharge Date: Discharge Date: Expected LOS: Initial Reviewer: [id number] Initial Review Date: 10/09/2018 Generated: 10/31/18 9:21 am Comments DCP- Discharge Planning Updated by [id number]: Sam Basurto on 10/29/18 3:[address] Patient Name: DOT MIXON Encounter No: [id number] : 1975 Primary Insurance: [place] Anticipated DC Date: Planned Disposition: Senior Living Facility External Planned Provider: TO BE DETERMINED DCP follow-up note: CM SPOKE TO PT VIA PHONE WHO INFORMED CM THAT THEY GOT HER ON A NEW BED AND HER WEIGHT IS 314 POUNDS. CM MET WITH PT IN ROOM, LOOKED AT BED SCALE TO DETERMINE IF IT WAS SHOWING POUNDS OR KILOGRAMS. DURING CONVERSATION WITH PT, PT WAS OFFENDED WHEN CM ASKED ABOUT PT'S KNOWN WEIGHT PRIOR TO HOSPITAL STAY AND WHERE PT'S WEIGHT WAS OBTAINED. CM OBSERVED THAT STANDARD BATHROOM SCALES AVAILABLE AT MOST RETAILERS DO NOT GO UP TO PT'S CURRENT WEIGHT FOR HOME MEEASUREMENT. CM APOLOGIZED TO PT FOR ANY OFFENSE, EXPLAINED THAT ACCURATE WEIGHT WAS ABSOLUTELY NECESSARY TO FIND PLACEMENT FOR PT; PT REPORTED UNDERSTANDING. CM SPOKE TO NURSE AND DISCUSSED NEW BED SCALE. AFTER INVESTIGATION, IT WAS DETERMINED THAT THE BED WAS REGISTERING KILOGRAMS, NOT POUNDS. PT;S CURRENT WEIGHT IS [address] CM SPO[address] JUAREZ WHO INFORMED CM THAT PT IS STABLE AND HE WANTS HER OUT OF THE HOSPITAL. CM NOTIFIED CM PACKAGE DYER OF DR. ORR WISHES AND ASSURED PACKAGE DYER THAT CM IS WORKING TO FIND A SAFE DISCHARGE PLACEMENT. CM CALLED [facility] IN [place] AND [facility] FOR POSSIBLE PLACEMENT, NEITHER HAS CAPABILITY OF CARING FOR PT AT HER CURRENT WEIGHT AND HAD NO RECOMMMENDATIONS. CM CALLED [facility], SPOKE TO SUAD WHO WILL REVIEW PT AND GET BACK WITH CM. CM FAXED REFERRAL TO [facility] FOR SHELTER CARE. CM FAXED REFERRALS WITH REQUEST FOR PLACEMENT AND TO FORWARD REFERRAL TO ANY FACILITY THAT MIGHT CONSIDER PATIENT FOR PRISON CARE TO: [facility], [facility], [facility] AND [facility]. CM CALLED [facility] IN [place], THEY CANNOT TAKE PT THEIR EQUIPMENT WILL NOT HANDLE THE WEIGHT AND HAD NO SUGGESTIONS FOR PLACEMENT. CM WAITING ADMISSION DETERMINATION FROM [facility], [place], [facility] AND [facility]. CM WILL CONTINUE TO WORK TO ATTEMPT TO SECURE PLACEMENT AT ANY ACCEPTING NURSING FACILITY. Sam Basurto, CASE MANAGEMENT DCP- Discharge Planning Updated by [id number]: Sam Basurto on 10/28/18 4:[address] Patient Name: DOT MIXON Encounter No: [id number] : 1975 Primary Insurance: [place] Anticipated DC Date: Planned Disposition: Senior Living Facility External Planned Provider: TO BE DETERMINED DCP follow-up note: CM REVIEWED CHART, MET WITH PT IN ROOM. PT CONCERNED THAT HER FIANCE AND "FUR BABIES" ARE BEING EVICTED FROM THE APARTMENT. PT ENCOURAGED PT TO FOCUS ON HER RECOVERY. PT IS AWARE THAT SHE NEEDS PRISON NURSING CARE AND WILL GO TO ANY ACCEPTING FACILITY AT THIS TIME. PT HAS BEEN ASKING THERAPY TO GET HER OUT OF BED BUT THE BED WILL NOT GO LOW ENOUGH AND THE MATTRESS IS TO SLIPPERY AND THEY ARE AFRAID THEY WILL DROP HER AND SHE WILL NOT BE ABLE TO GET BACK IN BED. CM CALLED [facility] IN [place], THEY ARE NOT ABLE TO MEET PT'S NEEDS. CM CALLED [facility] IN [place], THEY HAVE NO AVAILABLE BERIATRIC BED AT THIS TIME. CM CALLED [facility] IN [place], THEY CANNOT MEET PT'S NEEDS. CM WAS DIRECTED IN CONVERSTATIONS WITH ABOVE PROVIDERS TO CALL [facility] IN [place] AND [facility] FOR POSSIBLE PLACEMENT. CM WILL CONTINUE TO WORK TO ATTEMPT TO SECURE PLACEMENT AT ANY ACCEPTING NURSING FACILITY. Sam Basurto, CASE MANAGEMENT DCP- Discharge Planning Updated by [id number]: Eunice Vo on 10/25/18 6:[address] CM SPOKE JOSE CARLOS PATIENT 10/24/18 PM REGARDING SERACH. SHE WANTS TO GO TO FACILITY NEAR [place]. CM EXPLAINED SHE HAD SPECIAL NEEDS THAT COULD NOT BE MET AT ANY FACILITY IN [place]. SHE UNDERSTANDS. SHE STATES SHE CANNOT RETURN TO HER HOME. 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 THE TRAILER WOULD NEED A NEW REINFORCED FLOOR. SHE CANNOT AMBULATE . SHE MISSES HER FRIENDS. INTERNET SEARCH WITH NO FINDINGS FOR FACILITIES. TC TO [facility] [[email or web address] CASE MANAGEMENT DEPARTMENT. AWAIT MARIMAR SAAVEDRA, CITY AUDITOR- SUPERVISIOR TO BLADE GRINDER. HAD TO LEAVE A VOICE MAIL REQUESTING ASSISTANCE FOR RESOURCE FOR SNF BARIATRIC SERVICES. AWAITED CALL BACK. TELEPHONE CALL TO [facility], [place]. LEFT VOICE MAIL MESSAGE FOR MS ROONEY, ADMISSION COORDINATOR. NO SERVICE AVAILABLE AT HER FACILITY. SHE STATES THERE IS A FACILITY IN [place] , THE ONLY ONE IN THE [facility], THAT CAN ACCOMMODATE A PATIENT UP TO 1000 LBS. SHE COULD NOT RECALL THE NAME. SHE STATES THEY GENERALLY HAVE A WAITING LIST. CM WILL SEARCH. DCP- Discharge Planning Updated by [id number]: Eunice Vo on 10/24/18 3:[address] LATE ENTRY 0915 REC TELEPHONE CALL FROM [facility]EL SÁNCHEZ THIS AM. [facility] NURSING TO REVIEW CLINICAL TODAY. HE WILL ADVISE THIS AFTERNOON REGARDING ACCEPTANCE. 1325 REC TELEPHONE CALL FROM ANGEL. [facility] CANNOT MEET THE PATIENT'S NEEDS. THEIR BARIATRIC SERVICES HAS CAPABILITY FOR 550 LBS. KADI SINGH, SPOKE WITH ENOCH CARDOZO, CLINICAL LIAISON, FOR [facility] SERVICE. SHE DOES NOT HAVE A FACILITY THAT CAN PROVIDE CARE FOR THIS PATIENT. HER FACILITIES ARE [facility], [facility], [facility], [facility] AND [facility]. WILL CONTINUE TO SEARCH. WILL UPDATE THE PATIENT. DCP- Discharge Planning Updated by [id number]: Eunice Vo on 10/23/18 5:[address] LATE ENTRY 1100 RADHA, SWISS TYPE SCREW MACHINE OPERATOR, SPOKE W/ ME THIS AM. SHE HAD NOT REC CB FROM ANGEL AT [facility]. CM WILL FOLLOW UP IN THE AM REGARDING DECISION AND PROJECTED DISCHARGE DATE. FOLLOW UP SPEECH THERAPY EVAL COMPLETED. UPDATED WEIGHT REPORTEDLY IS 660 LBS. PATIENT TO HAVE ABG'S TODAY AFTER TRILOGY. PULMONARY NOTE REQUEST SNF PLACEMENT IN [place]. THE PATIENT'S PLAN IS FOR SNF REHAB AT [facility]. CM WORKING ON PLACEMENT AT APPROPRIATE FACILITY W/ CAPABILITY TO PROVIDE HER NEEDS, [facility]. DCP- Discharge Planning Updated by [id number]: Radha Noel on 10/22/18 10:[address] CM has been working with patient to try to get in touch with her Firuth Schofield. He hasn't been answering the phone. CM tried to assist by looking up his mother and sister on Facebook to see if there was a phone number linked to their accounts but there wasn't. 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 CM gave patient phone numbers to both [place] in [place]. CM also looked up her [email or web address] phone number so she could call about her belongings in her home. CM will continue to follow and assist as needed with discharge planning / needs. DCP- Discharge Planning Updated by [id number]: Radha Noel on 10/22/18 10:[address] Angel from [facility] came by last week to see patient and to obtain records. KATY was given verbally per patient for [facility] at that time. Angel later called back and stated to notify him when patient is closer to discharge. CM attempted to call Angel this morning in regards possible discharge by the end of the week. He stated he was in a meeting and would call back later. Meantime I have asked nursing for a weight on patient since there hasn't been one recorded since 10/10/18. Nursing stated that the bed scale isn't working. CM will continue to follow and assist as needed for discharge planning / needs. DCP- Discharge Planning Updated by [id number]: Radha Noel on 10/15/18 7:[address] CM checking with prison facilities regarding possible placement. CM having barriers related to patient's weight and facilities not being able to accommodate a patient of her size. At this time [facility], [facility], [place], and [place] have all denied patient. CM will continue to seek placement. CM will continue to follow and assist as needed with discharge planning / needs. DCP- Discharge Planning Updated by [id number]: Radha Noel on 10/11/18 2:[address] CM spoke with regarding LTACH placement. Patient is Medicaid only therefore patient is not an LTACH candidate. Dr. Juarez states he would like patient transferred back to [facility] once patient is more stable. CM will continue to follow and assist as needed with discharge planning / needs. DCP- Discharge Planning Updated by [id number]: Radha Noel on 10/09/18 4:[address] Patient Name: DOT MIXON Admission Status: Urgent Accout number: [id number] Admission Date: 09-30-2018 : 1975 Admission Diagnosis:ACUTE KIDNEY FAILURE, UNSPECIFIED Attending: Junior Rubalcava Current LOS: 9 Anticipated DC Date: Planned Disposition: Primary Insurance: [place]ID [place] Discharge Planning Comments: CM met with patient at bedside. She states that she lives [address] [place] [address] . She lives with her firuth Schofield [phone]. She states that she does have home health with [facility] and her filili? is her caregiver. She states that [facility] Electric [facility], [facility] Patient states that she needs a shower chair, walker and suction cup grab bars for shower. Patient would like to go home upon discharge and resume care with [facility]. KATY form signed for [facility] . Patient is not a candidate for LTACH due Medicaid being a payer source and not covered under Medicaid. CM will continue to follow and assist as needed with discharge planning / needs. Colorer Machine: Radha Noel DCP- Discharge Planning Updated by [id number]: Radha Noel on 10/08/18 6:[address] CM attempted to meet with patient for discharge planning /needs. Patient is currently on BiPap and wasn't able to speak to CM. No family available at this time. CM will continue to follow and assist as needed with discharge planning / needs. DCP- Discharge Planning Updated by [id number]: Radha Noel on 10/01/18 12:[address] CM attempted to meet with patient for discharge planning /needs. Patient is currently sedated on vent no family available at this time. CM will continue to follow and assist as needed with discharge planning / needs. DCPIA - Discharge Planning Initial Assessment Updated by [id number]: Radha Noel on 10/09/18 4:55 pm * Is the patient Alert and Oriented? Yes * How many steps to enter\\exit or inside your home? * PCP Lauren with [facility] * Pharmacy [facility] * Preadmission Environment Home with Family * ADLs Partial Dependent * Partial ADLs (Assistance needed) Ambulation Bathing Dressing Eating Medication Management Toileting Transfers * Other Equipment Electric Lift chair, BSC, Trilogy ([facility]) * List name and contact numbers for known caregivers / representatives who currently or will assist patient after discharge: Raquel celestin? - [phone] * Verbal permission to speak to the caregivers and representatives has been obtained from the patient. Yes * Community resources currently utilized Home Health * Please name any agencies selected above. [facility] * Additional services required to return to the preadmission environment? No * Can the patient safely return to the preadmission environment? Yes * Has this patient been hospitalized within the prior 30 days at any hospital? No External Providers External Provider: [facility] and [facility] Next Contact Date: 10/31/2018 Service Request Date: Service Type: Resolution: Reviewer: Comments: Last DP export: 10/31/18 7:15 a Patient Name: DOT MIXON Page [id number] at 0821 All edits/amendments must be made on the electronic document DICTATION DATE: 10/31/18820 IRISH MOSS GATHERER: FLIP 10/31/18820 RPT#: [id number] DC DATE: STATUS: ADM IN [facility] [address] [place] [address] END OF REPORT
--- NOTE | 2018-10-31 08:28 | MORECARE ---
CASE MANAGEMENT DISCHARGE SUMMARY PATIENT: DOT MIXON UNIT: [id number] ADM DATE: 09/30/18 AGE: 43 : 75 SEX: F ROOM/BED: D.210 AUTHOR: PREMA,DOC PHYSICIAN: REFERRING PHYSICIAN: ELOISE GIVENS MD DATE OF SERVICE: 10/31/18 Discharge Plan Patient Name: DOT MIXON Facility: [facility]:[place] : 1975 Planned Disposition: Care Home Facility Anticipated Discharge Date: Discharge Date: Expected LOS: Initial Reviewer: [id number] Initial Review Date: 10/09/2018 Generated: 10/31/18 9:28 am Comments DCP- Discharge Planning Updated by [id number]: Sam Basurto on 10/29/18 3:[address] Patient Name: DOT MIXON Encounter No: [id number] : 1975 Primary Insurance: MEDICAID [place] Anticipated DC Date: Planned Disposition: Care Home Facility External Planned Provider: TO BE DETERMINED DCP follow-up note: CM SPOKE TO PT VIA PHONE WHO INFORMED CM THAT THEY GOT HER ON A NEW BED AND HER WEIGHT IS 314 POUNDS. CM MET WITH PT IN ROOM, LOOKED AT BED SCALE TO DETERMINE IF IT WAS SHOWING POUNDS OR KILOGRAMS. DURING CONVERSATION WITH PT, PT WAS OFFENDED WHEN CM ASKED ABOUT PT'S KNOWN WEIGHT PRIOR TO HOSPITAL STAY AND WHERE PT'S WEIGHT WAS OBTAINED. CM OBSERVED THAT STANDARD BATHROOM SCALES AVAILABLE AT MOST RETAILERS DO NOT GO UP TO PT'S CURRENT WEIGHT FOR HOME MEEASUREMENT. CM APOLOGIZED TO PT FOR ANY OFFENSE, EXPLAINED THAT ACCURATE WEIGHT WAS ABSOLUTELY NECESSARY TO FIND PLACEMENT FOR PT; PT REPORTED UNDERSTANDING. CM SPOKE TO NURSE AND DISCUSSED NEW BED SCALE. AFTER INVESTIGATION, IT WAS DETERMINED THAT THE BED WAS REGISTERING KILOGRAMS, NOT POUNDS. PT;S CURRENT WEIGHT IS [address] CM SPO[address] JUAREZ WHO INFORMED CM THAT PT IS STABLE AND HE WANTS HER OUT OF THE HOSPITAL. CM NOTIFIED CM TRIPE WASHER OF DR. ORR WISHES AND ASSURED TRIPE WASHER THAT CM IS WORKING TO FIND A SAFE DISCHARGE PLACEMENT. CM CALLED [facility] IN [place] AND [facility] FOR POSSIBLE PLACEMENT, NEITHER HAS CAPABILITY OF CARING FOR PT AT HER CURRENT WEIGHT AND HAD NO RECOMMMENDATIONS. CM CALLED [facility], SPOKE TO SUAD WHO WILL REVIEW PT AND GET BACK WITH CM. CM FAXED REFERRAL TO [facility]. CM FAXED REFERRALS WITH REQUEST FOR PLACEMENT AND TO FORWARD REFERRAL TO ANY FACILITY THAT MIGHT CONSIDER PATIENT FOR INTERMEDIATE CARE TO: [facility], [facility], [facility] AND [facility]. CM CALLED [facility] IN [place], THEY CANNOT TAKE PT THEIR EQUIPMENT WILL NOT HANDLE THE WEIGHT AND HAD NO SUGGESTIONS FOR PLACEMENT. CM WAITING ADMISSION DETERMINATION FROM [facility], [place], [facility] AND [facility]. CM WILL CONTINUE TO WORK TO ATTEMPT TO SECURE PLACEMENT AT ANY ACCEPTING NURSING FACILITY. Sam Basurto, CASE MANAGEMENT DCP- Discharge Planning Updated by [id number]: Sam Basurto on 10/28/18 4:[address] Patient Name: DOT MIXON Encounter No: [id number] : 1975 Primary Insurance: MED[place]ID [place] Anticipated DC Date: Planned Disposition: Care Home Facility External Planned Provider: TO BE DETERMINED DCP follow-up note: CM REVIEWED CHART, MET WITH PT IN ROOM. PT CONCERNED THAT HER FIANCE AND "FUR BABIES" ARE BEING EVICTED FROM THE APARTMENT. PT ENCOURAGED PT TO FOCUS ON HER RECOVERY. PT IS AWARE THAT SHE NEEDS INTERMEDIATE NURSING CARE AND WILL GO TO ANY ACCEPTING FACILITY AT THIS TIME. PT HAS BEEN ASKING THERAPY TO GET HER OUT OF BED BUT THE BED WILL NOT GO LOW ENOUGH AND THE MATTRESS IS TO SLIPPERY AND THEY ARE AFRAID THEY WILL DROP HER AND SHE WILL NOT BE ABLE TO GET BACK IN BED. CM CALLED [facility] IN [place], THEY ARE NOT ABLE TO MEET PT'S NEEDS. CM CALLED [facility] IN [place], THEY HAVE NO AVAILABLE BERIATRIC BED AT THIS TIME. CM CALLED [facility] IN [place], THEY CANNOT MEET PT'S NEEDS. CM WAS DIRECTED IN CONVERSTATIONS WITH ABOVE PROVIDERS TO CALL [facility] IN [place] AND [facility] FOR POSSIBLE PLACEMENT. CM WILL CONTINUE TO WORK TO ATTEMPT TO SECURE PLACEMENT AT ANY ACCEPTING NURSING FACILITY. Sam Basurto, CASE MANAGEMENT DCP- Discharge Planning Updated by [id number]: Eunice Vo on 10/25/18 6:[address] CM SPOKE JOSE CARLOS PATIENT 10/24/18 PM REGARDING SERACH. SHE WANTS TO GO TO FACILITY [place]AR [place]. CM EXPLAINED SHE HAD SPECIAL NEEDS THAT COULD NOT BE MET AT ANY FACILITY IN [place]. SHE UNDERSTANDS. SHE STATES SHE CANNOT RETURN TO HER HOME. 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 THE TRAILER WOULD NEED A NEW REINFORCED FLOOR. SHE CANNOT AMBULATE . SHE MISSES HER FRIENDS. INTERNET SEARCH WITH NO FINDINGS FOR FACILITIES. TC TO [facility] CASE MANAGEMENT DEPARTMENT. AWAIT MARIMAR SAAVEDRA, RADIOLOGIST CHIEF OF BREAST IMAGING- SUPERVISIOR TO CLINICAL MASSAGE THERAPIST. HAD TO LEAVE A VOICE MAIL REQUESTING ASSISTANCE FOR RESOURCE FOR SNF BARIATRIC SERVICES. AWAITED CALL BACK. TELEPHONE CALL TO [place]. LEFT VOICE MAIL MESSAGE FOR MS ROONEY, ADMISSION COORDINATOR. NO SERVICE AVAILABLE AT HER FACILITY. SHE STATES THERE IS A FACILITY IN [place] , THE ONLY ONE IN THE [facility], THAT CAN ACCOMMODATE A PATIENT UP TO 1000 LBS. SHE COULD NOT RECALL THE NAME. SHE STATES THEY GENERALLY HAVE A WAITING LIST. CM WILL SEARCH. DCP- Discharge Planning Updated by [id number]: Eunice Vo on 10/24/18 3:[address] LATE ENTRY 0915 REC TELEPHONE CALL FROM ANGEL SÁNCHEZ THIS AM. [facility] NURSING TO REVIEW CLINICAL TODAY. HE WILL ADVISE THIS AFTERNOON REGARDING ACCEPTANCE. 1325 REC TELEPHONE CALL FROM ANGEL. [facility] CANNOT MEET THE PATIENT'S NEEDS. THEIR BARIATRIC SERVICES HAS CAPABILITY FOR 550 LBS. KADI SINGH, SPOKE WITH ENOCH CARDOZO, CLINICAL LIAISON, FOR [facility]. SHE DOES NOT HAVE A FACILITY THAT CAN PROVIDE CARE FOR THIS PATIENT. HER FACILITIES ARE [facility], [facility], [facility], [facility] AND [facility]. WILL CONTINUE TO SEARCH. WILL UPDATE THE PATIENT. DCP- Discharge Planning Updated by [id number]: Eunice Vo on 10/23/18 5:[address] LATE ENTRY 1100 RADHA, TREE GIRDLER, SPOKE W/ ME THIS AM. SHE HAD NOT REC CB FROM ANGEL AT [facility]. CM WILL FOLLOW UP IN THE AM REGARDING DECISION AND PROJECTED DISCHARGE DATE. FOLLOW UP SPEECH THERAPY EVAL COMPLETED. UPDATED WEIGHT REPORTEDLY IS 660 LBS. PATIENT TO HAVE ABG'S TODAY AFTER TRILOGY. PULMONARY NOTE REQUEST SNF PLACEMENT IN [place]. THE PATIENT'S PLAN IS FOR SNF REHAB AT [facility]. CM WORKING ON PLACEMENT AT APPROPRIATE FACILITY W/ CAPABILITY TO PROVIDE HER NEEDS, [facility]. DCP- Discharge Planning Updated by [id number]: Radha Noel on 10/22/18 10:[address] CM has been working with patient to try to get in touch with her Firuth Schofield. He hasn't been answering the phone. CM tried to assist by looking up his mother and sister on Facebook to see if there was a phone number linked to their accounts but there wasn't. CM asked patient if they had a place of employment she stated they work at a long term in [place]. CM gave patient phone numbers to both [place] in [place]. CM also looked up her [facility] phone number so she could call about her belongings in her home. CM will continue to follow and assist as needed with discharge planning / needs. DCP- Discharge Planning Updated by [id number]: Radha Noel on 10/22/18 10:[address] Angel from [facility] came by last week to see patient and to obtain records. KATY was given verbally per patient for [facility] at that time. Angel later called back and stated to notify him when patient is closer to discharge. CM attempted to call Angel this morning in regards possible discharge by the end of the week. He stated he was in a meeting and would call back later. Meantime I have asked nursing for a weight on patient since there hasn't been one recorded since 10/10/18. Nursing stated that the bed scale isn't working. CM will continue to follow and assist as needed for discharge planning / needs. DCP- Discharge Planning Updated by [id number]: Radha Noel on 10/15/18 7:[address] CM checking with long term facilities regarding possible placement. CM having barriers related to patient's weight and facilities not being able to accommodate a patient of her size. At this time [facility], [facility], [place], and [place] have all denied patient. CM will continue to seek placement. CM will continue to follow and assist as needed with discharge planning / needs. DCP- Discharge Planning Updated by [id number]: Radha Noel on 10/11/18 2:[address] CM spoke with regarding LTACH placement. Patient is Medicaid only therefore patient is not an LTACH candidate. Dr. Juarez states he would like patient transferred back to [facility] once patient is more stable. CM will continue to follow and assist as needed with discharge planning / needs. DCP- Discharge Planning Updated by [id number]: Radha Noel on 10/09/18 4:[address] Patient Name: DOT MIXON Admission Status: Urgent Accout number: [id number] Admission Date: 09-30-2018 : 1975 Admission Diagnosis:ACUTE KIDNEY FAILURE, UNSPECIFIED Attending: Junior Rubalcava Current LOS: 9 Anticipated DC Date: Planned Disposition: Primary Insurance: MEDICAID [place] Discharge Planning Comments: CM met with patient at bedside. She states that she lives [address] [place] [address] . She lives with her firuth Schofield [phone]. She states that she does have home health with [facility] and her filili? is her caregiver. She states that she has an Electric chair, BSC and [facility]. Patient states that she needs a shower chair, walker and suction cup grab bars for shower. Patient would like to go home upon discharge and resume care with [facility]. KATY form signed for [facility] . Patient is not a candidate for LTACH due Medicaid being a payer source and not covered under Medicaid. CM will continue to follow and assist as needed with discharge planning / needs. Tin Recovery Worker: Radha Noel DCP- Discharge Planning Updated by [id number]: Radha Noel on 10/08/18 6:[address] CM attempted to meet with patient for discharge planning /needs. Patient is currently on BiPap and wasn't able to speak to CM. No family available at this time. CM will continue to follow and assist as needed with discharge planning / needs. DCP- Discharge Planning Updated by [id number]: Radha Noel on 10/01/18 12:[address] CM attempted to meet with patient for discharge planning /needs. Patient is currently sedated on vent no family available at this time. CM will continue to follow and assist as needed with discharge planning / needs. DCPIA - Discharge Planning Initial Assessment Updated by [id number]: Radha Noel on 10/09/18 4:55 pm * Is the patient Alert and Oriented? Yes * How many steps to enter\\exit or inside your home? * PCP Lauren with [facility] * Pharmacy [facility] [place] * Preadmission Environment Home with Family * ADLs Partial Dependent * Partial ADLs (Assistance needed) Ambulation Bathing Dressing Eating Medication Management Toileting Transfers * Other Equipment Electric Lift chair, BSC, Trilogy ([facility]) * List name and contact numbers for known caregivers / representatives who currently or will assist patient after discharge: Raquel celestin? - [phone] * Verbal permission to speak to the caregivers and representatives has been obtained from the patient. Yes * Community resources currently utilized Home Health * Please name any agencies selected above. [facility] * Additional services required to return to the preadmission environment? No * Can the patient safely return to the preadmission environment? Yes * Has this patient been hospitalized within the prior 30 days at any hospital? No External Providers External Provider: Francisco Hollis Next Contact Date: 10/31/2018 Service Request Date: Service Type: Resolution: Reviewer: Comments: External Provider: [facility] Next Contact Date: 10/31/2018 Service Request Date: Service Type: Resolution: Reviewer: Comments: Last DP export: 10/31/18 7:21 a Patient Name: DOT MIXON Page 09123 at 0828 All edits/amendments must be made on the electronic document DICTATION DATE: 10/31/18827 SAP SECURITY CONSULTANT: FLIP 10/31/18827 RPT#: [id number] DC DATE: STATUS: ADM IN [facility] [address] [place] [address] END OF REPORT
--- NOTE | 2018-10-31 08:49 | MORECARE ---
CASE MANAGEMENT DISCHARGE SUMMARY PATIENT: DOT MIXON UNIT: [id number] ADM DATE: 09/30/18 AGE: 43 : 75 SEX: F ROOM/BED: D.2114 AUTHOR: PREMA,DOC PHYSICIAN: REFERRING PHYSICIAN: ELOISE GIVENS MD DATE OF SERVICE: 10/31/18 Discharge Plan Patient Name: DOT MIXON Facility[facility]:[place] : 1975 Planned Disposition: Nursing Facility JS Cert Anticipated Discharge Date: Discharge Date: Expected LOS: Initial Reviewer: [id number] Initial Review Date: 10/09/2018 Generated: 10/31/18 9:49 am Comments DCP- Discharge Planning Updated by [id number]: Sam Basurto on 10/31/18 7:[address] Patient Name: DOT MIXON Encounter No: [id number] : 1975 Primary Insurance: [place]ID [place] Anticipated DC Date: Planned Disposition: Nursing Facility JS Cert External Planned Provider:TO BE DETERMINED DCP follow-up note: CM SPOKE [facility] CARE NURSE, THEY HAVE REMOVED PT FROM BED, ZERO'D THE BED SCALE AND PLACED PT BACK ON FOR CURRENT WEIGHT OF 374 POUNDS. CM SPOKE TO PT WHO IS WILLING FOR EXCAVATION LABORER CARE PLACEMENT AND WILL WORK WITH HER FIANCE TO ESTABLISH A DISABILITY ACCESSIBLE APARTMENT FOR PT'S EVENTUAL RETURN HOME WITH HER FIANCE WHO IS PT'S PAID CAREGIVER THROUGH MEDICAID. CM FAXED REFERRALS TO [facility], [facility], [facility] [place] [place], [place], [place], [facility], [facility], [facility], [place], [place] [facility] [place]. CM WAITING ADMISSION DETERMINATION FROM [facility], [facility], [facility], [facility] [place], [facility] [place], [place] [place], [place] [place], [facility], [facility], [facility], [place], [place] AND [place]. CM WILL CONTINUE TO WORK TO ATTEMPT TO SECURE PLACEMENT AT ANY ACCEPTING NURSING FACILITY. Sam Basurto, CASE MANAGEMENT DCP- Discharge Planning Updated by [id number]: Sam Basurto on 10/29/18 3:[address] Patient Name: DOT MIXON Encounter No: [id number] : 1975 Primary Insurance: [place] Anticipated DC Date: Planned Disposition: Mcfp Facility External Planned Provider: TO BE DETERMINED DCP follow-up note: CM SPOKE TO PT VIA PHONE WHO INFORMED CM THAT THEY GOT HER ON A NEW BED AND HER WEIGHT IS 314 POUNDS. CM MET WITH PT IN ROOM, LOOKED AT BED SCALE TO DETERMINE IF IT WAS SHOWING POUNDS OR KILOGRAMS. DURING CONVERSATION WITH PT, PT WAS OFFENDED WHEN CM ASKED ABOUT PT'S KNOWN WEIGHT PRIOR TO HOSPITAL STAY AND WHERE PT'S WEIGHT WAS OBTAINED. CM OBSERVED THAT STANDARD BATHROOM SCALES AVAILABLE AT MOST RETAILERS DO NOT GO UP TO PT'S CURRENT WEIGHT FOR HOME MEEASUREMENT. CM APOLOGIZED TO PT FOR ANY OFFENSE, EXPLAINED THAT ACCURATE WEIGHT WAS ABSOLUTELY NECESSARY TO FIND PLACEMENT FOR PT; PT REPORTED UNDERSTANDING. CM SPOKE TO NURSE AND DISCUSSED NEW BED SCALE. AFTER INVESTIGATION, IT WAS DETERMINED THAT THE BED WAS REGISTERING KILOGRAMS, NOT POUNDS. PT;S CURRENT WEIGHT IS [address] CM SPO[address] TO [address] JUAREZ WHO INFORMED CM THAT PT IS STABLE AND HE WANTS HER OUT OF THE HOSPITAL. CM NOTIFIED CM HARNESS TIER OF DR. ORR WISHES AND ASSURED HARNESS TIER THAT CM IS WORKING TO FIND A SAFE DISCHARGE PLACEMENT. CM CALLED [facility] IN [place] AND [facility] FOR POSSIBLE PLACEMENT, NEITHER HAS CAPABILITY OF CARING FOR PT AT HER CURRENT WEIGHT AND HAD NO RECOMMMENDATIONS. CM CALLED [facility], SPOKE TO SUAD WHO WILL REVIEW PT AND GET BACK WITH CM. CM FAXED REFERRAL TO [facility] FOR [facility]PC CARE. CM FAXED REFERRALS WITH REQUEST FOR PLACEMENT AND TO FORWARD REFERRAL TO ANY FACILITY THAT MIGHT CONSIDER PATIENT FOR ALF CARE TO: [facility], [facility], [facility] AND [facility]. CM CALLED [facility] [place], THEY CANNOT TAKE PT THEIR EQUIPMENT WILL NOT HANDLE THE WEIGHT AND HAD NO SUGGESTIONS FOR PLACEMENT. CM WAITING ADMISSION DETERMINATION FROM [facility], [facility], [facility] AND [facility]. CM WILL CONTINUE TO WORK TO ATTEMPT TO SECURE PLACEMENT AT ANY ACCEPTING NURSING FACILITY. Sam Basurto, CASE MANAGEMENT DCP- Discharge Planning Updated by [id number]: Sam Basurto on 10/28/18 4:[address] Patient Name: DOT MIXON Encounter No: [id number] : 1975 Primary Insurance: [place] Anticipated DC Date: Planned Disposition: Mcfp Facility External Planned Provider: TO BE DETERMINED DCP follow-up note: CM REVIEWED CHART, MET WITH PT IN ROOM. PT CONCERNED THAT HER FIANCE AND "FUR BABIES" ARE BEING EVICTED FROM THE APARTMENT. PT ENCOURAGED PT TO FOCUS ON HER RECOVERY. PT IS AWARE THAT SHE NEEDS ALF NURSING CARE AND WILL GO TO ANY ACCEPTING FACILITY AT THIS TIME. PT HAS BEEN ASKING THERAPY TO GET HER OUT OF BED BUT THE BED WILL NOT GO LOW ENOUGH AND THE MATTRESS IS TO [place] AND THEY ARE AFRAID THEY WILL DROP HER AND SHE WILL NOT BE ABLE TO GET BACK IN BED. CM CALLED [facility] IN [place], THEY ARE NOT ABLE TO MEET PT'S NEEDS. CM CALLED [facility] IN [place], THEY HAVE NO AVAILABLE BERIATRIC BED AT THIS TIME. CM CALLED [facility] IN [place], THEY CANNOT MEET PT'S NEEDS. CM WAS DIRECTED IN CONVERSTATIONS WITH ABOVE PROVIDERS TO CALL [facility] IN [place] AND [facility] FOR POSSIBLE PLACEMENT. CM WILL CONTINUE TO WORK TO ATTEMPT TO SECURE PLACEMENT AT ANY ACCEPTING NURSING FACILITY. Sam Basurto, CASE MANAGEMENT DCP- Discharge Planning Updated by [id number]: Eunice Vo on 10/25/18 6:[address] CM SPOKE JOSE CARLOS PATIENT 10/24/18 PM REGARDING SERACH. SHE WANTS TO GO TO FACILITY [place]AR [place]. CM EXPLAINED SHE HAD SPECIAL NEEDS THAT COULD NOT BE MET AT ANY FACILITY IN [place]. SHE UNDERSTANDS. SHE STATES SHE CANNOT RETURN TO HER HOME. 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 THE TRAILER WOULD NEED A NEW REINFORCED FLOOR. SHE CANNOT AMBULATE . SHE MISSES HER FRIENDS. INTERNET SEARCH WITH NO FINDINGS FOR FACILITIES. TC TO [facility] CASE MANAGEMENT DEPARTMENT. WANDA SAAVEDRA, CAR MECHANIC- SUPERVISIOR TO FORESTRY CONTRACTOR. HAD TO LEAVE A VOICE MAIL REQUESTING ASSISTANCE FOR RESOURCE FOR SNF BARIATRIC SERVICES. AWAITED CALL BACK. TELEPHONE CALL TO [facility] CONNIE MELGAR. LEFT VOICE MAIL MESSAGE FOR MS ROONEY, ADMISSION COORDINATOR. NO SERVICE AVAILABLE AT HER FACILITY. SHE STATES THERE IS A FACILITY IN [place] , THE ONLY ONE IN THE [facility], THAT CAN ACCOMMODATE A PATIENT UP TO 1000 LBS. SHE COULD NOT RECALL THE NAME. SHE STATES THEY GENERALLY HAVE A WAITING LIST. CM WILL SEARCH. DCP- Discharge Planning Updated by [id number]: Eunice Vo on 10/24/18 3:[address] LATE ENTRY 0915 REC TELEPHONE CALL FROM ANGEL SÁNCHEZ THIS AM. [facility] NURSING TO REVIEW CLINICAL TODAY. HE WILL ADVISE THIS AFTERNOON REGARDING ACCEPTANCE. 1325 REC TELEPHONE CALL FROM ANGEL. [facility] CANNOT MEET THE PATIENT'S NEEDS. THEIR BARIATRIC SERVICES HAS CAPABILITY FOR 550 LBS. KADI SINGH, SPOKE WITH ENOCH CARDOZO, CLINICAL LIAISON, FOR [facility] SERVICE. SHE DOES NOT HAVE A FACILITY THAT CAN PROVIDE CARE FOR THIS PATIENT. HER FACILITIES ARE [facility], [facility], [facility], [facility] AND [facility]. WILL CONTINUE TO SEARCH. WILL UPDATE THE PATIENT. DCP- Discharge Planning Updated by [id number]: Eunice Vo on 10/23/18 5:[address] LATE ENTRY 1100 RADHA, SILICA FILTER OPERATOR, SPOKE W/ ME THIS AM. SHE HAD NOT REC CB FROM ANGEL AT [facility]. CM WILL FOLLOW UP IN THE AM REGARDING DECISION AND PROJECTED DISCHARGE DATE. FOLLOW UP SPEECH THERAPY EVAL COMPLETED. UPDATED WEIGHT REPORTEDLY IS 660 LBS. PATIENT TO HAVE ABG'S TODAY AFTER TRILOGY. PULMONARY NOTE REQUEST SNF PLACEMENT IN [place]. THE PATIENT'S PLAN IS FOR SNF REHAB AT [facility]. CM WORKING ON PLACEMENT AT APPROPRIATE FACILITY W/ CAPABILITY TO PROVIDE HER NEEDS, [facility]. DCP- Discharge Planning Updated by [id number]: Radha Noel on 10/22/18 10:[address] CM has been working with patient to try to get in touch with her FiancRosy Schofield. He hasn't been answering the phone. CM tried to assist by looking up his mother and sister on Facebook to see if there was a phone number linked to their accounts but there wasn't. CM asked patient if they had a place of employment she stated they work at [place] [facility] [place]. CM gave patient phone numbers to both [place] in [place]. CM also looked up her landlords phone number so she could call about her belongings in her home. CM will continue to follow and assist as needed with discharge planning / needs. DCP- Discharge Planning Updated by [id number]: Radha Noel on 10/22/18 10:[address] Angel from [facility] came by last week to see patient and to obtain records. KATY was given verbally per patient for [facility] at that time. Angel later called back and stated to notify him when patient is closer to discharge. CM attempted to call Angel this morning in regards possible discharge by the end of the week. He stated he was in a meeting and would call back later. Meantime I have asked nursing for a weight on patient since there hasn't been one recorded since 10/10/18. Nursing stated that the bed scale isn't working. CM will continue to follow and assist as needed for discharge planning / needs. DCP- Discharge Planning Updated by [id number]: Radha Noel on 10/15/18 7:[address] CM [place] with [place] regarding possible placement. CM having barriers related to patient's weight and facilities not being able to accommodate a patient of her size. At this time [facility], [facility], [place], and [place] have all denied patient. CM will continue to seek placement. CM will continue to follow and assist as needed with discharge planning / needs. DCP- Discharge Planning Updated by [id number]: Radha Noel on 10/11/18 2:[address] CM spoke with regarding LTACH placement. Patient is Medicaid only therefore patient is not an LTACH candidate. Dr. Juarez states he would like patient transferred back to [facility] once patient is more stable. CM will continue to follow and assist as needed with discharge planning / needs. DCP- Discharge Planning Updated by [id number]: Radha Noel on 10/09/18 4:[address] Patient Name: DOT MIXNO Admission Status: Urgent Accout number: [id number] Admission Date: 09-30-2018 : 1975 Admission Diagnosis:ACUTE KIDNEY FAILURE, UNSPECIFIED Attending: Junior Rubalcava Current LOS: 9 Anticipated DC Date: Planned Disposition: Primary Insurance: MEDICAID [place] Discharge Planning Comments: CM met with patient at bedside. She states that she lives [address] [place], [place] [address] [facility] [place] [phone]. She lives with her fianc? Raquel Schofield [phone]. She states that she does have home health with [facility] and her fianc? is her caregiver. She states that she has an Electric chair, BSC and [facility]. Patient states that she needs a shower chair, walker and suction cup grab bars for shower. Patient would like to go home upon discharge and resume care with [facility] . KATY form signed for [facility] . Patient is not a candidate for LTACH due Medicaid being a payer source and not covered under Medicaid. CM will continue to follow and assist as needed with discharge planning / needs. Motorcyles Final Inspector: Radha Noel DCP- Discharge Planning Updated by [id number]: Radha Noel on 10/08/18 6:[address] CM attempted to meet with patient for discharge planning /needs. Patient is currently on BiPap and wasn't able to speak to CM. No family available at this time. CM will continue to follow and assist as needed with discharge planning / needs. DCP- Discharge Planning Updated by [id number]: Radha Noel on 10/01/18 12:[address] CM attempted to meet with patient for discharge planning /needs. Patient is currently sedated on vent no family available at this time. CM will continue to follow and assist as needed with discharge planning / needs. DCPIA - Discharge Planning Initial Assessment Updated by [id number]: Radha Noel on 10/09/18 4:55 pm * Is the patient Alert and Oriented? Yes * How many steps to enter\\exit or inside your home? * PCP Lauren with [facility] * Pharmacy [facility] [place] * Preadmission Environment Home with Family * ADLs Partial Dependent * Partial ADLs (Assistance needed) Ambulation Bathing Dressing Eating Medication Management Toileting Transfers * Other Equipment Electric Lift chair, BSC, [facility] * List name and contact numbers for known caregivers / representatives who currently or will assist patient after discharge: Raquel celestin? - [phone] * Verbal permission to speak to the caregivers and representatives has been obtained from the patient. Yes * Community resources currently utilized Home Health * Please name any agencies selected above. [facility] * Additional services required to return to the preadmission environment? No * Can the patient safely return to the preadmission environment? Yes * Has this patient been hospitalized within the prior 30 days at any hospital? No Last DP export: 10/31/18 7:28 a Patient Name: DOT MIXON Page [id number] at 0849 All edits/amendments must be made on the electronic document DICTATION DATE: 10/31/18847 EXCAVATION LABORER: FLIP 10/31/18847 RPT#: [id number] DC DATE: STATUS: ADM IN [facility] [address] [place] [address] END OF REPORT
--- NOTE | 2018-10-31 12:46 | MORECARE ---
CASE MANAGEMENT DISCHARGE SUMMARY PATIENT: DOT MIXON UNIT: [id number] ADM DATE: 09/30/18 AGE: 43 : 75 SEX: F ROOM/BED: D.6558 AUTHOR: PREMA,DOC PHYSICIAN: REFERRING PHYSICIAN: ELOISE GIVENS MD DATE OF SERVICE: 10/31/18 Discharge Plan Patient Name: DOT MIXON Facility: [facility] : 1975 Planned Disposition: Nursing Facility JS Cert Anticipated Discharge Date: Discharge Date: Expected LOS: Initial Reviewer: [id number] Initial Review Date: 10/09/2018 Generated: 10/31/18 1:46 pm Comments DCP- Discharge Planning Updated by [id number]: Sam Basurto on 10/31/18 7:[address] Patient Name: DOT MIXON Encounter No: [id number] : 1975 Primary Insurance: [place]ICAID [place] Anticipated DC Date: Planned Disposition: Nursing Facility JS Cert External Planned Provider:TO BE DETERMINED DCP follow-up note: CM [facility], THEY HAVE REMOVED PT FROM BED, ZERO'D THE BED SCALE AND PLACED PT BACK ON FOR CURRENT WEIGHT OF 374 POUNDS. CM SPOKE TO PT WHO IS WILLING FOR BOOK TRIMMER CARE PLACEMENT AND WILL WORK WITH HER FIANCE TO ESTABLISH A DISABILITY ACCESSIBLE APARTMENT FOR PT'S EVENTUAL RETURN HOME WITH HER FIANCE WHO IS PT'S PAID CAREGIVER THROUGH MEDICAID. CM FAXED REFERRALS TO [facility], [facility], [facility] [employer] [facility], [employer], [employer] [place], [place], [place], [place], [facility], [facility], [facility] [employer] [place], [place], [place] AND [place]. CM WAITING ADMISSION DETERMINATION FROM [facility], [facility] AND [facility], [facility], [facility], [facility] [employer], [facility] [place] [place], [place], [facility], [facility], [place], [place] AND [place]. CM WILL CONTINUE TO WORK TO ATTEMPT TO SECURE PLACEMENT AT ANY ACCEPTING NURSING FACILITY. Sam Basurto, CASE MANAGEMENT DCP- Discharge Planning Updated by [id number]: Sam Basurto on 10/29/18 3:[address] Patient Name: DOT MIXON Encounter No: [id number] : 1975 Primary Insurance: [place]ID [place] Anticipated DC Date: Planned Disposition: Mcfp Facility External Planned Provider: TO BE DETERMINED DCP follow-up note: CM SPOKE TO PT VIA PHONE WHO INFORMED CM THAT THEY GOT HER ON A NEW BED AND HER WEIGHT IS 314 POUNDS. CM MET WITH PT IN ROOM, LOOKED AT BED SCALE TO DETERMINE IF IT WAS SHOWING POUNDS OR KILOGRAMS. DURING CONVERSATION WITH PT, PT WAS OFFENDED WHEN CM ASKED ABOUT PT'S KNOWN WEIGHT PRIOR TO HOSPITAL STAY AND WHERE PT'S WEIGHT WAS OBTAINED. CM OBSERVED THAT STANDARD BATHROOM SCALES AVAILABLE AT MOST RETAILERS DO NOT GO UP TO PT'S CURRENT WEIGHT FOR HOME MEEASUREMENT. CM APOLOGIZED TO PT FOR ANY OFFENSE, EXPLAINED THAT ACCURATE WEIGHT WAS ABSOLUTELY NECESSARY TO FIND PLACEMENT FOR PT; PT REPORTED UNDERSTANDING. CM SPOKE TO NURSE AND DISCUSSED NEW BED SCALE. AFTER INVESTIGATION, IT WAS DETERMINED THAT THE BED WAS REGISTERING KILOGRAMS, NOT POUNDS. PT;S CURRENT WEIGHT IS [address] CM SPO[address] TO [address] JUAREZ WHO INFORMED CM THAT PT IS STABLE AND HE WANTS HER OUT OF THE HOSPITAL. CM NOTIFIED CM TELEGRAPH OPERATOR OF DR. ORR WISHES AND ASSURED TELEGRAPH OPERATOR THAT CM IS WORKING TO FIND A SAFE DISCHARGE PLACEMENT. CM CALLED [facility] [place] AND [facility] FOR POSSIBLE PLACEMENT, NEITHER HAS CAPABILITY OF CARING FOR PT AT HER CURRENT WEIGHT AND HAD NO RECOMMMENDATIONS. CM CALLED [facility], SPOKE TO SUAD WHO WILL REVIEW PT AND GET BACK WITH CM. CM FAXED REFERRAL TO [facility] FOR ASSISTED CARE. CM FAXED REFERRALS WITH REQUEST FOR PLACEMENT AND TO FORWARD REFERRAL TO ANY FACILITY THAT MIGHT CONSIDER PATIENT FOR DETENTION CARE TO: [facility], [facility], [facility] AND [facility]. CM CALLED [facility] IN [place], THEY CANNOT TAKE PT THEIR EQUIPMENT WILL NOT HANDLE THE WEIGHT AND HAD NO SUGGESTIONS FOR PLACEMENT. CM WAITING ADMISSION DETERMINATION FROM [facility], [facility], [facility] AND [facility]. CM WILL CONTINUE TO WORK TO ATTEMPT TO SECURE PLACEMENT AT ANY ACCEPTING NURSING FACILITY. Sam Basurto, CASE MANAGEMENT DCP- Discharge Planning Updated by [id number]: Sam Basurto on 10/28/18 4:[address] Patient Name: DOT MIXON Encounter No: [id number] : 1975 Primary Insurance: [place]ID [place] Anticipated DC Date: Planned Disposition: Mcfp Facility External Planned Provider: TO BE DETERMINED DCP follow-up note: CM REVIEWED CHART, MET WITH PT IN ROOM. PT CONCERNED THAT HER FIANCE AND "FUR BABIES" ARE BEING EVICTED FROM THE APARTMENT. PT ENCOURAGED PT TO FOCUS ON HER RECOVERY. PT IS AWARE THAT SHE NEEDS DETENTION NURSING CARE AND WILL GO TO ANY ACCEPTING FACILITY AT THIS TIME. PT HAS BEEN ASKING THERAPY TO GET HER OUT OF BED BUT THE BED WILL NOT GO LOW ENOUGH AND THE MATTRESS IS TO SLIPPERY AND THEY ARE AFRAID THEY WILL DROP HER AND SHE WILL NOT BE ABLE TO GET BACK IN BED. CM CALLED [facility] IN [place], THEY ARE NOT ABLE TO MEET PT'S NEEDS. CM CALLED [facility] IN [place], THEY HAVE NO AVAILABLE BERIATRIC BED AT THIS TIME. CM CALLED [facility] [place], THEY CANNOT MEET PT'S NEEDS. CM WAS DIRECTED IN CONVERSTATIONS WITH ABOVE PROVIDERS TO CALL [facility] IN [place] AND [facility] FOR POSSIBLE PLACEMENT. CM WILL CONTINUE TO WORK TO ATTEMPT TO SECURE PLACEMENT AT ANY ACCEPTING NURSING FACILITY. Sam Basurto, CASE MANAGEMENT DCP- Discharge Planning Updated by [id number]: Eunice Vo on 10/25/18 6:[address] CM SPOKE JOSE CARLOS PATIENT 10/24/18 PM REGARDING [place]ACH. SHE WANTS TO GO TO FACILITY [place]AR [place]. CM EXPLAINED SHE HAD SPECIAL NEEDS THAT COULD NOT BE MET AT ANY FACILITY IN [place]. SHE UNDERSTANDS. SHE STATES SHE CANNOT RETURN TO HER HOME. 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 THE TRAILER WOULD NEED A NEW REINFORCED FLOOR. SHE CANNOT AMBULATE . SHE MISSES HER FRIENDS. INTERNET SEARCH WITH NO FINDINGS FOR FACILITIES. TC TO [facility] CASE MANAGEMENT DEPARTMENT. WANDA SAAVEDRA, BRIM EDGE TRIMMER- SUPERVISIOR TO COMMUNICATIONS SPECIALIST. HAD TO LEAVE A VOICE MAIL REQUESTING ASSISTANCE FOR RESOURCE FOR SNF BARIATRIC SERVICES. AWAITED CALL BACK. TELEPHONE CALL TO [facility] CONNIE MELGAR. LEFT VOICE MAIL MESSAGE FOR MS ROONEY, ADMISSION COORDINATOR. NO SERVICE AVAILABLE AT HER FACILITY. SHE STATES THERE IS A FACILITY IN [place] , THE ONLY ONE IN THE COUNTS INCLUDE 234 BEDS AT THE [facility], THAT CAN ACCOMMODATE A PATIENT UP TO 1000 LBS. SHE COULD NOT RECALL THE NAME. SHE STATES THEY GENERALLY HAVE A WAITING LIST. CM WILL SEARCH. DCP- Discharge Planning Updated by [id number]: Eunice Vo on 10/24/18 3:[address] LATE ENTRY 0915 REC TELEPHONE CALL FROM [facility]GEL SÁNCHEZ THIS AM. [facility] NURSING TO REVIEW CLINICAL TODAY. HE WILL ADVISE THIS AFTERNOON REGARDING ACCEPTANCE. 1325 REC TELEPHONE CALL FROM ANGEL. [facility] CANNOT MEET THE PATIENT'S NEEDS. THEIR BARIATRIC SERVICES HAS CAPABILITY FOR 550 LBS. KADI SINGH, SPOKE WITH ENOCH CARDOZO, CLINICAL LIAISON, FOR [facility] SERVICE. SHE DOES NOT HAVE A FACILITY THAT CAN PROVIDE CARE FOR THIS PATIENT. HER FACILITIES ARE [facility], [facility], [facility], [facility] AND [facility]. WILL CONTINUE TO SEARCH. WILL UPDATE THE PATIENT. DCP- Discharge Planning Updated by [id number]: Eunice Vo on 10/23/18 5:[address] LATE ENTRY 1100 RADHA, LOGISTICS PROGRAM MANAGER, SPOKE W/ ME THIS AM. SHE HAD NOT REC CB FROM ANGEL AT [facility]. CM WILL FOLLOW UP IN THE AM REGARDING DECISION AND PROJECTED DISCHARGE DATE. FOLLOW UP SPEECH THERAPY EVAL COMPLETED. UPDATED WEIGHT REPORTEDLY IS 660 LBS. PATIENT TO HAVE ABG'S TODAY AFTER TRILOGY. PULMONARY NOTE REQUEST SNF PLACEMENT IN [place]. THE PATIENT'S PLAN IS FOR SNF REHAB AT [facility]. CM WORKING ON PLACEMENT AT APPROPRIATE FACILITY W/ CAPABILITY TO PROVIDE HER NEEDS, [facility]. DCP- Discharge Planning Updated by [id number]: Radha Noel on 10/22/18 10:[address] CM has been working with patient to try to get in touch with her FiancRosy Schofield. He hasn't been answering the phone. CM tried to assist by looking up his mother and sister on Facebook to see if there was a phone number linked to their accounts but there wasn't. CM asked patient if they had a place of employment she stated they work at a ch[employer] in [place]. CM gave patient phone numbers to both [place] in [place]. CM also looked up her landlords phone number so she could call about her belongings in her home. CM will continue to follow and assist as needed with discharge planning / needs. DCP- Discharge Planning Updated by [id number]: Radha Noel on 10/22/18 10:[address] Angel from [facility] came by last week to see patient and to obtain records. KATY was given verbally per patient for [facility] at that time. Angel later called back and stated to notify him when patient is closer to discharge. CM attempted to call Angel this morning in regards possible discharge by the end of the week. He stated he was in a meeting and would call back later. Meantime I have asked nursing for a weight on patient since there hasn't been one recorded since 10/10/18. Nursing stated that the bed scale isn't working. CM will continue to follow and assist as needed for discharge planning / needs. DCP- Discharge Planning Updated by [id number]: Radha Noel on 10/15/18 7:[address] CM checking with chcf facilities regarding possible placement. CM having barriers related to patient's weight and facilities not being able to accommodate a patient of her size. At this time [facility], [facility], [facility], and [facility] have all denied patient. CM will continue to seek placement. CM will continue to follow and assist as needed with discharge planning / needs. DCP- Discharge Planning Updated by [id number]: Radha Noel on 10/11/18 2:[address] CM spoke with regarding LTACH placement. Patient is Medicaid only therefore patient is not an LTACH candidate. Dr. Juarez states he would like patient transferred back to [facility] once patient is more stable. CM will continue to follow and assist as needed with discharge planning / needs. DCP- Discharge Planning Updated by [id number]: Radha Noel on 10/09/18 4:[address] Patient Name: DOT MIXON Admission Status: Urgent Accout number: [id number] Admission Date: 09-30-2018 : 1975 Admission Diagnosis:ACUTE KIDNEY FAILURE, UNSPECIFIED Attending: Junior Rubalcava Current LOS: 9 Anticipated DC Date: Planned Disposition: Primary Insurance: MEDICAID [place] Discharge Planning Comments: CM met with patient at bedside. She states that she lives [address] [place], [place] [address] [facility], [place] [phone]. She lives with her fianc? Raquel Schofield [phone]. She states that she does have home health with [facility] and her fianc? is her caregiver. She states that she has an Electric chair, BSC and [facility]. Patient states that she needs a shower chair, walker and suction cup grab bars for shower. Patient would like to go home upon discharge and resume care with [facility] . KATY form signed for [facility] . Patient is not a candidate for LTACH due Medicaid being a payer source and not covered under Medicaid. CM will continue to follow and assist as needed with discharge planning / needs. Controller [employer]: Radha Noel DCP- Discharge Planning Updated by [id number]: Radha Noel on 10/08/18 6:[address] CM attempted to meet with patient for discharge planning /needs. Patient is currently on BiPap and wasn't able to speak to CM. No family available at this time. CM will continue to follow and assist as needed with discharge planning / needs. DCP- Discharge Planning Updated by [id number]: Radha Noel on 10/01/18 12:[address] CM attempted to meet with patient for discharge planning /needs. Patient is currently sedated on vent no family available at this time. CM will continue to follow and assist as needed with discharge planning / needs. DCPIA - Discharge Planning Initial Assessment Updated by [id number]: Radha Noel on 10/09/18 4:55 pm * Is the patient Alert and Oriented? Yes * How many steps to enter\\exit or inside your home? * PCP Lauren with [facility] * Pharmacy [facility] [place] * Preadmission Environment Home with Family * ADLs Partial Dependent * Partial ADLs (Assistance needed) Ambulation Bathing Dressing Eating Medication Management Toileting Transfers * Other Equipment Electric Lift chair, BSC, [facility]ilogy ([facility]) * List name and contact numbers for known caregivers / representatives who currently or will assist patient after discharge: Raquel celestin? - [phone] * Verbal permission to speak to the caregivers and representatives has been obtained from the patient. Yes * Community resources currently utilized Home Health * Please name any agencies selected above. [facility] * Additional services required to return to the preadmission environment? No * Can the patient safely return to the preadmission environment? Yes * Has this patient been hospitalized within the prior 30 days at any hospital? No External Providers External Provider: OTHER-OTHER Next Contact Date: Service Request Date: Service Type: Resolution: Reviewer: Comments: Last DP export: 10/31/18 7:49 a Patient Name: DOT MIXON Page [id number] at 1246 All edits/amendments must be made on the electronic document DICTATION DATE: 10/31/181244 EMPLOYEE'S REPRESENTATIVE: FLIP 10/31/18 1245 RPT#: [id number] OR DATE: STATUS: ADM IN [facility] [address] [place] [address] END OF REPORT
--- NOTE | 2018-10-31 15:47 | NUR ---
INSTRUCTION FROM RASHAAD JOHNSON TO REMOVE PRESENT PATIÑO AND RE INSERT. PT PLACED IN [place]. 10CC OF SALINE WITHDRAWN FROM CATH BULB. PRESENT PATIÑO REMOVED. PERINEAL CARE AND CLEANING DONE. 16FR CATHETER INSERTED USING STERILE TECHNIQUE. CLEAR URINE OBTAINED. 10CC OF SALINE INSERTED IN CATH BULB. BULB IS INFLATED. NEW STATLOCK PLACED ON R LEG AFTER WASHING LEG WELL. PT JUDIE PROCEDURE WELL.
--- NOTE | 2018-10-31 16:07 | NUR ---
OT NOTE: PT COMPLETD BED MOB WITH STEWART Vazquez. PT COMPLETED HYGIENE TASKS WITH STEWART Vazquez. PT COMPLETED UE AROM AXS. THANK YOU, ELI OAKES
--- NOTE | 2018-10-31 17:16 | NUR ---
OT NOTE: BED MOB WITH MOD/MAX ASSIST; TOLERATED EOB SITTING X 15 MIN; UE AROM EXS X 5 REPS X 3 SETS. EXTENSIVE REST BREAKS IN BETWEEN. PERFORMED GROOMING INCLUDING BRUSHING HAIR AND WASHING HANDS WITH CLOTH. TOTAL ASSIST WITH PERINEAL CARE AND LE DRESSING. PT ABLE TO EXTEND L KNEE X 3 TRIALS, HOWEVER, UNABLE TO TOLERATE ANY RESISTANCE. PT CONTINUES TO WANT TO IMPROVE AND WILL REQUIRE CONTINUED THERAPY PRIOR TO DC HOME. UBALDO MCKINLEY, OTR/L
--- NOTE | 2018-10-31 19:00 | NUR ---
AWAKE AND IN BED LOW AND CALL LIGHT IN REACH. CONTINUE TO OBSERVE FOR DROPLET PRECAUTIONS AT THIS TME. PT DENIES NEEDS. FULL ASSESSMENT NOT DONE ATR THIS TIME
--- NOTE | 2018-10-31 22:51 | NUR ---
I HAVE ATTEMPTED THROUGH THE PHYSISCAINS EXCHANGE TO NOTIFY DR DOWNEY OF CONSULT TIMES 2 WITH NO CALL BACK PT IS STABLE
[2018-11-01 04:03] VITALS: BP 130/67
[2018-11-01 06:34] LABS: BASOPHILS 0.1 % (0-2); EOSINOPHILS 2.1 % (0-7); HEMATOCRIT 36.9 % (36.0-48.0); HEMOGLOBIN 11.3 g/dL (12-16); IMMATURE GRANULOCYTES 0.8 % (0-5); LYMPHOCYTES 16.3 % (15-50); MCHC 30.6 g/dL (31.0-37.0); MCV 78.5 fL (80.0-100.0); MEAN PLATELET VOLUME 10.6 fL (7.4-10.4); NEUTROPHILS 72.7 % (40-80); PLATELET COUNT 141 10x3/uL (130-400); RDW 19.1 % (11.5-14.5)
[2018-11-01 06:54] LABS: ANION GAP 10.7 mmol/L (8-16); CALCIUM 8.9 mg/dL (8.5-10.1); CARBON DIOXIDE 28.5 mmol/L (21.0-32.0); CREATININE - SERUM 1.5 mg/dL (0.6-1.3); POTASSIUM - SERUM 3.2 mmol/L (3.5-5.1)
--- NOTE | 2018-11-01 07:30 | NUR ---
PT RESTING IN BED, SHIFT ASSESSMENT PERFORMED, DENIES ANY NEEDS AT THIS TIME, WILL CONT TO FOLLOW POC
[2018-11-01 08:54] VITALS: BP 136/62
[2018-11-01 12:12] VITALS: BP 134/81
--- NOTE | 2018-11-01 12:20 | NUR ---
PT RESTING IN BED EATING LUNCH, DENIES ANY NEEDS AT THIS TIME, WILL CONT TO FOLLOW POC
--- NOTE | 2018-11-01 15:04 | NUR ---
OT NOTE: PT COMPLETED BED MOB WITH MAX A. PT COMPLETED EOB SITTING WITH SBA. PT COMPLETED BUE AROM EXS. PT COMPLETED GROOMING AT EOB WITH SET UP FOR HAIR BRUSHING.THANK YOU, ELI OAKES
[2018-11-01 16:15] VITALS: BP 135/84
--- NOTE | 2018-11-01 17:23 | MORECARE ---
CASE MANAGEMENT DISCHARGE SUMMARY PATIENT: DOT MIXON UNIT: [id number] ADM DATE: 09/30/18 AGE: 43 : 75 SEX: F ROOM/BED: D.2101 AUTHOR: PREMA,DOC PHYSICIAN: REFERRING PHYSICIAN: ELOISE GIVENS MD DATE OF SERVICE: 11/01/18 Discharge Plan Patient Name: DOT MIXON Facility: [facility] : 1975 Planned Disposition: Nursing Facility JS Cert Anticipated Discharge Date: Discharge Date: Expected LOS: Initial Reviewer: [id number] Initial Review Date: 10/09/2018 Generated: 11/01/18 6:23 pm Comments DCP- Discharge Planning Updated by [id number]: Sam Basurto on 11/01/18 4:[address] Patient Name: DOT MIXON Encounter No: [id number] : 1975 Primary Insurance: MEDICAID [place] Anticipated DC Date: Planned Disposition: Nursing Facility JS Cert External Planned Provider: [facility] MEDICA[facility] BED DCP follow-up note: CM SPOKE TO ENOCH OF [facility], , THEY ARE CONSIDERING PT FOR ASSET LIABILITY ANALYST CARE AT [facility] OR [facility]. CM FAXED UPDATE TO ENOCH AT [phone]. CM WAITING ADMISSION DETERMINATION FROM [facility], [facility], [facility], [facility], [facility], [facility], [facility], [facility], [place], [place], [facility], [facility], [facility], [place], [facility] AND [facility]. CM WILL CONTINUE TO WORK TO ATTEMPT TO SECURE PLACEMENT AT ANY ACCEPTING NURSING FACILITY. Sam Basurto CASE MANAGEMENT DCP- Discharge Planning Updated by [id number]: Sam Basurto on 10/31/18 7:[address] Patient Name: DOT MIXON Encounter No: [id number] : 1975 Primary Insurance: MEDICAID [place] Anticipated DC Date: Planned Disposition: Nursing Facility JS Cert External Planned Provider:TO BE DETERMINED DCP follow-up note: CM SPOKE [facility] N[facility], THEY HAVE REMOVED PT FROM BED, ZERO'D THE BED SCALE AND PLACED PT BACK ON FOR CURRENT WEIGHT OF 374 POUNDS. CM SPOKE TO PT WHO IS WILLING FOR FPC CARE PLACEMENT AND WILL WORK WITH HER FIANCE TO ESTABLISH A DISABILITY ACCESSIBLE APARTMENT FOR PT'S EVENTUAL RETURN HOME WITH HER FIANCE WHO IS PT'S PAID CAREGIVER THROUGH MEDICAID. CM FAXED REFERRALS TO [facility], [facility], [facility], [facility], [facility], [facility], [facility] [place], [facility], [facility], [place], [facility]. CM WAITING ADMISSION DETERMINATION FROM [facility], [facility], [facility], [facility], [facility], [facility], [facility], [facility], [facility], [place], [facility] [place]. CM WILL CONTINUE TO WORK TO ATTEMPT TO SECURE PLACEMENT AT ANY ACCEPTING NURSING FACILITY. Sam Basurto, CASE MANAGEMENT DCP- Discharge Planning Updated by [id number]: Sam Basurto on 10/29/18 3:[address] Patient Name: DOT MIXON Encounter No: [id number] : 1975 Primary Insurance: MEDICAID [place] Anticipated DC Date: Planned Disposition: Group Home Facility External Planned Provider: TO BE DETERMINED DCP follow-up note: CM SPOKE TO PT VIA PHONE WHO INFORMED CM THAT THEY GOT HER ON A NEW BED AND HER WEIGHT IS 314 POUNDS. CM MET WITH PT IN ROOM, LOOKED AT BED SCALE TO DETERMINE IF IT WAS SHOWING POUNDS OR KILOGRAMS. DURING CONVERSATION WITH PT, PT WAS OFFENDED WHEN CM ASKED ABOUT PT'S KNOWN WEIGHT PRIOR TO HOSPITAL STAY AND WHERE PT'S WEIGHT WAS OBTAINED. CM OBSERVED THAT STANDARD BATHROOM SCALES AVAILABLE AT MOST RETAILERS DO NOT GO UP TO PT'S CURRENT WEIGHT FOR HOME MEEASUREMENT. CM APOLOGIZED TO PT FOR ANY OFFENSE, EXPLAINED THAT ACCURATE WEIGHT WAS ABSOLUTELY NECESSARY TO FIND PLACEMENT FOR PT; PT REPORTED UNDERSTANDING. CM SPOKE TO NURSE AND DISCUSSED NEW BED SCALE. AFTER INVESTIGATION, IT WAS DETERMINED THAT THE BED WAS REGISTERING KILOGRAMS, NOT POUNDS. PT;S CURRENT WEIGHT IS [address] CM SPO[address] JUAREZ WHO INFORMED CM THAT PT IS STABLE AND HE WANTS HER OUT OF THE HOSPITAL. CM NOTIFIED CM CHRISTIAN SCIENCE HEALER OF DR. ORR WISHES AND ASSURED CHRISTIAN SCIENCE HEALER THAT CM IS WORKING TO FIND A SAFE DISCHARGE PLACEMENT. CM CALLED [facility] IN [place] AND [facility] FOR POSSIBLE PLACEMENT, NEITHER HAS CAPABILITY OF CARING FOR PT AT HER CURRENT WEIGHT AND HAD NO RECOMMMENDATIONS. CM CALLED [facility], SPOKE TO SUAD WHO WILL REVIEW PT AND GET BACK WITH CM. CM FAXED REFERRAL TO [facility] FOR DETENTION CARE. CM FAXED REFERRALS WITH REQUEST FOR PLACEMENT AND TO FORWARD REFERRAL TO ANY FACILITY THAT MIGHT CONSIDER PATIENT FOR FPC CARE TO: [facility], [facility], [place], [facility] AND [facility]. CM CALLED [facility] IN [place], THEY CANNOT TAKE PT THEIR EQUIPMENT WILL NOT HANDLE THE WEIGHT AND HAD NO SUGGESTIONS FOR PLACEMENT. CM WAITING ADMISSION DETERMINATION FROM [facility], [place], [facility] AND [facility]. CM WILL CONTINUE TO WORK TO ATTEMPT TO SECURE PLACEMENT AT ANY ACCEPTING NURSING FACILITY. Sam Basurto, CASE MANAGEMENT DCP- Discharge Planning Updated by [id number]: Sma Basurto on 10/28/18 4:[address] Patient Name: DOT MIXON Encounter No: [id number] : 1975 Primary Insurance: MEDICAID [place] Anticipated DC Date: Planned Disposition: Group Home Facility External Planned Provider: TO BE DETERMINED DCP follow-up note: CM REVIEWED CHART, MET WITH PT IN ROOM. PT CONCERNED THAT HER FIANCE AND "FUR BABIES" ARE BEING EVICTED FROM THE APARTMENT. PT ENCOURAGED PT TO FOCUS ON HER RECOVERY. PT IS AWARE THAT SHE NEEDS FPC NURSING CARE AND WILL GO TO ANY ACCEPTING FACILITY AT THIS TIME. PT HAS BEEN ASKING THERAPY TO GET HER OUT OF BED BUT THE BED WILL NOT GO LOW ENOUGH AND THE MATTRESS IS TO [place] AND THEY ARE AFRAID THEY WILL DROP HER AND SHE WILL NOT BE ABLE TO GET BACK IN BED. [facility] [place], THEY ARE NOT ABLE TO MEET PT'S NEEDS. CM CALLED [facility] IN [place], THEY HAVE NO AVAILABLE BERIATRIC BED AT THIS TIME. CM CALLED [facility] IN [place], THEY CANNOT MEET PT'S NEEDS. CM WAS DIRECTED IN CONVERSTATIONS WITH ABOVE PROVIDERS TO CALL [facility] IN [place] AND [facility] FOR POSSIBLE PLACEMENT. CM WILL CONTINUE TO WORK TO ATTEMPT TO SECURE PLACEMENT AT ANY ACCEPTING NURSING FACILITY. Sam Basurto, CASE MANAGEMENT DCP- Discharge Planning Updated by [id number]: Eunice Vo on 10/25/18 6:[address] CM SPOKE JOSE CARLOS PATIENT 10/24/18 PM REGARDING SERACH. SHE WANTS TO GO TO FACILITY NEAR [place]. CM EXPLAINED SHE HAD SPECIAL NEEDS THAT COULD NOT BE MET AT ANY FACILITY IN [place]. SHE UNDERSTANDS. SHE STATES SHE CANNOT RETURN TO HER HOME. 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 THE TRAILER WOULD NEED A NEW REINFORCED FLOOR. SHE CANNOT AMBULATE . SHE MISSES HER FRIENDS. INTERNET SEARCH WITH NO FINDINGS FOR FACILITIES. TC TO [facility] CASE MANAGEMENT DEPARTMENT. AWAIT MARIMAR SAAVEDRA, PATTERN MAKER- SUPERVISIOR TO EXTRACTIVE METALLURGIST. HAD TO LEAVE A VOICE MAIL REQUESTING ASSISTANCE FOR RESOURCE FOR SNF BARIATRIC SERVICES. AWAITED CALL BACK. TELEPHONE CALL TO [facility] [place] , [place]. LEFT VOICE MAIL MESSAGE FOR MS ROONEY, ADMISSION COORDINATOR. NO SERVICE AVAILABLE AT HER FACILITY. SHE STATES THERE IS A FACILITY IN [place] , THE ONLY ONE IN THE [facility], THAT CAN ACCOMMODATE A PATIENT UP TO 1000 LBS. SHE COULD NOT RECALL THE NAME. SHE STATES THEY GENERALLY HAVE A WAITING LIST. CM WILL SEARCH. DCP- Discharge Planning Updated by [id number]: Eunice Vo on 10/24/18 3:[address] LATE ENTRY 0915 REC TELEPHONE CALL FROM ANGEL SÁNCHEZ THIS AM. [facility] NURSING TO REVIEW CLINICAL TODAY. HE WILL ADVISE THIS AFTERNOON REGARDING ACCEPTANCE. 1325 REC TELEPHONE CALL FROM ANGEL. [facility] CANNOT MEET THE PATIENT'S NEEDS. THEIR BARIATRIC SERVICES HAS CAPABILITY FOR 550 LBS. KADI SINGH, SPOKE WITH ENOCH CARDOZO, CLINICAL LIAISON, FOR [facility] SERVICE. SHE DOES NOT HAVE A FACILITY THAT CAN PROVIDE CARE FOR THIS PATIENT. HER FACILITIES ARE [facility]], [facility], [facility], [facility] AND [facility]. WILL CONTINUE TO SEARCH. WILL UPDATE THE PATIENT. DCP- Discharge Planning Updated by [id number]: Eunice Vo on 10/23/18 5:[address] LATE ENTRY Abel BERGERMIE, MAINTENANCE COORDINATOR, SPOKE W/ ME THIS AM. SHE HAD NOT REC CB FROM ANGEL AT [facility]. CM WILL FOLLOW UP IN THE AM REGARDING DECISION AND PROJECTED DISCHARGE DATE. FOLLOW UP SPEECH THERAPY EVAL COMPLETED. UPDATED WEIGHT REPORTEDLY IS 660 LBS. PATIENT TO HAVE ABG'S TODAY AFTER TRILOGY. PULMONARY NOTE REQUEST SNF PLACEMENT IN [place]. THE PATIENT'S PLAN IS FOR SNF REHAB AT [facility]. CM WORKING ON PLACEMENT AT APPROPRIATE FACILITY W/ CAPABILITY TO PROVIDE HER NEEDS, [facility]. DCP- Discharge Planning Updated by [id number]: Radha Noel on 10/22/18 10:[address] CM has been working with patient to try to get in touch with her Igor Raquel Chandu. He hasn't been answering the phone. CM tried to assist by looking up his mother and sister on Facebook to see if there was a phone number linked to their accounts but there wasn't. CM asked patient if they had a place of employment she stated they work at a long-term in [place]. CM gave patient phone numbers to both [place] in [place]. CM also [facility] her [facility] phone number so she could call about her belongings in her home. CM will continue to follow and assist as needed with discharge planning / needs. DCP- Discharge Planning Updated by [id number]: Radha Noel on 10/22/18 10:[address] Angel from [facility] came by last week to see patient and to obtain records. KATY was given verbally per patient for [facility] at that time. Angel later called back and stated to notify him when patient is closer to discharge. CM attempted to call Angel this morning in regards possible discharge by the end of the week. He stated he was in a meeting and would call back later. Meantime I have asked nursing for a weight on patient since there hasn't been one recorded since 10/10/18. Nursing stated that the bed scale isn't working. CM will continue to follow and assist as needed for discharge planning / needs. DCP- Discharge Planning Updated by [id number]: Radha Noel on 10/15/18 7:[address] CM checking with long-term facilities regarding possible placement. CM having barriers related to patient's weight and facilities not being able to accommodate a patient of her size. At this time [facility], [facility], [facility], and [facility] have all denied patient. CM will continue to seek placement. CM will continue to follow and assist as needed with discharge planning / needs. DCP- Discharge Planning Updated by [id number]: Radha Noel on 10/11/18 2:[address] CM spoke with regarding LTACH placement. Patient is Medicaid only therefore patient is not an LTACH candidate. Dr. Juarez states he would like patient transferred back to [facility] once patient is more stable. CM will continue to follow and assist as needed with discharge planning / needs. DCP- Discharge Planning Updated by [id number]: Radha Noel on 10/09/18 4:[address] Patient Name: DOT MIXON Admission Status: Urgent Accout number: [id number] Admission Date: 09-30-2018 : 1975 Admission Diagnosis:ACUTE KIDNEY FAILURE, UNSPECIFIED Attending: Junior Rubalcava Current LOS: 9 Anticipated DC Date: Planned Disposition: Primary Insurance: MEDICAID [place] Discharge Planning Comments: CM met with patient at bedside. She states that she lives [address] [place] [address] . She lives with her igor Schofield [phone]. She states that she does have home health with [facility] and her fianc? is her caregiver. She states that she has an Electric chair, BSC and trilogy [facility]. Patient states that she needs a shower chair, walker and suction cup grab bars for shower. Patient would like to go home upon discharge and resume care with [facility] . KATY form signed for [facility] . Patient is not a candidate for LTACH due Medicaid being a payer source and not covered under Medicaid. CM will continue to follow and assist as needed with discharge planning / needs. Market Research Specialist: Radha Noel DCP- Discharge Planning Updated by [id number]: Radha Noel on 10/08/18 6:[address] CM attempted to meet with patient for discharge planning /needs. Patient is currently on BiPap and wasn't able to speak to CM. No family available at this time. CM will continue to follow and assist as needed with discharge planning / needs. DCP- Discharge Planning Updated by [id number]: Radha Noel on 10/01/18 12:[address] CM attempted to meet with patient for discharge planning /needs. Patient is currently sedated on vent no family available at this time. CM will continue to follow and assist as needed with discharge planning / needs. DCPIA - Discharge Planning Initial Assessment Updated by [id number]: Radha Noel on 10/09/18 4:55 pm * Is the patient Alert and Oriented? Yes * How many steps to enter\\exit or inside your home? * P[facility] * Pharmacy [facility]- [place] * Preadmission Environment Home with Family * ADLs Partial Dependent * Partial ADLs (Assistance needed) Ambulation Bathing Dressing Eating Medication Management Toileting Transfers * Other Equipment Electric Lift chair, BSC, Trilogy ([facility]) * List name and contact numbers for known caregivers / representatives who currently or will assist patient after discharge: Raquel celestin? - [phone] * Verbal permission to speak to the caregivers and representatives has been obtained from the patient. Yes * Community resources currently utilized Home Health * Please name any agencies selected above. [facility] * Additional services required to return to the preadmission environment? No * Can the patient safely return to the preadmission environment? Yes * Has this patient been hospitalized within the prior 30 days at any hospital? No Last DP export: 10/31/18 11:46 a Patient Name: DOT MIXON Page [id number] at 1723 All edits/amendments must be made on the electronic document DICTATION DATE: 11/01/181722 UNDERGROUND DISTRIBUTION ENGINEER: FLIP 11/01/181722 RPT#: [id number] DC DATE: STATUS: ADM IN [facility] [address] [place] [address] END OF REPORT
--- NOTE | 2018-11-01 18:01 | NUR ---
REMOVED CENTRAL LINE TO PT LEFT JUGULAR ORDERED. CATHETER TIP INTACT. PRESSURE HELD UNTIL BLEEDING SUBSIDED. APPLIED PRESSURE DRESSING. PT TOLERATED WELL
--- NOTE | 2018-11-01 18:04 | NUR ---
PT RESTING IN BED, DENIES ANY NEEDS AT THIS TIME, DRESSING TO LEFT SIDE OF NECK STILL C/D/I. WILL CONT TO FOLLOW POC
--- NOTE | 2018-11-01 19:05 | NUR ---
AWAKE AND ALERT SKIN WARM AND DRY LUNGS ARE DEMINISHED BED IS LOW AND LOCKED AND CALL LIGHT IS IN REACH. PT DENIES NEEDS AT THIS TIME. DRSGINFGS TO BOTH HEELS ARE INTACT AND HEELS ARE FLOATED USEING PILLOWS. 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
[2018-11-01 20:21] VITALS: BP 123/71
[2018-11-02] VITALS (7 sets, daily range): BP systolic 100–128; BP diastolic 51–72
--- NOTE | 2018-11-02 02:14 | NUR ---
I have reviewed this patient and I concur with the Shift Assessment completed by the Licensed Practical Nurse today this shift.
--- NOTE | 2018-11-02 06:34 | NUR ---
NOTE PT HAS NO LAB DFRAW IN ORDER TO FOLLOW ELECTOLYTE PROTOCALS
--- NOTE | 2018-11-02 07:12 | NUR ---
PT SLEEPING, DID NOT WAKE I ENTERED. DID NOT FURTHER DISTURB AT THIS ITME. BREATHS EVEN/REGULAR, BIPAP IN PLACE AND FUNCTIONING WNL. NO SIGNS/SYMPTOMS OF DITRESS. CL IN REACH, SRX2.
--- NOTE | 2018-11-02 10:41 | NUR ---
I have reviewed this patient and I concur with the Shift Assessment completed by the Licensed Practical Nurse today this shift.
--- NOTE | 2018-11-02 19:17 | NUR ---
RECIEVED REPORT AND ROUNDING COMPLETE. PATIENT LAYING IN BED IN SUPINE POSITION. BED AT A 30% SITTING UP ANGLE. PATIENT HAS NASAL CANNULA ON RECIEVING 02 AT 2 LITERS. PATIENT HAS PATIÑO, NO URINE PRESENT IN THE BAG AT THIS TIME. PATIENTS BREATHING IS EVEN AND UNLABORED. PATIENT STATES SHE HAS NO NEEDS AT THIS TIME. CALL LIGHT WITHIN REACH AND BED IN LOWEST POSTITION. PATIENT ALSO HAS NO IV ACCESS AT THIS TIME.
[2018-11-03 03:55] VITALS: BP 127/63
--- NOTE | 2018-11-03 07:30 | NUR ---
PT ASLEEP, DID NOT WAKE I ENTERED, DID NOT FURTHER DISTURB AT THIS TIME. BREATHS EVEN/REGULAR, NO SIGNS/SYMPTOMS OF DISTRESS NOTED AT THIS TIME. CL IN REACH, SRX2.
[2018-11-03 08:02] VITALS: BP 139/61
--- NOTE | 2018-11-03 09:59 | NUR ---
I have reviewed this patient and I concur with the Shift Assessment completed by the Licensed Practical Nurse today this shift.
--- NOTE | 2018-11-03 10:30 | NUR ---
PT STATES SHE IS FEELING A BIT DPERESSED TODAY AND WOULD LOVE TO BE ABLE TO LEAVE, BUT KNOWS SHE HAS TO WAIT UNTIL SHE GETS PLACEMENT. SHE WAS ABLE TO GET AHOLD A HER FAMILY YESTERDAY, WHICH ALIEVIATED SOME STRESS/ANXIETY SHE'S BEEN HAVING. NO COMLAINTS/CONCERNS AT THIS TIME. CL IN REACH, SRX2.
[2018-11-03 11:50] VITALS: BP 132/65
--- NOTE | 2018-11-03 13:39 | NUR ---
PT HAS BEEN HAVING N/V. HAS NOT HAD ANYTHING MORE THAN SPIT COME UP VOMIT. REPORTS FEELING GENERALLY MORE UNWELL THAN ON OTHER DAYS. REQUESTED PT OBSTAIN FOR THE DAY, SHE IS FEELING SO POORLY. WILL RELAY THE MESSAGE. FEELS A LITTLE BETTER AFTER PHINERGAN WAS ADMINSITERED. NO OTHER COMPLAINTS/CONCERNS AT THIS TIME. CL IN REACH, SRX2.
--- NOTE | 2018-11-03 18:38 | NUR ---
PT LYING IN BED, C/O BEING VERY HOT, REQUESTED TO BE UNCOVERED AND FAN TURNED ON LOW. PT IS CURENTLY SATISFIDE AND HAS NO FURTHER COMPLAINTS/CONCERNS/QUESTIONS. COMFORTABLE AND IN NO DISTRESSS. CL IN REACH, SRX2
--- NOTE | 2018-11-03 19:00 | NUR ---
PATIENT LAYING IN BED. PATIENT HAS NO COMPLAINTS AT THIS TIME. NO DISTRESS NOTED.
[2018-11-03 19:10] VITALS: BP 133/73
[2018-11-03 23:55] VITALS: BP 123/63
--- NOTE | 2018-11-04 00:31 | NUR ---
PATIENT ASKED FOR POPSICLE. PATIENT EDUCATED ON HER DIET ORDER. PATIENT STATES SHE REFUSES TO GO BY DIET COMMENTS. PATIENT STATES SHE ONLY WANTS A REGULAR DIABETIC DIET AND WILL TALK WITH THE DOCTOR IN THE AM ABOUT CHANGING IT.
--- NOTE | 2018-11-04 03:24 | NUR ---
I have reviewed this patient and I concur with the Shift Assessment completed by the Licensed Practical Nurse today this shift.
[2018-11-04 03:55] VITALS: BP 116/70
[2018-11-04 04:50] LABS: BASOPHILS 0.3 % (0-2); EOSINOPHILS 5.7 % (0-7); HEMATOCRIT 39.2 % (36.0-48.0); HEMOGLOBIN 11.8 g/dL (12-16); IMMATURE GRANULOCYTES 1.1 % (0-5); LYMPHOCYTES 22.5 % (15-50); MCH 24.2 pg (26.0-34.0); MCHC 30.1 g/dL (31.0-37.0); MCV 80.3 fL (80.0-100.0); MONOCYTES 10.1 % (2-11); NEUTROPHILS 60.3 % (40-80); RBC 4.88 10x6/uL (4.00-5.40); RDW 19.3 % (11.5-14.5); WBC 6.5 10x3/uL (4.8-10.8)
[2018-11-04 04:58] LABS: PLATELET COUNT 110 10x3/uL (130-400)
[2018-11-04 05:12] LABS: ANION GAP 11.2 mmol/L (8-16); CALCIUM 8.9 mg/dL (8.5-10.1); CREATININE - SERUM 1.2 mg/dL (0.6-1.3); MAGNESIUM - SERUM 1.6 mg/dL (1.8-2.4); POTASSIUM - SERUM 3.2 mmol/L (3.5-5.1)
--- NOTE | 2018-11-04 07:10 | NUR ---
PT ASLEEP WHEN I ENTERED, BIPAP IN PLACE. DID NOT WAKE WHEN I ENTERED, DID NOT FURTHER DISTURB AT THIS TIME. CL IN REACH, SRX2
--- NOTE | 2018-11-04 08:04 | MORECARE ---
CASE MANAGEMENT DISCHARGE SUMMARY PATIENT: DOT MIXON UNIT: [id number] ADM DATE: 09/30/18 AGE: 43 : 75 SEX: F ROOM/BED: D.2101 AUTHOR: PREMA,DOC PHYSICIAN: REFERRING PHYSICIAN: ELOISE GIVENS MD DATE OF SERVICE: 11/04/18 Discharge Plan Patient Name: DOT MIXON Facility: [facility] : 1975 Planned Disposition: Nursing Facility JS Cert Anticipated Discharge Date: Discharge Date: Expected LOS: Initial Reviewer: [id number] Initial Review Date: 10/09/2018 Generated: 11/04/18 9:03 am Comments DCP- Discharge Planning Updated by [id number]: Sam Basurto on 11/01/18 4:[address] Patient Name: DOT MIXON Encounter No: [id number] : 1975 Primary Insurance: [place]ICAID [place] Anticipated DC Date: Planned Disposition: Nursing Facility JS Cert External Planned Provider: [facility] TERM CARE MEDICAID BED DCP follow-up note: CM SPOKE TO ENOCH OF [facility], , THEY ARE CONSIDERING PT FOR CORE WINDER CARE AT [facility] OR [facility]. CM FAXED UPDATE TO ENOCH AT [phone]. CM WAITING ADMISSION DETERMINATION FROM [facility], [facility], [facility], [facility], [facility], [facility], [facility], [facility], [place] [place], [facility], [facility], [facility], [facility] AND [facility]. CM WILL CONTINUE TO WORK TO ATTEMPT TO SECURE PLACEMENT AT ANY ACCEPTING NURSING FACILITY. Sam Basurto CASE MANAGEMENT DCP- Discharge Planning Updated by [id number]: Sam Basurto on 10/31/18 7:[address] Patient Name: DOT MIXON Encounter No: [id number] : 1975 Primary Insurance: [place]ID [place] Anticipated DC Date: Planned Disposition: Nursing Facility JS Cert External Planned Provider:TO BE DETERMINED DCP follow-up note: CM SPOKE [facility] C[facility] NUR[facility], THEY HAVE REMOVED PT FROM BED, ZERO'D THE BED SCALE AND PLACED PT BACK ON FOR CURRENT WEIGHT OF 374 POUNDS. CM SPOKE TO PT WHO IS WILLING FOR CORRECTION CARE PLACEMENT AND WILL WORK WITH HER FIANCE TO ESTABLISH A DISABILITY ACCESSIBLE APARTMENT FOR PT'S EVENTUAL RETURN HOME WITH HER FIANCE WHO IS PT'S PAID CAREGIVER THROUGH MEDICAID. CM FAXED REFERRALS TO [facility], [facility], [facility] AND [facility], [facility], [facility], [facility], [place], [place], [facility], [facility], [facility], [facility], [place], [facility] AND [place]. CM WAITING ADMISSION DETERMINATION FROM [facility], [facility], [facility] AND [facility], [facility], [facility], [facility], [facility] [place] [place], [facility], [facility], [place], [facility] AND [place]. CM WILL CONTINUE TO WORK TO ATTEMPT TO SECURE PLACEMENT AT ANY ACCEPTING NURSING FACILITY. Sam Basurto, CASE MANAGEMENT DCP- Discharge Planning Updated by [id number]: Sam Basurto on 10/29/18 3:[address] Patient Name: DOT MIXON Encounter No: [id number] : 1975 Primary Insurance: [place]ID [place] Anticipated DC Date: Planned Disposition: Usp Facility External Planned Provider: TO BE DETERMINED DCP follow-up note: CM SPOKE TO PT VIA PHONE WHO INFORMED CM THAT THEY GOT HER ON A NEW BED AND HER WEIGHT IS 314 POUNDS. CM MET WITH PT IN ROOM, LOOKED AT BED SCALE TO DETERMINE IF IT WAS SHOWING POUNDS OR KILOGRAMS. DURING CONVERSATION WITH PT, PT WAS OFFENDED WHEN CM ASKED ABOUT PT'S KNOWN WEIGHT PRIOR TO HOSPITAL STAY AND WHERE PT'S WEIGHT WAS OBTAINED. CM OBSERVED THAT STANDARD BATHROOM SCALES AVAILABLE AT MOST RETAILERS DO NOT GO UP TO PT'S CURRENT WEIGHT FOR HOME MEEASUREMENT. CM APOLOGIZED TO PT FOR ANY OFFENSE, EXPLAINED THAT ACCURATE WEIGHT WAS ABSOLUTELY NECESSARY TO FIND PLACEMENT FOR PT; PT REPORTED UNDERSTANDING. CM SPOKE TO NURSE AND DISCUSSED NEW BED SCALE. AFTER INVESTIGATION, IT WAS DETERMINED THAT THE BED WAS REGISTERING KILOGRAMS, NOT POUNDS. PT;S CURRENT WEIGHT IS [address] CM SPO[address] JUAREZ WHO INFORMED CM THAT PT IS STABLE AND HE WANTS HER OUT OF THE HOSPITAL. CM NOTIFIED CM CINDER DUMP CRANE OPERATOR OF DR. ORR WISHES AND ASSURED CINDER DUMP CRANE OPERATOR THAT CM IS WORKING TO FIND A SAFE DISCHARGE PLACEMENT. CM CALLED [facility] [place] AND [facility] FOR POSSIBLE PLACEMENT, NEITHER HAS CAPABILITY OF CARING FOR PT AT HER CURRENT WEIGHT AND HAD NO RECOMMMENDATIONS. CM CALLED [facility], SPOKE TO SUAD WHO WILL REVIEW PT AND GET BACK WITH CM. CM FAXED REFERRAL TO [facility] FOR DETENTION CARE. CM FAXED REFERRALS WITH REQUEST FOR PLACEMENT AND TO FORWARD REFERRAL TO ANY FACILITY THAT MIGHT CONSIDER PATIENT FOR CORRECTION CARE TO: [facility], [facility], [facility] AND [facility]. CM CALLED [facility] IN [place], THEY CANNOT TAKE PT THEIR EQUIPMENT WILL NOT HANDLE THE WEIGHT AND HAD NO SUGGESTIONS FOR PLACEMENT. CM WAITING ADMISSION DETERMINATION FROM [facility], [place], [facility] AND [facility]. CM WILL CONTINUE TO WORK TO ATTEMPT TO SECURE PLACEMENT AT ANY ACCEPTING NURSING FACILITY. Sam Basurto, CASE MANAGEMENT DCP- Discharge Planning Updated by [id number]: Sam Basurto on 10/28/18 4:[address] Patient Name: DOT MIXON Encounter No: [id number] : 1975 Primary Insurance: [place]ID [place] Anticipated DC Date: Planned Disposition: Usp Facility External Planned Provider: TO BE DETERMINED DCP follow-up note: CM REVIEWED CHART, MET WITH PT IN ROOM. PT CONCERNED THAT HER FIANCE AND "FUR BABIES" ARE BEING EVICTED FROM THE APARTMENT. PT ENCOURAGED PT TO FOCUS ON HER RECOVERY. PT IS AWARE THAT SHE NEEDS CORRECTION NURSING CARE AND WILL GO TO ANY ACCEPTING FACILITY AT THIS TIME. PT HAS BEEN ASKING THERAPY TO GET HER OUT OF BED BUT THE BED WILL NOT GO LOW ENOUGH AND THE MATTRESS IS TO [place] AND THEY ARE AFRAID THEY WILL DROP HER AND SHE WILL NOT BE ABLE TO GET BACK IN BED. [facility] [place], THEY ARE NOT ABLE TO MEET PT'S NEEDS. CM CALLED [facility] [place], THEY HAVE NO AVAILABLE BERIATRIC BED AT THIS TIME. CM CALLED [facility] IN [place], THEY CANNOT MEET PT'S NEEDS. CM WAS DIRECTED IN CONVERSTATIONS WITH ABOVE PROVIDERS TO CALL [facility] [place] AND [facility] FOR POSSIBLE PLACEMENT. CM WILL CONTINUE TO WORK TO ATTEMPT TO SECURE PLACEMENT AT ANY ACCEPTING NURSING FACILITY. Sam Basurto, CASE MANAGEMENT DCP- Discharge Planning Updated by [id number]: Eunice Vo on 10/25/18 6:[address] CM SPOKE JOSE CAROLS PATIENT 10/24/18 PM REGARDING SERACH. SHE WANTS TO GO TO FACILITY [place]AR [place]. CM EXPLAINED SHE HAD SPECIAL NEEDS THAT COULD NOT BE MET AT ANY FACILITY IN [place]. SHE UNDERSTANDS. SHE STATES SHE CANNOT RETURN TO HER HOME. 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 THE TRAILER WOULD NEED A NEW REINFORCED FLOOR. SHE CANNOT AMBULATE . SHE MISSES HER FRIENDS. INTERNET SEARCH WITH NO FINDINGS FOR FACILITIES. TC TO [facility] CASE MANAGEMENT DEPARTMENT. AWAIT MARIMAR SAAVEDRA, ACADEMY EDUCATION DIRECTOR- SUPERVISIOR TO SUPERVISOR ELECTRONIC COILS. HAD TO LEAVE A VOICE MAIL REQUESTING ASSISTANCE FOR RESOURCE FOR SNF BARIATRIC SERVICES. AWAITED CALL BACK. TELEPHONE CALL TO [facility] , [place]. LEFT VOICE MAIL MESSAGE FOR MS ROONEY, ADMISSION COORDINATOR. NO SERVICE AVAILABLE AT HER FACILITY. SHE STATES THERE IS A FACILITY IN [place] , THE ONLY ONE IN THE [facility], THAT CAN ACCOMMODATE A PATIENT UP TO 1000 LBS. SHE COULD NOT RECALL THE NAME. SHE STATES THEY GENERALLY HAVE A WAITING LIST. CM WILL SEARCH. DCP- Discharge Planning Updated by [id number]: Eunice Vo on 10/24/18 3:[address] LATE ENTRY 0915 REC TELEPHONE CALL FROM ANGEL SÁNCHEZ THIS AM. [facility] NURSING TO REVIEW CLINICAL TODAY. HE WILL ADVISE THIS AFTERNOON REGARDING ACCEPTANCE. 1325 REC TELEPHONE CALL FROM ANGEL. [facility] CANNOT MEET THE PATIENT'S NEEDS. THEIR BARIATRIC SERVICES HAS CAPABILITY FOR 550 LBS. KADI SINGH, SPOKE WITH ENOCH CARDOZO, CLINICAL LIAISON, FOR [facility]. SHE DOES NOT HAVE A FACILITY THAT CAN PROVIDE CARE FOR THIS PATIENT. HER FACILITIES ARE [facility], [employer] [place], [employer], [employer] AND [facility]. WILL CONTINUE TO SEARCH. WILL UPDATE THE PATIENT. DCP- Discharge Planning Updated by [id number]: Eunice Vo on 10/23/18 5:[address] LATE ENTRY Abel BERGERMIE, APPLICATION SECURITY CONSULTANT, SPOKE W/ ME THIS AM. SHE HAD NOT REC CB FROM ANGEL AT [facility]. CM WILL FOLLOW UP IN THE AM REGARDING DECISION AND PROJECTED DISCHARGE DATE. FOLLOW UP SPEECH THERAPY EVAL COMPLETED. UPDATED WEIGHT REPORTEDLY IS 660 LBS. PATIENT TO HAVE ABG'S TODAY AFTER TRILOGY. PULMONARY NOTE REQUEST SNF PLACEMENT IN [place]. THE PATIENT'S PLAN IS FOR SNF REHAB AT [facility]. CM WORKING ON PLACEMENT AT APPROPRIATE FACILITY W/ CAPABILITY TO PROVIDE HER NEEDS, [facility]. DCP- Discharge Planning Updated by [id number]: Radha Noel on 10/22/18 10:[address] CM has been working with patient to try to get in touch with her Igor Raquel Chandu. He hasn't been answering the phone. CM tried to assist by looking up his mother and sister on Facebook to see if there was a phone number linked to their accounts but there wasn't. 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 CM gave patient phone numbers to both OR in [place]. CM also looked up her [facility] phone number so she could call about her belongings in her home. CM will continue to follow and assist as needed with discharge planning / needs. DCP- Discharge Planning Updated by [id number]: Radha Noel on 10/22/18 10:[address] Angel from [facility] came by last week to see patient and to obtain records. KATY was given verbally per patient for [facility] at that time. Angel later called back and stated to notify him when patient is closer to discharge. CM attempted to call Angel this morning in regards possible discharge by the end of the week. He stated he was in a meeting and would call back later. Meantime I have asked nursing for a weight on patient since there hasn't been one recorded since 10/10/18. Nursing stated that the bed scale isn't working. CM will continue to follow and assist as needed for discharge planning / needs. DCP- Discharge Planning Updated by [id number]: Radha Noel on 10/15/18 7:[address] CM checking with fpc facilities regarding possible placement. CM having barriers related to patient's weight and facilities not being able to accommodate a patient of her size. At this time [facility], [facility], [place], and [place] have all denied patient. CM will continue to seek placement. CM will continue to follow and assist as needed with discharge planning / needs. DCP- Discharge Planning Updated by [id number]: Radha Noel on 10/11/18 2:[address] CM spoke with regarding LTACH placement. Patient is Medicaid only therefore patient is not an LTACH candidate. Dr. Juarez states he would like patient transferred back to [facility] once patient is more stable. CM will continue to follow and assist as needed with discharge planning / needs. DCP- Discharge Planning Updated by [id number]: Radha Noel on 10/09/18 4:[address] Patient Name: DOT MIXON Admission Status: Urgent Accout number: [id number] Admission Date: 09-30-2018 : 1975 Admission Diagnosis:ACUTE KIDNEY FAILURE, UNSPECIFIED Attending: Junior Rubalcava Current LOS: 9 Anticipated DC Date: Planned Disposition: Primary Insurance: MEDICAID [place] Discharge Planning Comments: CM met with patient at bedside. She states that she lives [address] [place] [address] . She lives with her igor Schofield [phone]. She states that she does have home health with [facility] and her fianc? is her caregiver. She states that she has an Electric chair, BSC and [facility]. Patient states that she needs a shower chair, walker and suction cup grab bars for shower. Patient would like to go home upon discharge and resume care with [facility] . KATY form signed for [facility] . Patient is not a candidate for LTACH due Medicaid being a payer source and not covered under Medicaid. CM will continue to follow and assist as needed with discharge planning / needs. Tinsmith Helper: Radha Noel DCP- Discharge Planning Updated by [id number]: Radha Noel on 10/08/18 6:[address] CM attempted to meet with patient for discharge planning /needs. Patient is currently on BiPap and wasn't able to speak to CM. No family available at this time. CM will continue to follow and assist as needed with discharge planning / needs. DCP- Discharge Planning Updated by [id number]: Radha Noel on 10/01/18 12:[address] CM attempted to meet with patient for discharge planning /needs. Patient is currently sedated on vent no family available at this time. CM will continue to follow and assist as needed with discharge planning / needs. DCPIA - Discharge Planning Initial Assessment Updated by [id number]: Radha Noel on 10/09/18 4:55 pm * Is the patient Alert and Oriented? Yes * How many steps to enter\\exit or inside your home? * PCP Lauren with [facility] * Pharmacy [facility] [place] * Preadmission Environment Home with Family * ADLs Partial Dependent * Partial ADLs (Assistance needed) Ambulation Bathing Dressing Eating Medication Management Toileting Transfers * Other Equipment Electric Lift chair, BSC, Trilogy ([facility]) * List name and contact numbers for known caregivers / representatives who currently or will assist patient after discharge: Raquel celestin? - [phone] * Verbal permission to speak to the caregivers and representatives has been obtained from the patient. Yes * Community resources currently utilized Home Health * Please name any agencies selected above. [facility] * Additional services required to return to the preadmission environment? No * Can the patient safely return to the preadmission environment? Yes * Has this patient been hospitalized within the prior 30 days at any hospital? No Last DP export: 11/01/18 4:23 p Patient Name: DOT MIXON Page [id number] at 0804 All edits/amendments must be made on the electronic document DICTATION DATE: 11/04/18802 ORTHOPHOTOGRAPHY TECHNICIAN: FLIP 11/04/18802 RPT#: [id number] DC DATE: STATUS: ADM IN [facility] [address] [place] [address] END OF REPORT
[2018-11-04 08:05] VITALS: BP 137/75
--- NOTE | 2018-11-04 08:59 | MORECARE ---
CASE MANAGEMENT DISCHARGE SUMMARY PATIENT: DOT MIXON UNIT: [id number] ADM DATE: 09/30/18 AGE: 43 : 75 SEX: F ROOM/BED: D.2101 AUTHOR: PREMADOC PHYSICIAN: REFERRING PHYSICIAN: ELOISE GIVENS MD DATE OF SERVICE: 11/04/18 Discharge Plan Patient Name: DOT MIXON Facility: [facility]:[place] : 1975 Planned Disposition: Nursing Facility JS Cert Anticipated Discharge Date: Discharge Date: Expected LOS: Initial Reviewer: [id number] Initial Review Date: 10/09/2018 Generated: 11/04/18 9:59 am Comments DCP- Discharge Planning Updated by [id number]: Sam Basurto on 11/04/18 7:[address] Patient Name: DOT MIXON Encounter No: [id number] : 1975 Primary Insurance: MEDICAID [place] Anticipated DC Date: Planned Disposition: Nursing Facility JS Cert External Planned [facility] DCP follow-up note: [facility] AT [facility] OR [facility]. CM FAXED UPDATE TO ENOCH AT [phone].CM FAXED UDPATE TO [facility], [facility] [place] [place], [facility], [facility], [place], [facility] [place]. [facility], [facility] AND [facility] CANNOT MEET PT'S NEEDS. CM WAITING ADMISSION DETERMINATION FROM [facility], [facility], [facility], [facility] [place], [facility], [facility], [facility], [place], [facility] AND [place]. CM WILL CONTINUE TO WORK TO ATTEMPT TO SECURE PLACEMENT AT ANY ACCEPTING NURSING FACILITY. MYRIAM Reddy DCP- Discharge Planning Updated by [id number]: Sam Basurto on 11/01/18 4:[address] Patient Name: DOT MIXON Encounter No: [id number] : 1975 Primary Insurance: MEDICAID [place] Anticipated DC Date: Planned Disposition: Nursing Facility [facility] Cert External Planned Provider: [facility] TERM [facility]ARE MEDICAID BED DCP follow-up note: CM SPOKE TO ENOCH OF [facility], , THEY ARE CONSIDERING PT FOR OYSTERMAN CARE AT [facility] OR [facility]. CM FAXED UPDATE TO ENOCH AT [phone]. CM WAITING ADMISSION DETERMINATION FROM [facility], [facility], [facility] AND [facility], [facility], [facility], [facility], [facility], [facility], [place], [facility], [facility], [facility], [place], [place] AND [place]. CM WILL CONTINUE TO WORK TO ATTEMPT TO SECURE PLACEMENT AT ANY ACCEPTING NURSING FACILITY. Sam Basurto, CASE MANAGEMENT DCP- Discharge Planning Updated by [id number]: Sam Basurto on 10/31/18 7:[address] Patient Name: DOT MIXON Encounter No: [id number] : 1975 Primary Insurance: MED[place]ID [place] Anticipated DC Date: Planned Disposition: Nursing Facility [facility] Cert External Planned Provider:TO BE DETERMINED DCP follow-up note: CM SPOKE [facility] C[facility] N[facility], THEY HAVE REMOVED PT FROM BED, ZERO'D THE BED SCALE AND PLACED PT BACK ON FOR CURRENT WEIGHT OF 374 POUNDS. CM SPOKE TO PT WHO IS WILLING FOR RETIREMENT CARE PLACEMENT AND WILL WORK WITH HER FIANCE TO ESTABLISH A DISABILITY ACCESSIBLE APARTMENT FOR PT'S EVENTUAL RETURN HOME WITH HER FIANCE WHO IS PT'S PAID CAREGIVER THROUGH MEDICAID. CM FAXED REFERRALS TO [facility], [facility], [facility], [facility], [facility], [facility], [place], [facility], [facility], [facility], [facility], [place], [place] AND [place]. CM WAITING ADMISSION DETERMINATION FROM [facility], [facility], [facility], [facility], [facility], [facility], [facility], [facility], [place] [place], [facility], [facility], [facility], [place], [facility] AND [place]. CM WILL CONTINUE TO WORK TO ATTEMPT TO SECURE PLACEMENT AT ANY ACCEPTING NURSING FACILITY. Sam Basurto, CASE MANAGEMENT DCP- Discharge Planning Updated by [id number]: Sam Basurto on 10/29/18 3:[address] Patient Name: DOT MIXON Encounter No: [id number] : 1975 Primary Insurance: MEDICAID [place] Anticipated DC Date: Planned Disposition: Half-Way Facility External Planned Provider: TO BE DETERMINED DCP follow-up note: CM SPOKE TO PT VIA PHONE WHO INFORMED CM THAT THEY GOT HER ON A NEW BED AND HER WEIGHT IS 314 POUNDS. CM MET WITH PT IN ROOM, LOOKED AT BED SCALE TO DETERMINE IF IT WAS SHOWING POUNDS OR KILOGRAMS. DURING CONVERSATION WITH PT, PT WAS OFFENDED WHEN CM ASKED ABOUT PT'S KNOWN WEIGHT PRIOR TO HOSPITAL STAY AND WHERE PT'S WEIGHT WAS OBTAINED. CM OBSERVED THAT STANDARD BATHROOM SCALES AVAILABLE AT MOST RETAILERS DO NOT GO UP TO PT'S CURRENT WEIGHT FOR HOME MEEASUREMENT. CM APOLOGIZED TO PT FOR ANY OFFENSE, EXPLAINED THAT ACCURATE WEIGHT WAS ABSOLUTELY NECESSARY TO FIND PLACEMENT FOR PT; PT REPORTED UNDERSTANDING. CM SPOKE TO NURSE AND DISCUSSED NEW BED SCALE. AFTER INVESTIGATION, IT WAS DETERMINED THAT THE BED WAS REGISTERING KILOGRAMS, NOT POUNDS. PT;S CURRENT WEIGHT IS [address] CM SPOKE TO [address] JUAREZ WHO INFORMED CM THAT PT IS STABLE AND HE WANTS HER OUT OF THE HOSPITAL. CM NOTIFIED CM ELECTROCARDIOGRAPHIC TECHNICIAN OF DR. ORR WISHES AND ASSURED ELECTROCARDIOGRAPHIC TECHNICIAN THAT CM IS WORKING TO FIND A SAFE DISCHARGE PLACEMENT. CM CALLED [facility] [place] AND [facility] FOR POSSIBLE PLACEMENT, NEITHER HAS CAPABILITY OF CARING FOR PT AT HER CURRENT WEIGHT AND HAD NO RECOMMMENDATIONS. CM CALLED [facility], SPOKE TO SUAD WHO WILL REVIEW PT AND GET BACK WITH CM. CM FAXED REFERRAL TO [facility] FOR PENITENTIARY CARE. CM FAXED REFERRALS WITH REQUEST FOR PLACEMENT AND TO FORWARD REFERRAL TO ANY FACILITY THAT MIGHT CONSIDER PATIENT FOR OYSTERMAN CARE TO: [facility], [facility], [facility] AND [facility]. CM CALLED [facility] IN [place], THEY CANNOT TAKE PT THEIR EQUIPMENT WILL NOT HANDLE THE WEIGHT AND HAD NO SUGGESTIONS FOR PLACEMENT. CM WAITING ADMISSION DETERMINATION FROM [facility], [place], [facility] AND [facility]. CM WILL CONTINUE TO WORK TO ATTEMPT TO SECURE PLACEMENT AT ANY ACCEPTING NURSING FACILITY. Sam Basurto, CASE MANAGEMENT DCP- Discharge Planning Updated by [id number]: Sam Basurto on 10/28/18 4:[address] Patient Name: DOT MIXON Encounter No: [id number] : 1975 Primary Insurance: MEDICAID [facility] DC Date: Planned Disposition: Half-Way Facility External Planned Provider: TO BE DETERMINED DCP follow-up note: CM REVIEWED CHART, MET WITH PT IN ROOM. PT CONCERNED THAT HER FIANCE AND "FUR BABIES" ARE BEING EVICTED FROM THE APARTMENT. PT ENCOURAGED PT TO FOCUS ON HER RECOVERY. PT IS AWARE THAT SHE NEEDS RETIREMENT NURSING CARE AND WILL GO TO ANY ACCEPTING FACILITY AT THIS TIME. PT HAS BEEN ASKING THERAPY TO GET HER OUT OF BED BUT THE BED WILL NOT GO LOW ENOUGH AND THE MATTRESS IS TO SLIPPERY AND THEY ARE AFRAID THEY WILL DROP HER AND SHE WILL NOT BE ABLE TO GET BACK IN BED. CM CALLED [facility] IN [place], THEY ARE NOT ABLE TO MEET PT'S NEEDS. CM CALLED [facility] IN [place], THEY HAVE NO AVAILABLE BERIATRIC BED AT THIS TIME. CM CALLED [facility] IN [place], THEY CANNOT MEET PT'S NEEDS. CM WAS DIRECTED IN CONVERSTATIONS WITH ABOVE PROVIDERS TO CALL [facility] [place] AND [facility] FOR POSSIBLE PLACEMENT. CM WILL CONTINUE TO WORK TO ATTEMPT TO SECURE PLACEMENT AT ANY ACCEPTING NURSING FACILITY. Sam Basurto, CASE MANAGEMENT DCP- Discharge Planning Updated by [id number]: Eunice Vo on 10/25/18 6:[address] CM SPOKE CECILIAH PATIENT 10/24/18 PM REGARDING SERACH. SHE WANTS TO GO TO FACILITY [place]AR [place]. CM EXPLAINED SHE HAD SPECIAL NEEDS THAT COULD NOT BE MET AT ANY FACILITY IN [place]. SHE UNDERSTANDS. SHE STATES SHE CANNOT RETURN TO HER HOME. 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 THE TRAILER WOULD NEED A NEW REINFORCED FLOOR. SHE CANNOT AMBULATE . SHE MISSES HER FRIENDS. INTERNET SEARCH WITH NO FINDINGS FOR FACILITIES. TC TO [facility] CASE MANAGEMENT DEPARTMENT. WANDA SAAVEDRA, CIAIO COUNTER MOLDER- SUPERVISIOR TO MOLD INSPECTOR. HAD TO LEAVE A VOICE MAIL REQUESTING ASSISTANCE FOR RESOURCE FOR SNF BARIATRIC SERVICES. AWAITED CALL BACK. TELEPHONE CALL TO [facility] CONNIE MELGAR. LEFT VOICE MAIL MESSAGE FOR MS ROONEY, ADMISSION COORDINATOR. NO SERVICE AVAILABLE AT HER FACILITY. SHE STATES THERE IS A FACILITY IN [place] , THE ONLY ONE IN THE [facility], THAT CAN ACCOMMODATE A PATIENT UP TO 1000 LBS. SHE COULD NOT RECALL THE NAME. SHE STATES THEY GENERALLY HAVE A WAITING LIST. CM WILL SEARCH. DCP- Discharge Planning Updated by [id number]: Eunice Vo on 10/24/18 3:[address] LATE ENTRY 0915 REC TELEPHONE CALL FROM ANGEL SÁNCHEZ THIS AM. [facility] NURSING TO REVIEW CLINICAL TODAY. HE WILL ADVISE THIS AFTERNOON REGARDING ACCEPTANCE. 1325 REC TELEPHONE CALL FROM ANGEL. [facility] CANNOT MEET THE PATIENT'S NEEDS. THEIR BARIATRIC SERVICES HAS CAPABILITY FOR 550 LBS. KADI SINGH, SPOKE WITH ENOCH CARDOZO, CLINICAL LIAISON, FOR [facility] SERVICE. SHE DOES NOT HAVE A FACILITY THAT CAN PROVIDE CARE FOR THIS PATIENT. HER FACILITIES ARE [facility], [facility], [facility], [facility] AND [facility]. WILL CONTINUE TO SEARCH. WILL UPDATE THE PATIENT. DCP- Discharge Planning Updated by [id number]: Eunice Vo on 10/23/18 5:[address] LATE ENTRY 1100 RADHA, HOME IMPROVEMENT CONTRACTOR, SPOKE W/ ME THIS AM. SHE HAD NOT REC CB FROM ANGEL AT [facility]. CM WILL FOLLOW UP IN THE AM REGARDING DECISION AND PROJECTED DISCHARGE DATE. FOLLOW UP SPEECH THERAPY EVAL COMPLETED. UPDATED WEIGHT REPORTEDLY IS 660 LBS. PATIENT TO HAVE ABG'S TODAY AFTER TRILOGY. PULMONARY NOTE REQUEST SNF PLACEMENT IN [place]. THE PATIENT'S PLAN IS FOR SNF REHAB AT [facility]. CM WORKING ON PLACEMENT AT APPROPRIATE FACILITY W/ CAPABILITY TO PROVIDE HER NEEDS, [facility]. DCP- Discharge Planning Updated by [id number]: Radha Noel on 10/22/18 10:[address] CM has been working with patient to try to get in touch with her Igor Schofield. He hasn't been answering the phone. CM tried to assist by looking up his mother and sister on Facebook to see if there was a phone number linked to their accounts but there wasn't. CM asked patient if they had a place of employment she stated they work at a [employer] in [place]. CM gave patient phone numbers to both [place] in [place]. CM also looked up her landlor phone number so she could call about her belongings in her home. CM will continue to follow and assist as needed with discharge planning / needs. DCP- Discharge Planning Updated by [id number]: Radha Noel on 10/22/18 10:[address] Angel from [facility] came by last week to see patient and to obtain records. KATY was given verbally per patient for [facility] at that time. Angel later called back and stated to notify him when patient is closer to discharge. CM attempted to call Angel this morning in regards possible discharge by the end of the week. He stated he was in a meeting and would call back later. Meantime I have asked nursing for a weight on patient since there hasn't been one recorded since 10/10/18. Nursing stated that the bed scale isn't working. CM will continue to follow and assist as needed for discharge planning / needs. DCP- Discharge Planning Updated by [id number]: Radha Noel on 10/15/18 7:[address] CM checking with mcfp facilities regarding possible placement. CM having barriers related to patient's weight and facilities not being able to accommodate a patient of her size. At this time [facility], [facility], [place], and [place] have all denied patient. CM will continue to seek placement. CM will continue to follow and assist as needed with discharge planning / needs. DCP- Discharge Planning Updated by [id number]: Radha Noel on 10/11/18 2:[address] CM spoke with regarding LTACH placement. Patient is Medicaid only therefore patient is not an LTACH candidate. Dr. Juarez states he would like patient transferred back to [facility] once patient is more stable. CM will continue to follow and assist as needed with discharge planning / needs. DCP- Discharge Planning Updated by [id number]: Radha Noel on 10/09/18 4:[address] Patient Name: DOT MIXON Admission Status: Urgent Accout number: [id number] Admission Date: 09-30-2018 : 1975 Admission Diagnosis:ACUTE KIDNEY FAILURE, UNSPECIFIED Attending: Junior Rubalcava Current LOS: 9 Anticipated DC Date: Planned Disposition: Primary Insurance: MEDICAID [place] Discharge Planning Comments: CM met with patient at bedside. She states that she lives [address] [phone]. She lives with her fianc? Raquel Schofield [phone]. She states that she does have home health with [facility] and her fianc? is her caregiver. She states that she has an Electric chair, BSC and trilogy with [employer]. Patient states that she needs a shower chair, walker and suction cup grab bars for shower. Patient would like to go home upon discharge and resume care with [facility]. KATY form signed for [facility]. Patient is not a candidate for LTACH due Medicaid being a payer source and not covered under Medicaid. CM will continue to follow and assist as needed with discharge planning / needs. Production Hardener: Radha Noel DCP- Discharge Planning Updated by [id number]: Radha Noel on 10/08/18 6:[address] CM attempted to meet with patient for discharge planning /needs. Patient is currently on BiPap and wasn't able to speak to CM. No family available at this time. CM will continue to follow and assist as needed with discharge planning / needs. DCP- Discharge Planning Updated by [id number]: Radha Noel on 10/01/18 12:[address] CM attempted to meet with patient for discharge planning /needs. Patient is currently sedated on vent no family available at this time. CM will continue to follow and assist as needed with discharge planning / needs. DCPIA - Discharge Planning Initial Assessment Updated by [id number]: Radha Noel on 10/09/18 4:55 pm * Is the patient Alert and Oriented? Yes * How many steps to enter\\exit or inside your home? * PCP Lauren with [facility] * Pharmacy [facility] * Preadmission Environment Home with Family * ADLs Partial Dependent * Partial ADLs (Assistance needed) Ambulation Bathing Dressing Eating Medication Management Toileting Transfers * Other Equipment Electric Lift chair, BSC, Trilogy ([facility]) * List name and contact numbers for known caregivers / representatives who currently or will assist patient after discharge: Raquel celestin? - [phone] * Verbal permission to speak to the caregivers and representatives has been obtained from the patient. Yes * Community resources currently utilized Home Health * Please name any agencies selected above. [facility] * Additional services required to return to the preadmission environment? No * Can the patient safely return to the preadmission environment? Yes * Has this patient been hospitalized within the prior 30 days at any hospital? No Last DP export: 11/04/18 7:03 a Patient Name: DOT MIXON Page [id number] at 0859 All edits/amendments must be made on the electronic document DICTATION DATE: 11/04/18858 CONTROL MANAGER: LFIP 11/04/18858 RPT#: [id number] DC DATE: STATUS: ADM IN [facility] [address] [place] [address] END OF REPORT
--- NOTE | 2018-11-04 09:29 | NUR ---
Nutrition follow-up: Diet: ADA weight controlled diet PO Intake ~70% average of last 9 meals Wt: 365# -> RDN feels this is not an accurate weight. Labs reviewed Pt continues to be unhapppy with meals at this time. States she is going to get the doctor to change the diet. RDN following.
--- NOTE | 2018-11-04 10:06 | NUR ---
PT IS UPSET THAT SHE IS NOT ALOUD TO CALL TO SPEAK TO THE CAFATERIA ABOUT HER DIET. PT REQUESTS TO SPEAK WITH THE SPEJUICE THERAPIST WHO PUT IN THE ORDER, WILL TRY AND ACCOMIDATE TODAY.
--- NOTE | 2018-11-04 11:29 | NUR ---
Heel and foot ulcers being treated by Dr. Mckinley. Dressing changes are ordered q 48 hours. Will monitor as needed.
[2018-11-04 11:38] VITALS: BP 111/64
--- NOTE | 2018-11-04 12:22 | NUR ---
OT NOTE: PT REPORTED FEELING NAUSEOUS. STATED THAT SHE WAS VERY NAUSEATED ALL DAY YESTERDAY, BUT DID NOT VOMMIT. PT AGREED TO SIT UP ON EOB; MAX ASSIST FOR SUPINE TO SIT; SITTING BALANCE IS GOOD WHILE ON SIDE OF BED. PT DOING BETTER WITH MOBILIZING LES. ABLE TO PERFORM UE/LE AROM EXS WITHOUT RESISTANCE BUT WITH INCREASED NUMBER OF REPS. PT ABLE TO EXTEND R KNEE TODAY, AND HAS BEEN UNABLE TO DO THIS LAST WEEK. ABLE TO PERFORM SIMPLE UPPER BODY ADLS, HOWEVER, CURRENTLY UNABLE TO PERFORM TOILET HYGIENE OR LE DRESSING DUE TO HER SIZE AND WEAKNESS. WILL CONT TO WORK ON STRENGTHENING ACT TO ASSIST WITH ADLS AND MOBILITY. UBALDO MCKINLEY, OTR/L
--- NOTE | 2018-11-04 14:43 | MORECARE ---
CASE MANAGEMENT DISCHARGE SUMMARY PATIENT: DOT MIXON UNIT: [id number] ADM DATE: 09/30/18 AGE: 43 : 75 SEX: F ROOM/BED: D.2101 AUTHOR: PREMA,DOC PHYSICIAN: REFERRING PHYSICIAN: ELOISE GIVENS MD DATE OF SERVICE: 11/04/18 Discharge Plan Patient Name: DOT MIXON Facility: [facility]:[place] : 1975 Planned Disposition: Nursing Facility JS Cert Anticipated Discharge Date: Discharge Date: Expected LOS: Initial Reviewer: [id number] Initial Review Date: 10/09/2018 Generated: 11/04/18 3:42 pm Comments DCP- Discharge Planning Updated by [id number]: Ang Basurto on 11/04/18 1:[address] Patient Name: DOT MIXON Encounter No: [id number] : 1975 Primary Insurance: MEDICAID [place] Anticipated DC Date: Planned Disposition: Nursing Facility JS Cert External Planned Provider: [facility] DCP follow-up note: CM SPOKE [facility] IS CONSIDERING PT FOR FCI CARE AT [facility] OR [facility]. CM FAXED UPDATE TO ENOCH AT [phone].CM FAXED UDPATE TO [facility], [facility], [facility], [facility], [facility], [facility], [facility], [facility] AND [facility]. [facility], [facility] AND [facility] CANNOT MEET PT'S NEEDS. CM WAITING ADMISSION DETERMINATION FROM [facility], [facility], [facility], [facility], [facility], [facility], [facility], [facility], [facility], [facility] AND [place]. CM WILL CONTINUE TO WORK TO ATTEMPT TO SECURE PLACEMENT AT ANY ACCEPTING NURSING FACILITY. Ang Basurto, CASE MANAGEMENT Appended by Ang Basurto on 11/04/2018 14:41 CDT: CM SPOKE TO ANGEL MACKENZIE [facility] WHO REPORTS THEY ARE CONSIDERING PT FOR STRIPPING SHOVEL OPERATOR CARE PLACEMENT; THEY NEED TRILOGY SETTINGS AND TO KNOW IF AND WHEN PT CAN COME OFF ISOLATION. CM OBTAINED TRILOGY SETTINGS WITH HELP OF RESPIRATORY THERAPIST CIARA: HOME TRILOGY SETTINGS: EVAPS - AE; RATE2.0; VT 475; MAX PRESSURE 28; MIN PRESSURE 20; PRESSURE SUPPORT MIN 10; EPAP MAX PRESSURE 10; EPAP MIN PRESSURE 5; RATE AUTO CM PROVIDED THE ABOVE INFORMATION TO ANGEL MACKENZIE [facility]. CM SPOKE TO [facility] WHO REPORTS THEY ARE CONSIDERING PT FOR STRIPPING SHOVEL OPERATOR CARE AND WILL SPEAK TO PT VIA PHONE IN ROOM. CM RECEIVED CALL FROM [facility], THEY ARE GOING TO COME AND VISIT WITH PT TODAY FOR WOUND ASSESSMENT IN ROOM. CM RECEIVED CALLS FROM [facility] INFORMING CM THAT THEY CANNOT MEET PT'S NEEDS. [facility], [facility], [facility], [facility] AND [facility] CANNOT MEET PT'S NEEDS. CM WAITING ADMISSION DETERMINATION FROM [facility], [facility], [facility], [facility], [facility], [facility], [facility], [facility], [facility] AND [facility]. CM WILL CONTINUE TO WORK TO ATTEMPT TO SECURE PLACEMENT AT ANY ACCEPTING NURSING FACILITY. ANG BASURTO, CASE MANAGEMENT DCP- Discharge Planning Updated by [id number]: Ang Basurto on 11/01/18 4:[address] Patient Name: DOT MIXON Encounter No: [id number] : 1975 Primary Insurance: MEDICAID [facility] DC Date: Planned Disposition: Nursing Facility JS Cert External Planned Provider: [facility] MEDICAID BED DCP follow-up note: CM SPOKE TO ENOCH [facility], , THEY ARE CONSIDERING PT FOR STRIPPING SHOVEL OPERATOR CARE AT [facility] CM FAXED UPDATE TO ENOCH AT [phone]. CM WAITING ADMISSION DETERMINATION FROM [facility], [facility], [facility], [facility], [facility], [facility], [facility], [facility], [facility], [facility], [facility], [facility], [facility] AND [facility]. CM WILL CONTINUE TO WORK TO ATTEMPT TO SECURE PLACEMENT AT ANY ACCEPTING NURSING FACILITY. Ang Basurto CASE MANAGEMENT DCP- Discharge Planning Updated by [id number]: Ang Basurto on 10/31/18 7:[address] Patient Name: DOT MIXON Encounter No: [id number] : 1975 Primary Insurance: [place]ID [place] Anticipated DC Date: Planned Disposition: Nursing Facility JS Cert External Planned Provider:TO BE DETERMINED DCP follow-up note: CM SPOKE [facility] CARE NURSE, THEY HAVE REMOVED PT FROM BED, ZERO'D THE BED SCALE AND PLACED PT BACK ON FOR CURRENT WEIGHT OF 374 POUNDS. CM SPOKE TO PT WHO IS WILLING FOR FCI CARE PLACEMENT AND WILL WORK WITH HER FIANCE TO ESTABLISH A DISABILITY ACCESSIBLE APARTMENT FOR PT'S EVENTUAL RETURN HOME WITH HER FIANCE WHO IS PT'S PAID CAREGIVER THROUGH MEDICAID. CM FAXED REFERRALS TO [facility], [facility], [facility], [facility], [facility], [facility], [facility], [facility], [facility], [facility], [facility] AND [facility]. CM WAITING ADMISSION DETERMINATION FROM [facility], [facility], [facility], [facility], [facility], [facility], [facility], [facility], [facility], [facility], [facility], [facility], [facility], [facility], [place], [facility] AND [place]. CM WILL CONTINUE TO WORK TO ATTEMPT TO SECURE PLACEMENT AT ANY ACCEPTING NURSING FACILITY. MYRIAM Reddy DCP- Discharge Planning Updated by [id number]: Ang Basurto on 10/29/18 3:[address] Patient Name: DOT MIXON Encounter No: [id number] : 1975 Primary Insurance: [place]ID [place] Anticipated DC Date: Planned Disposition: [facility] Facility External Planned Provider: TO BE DETERMINED DCP follow-up note: CM SPOKE TO PT VIA PHONE WHO INFORMED CM THAT THEY GOT HER ON A NEW BED AND HER WEIGHT IS 314 POUNDS. CM MET WITH PT IN ROOM, LOOKED AT BED SCALE TO DETERMINE IF IT WAS SHOWING POUNDS OR KILOGRAMS. DURING CONVERSATION WITH PT, PT WAS OFFENDED WHEN CM ASKED ABOUT PT'S KNOWN WEIGHT PRIOR TO HOSPITAL STAY AND WHERE PT'S WEIGHT WAS OBTAINED. CM OBSERVED THAT STANDARD BATHROOM SCALES AVAILABLE AT MOST RETAILERS DO NOT GO UP TO PT'S CURRENT WEIGHT FOR HOME MEEASUREMENT. CM APOLOGIZED TO PT FOR ANY OFFENSE, EXPLAINED THAT ACCURATE WEIGHT WAS ABSOLUTELY NECESSARY TO FIND PLACEMENT FOR PT; PT REPORTED UNDERSTANDING. CM SPOKE TO NURSE AND DISCUSSED NEW BED SCALE. AFTER INVESTIGATION, IT WAS DETERMINED THAT THE BED WAS REGISTERING KILOGRAMS, NOT POUNDS. PT;S CURRENT WEIGHT IS [address] CM SPOKE [address] JUAREZ WHO INFORMED CM THAT PT IS STABLE AND HE WANTS HER OUT OF THE HOSPITAL. CM NOTIFIED CM BRIM BLOCKER OF DR. ORR WISHES AND ASSURED BRIM BLOCKER THAT CM IS WORKING TO FIND A SAFE DISCHARGE PLACEMENT. CM CALLED [facility] [place] AND [facility] FOR POSSIBLE PLACEMENT, NEITHER HAS CAPABILITY OF CARING FOR PT AT HER CURRENT WEIGHT AND HAD NO RECOMMMENDATIONS. CM CALLED [facility], SPOKE TO SUAD WHO WILL REVIEW PT AND GET BACK WITH CM. CM FAXED REFERRAL TO [facility] FOR SHELTER CARE. CM FAXED REFERRALS WITH REQUEST FOR PLACEMENT AND TO FORWARD REFERRAL TO ANY FACILITY THAT MIGHT CONSIDER PATIENT FOR FCI CARE TO: [facility], [facility], [facility] AND [facility]. CM CALLED [facility] IN [place], THEY CANNOT TAKE PT THEIR EQUIPMENT WILL NOT HANDLE THE WEIGHT AND HAD NO SUGGESTIONS FOR PLACEMENT. CM WAITING ADMISSION DETERMINATION FROM [facility], [facility], [facility] AND [facility]. CM WILL CONTINUE TO WORK TO ATTEMPT TO SECURE PLACEMENT AT ANY ACCEPTING NURSING FACILITY. Ang Basurto, CASE MANAGEMENT DCP- Discharge Planning Updated by [id number]: Ang Basurto on 10/28/18 4:[address] Patient Name: DOT MIXON Encounter No: [id number] : 1975 Primary Insurance: MEDICAID [facility] DC Date: Planned Disposition: [facility] Facility External Planned Provider: TO BE DETERMINED DCP follow-up note: CM REVIEWED CHART, MET WITH PT IN ROOM. PT CONCERNED THAT HER FIANCE AND "FUR BABIES" ARE BEING EVICTED FROM THE APARTMENT. PT ENCOURAGED PT TO FOCUS ON HER RECOVERY. PT IS AWARE THAT SHE NEEDS STRIPPING SHOVEL OPERATOR NURSING CARE AND WILL GO TO ANY ACCEPTING FACILITY AT THIS TIME. PT HAS BEEN ASKING THERAPY TO GET HER OUT OF BED BUT THE BED WILL NOT GO LOW ENOUGH AND THE MATTRESS IS TO SLIPPERY AND THEY ARE AFRAID THEY WILL DROP HER AND SHE WILL NOT BE ABLE TO GET BACK IN BED. CM CALLED [facility] [place], THEY ARE NOT ABLE TO MEET PT'S NEEDS. CM CALLED [facility] [place], THEY HAVE NO AVAILABLE BERIATRIC BED AT THIS TIME. CM CALLED [facility] [place], THEY CANNOT MEET PT'S NEEDS. CM WAS DIRECTED IN CONVERSTATIONS WITH ABOVE PROVIDERS TO CALL [facility] [place] AND [facility] FOR POSSIBLE PLACEMENT. CM WILL CONTINUE TO WORK TO ATTEMPT TO SECURE PLACEMENT AT ANY ACCEPTING NURSING FACILITY. Ang Basurto, CASE MANAGEMENT DCP- Discharge Planning Updated by [id number]: Eunice Vo on 10/25/18 6:[address] CM SPOKE [facility] PATIENT 10/24/18 PM REGARDING SERACH. SHE WANTS TO GO TO FACILITY [place]AR [place]. CM EXPLAINED SHE HAD SPECIAL NEEDS THAT COULD NOT BE MET AT ANY FACILITY IN [place]. SHE UNDERSTANDS. SHE STATES SHE CANNOT RETURN TO HER HOME. 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 THE TRAILER WOULD NEED A NEW REINFORCED FLOOR. SHE CANNOT AMBULATE . SHE MISSES HER FRIENDS. INTERNET SEARCH WITH NO FINDINGS FOR FACILITIES. TC TO [facility] CASE MANAGEMENT DEPARTMENT. WANDA SAAVEDRA, BIOMEDICAL TECHNICIAN- SUPERVISIOR TO VICE PRESIDENT UNDERWRITING. HAD TO LEAVE A VOICE MAIL REQUESTING ASSISTANCE FOR RESOURCE FOR SNF BARIATRIC SERVICES. AWAITED CALL BACK. TELEPHONE CALL TO [facility] [place]. LEFT VOICE MAIL MESSAGE FOR MS ROONEY, ADMISSION COORDINATOR. NO SERVICE AVAILABLE AT HER FACILITY. SHE STATES THERE IS A FACILITY IN [place] , THE ONLY ONE IN [facility], THAT CAN ACCOMMODATE A PATIENT UP TO 1000 LBS. SHE COULD NOT RECALL THE NAME. SHE STATES THEY GENERALLY HAVE A WAITING LIST. CM WILL SEARCH. DCP- Discharge Planning Updated by [id number]: Eunice Vo on 10/24/18 3:[address] LATE ENTRY 0915 REC TELEPHONE CALL FROM ANGEL SÁNCHEZ THIS AM. [facility] NURSING TO REVIEW CLINICAL TODAY. HE WILL ADVISE THIS AFTERNOON REGARDING ACCEPTANCE. 1325 REC TELEPHONE CALL FROM ANGEL. [facility] CANNOT MEET THE PATIENT'S NEEDS. THEIR BARIATRIC SERVICES HAS CAPABILITY FOR 550 LBS. KADI SINGH, SPOKE WITH ENOCH CARDOZO, CLINICAL LIAISON, FOR [facility] SERVICE. SHE DOES NOT HAVE A FACILITY THAT CAN PROVIDE CARE FOR THIS PATIENT. HER FACILITIES ARE [facility], [facility], [facility], [facility] AND [facility]. WILL CONTINUE TO SEARCH. WILL UPDATE THE PATIENT. DCP- Discharge Planning Updated by [id number]: Eunice Vo on 10/23/18 5:[address] LATE ENTRY 1100 RADHA, COLOR MAKER DYER, SPOKE W/ ME THIS AM. SHE HAD NOT REC CB FROM ANGEL AT [facility]. CM WILL FOLLOW UP IN THE AM REGARDING DECISION AND PROJECTED DISCHARGE DATE. FOLLOW UP SPEECH THERAPY EVAL COMPLETED. UPDATED WEIGHT REPORTEDLY IS 660 LBS. PATIENT TO HAVE ABG'S TODAY AFTER TRILOGY. PULMONARY NOTE REQUEST SNF PLACEMENT IN [place]. THE PATIENT'S PLAN IS FOR SNF REHAB AT [facility]. CM WORKING ON PLACEMENT AT APPROPRIATE FACILITY W/ CAPABILITY TO PROVIDE HER NEEDS, [facility]. DCP- Discharge Planning Updated by [id number]: Radha Noel on 10/22/18 10:[address] KADI has been working with patient to try to get in touch with her Igor Schofield. He hasn't been answering the phone. KADI tried to assist by looking up his mother and sister on Facebook to see if there was a phone number linked to their accounts but there wasn't. 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 CM gave patient phone numbers to both [place] in [place]. CM also looked up her [facility] phone number so she could call about her belongings in her home. CM will continue to follow and assist as needed with discharge planning / needs. DCP- Discharge Planning Updated by : Radha Noel on 10/22/18 10:[address] Angel from [facility] came by last week to see patient and to obtain records. KATY was given verbally per patient for Grecia Mckay at that time. Angel later called back and stated to notify him when patient is closer to discharge. CM attempted to call Angel this morning in regards possible discharge by the end of the week. He stated he was in a meeting and would call back later. Meantime I have asked nursing for a weight on patient since there hasn't been one recorded since 10/10/18. Nursing stated that the bed scale isn't working. CM will continue to follow and assist as needed for discharge planning / needs. DCP- Discharge Planning Updated by [id number]: Radha Noel on 10/15/18 7:[address] CM checking with custodial facilities regarding possible placement. CM having barriers related to patient's weight and facilities not being able to accommodate a patient of her size. At this time [facility], [facility], [place], and [place] have all denied patient. CM will continue to seek placement. CM will continue to follow and assist as needed with discharge planning / needs. DCP- Discharge Planning Updated by [id number]: Radha Noel on 10/11/18 2:[address] CM spoke with regarding LTACH placement. Patient is Medicaid only therefore patient is not an LTACH candidate. Dr. Juarez states he would like patient transferred back to [facility] once patient is more stable. CM will continue to follow and assist as needed with discharge planning / needs. DCP- Discharge Planning Updated by [id number]: Radha Noel on 10/09/18 4:[address] Patient Name: DOT MIXON Admission Status: Urgent Accout number: [id number] Admission Date: 09-30-2018 : 1975 Admission Diagnosis:ACUTE KIDNEY FAILURE, UNSPECIFIED Attending: Junior Rubalcava Current LOS: 9 Anticipated DC Date: Planned Disposition: Primary Insurance: MEDICAID [place] Discharge Planning Comments: CM met with patient at bedside. She states that she lives [address] [place] [address] . She lives with her fianc? Raquel Antonyes [phone]. She states that she does have home health with [facility] and her fianc? is her caregiver. She states that she has an Electric chair, BSC and trilogy [facility]. Patient states that she needs a shower chair, walker and suction cup grab bars for shower. Patient would like to go home upon discharge and resume care with Parmj[facility] CEDILL[facility]. KATY form signed for [facility]. Patient is not a candidate for LTACH due Medicaid being a payer source and not covered under Medicaid. CM will continue to follow and assist as needed with discharge planning / needs. Phone Representative: Radha Noel DCP- Discharge Planning Updated by [id number]: Radha Noel on 10/08/18 6:[address] CM attempted to meet with patient for discharge planning /needs. Patient is currently on BiPap and wasn't able to speak to CM. No family available at this time. CM will continue to follow and assist as needed with discharge planning / needs. DCP- Discharge Planning Updated by [id number]: Radha Noel on 10/01/18 12:[address] CM attempted to meet with patient for discharge planning /needs. Patient is currently sedated on vent no family available at this time. CM will continue to follow and assist as needed with discharge planning / needs. DCPIA - Discharge Planning Initial Assessment Updated by [id number]: Radha Noel on 10/09/18 4:55 pm * Is the patient Alert and Oriented? Yes * How many steps to enter\\exit or inside your home? * PCP Lauren with [facility] * Pharmacy [facility] [place] * Preadmission Environment Home with Family * ADLs Partial Dependent * Partial ADLs (Assistance needed) Ambulation Bathing Dressing Eating Medication Management Toileting Transfers * Other Equipment Electric Lift chair, BSC, Trilogy ([facility]) * List name and contact numbers for known caregivers / representatives who currently or will assist patient after discharge: Raquel celestin? - [phone] * Verbal permission to speak to the caregivers and representatives has been obtained from the patient. Yes * Community resources currently utilized Home Health * Please name any agencies selected above. [facility] * Additional services required to return to the preadmission environment? No * Can the patient safely return to the preadmission environment? Yes * Has this patient been hospitalized within the prior 30 days at any hospital? No Last DP export: 11/04/18 7:59 a Patient Name: DOT MIXON Page [id number] at 1443 All edits/amendments must be made on the electronic document DICTATION DATE: 11/04/181441 FLAT SPRING ASSEMBLER: FLIP 11/04/181441 RPT#: [id number] DC DATE: STATUS: ADM IN [facility] [address] [place] [address] END OF REPORT
--- NOTE | 2018-11-04 15:50 | NUR ---
I have reviewed this patient and I concur with the Shift Assessment completed by the Licensed Practical Nurse today this shift.
--- NOTE | 2018-11-04 18:34 | NUR ---
PT LYING IN BED, STATES SHE IS VERY HAPPY WITH HOPEFULLY LEAVING SOON. SHE'S EXCITED TO START GETTING STRONGER SO SHE CAN GO HOME. NO COMPLAINTS/CONCERNS THIS EVENING. CL IN REACH, SRX2.
[2018-11-04 18:48] VITALS: BP 126/73
--- NOTE | 2018-11-04 19:27 | NUR ---
GREETED PATIENT AND INTRODUCED MYSELF HER NURSE FOR THE EVENING. PATIENT IS LAYING IN BED IN SUPINE POSITION. HOB AT 30 DEGREES. RESPIRATIONS EVEN. NO S/S OF DISTRESS. CALL LIGHT IN REACH.
[2018-11-04 20:00] VITALS: BP 126/59
[2018-11-05 04:00] VITALS: BP 128/63
--- NOTE | 2018-11-05 04:14 | NUR ---
PATIENT RESTING QUIETLY WITH HOB AT 30 DEGREES. O2 AT 3L VIA NC IN USE. RESPIRATIONS EVEN. NO S/S DISTRESS. CALL LIGHT IN REACH.
[2018-11-05 06:37] LABS: BASOPHILS 0.4 % (0-2); EOSINOPHILS 5.1 % (0-7); HEMATOCRIT 37.8 % (36.0-48.0); HEMOGLOBIN 11.5 g/dL (12-16); IMMATURE GRANULOCYTES 1.2 % (0-5); LYMPHOCYTES 21.7 % (15-50); MCH 24.3 pg (26.0-34.0); MCHC 30.4 g/dL (31.0-37.0); MCV 79.7 fL (80.0-100.0); MEAN PLATELET VOLUME 10.1 fL (7.4-10.4); NEUTROPHILS 64.6 % (40-80); PLATELET COUNT 113 10x3/uL (130-400); RBC 4.74 10x6/uL (4.00-5.40); RDW 19.4 % (11.5-14.5); WBC 6.9 10x3/uL (4.8-10.8)
[2018-11-05 06:55] LABS: ANION GAP 10.3 mmol/L (8-16); CALCIUM 9.1 mg/dL (8.5-10.1); CREATININE - SERUM 1.3 mg/dL (0.6-1.3); MAGNESIUM - SERUM 1.6 mg/dL (1.8-2.4); POTASSIUM - SERUM 3.3 mmol/L (3.5-5.1)
--- NOTE | 2018-11-05 08:00 | NUR ---
PT RESTING IN BED, SHIFT ASSESSMENT PERFORMED. DENIES ANY NEEDS AT THIS TIME, WILL CONT TO FOLLOW POC
[2018-11-05 08:49] VITALS: BP 132/76
--- NOTE | 2018-11-05 12:23 | NUR ---
PT SITTING IN BED EATING LUNCH, DENIES ANY NEEDS AT THIS TIME. WILL CONT TO FOLLOW POC
[2018-11-05 13:43] VITALS: BP 129/62
--- NOTE | 2018-11-05 14:58 | NUR ---
OT NOTE: PT CONT TO REPORT NAUSEA..STATES THAT IT INCREASES WITH PO INTAKE AND MOVING AROUND IN THE BED; ENCOURAGED PT TO SIT UP WITHOUT ASSIST TODAY..PT ATTEMPTED AND PERFORMED BETTER, BUT STILL REQUIRED MIN/MOD ASSIST..BUT DEFINITELY IMPROVED; UE AROM EXS WHILE SITTING ON EOB; BACK TO BED WITH MAX ASSIST; PRACTICED SCOOTING UP IN BED WHILE PUSHING DOWN WITH FEET AND PULLING WITH ARMS. PT DID VERY WELL WITH THIS. ENCOURAGED TO PRACTICED THIS AND OTHER STRENGTHENING EXS WHILE IN BED. UBALDO MCKINLEY, OTR/L
--- NOTE | 2018-11-05 15:10 | MORECARE ---
CASE MANAGEMENT DISCHARGE SUMMARY PATIENT: DOT MIXON UNIT: [id number] ADM DATE: 09/30/18 AGE: 43 : 75 SEX: F ROOM/BED: D.2101 AUTHOR: PREMA,DOC PHYSICIAN: REFERRING PHYSICIAN: ELOISE GIVENS MD DATE OF SERVICE: 11/05/18 Discharge Plan Patient Name: DOT MIXON Facility: [facility]:[place] : 1975 Planned Disposition: Nursing Facility JS Cert Anticipated Discharge Date: Discharge Date: Expected LOS: Initial Reviewer: [id number] Initial Review Date: 10/09/2018 Generated: 11/05/18 4:10 pm Comments DCP- Discharge Planning Updated by [id number]: Ang Basurto on 11/04/18 1:[address] Patient Name: DOT MIXON Encounter No: [id number] : 1975 Primary Insurance: [place] Anticipated DC Date: Planned Disposition: Nursing Facility JS Cert External [facility] DCP follow-up note: CM SPOKE TO [facility] IS CONSIDERING PT FOR ALF CARE AT [facility] OR [facility]. CM FAXED UPDATE TO ENOCH AT [phone].CM FAXED UDPATE TO THE [facility], [facility], [facility], [facility], [facility], [facility], [place], [facility] AND [place]. THE [facility], [facility] AND [facility] CANNOT MEET PT'S NEEDS. CM WAITING ADMISSION DETERMINATION FROM [facility], [facility], [facility], [facility], [place], [facility], [facility], [facility], [place], [facility] AND [place]. CM WILL CONTINUE TO WORK TO ATTEMPT TO SECURE PLACEMENT AT ANY ACCEPTING NURSING FACILITY. Ang Basurto, CASE MANAGEMENT Appended by Ang Basurto on 11/04/2018 14:41 CDT: CM SPOKE TO [facility] WHO REPORTS THEY ARE CONSIDERING PT FOR MOLECULAR PATHOLOGIST CARE PLACEMENT; THEY NEED TRILOGY SETTINGS AND TO KNOW IF AND WHEN PT CAN COME OFF ISOLATION. CM OBTAINED TRILOGY SETTINGS WITH HELP OF RESPIRATORY THERAPIST CIARA: HOME TRILOGY SETTINGS: EVAPS - AE; RATE2.0; VT 475; MAX PRESSURE 28; MIN PRESSURE 20; PRESSURE SUPPORT MIN 10; EPAP MAX PRESSURE 10; EPAP MIN PRESSURE 5; RATE AUTO CM PROVIDED THE ABOVE INFORMATION TO AN[facility]EL [facility]. CM SPOKE TO [facility] WHO REPORTS THEY ARE CONSIDERING PT FOR MOLECULAR PATHOLOGIST CARE AND WILL SPEAK TO PT VIA PHONE IN ROOM. CM RECEIVED CALL FROM [facility]CH [facility], THEY ARE GOING TO COME AND VISIT WITH PT TODAY FOR WOUND ASSESSMENT IN ROOM. CM RECEIVED CALLS FROM [facility] INFORMING CM THAT THEY CANNOT MEET PT'S NEEDS. THE [facility], [facility], [facility], [place] AND [facility] CANNOT MEET PT'S NEEDS. CM WAITING ADMISSION DETERMINATION FROM [facility], [facility], [facility], [facility], [facility], [facility], [facility], [facility], [facility] AND [facility]. CM WILL CONTINUE TO WORK TO ATTEMPT TO SECURE PLACEMENT AT ANY ACCEPTING NURSING FACILITY. ANG BASURTO, CASE MANAGEMENT DCP- Discharge Planning Updated by [id number]: Ang Basurto on 11/01/18 4:[address] Patient Name: DOT MIXNO Encounter No: [id number] : 1975 Primary Insurance: MEDICAID [facility] DC Date: Planned Disposition: Nursing Facility JS Cert External Planned Provider: [facility] TERM CARE MEDICAID BED DCP follow-up note: CM SPOKE TO ENOCH [facility], , THEY ARE CONSIDERING PT FOR MOLECULAR PATHOLOGIST CARE AT [facility] OR [facility]. CM FAXED UPDATE TO ENOCH AT [phone]. CM WAITING ADMISSION DETERMINATION FROM [facility], [facility], [facility], [facility], [facility], [place] [facility], [place], [facility], [facility], [facility], [facility], [place], [facility] AND [place]. CM WILL CONTINUE TO WORK TO ATTEMPT TO SECURE PLACEMENT AT ANY ACCEPTING NURSING FACILITY. Ang Basurto CASE MANAGEMENT DCP- Discharge Planning Updated by [id number]: Ang Basurto on 10/31/18 7:[address] Patient Name: DOT MIXON Encounter No: [id number] : 1975 Primary Insurance: [place] Anticipated DC Date: Planned Disposition: Nursing Facility JS Cert External Planned Provider:TO BE DETERMINED DCP follow-up note: CM SPOKE [facility] CARE NURSE, THEY HAVE REMOVED PT FROM BED, ZERO'D THE BED SCALE AND PLACED PT BACK ON FOR CURRENT WEIGHT OF 374 POUNDS. CM SPOKE TO PT WHO IS WILLING FOR ALF CARE PLACEMENT AND WILL WORK WITH HER FIANCE TO ESTABLISH A DISABILITY ACCESSIBLE APARTMENT FOR PT'S EVENTUAL RETURN HOME WITH HER FIANCE WHO IS PT'S PAID CAREGIVER THROUGH MEDICAID. CM FAXED REFERRALS TO [facility], [facility], [facility], [facility], [facility], [facility], [facility], [place], [place], [facility] [place], [facility], [facility], [place], [facility] AND [place]. CM WAITING ADMISSION DETERMINATION FROM [facility], [facility], [facility], [facility], [facility], [facility], [facility], [facility], [place], [place], [facility] [place], [facility], [facility], [place], [facility] AND [place]. CM WILL CONTINUE TO WORK TO ATTEMPT TO SECURE PLACEMENT AT ANY ACCEPTING NURSING FACILITY. MYRIAM Reddy DCP- Discharge Planning Updated by [id number]: Ang Basurto on 10/29/18 3:[address] Patient Name: DOT MIXON Encounter No: [id number] : 1975 Primary Insurance: [place]ID [place] Anticipated DC Date: Planned Disposition: Residential Facility External Planned Provider: TO BE DETERMINED DCP follow-up note: CM SPOKE TO PT VIA PHONE WHO INFORMED CM THAT THEY GOT HER ON A NEW BED AND HER WEIGHT IS 314 POUNDS. CM MET WITH PT IN ROOM, LOOKED AT BED SCALE TO DETERMINE IF IT WAS SHOWING POUNDS OR KILOGRAMS. DURING CONVERSATION WITH PT, PT WAS OFFENDED WHEN CM ASKED ABOUT PT'S KNOWN WEIGHT PRIOR TO HOSPITAL STAY AND WHERE PT'S WEIGHT WAS OBTAINED. CM OBSERVED THAT STANDARD BATHROOM SCALES AVAILABLE AT MOST RETAILERS DO NOT GO UP TO PT'S CURRENT WEIGHT FOR HOME MEEASUREMENT. CM APOLOGIZED TO PT FOR ANY OFFENSE, EXPLAINED THAT ACCURATE WEIGHT WAS ABSOLUTELY NECESSARY TO FIND PLACEMENT FOR PT; PT REPORTED UNDERSTANDING. CM SPOKE TO NURSE AND DISCUSSED NEW BED SCALE. AFTER INVESTIGATION, IT WAS DETERMINED THAT THE BED WAS REGISTERING KILOGRAMS, NOT POUNDS. PT;S CURRENT WEIGHT IS [address] CM SPOKE [address] JUAREZ WHO INFORMED CM THAT PT IS STABLE AND HE WANTS HER OUT OF THE HOSPITAL. CM NOTIFIED CM MECHANICAL SOUND TECHNICIAN OF DR. ORR WISHES AND ASSURED MECHANICAL SOUND TECHNICIAN THAT CM IS WORKING TO FIND A SAFE DISCHARGE PLACEMENT. CM CALLED [facility] [place] AND [facility] FOR POSSIBLE PLACEMENT, NEITHER HAS CAPABILITY OF CARING FOR PT AT HER CURRENT WEIGHT AND HAD NO RECOMMMENDATIONS. CM CALLED [facility], SPOKE TO SUAD WHO WILL REVIEW PT AND GET BACK WITH CM. CM FAXED REFERRAL TO [facility] FOR RETIREMENT CARE. CM FAXED REFERRALS WITH REQUEST FOR PLACEMENT AND TO FORWARD REFERRAL TO ANY FACILITY THAT MIGHT CONSIDER PATIENT FOR ALF CARE TO: [facility], [facility], [facility] AND [facility]. CM CALLED [facility] [place], THEY CANNOT TAKE PT THEIR EQUIPMENT WILL NOT HANDLE THE WEIGHT AND HAD NO SUGGESTIONS FOR PLACEMENT. CM WAITING ADMISSION DETERMINATION FROM [facility], [place], [facility] AND [facility]. CM WILL CONTINUE TO WORK TO ATTEMPT TO SECURE PLACEMENT AT ANY ACCEPTING NURSING FACILITY. Ang Basurto, CASE MANAGEMENT DCP- Discharge Planning Updated by [id number]: Ang Basurto on 10/28/18 4:[address] Patient Name: DOT MIXON Encounter No: [id number] : 1975 Primary Insurance: MEDICAID [facility] DC Date: Planned Disposition: Residential Facility External Planned Provider: TO BE DETERMINED DCP follow-up note: CM REVIEWED CHART, MET WITH PT IN ROOM. PT CONCERNED THAT HER FIANCE AND "FUR BABIES" ARE BEING EVICTED FROM THE APARTMENT. PT ENCOURAGED PT TO FOCUS ON HER RECOVERY. PT IS AWARE THAT SHE NEEDS MOLECULAR PATHOLOGIST NURSING CARE AND WILL GO TO ANY ACCEPTING FACILITY AT THIS TIME. PT HAS BEEN ASKING THERAPY TO GET HER OUT OF BED BUT THE BED WILL NOT GO LOW ENOUGH AND THE MATTRESS IS TO [place] AND THEY ARE AFRAID THEY WILL DROP HER AND SHE WILL NOT BE ABLE TO GET BACK IN BED. CM CALLED [facility] [place], THEY ARE NOT ABLE TO MEET PT'S NEEDS. CM CALLED [facility] [place], THEY HAVE NO AVAILABLE BERIATRIC BED AT THIS TIME. CM CALLED [facility] IN [place], THEY CANNOT MEET PT'S NEEDS. CM WAS DIRECTED IN CONVERSTATIONS WITH ABOVE PROVIDERS TO CALL [facility] [place] AND [facility] FOR POSSIBLE PLACEMENT. CM WILL CONTINUE TO WORK TO ATTEMPT TO SECURE PLACEMENT AT ANY ACCEPTING NURSING FACILITY. Ang Basurto, CASE MANAGEMENT DCP- Discharge Planning Updated by [id number]: Eunice Vo on 10/25/18 6:[address] [facility] PATIENT 10/24/18 PM REGARDING [place]. SHE WANTS TO GO TO FACILITY NEAR [place]. CM EXPLAINED SHE HAD SPECIAL NEEDS THAT COULD NOT BE MET AT ANY FACILITY IN [place]. SHE UNDERSTANDS. SHE STATES SHE CANNOT RETURN TO HER HOME. 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 THE TRAILER WOULD NEED A NEW REINFORCED FLOOR. SHE CANNOT AMBULATE . SHE MISSES HER FRIENDS. INTERNET SEARCH WITH NO FINDINGS FOR FACILITIES. TC TO [facility] CASE MANAGEMENT DEPARTMENT. WANDA SAAVEDRA, ORACLE ETL DEVELOPER- SUPERVISIOR TO MATERIAL REQUIREMENTS PLANNING MANAGER. HAD TO LEAVE A VOICE MAIL REQUESTING ASSISTANCE FOR RESOURCE FOR SNF BARIATRIC SERVICES. AWAITED CALL BACK. TELEPHONE CALL TO [facility] [place], [place]. LEFT VOICE MAIL MESSAGE FOR MS ROONEY, ADMISSION COORDINATOR. NO SERVICE AVAILABLE AT HER FACILITY. SHE STATES THERE IS A FACILITY IN [place] , THE ONLY ONE IN THE [facility], THAT CAN ACCOMMODATE A PATIENT UP TO 1000 LBS. SHE COULD NOT RECALL THE NAME. SHE STATES THEY GENERALLY HAVE A WAITING LIST. CM WILL SEARCH. DCP- Discharge Planning Updated by [id number]: Eunice Vo on 10/24/18 3:[address] LATE ENTRY 0915 REC TELEPHONE CALL FROM ANGEL SÁNCHEZ THIS AM. [facility] NURSING TO REVIEW CLINICAL TODAY. HE WILL ADVISE THIS AFTERNOON REGARDING ACCEPTANCE. 1325 REC TELEPHONE CALL FROM ANGEL. [facility] CANNOT MEET THE PATIENT'S NEEDS. THEIR BARIATRIC SERVICES HAS CAPABILITY FOR 550 LBS. KADI SINGH, SPOKE WITH ENOCH CARDOZO, CLINICAL LIAISON, FOR [facility] SERVICE. SHE DOES NOT HAVE A FACILITY THAT CAN PROVIDE CARE FOR THIS PATIENT. HER FACILITIES ARE [facility], [employer] [place], [facility] [place], [employer] [facility] AND [facility]. WILL CONTINUE TO SEARCH. WILL UPDATE THE PATIENT. DCP- Discharge Planning Updated by [id number]: Eunice Vo on 10/23/18 5:[address] LATE ENTRY 1100 RADHA, LAUNDRY CLERK, SPOKE W/ ME THIS AM. SHE HAD NOT REC CB FROM ANGEL AT [facility]. CM WILL FOLLOW UP IN THE AM REGARDING DECISION AND PROJECTED DISCHARGE DATE. FOLLOW UP SPEECH THERAPY EVAL COMPLETED. UPDATED WEIGHT REPORTEDLY IS 660 LBS. PATIENT TO HAVE ABG'S TODAY AFTER TRILOGY. PULMONARY NOTE REQUEST SNF PLACEMENT IN [place]. THE PATIENT'S PLAN IS FOR SNF REHAB AT [facility]. CM WORKING ON PLACEMENT AT APPROPRIATE FACILITY W/ CAPABILITY TO PROVIDE HER NEEDS, [facility]. DCP- Discharge Planning Updated by [id number]: Radha Noel on 10/22/18 10:[address] KADI has been working with patient to try to get in touch with her Igor Schofield. He hasn't been answering the phone. KADI tried to assist by looking up his mother and sister on Facebook to see if there was a phone number linked to their accounts but there wasn't. 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 CM gave patient phone numbers to both [place] in [place]. CM also looked up her [facility] phone number so she could call about her belongings in her home. CM will continue to follow and assist as needed with discharge planning / needs. DCP- Discharge Planning Updated by [id number]: Radha Noel on 10/22/18 10:[address] Angel from [facility] came by last week to see patient and to obtain records. KATY was given verbally per patient for Grecia Mckay at that time. Anegl later called back and stated to notify him when patient is closer to discharge. CM attempted to call Angel this morning in regards possible discharge by the end of the week. He stated he was in a meeting and would call back later. Meantime I have asked nursing for a weight on patient since there hasn't been one recorded since 10/10/18. Nursing stated that the bed scale isn't working. CM will continue to follow and assist as needed for discharge planning / needs. DCP- Discharge Planning Updated by [id number]: Radha Noel on 10/15/18 7:[address] CM checking with intermediate facilities regarding possible placement. CM having barriers related to patient's weight and facilities not being able to accommodate a patient of her size. At this time [facility], [facility], [place], and [facility] have all denied patient. CM will continue to seek placement. CM will continue to follow and assist as needed with discharge planning / needs. DCP- Discharge Planning Updated by [id number]: Radha Noel on 10/11/18 2:[address] CM spoke with regarding LTACH placement. Patient is Medicaid only therefore patient is not an LTACH candidate. Dr. Juarez states he would like patient transferred back to [facility] once patient is more stable. CM will continue to follow and assist as needed with discharge planning / needs. DCP- Discharge Planning Updated by [id number]: Radha Noel on 10/09/18 4:[address] Patient Name: DOT MIXON Admission Status: Urgent Accout number: [id number] Admission Date: 09-30-2018 : 1975 Admission Diagnosis:ACUTE KIDNEY FAILURE, UNSPECIFIED Attending: Junior Rubalcava Current LOS: 9 Anticipated DC Date: Planned Disposition: Primary Insurance: [place]ICAID [place] Discharge Planning Comments: CM met with patient at bedside. She states that she lives [address] [place] [address] . She lives with her fianc? Raquel Antonyes [phone]. She states that she does have home health with [facility] and her fianc? is her caregiver. She states that she has an Electric chair, BSC and trilogy with [facility]. Patient states that she needs a shower chair, walker and suction cup grab bars for shower. Patient would like to go home upon discharge and resume care with Parmjit CEDILLO. KATY form signed for Parmj[facility] CEDILLO. Patient is not a candidate for LTACH due Medicaid being a payer source and not covered under Medicaid. CM will continue to follow and assist as needed with discharge planning / needs. Data Security Analyst: Radha Noel DCP- Discharge Planning Updated by [id number]: Radha Noel on 10/08/18 6:[address] CM attempted to meet with patient for discharge planning /needs. Patient is currently on BiPap and wasn't able to speak to CM. No family available at this time. CM will continue to follow and assist as needed with discharge planning / needs. DCP- Discharge Planning Updated by [id number]: Radha Noel on 10/01/18 12:[address] CM attempted to meet with patient for discharge planning /needs. Patient is currently sedated on vent no family available at this time. CM will continue to follow and assist as needed with discharge planning / needs. DCPIA - Discharge Planning Initial Assessment Updated by [id number]: Radha Noel on 10/09/18 4:55 pm * Is the patient Alert and Oriented? Yes * How many steps to enter\\exit or inside your home? * PCP [facility] with [facility] * [facility] [place] * Preadmission Environment Home with Family * ADLs Partial Dependent * Partial ADLs (Assistance needed) Ambulation Bathing Dressing Eating Medication Management Toileting Transfers * Other Equipment Electric Lift chair, BSC, Trilogy ([facility]) * List name and contact numbers for known caregivers / representatives who currently or will assist patient after discharge: Raquel celestin? - [phone] * Verbal permission to speak to the caregivers and representatives has been obtained from the patient. Yes * Community resources currently utilized Home Health * Please name any agencies selected above. [facility] * Additional services required to return to the preadmission environment? No * Can the patient safely return to the preadmission environment? Yes * Has this patient been hospitalized within the prior 30 days at any hospital? No External Providers External Provider: [facility] and [facility] Next Contact Date: 11/05/2018 Service Request Date: Service Type: Resolution: Reviewer: Comments: Last DP export: 11/04/18 1:42 p Patient Name: DOT MIXON Page [id number] at 1510 All edits/amendments must be made on the electronic document DICTATION DATE: 11/05/181509 MAIL CALLER: FLIP 11/05/181509 RPT#: [id number] DC DATE: STATUS: ADM IN [facility] [address] [place] [address] END OF REPORT
--- NOTE | 2018-11-05 15:26 | MORECARE ---
CASE MANAGEMENT DISCHARGE SUMMARY PATIENT: DOT MIXON UNIT: [id number] ADM DATE: 09/30/18 AGE: 43 : 75 SEX: F ROOM/BED: D.2101 AUTHOR: PREMA,DOC PHYSICIAN: REFERRING PHYSICIAN: ELOISE GIVENS MD DATE OF SERVICE: 11/05/18 Discharge Plan Patient Name: DOT MIXON Facility: [facility]:[place] : 1975 Planned Disposition: Nursing Facility JS Cert Anticipated Discharge Date: Discharge Date: Expected LOS: Initial Reviewer: [id number] Initial Review Date: 10/09/2018 Generated: 11/05/18 4:26 pm Comments DCP- Discharge Planning Updated by [id number]: Ang Basurto on 11/04/18 1:[address] Patient Name: DOT MIXON Encounter No: [id number] : 1975 Primary Insurance: [place] Anticipated DC Date: Planned Disposition: Nursing Facility JS Cert External [facility] MEDICAID BED DCP follow-up note: CM SPOKE [facility] NANCY IS CONSIDERING PT FOR CARE HOME CARE AT [facility] OR [facility]. CM FAXED UPDATE TO ENOCH AT [phone].CM FAXED UDPATE TO [facility], [facility], [facility], [facility], [place], [facility] AND [place]. [facility], [facility] AND [facility] CANNOT MEET PT'S NEEDS. CM WAITING ADMISSION DETERMINATION FROM [facility], [facility], [facility], [place], [place], [facility], [facility], [facility], [place], [facility] AND [place]. CM WILL CONTINUE TO WORK TO ATTEMPT TO SECURE PLACEMENT AT ANY ACCEPTING NURSING FACILITY. Ang Basurto, CASE MANAGEMENT Appended by Ang Basurto on 11/04/2018 14:41 CDT: CM SPOKE TO ANGEL MACKENZIE [facility] WHO REPORTS THEY ARE CONSIDERING PT FOR COAT REPAIR INSPECTOR CARE PLACEMENT; THEY NEED TRILOGY SETTINGS AND TO KNOW IF AND WHEN PT CAN COME OFF ISOLATION. CM OBTAINED TRILOGY SETTINGS WITH HELP OF RESPIRATORY THERAPIST CIARA: HOME TRILOGY SETTINGS: EVAPS - AE; RATE2.0; VT 475; MAX PRESSURE 28; MIN PRESSURE 20; PRESSURE SUPPORT MIN 10; EPAP MAX PRESSURE 10; EPAP MIN PRESSURE 5; RATE AUTO CM PROVIDED THE ABOVE INFORMATION TO ANGEL MACKENZIE [facility]. CM SPOKE TO [facility] WHO REPORTS THEY ARE CONSIDERING PT FOR COAT REPAIR INSPECTOR CARE AND WILL SPEAK TO PT VIA PHONE IN ROOM. CM RECEIVED CALL FROM [facility], THEY ARE GOING TO COME AND VISIT WITH PT TODAY FOR WOUND ASSESSMENT IN ROOM. CM RECEIVED CALLS FROM [facility] INFORMING CM THAT THEY CANNOT MEET PT'S NEEDS. THE [facility], [facility], [facility], [place] AND [facility] CANNOT MEET PT'S NEEDS. CM WAITING ADMISSION DETERMINATION FROM [facility], [facility], [facility], [facility], [facility], [place], [facility], [facility], [facility] AND [facility] CM WILL CONTINUE TO WORK TO ATTEMPT TO SECURE PLACEMENT AT ANY ACCEPTING NURSING FACILITY. ANG BASURTO, CASE MANAGEMENT DCP- Discharge Planning Updated by [id number]: Ang Basurto on 11/01/18 4:[address] Patient Name: DOT MIXON Encounter No: [id number] : 1975 Primary Insurance: MEDICAID [facility] DC Date: Planned Disposition: Nursing Facility JS Cert External Planned Provider: [facility] MEDICAID BED DCP follow-up note: CM SPOKE TO [facility], , THEY ARE CONSIDERING PT FOR COAT REPAIR INSPECTOR CARE AT [facility] OR [facility]. CM FAXED UPDATE TO ENOCH AT [phone]. CM WAITING ADMISSION DETERMINATION FROM [facility], [facility], [facility], [facility], [facility], [place] [facility], [place], [facility], [facility], [place], [facility], [place], [facility] AND [place]. CM WILL CONTINUE TO WORK TO ATTEMPT TO SECURE PLACEMENT AT ANY ACCEPTING NURSING FACILITY. Ang Basurto CASE MANAGEMENT DCP- Discharge Planning Updated by [id number]: Ang Basurto on 10/31/18 7:[address] Patient Name: DOT MIXON Encounter No: [id number] : 1975 Primary Insurance: [place] Anticipated DC Date: Planned Disposition: Nursing Facility JS Cert External Planned Provider:TO BE DETERMINED DCP follow-up note: CM SPOKE [facility] NURSE, THEY HAVE REMOVED PT FROM BED, ZERO'D THE BED SCALE AND PLACED PT BACK ON FOR CURRENT WEIGHT OF 374 POUNDS. CM SPOKE TO PT WHO IS WILLING FOR CARE HOME CARE PLACEMENT AND WILL WORK WITH HER FIANCE TO ESTABLISH A DISABILITY ACCESSIBLE APARTMENT FOR PT'S EVENTUAL RETURN HOME WITH HER FIANCE WHO IS PT'S PAID CAREGIVER THROUGH MEDICAID. CM FAXED REFERRALS TO [facility], [facility], [facility], [facility], [facility], [facility], [facility], [place], [place], [place], [facility], [facility], [facility] BEDS AT [facility], [place], [place] AND [place]. CM WAITING ADMISSION DETERMINATION FROM [facility], [facility], [facility], [facility], [facility], [facility], [facility], [facility], [place], [place] [place], [facility], [facility], [facility] [place], [place], [place] AND [place]. CM WILL CONTINUE TO WORK TO ATTEMPT TO SECURE PLACEMENT AT ANY ACCEPTING NURSING FACILITY. MYRIAM Reddy DCP- Discharge Planning Updated by [id number]: Ang Basurto on 10/29/18 3:[address] Patient Name: DOT MIXON Encounter No: [id number] : 1975 Primary Insurance: [place] Anticipated DC Date: Planned Disposition: Half-Way Facility External Planned Provider: TO BE DETERMINED DCP follow-up note: CM SPOKE TO PT VIA PHONE WHO INFORMED CM THAT THEY GOT HER ON A NEW BED AND HER WEIGHT IS 314 POUNDS. CM MET WITH PT IN ROOM, LOOKED AT BED SCALE TO DETERMINE IF IT WAS SHOWING POUNDS OR KILOGRAMS. DURING CONVERSATION WITH PT, PT WAS OFFENDED WHEN CM ASKED ABOUT PT'S KNOWN WEIGHT PRIOR TO HOSPITAL STAY AND WHERE PT'S WEIGHT WAS OBTAINED. CM OBSERVED THAT STANDARD BATHROOM SCALES AVAILABLE AT MOST RETAILERS DO NOT GO UP TO PT'S CURRENT WEIGHT FOR HOME MEEASUREMENT. CM APOLOGIZED TO PT FOR ANY OFFENSE, EXPLAINED THAT ACCURATE WEIGHT WAS ABSOLUTELY NECESSARY TO FIND PLACEMENT FOR PT; PT REPORTED UNDERSTANDING. CM SPOKE TO NURSE AND DISCUSSED NEW BED SCALE. AFTER INVESTIGATION, IT WAS DETERMINED THAT THE BED WAS REGISTERING KILOGRAMS, NOT POUNDS. PT;S CURRENT WEIGHT IS [address] CM SPO[address] JUAREZ WHO INFORMED CM THAT PT IS STABLE AND HE WANTS HER OUT OF THE HOSPITAL. CM NOTIFIED CM OPERATIONS MANAGER OF DR. ORR WISHES AND ASSURED OPERATIONS MANAGER THAT CM IS WORKING TO FIND A SAFE DISCHARGE PLACEMENT. CM CALLED [facility] [place] AND [facility] FOR POSSIBLE PLACEMENT, NEITHER HAS CAPABILITY OF CARING FOR PT AT HER CURRENT WEIGHT AND HAD NO RECOMMMENDATIONS. CM CALLED [facility], SPOKE TO SUAD WHO WILL REVIEW PT AND GET BACK WITH CM. CM FAXED REFERRAL TO [facility] [place] [facility]. CM FAXED REFERRALS WITH REQUEST FOR PLACEMENT AND TO FORWARD REFERRAL TO ANY FACILITY THAT MIGHT CONSIDER PATIENT FOR CARE HOME CARE TO: [facility], [facility], [facility] AND [facility]. CM CALLED [facility] IN [place], THEY CANNOT TAKE PT THEIR EQUIPMENT WILL NOT HANDLE THE WEIGHT AND HAD NO SUGGESTIONS FOR PLACEMENT. CM WAITING ADMISSION DETERMINATION FROM [facility], [place], [facility] AND [facility]. CM WILL CONTINUE TO WORK TO ATTEMPT TO SECURE PLACEMENT AT ANY ACCEPTING NURSING FACILITY. Ang Basurto, CASE MANAGEMENT DCP- Discharge Planning Updated by [id number]: Ang Basurto on 10/28/18 4:[address] Patient Name: DOT MIXON Encounter No: [id number] : 1975 Primary Insurance: MEDICAID [facility] DC Date: Planned Disposition: Half-Way Facility External Planned Provider: TO BE DETERMINED DCP follow-up note: CM REVIEWED CHART, MET WITH PT IN ROOM. PT CONCERNED THAT HER FIANCE AND "FUR BABIES" ARE BEING EVICTED FROM THE APARTMENT. PT ENCOURAGED PT TO FOCUS ON HER RECOVERY. PT IS AWARE THAT SHE NEEDS COAT REPAIR INSPECTOR NURSING CARE AND WILL GO TO ANY ACCEPTING FACILITY AT THIS TIME. PT HAS BEEN ASKING THERAPY TO GET HER OUT OF BED BUT THE BED WILL NOT GO LOW ENOUGH AND THE MATTRESS IS TO [place]IP[place] AND THEY ARE AFRAID THEY WILL DROP HER AND SHE WILL NOT BE ABLE TO GET BACK IN BED. CM CALLED [facility] IN [place], THEY ARE NOT ABLE TO MEET PT'S NEEDS. CM CALLED [facility] IN [place], THEY HAVE NO AVAILABLE BERIATRIC BED AT THIS TIME. CM CALLED [facility] IN [place], THEY CANNOT MEET PT'S NEEDS. CM WAS DIRECTED IN CONVERSTATIONS WITH ABOVE PROVIDERS TO CALL [facility] [place] AND [facility] FOR POSSIBLE PLACEMENT. CM WILL CONTINUE TO WORK TO ATTEMPT TO SECURE PLACEMENT AT ANY ACCEPTING NURSING FACILITY. Ang Basurto, CASE MANAGEMENT DCP- Discharge Planning Updated by [id number]: Eunice Vo on 10/25/18 6:[address] CM SPOKE [facility] PATIENT 10/24/18 PM REGARDING SERACH. SHE WANTS TO GO TO FACILITY NEAR [place]. CM EXPLAINED SHE HAD SPECIAL NEEDS THAT COULD NOT BE MET AT ANY FACILITY IN [place]. SHE UNDERSTANDS. SHE STATES SHE CANNOT RETURN TO HER HOME. 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 THE TRAILER WOULD NEED A NEW REINFORCED FLOOR. SHE CANNOT AMBULATE . SHE MISSES HER FRIENDS. INTERNET SEARCH WITH NO FINDINGS FOR FACILITIES. TC TO [facility] CASE MANAGEMENT DEPARTMENT. WANDA SAAVEDRA, GUEST EXPERIENCE REPRESENTATIVE- SUPERVISIOR TO LANDSCAPE FOREMAN. HAD TO LEAVE A VOICE MAIL REQUESTING ASSISTANCE FOR RESOURCE FOR SNF BARIATRIC SERVICES. AWAITED CALL BACK. TELEPHONE CALL TO [facility] [place]. LEFT VOICE MAIL MESSAGE FOR MS ROONEY, ADMISSION COORDINATOR. NO SERVICE AVAILABLE AT HER FACILITY. SHE STATES THERE IS A FACILITY IN [place] , THE ONLY ONE IN THE [facility], THAT CAN ACCOMMODATE A PATIENT UP TO 1000 LBS. SHE COULD NOT RECALL THE NAME. SHE STATES THEY GENERALLY HAVE A WAITING LIST. CM WILL SEARCH. DCP- Discharge Planning Updated by [id number]: Eunice Vo on 10/24/18 3:[address] LATE ENTRY 0915 REC TELEPHONE CALL FROM ANGEL SÁNCHEZ THIS AM. [facility] NURSING TO REVIEW CLINICAL TODAY. HE WILL ADVISE THIS AFTERNOON REGARDING ACCEPTANCE. 1325 REC TELEPHONE CALL FROM ANGEL. [facility] CANNOT MEET THE PATIENT'S NEEDS. THEIR BARIATRIC SERVICES HAS CAPABILITY FOR 550 LBS. KADI SINGH, SPOKE WITH ENOCH CARDOZO, CLINICAL LIAISON, FOR [facility] SERVICE. SHE DOES NOT HAVE A FACILITY THAT CAN PROVIDE CARE FOR THIS PATIENT. HER FACILITIES ARE [facility], [employer] [place], [facility] [place], [employer] [facility] AND [facility]. WILL CONTINUE TO SEARCH. WILL UPDATE THE PATIENT. DCP- Discharge Planning Updated by [id number]: Eunice Vo on 10/23/18 5:[address] LATE ENTRY 1100 RADHA, ELEVATED MOTORMAN, SPOKE W/ ME THIS AM. SHE HAD NOT REC CB FROM ANGEL AT [facility]. CM WILL FOLLOW UP IN THE AM REGARDING DECISION AND PROJECTED DISCHARGE DATE. FOLLOW UP SPEECH THERAPY EVAL COMPLETED. UPDATED WEIGHT REPORTEDLY IS 660 LBS. PATIENT TO HAVE ABG'S TODAY AFTER TRILOGY. PULMONARY NOTE REQUEST SNF PLACEMENT IN [place]. THE PATIENT'S PLAN IS FOR SNF REHAB AT [facility] CM WORKING ON PLACEMENT AT APPROPRIATE FACILITY W/ CAPABILITY TO PROVIDE HER NEEDS, [facility]. DCP- Discharge Planning Updated by [id number]: Radha Noel on 10/22/18 10:[address] KADI has been working with patient to try to get in touch with her Igor Schofield. He hasn't been answering the phone. KADI tried to assist by looking up his mother and sister on Facebook to see if there was a phone number linked to their accounts but there wasn't. 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 CM gave patient phone numbers to both [place] in [place]. CM also looked up her [facility] phone number so she could call about her belongings in her home. CM will continue to follow and assist as needed with discharge planning / needs. DCP- Discharge Planning Updated by [id number]: Radha Noel on 10/22/18 10:[address] Angel from [facility] came by last week to see patient and to obtain records. KATY was given verbally per patient for Grecia Mckay at that time. Angel later called back and stated to notify him when patient is closer to discharge. CM attempted to call Angel this morning in regards possible discharge by the end of the week. He stated he was in a meeting and would call back later. Meantime I have asked nursing for a weight on patient since there hasn't been one recorded since 10/10/18. Nursing stated that the bed scale isn't working. CM will continue to follow and assist as needed for discharge planning / needs. DCP- Discharge Planning Updated by [id number]: Radha Noel on 10/15/18 7:[address] CM checking with alf facilities regarding possible placement. CM having barriers related to patient's weight and facilities not being able to accommodate a patient of her size. At this time [facility], [facility], [place], and [place] have all denied patient. CM will continue to seek placement. CM will continue to follow and assist as needed with discharge planning / needs. DCP- Discharge Planning Updated by [id number]: Radha Noel on 10/11/18 2:[address] CM spoke with regarding LTACH placement. Patient is Medicaid only therefore patient is not an LTACH candidate. Dr. Juarez states he would like patient transferred back to [facility] once patient is more stable. CM will continue to follow and assist as needed with discharge planning / needs. DCP- Discharge Planning Updated by [email or web address]: Radha Noel on 10/09/18 4:[address] Patient Name: DOT MIXON Admission Status: Urgent Accout number: [id number] Admission Date: 09-30-2018 : 1975 Admission Diagnosis:ACUTE KIDNEY FAILURE, UNSPECIFIED Attending: Junior Rubalcava Current LOS: 9 Anticipated DC Date: Planned Disposition: Primary Insurance: [place]ID [place] Discharge Planning Comments: CM met with patient at bedside. She states that she lives [address] [place] [address] . She lives with her fianc? Raquel Antonyes [phone]. She states that she does have home health with [facility] and her fianc? is her caregiver. She states that she has an Electric chair, BSC and trilogy with [facility]. Patient states that she needs a shower chair, walker and suction cup grab bars for shower. Patient would like to go home upon discharge and resume care with Parmj[facility] C[facility]. KATY form signed for Parmj[facility] ECDILLO. Patient is not a candidate for LTACH due Medicaid being a payer source and not covered under Medicaid. CM will continue to follow and assist as needed with discharge planning / needs. Differential Repairer: Radha Noel DCP- Discharge Planning Updated by [id number]: Radha Noel on 10/08/18 6:[address] CM attempted to meet with patient for discharge planning /needs. Patient is currently on BiPap and wasn't able to speak to CM. No family available at this time. CM will continue to follow and assist as needed with discharge planning / needs. DCP- Discharge Planning Updated by [id number]: Radha Noel on 10/01/18 12:[address] CM attempted to meet with patient for discharge planning /needs. Patient is currently sedated on vent no family available at this time. CM will continue to follow and assist as needed with discharge planning / needs. DCPIA - Discharge Planning Initial Assessment Updated by [id number]: Radha Noel on 10/09/18 4:55 pm * Is the patient Alert and Oriented? Yes * How many steps to enter\\exit or inside your home? * PCP Lauren with [facility] * Pharmacy [facility] [place] * Preadmission Environment Home with Family * ADLs Partial Dependent * Partial ADLs (Assistance needed) Ambulation Bathing Dressing Eating Medication Management Toileting Transfers * Other Equipment Electric Lift chair, BSC, Trilogy ([facility]) * List name and contact numbers for known caregivers / representatives who currently or will assist patient after discharge: Raquel celestin? - [phone] * Verbal permission to speak to the caregivers and representatives has been obtained from the patient. Yes * Community resources currently utilized Home Health * Please name any agencies selected above. [facility] * Additional services required to return to the preadmission environment? No * Can the patient safely return to the preadmission environment? Yes * Has this patient been hospitalized within the prior 30 days at any hospital? No External Providers External Provider: [facility] Next Contact Date: 11/05/2018 Service Request Date: Service Type: Resolution: Reviewer: Comments: Last DP export: 11/05/18 2:10 p Patient Name: DOT MIXON Page [phone] at 1526 All edits/amendments must be made on the electronic document DICTATION DATE: 11/05/181524 TAPE DUPLICATOR: FLIP 11/05/185 RPT#: [id number] DC DATE: STATUS: ADM IN [facility] [address] [place] [address] END OF REPORT
--- NOTE | 2018-11-05 15:33 | MORECARE ---
CASE MANAGEMENT DISCHARGE SUMMARY PATIENT: DOT MIXON UNIT: [id number] ADM DATE: 09/30/18 AGE: 43 : 75 SEX: F ROOM/BED: D.2101 AUTHOR: PREMA,DOC PHYSICIAN: REFERRING PHYSICIAN: ELOISE GIVENS MD DATE OF SERVICE: 11/05/18 Discharge Plan Patient Name: DOT MIXON Facility: [facility]:Corder : 1975 Planned Disposition: Nursing Facility JS Cert Anticipated Discharge Date: Discharge Date: Expected LOS: Initial Reviewer: [id number] Initial Review Date: 10/09/2018 Generated: 11/05/18 4:32 pm Comments DCP- Discharge Planning Updated by [id number]: Ang Basurto on 11/04/18 1:[address] Patient Name: DOT MIXON Encounter No: [id number] : 1975 Primary Insurance: [place] Anticipated DC Date: Planned Disposition: Nursing Facility JS Cert External Planned [facility]ICAID BED DCP follow-up note: CM SPOKE TO [facility] NANCY IS CONSIDERING PT FOR SKILLED NURSING CARE AT [facility] OR [facility]. CM FAXED UPDATE TO ENOCH AT [phone].CM FAXED UDPATE TO [facility] AND [facility], [facility], [facility] AND [facility]. [facility], [facility] AND [facility] CANNOT MEET PT'S NEEDS. CM WAITING ADMISSION DETERMINATION FROM [facility], [facility], [facility], [place], [facility], [facility], [facility], [facility], [place], [facility] AND [facility]. CM WILL CONTINUE TO WORK TO ATTEMPT TO SECURE PLACEMENT AT ANY ACCEPTING NURSING FACILITY. Ang Basurto, CASE MANAGEMENT Appended by Ang Basurto on 11/04/2018 14:41 CDT: CM SPOKE TO ANGEL MACKENZIE [facility] WHO REPORTS THEY ARE CONSIDERING PT FOR REEFER ENGINEER CARE PLACEMENT; THEY NEED TRILOGY SETTINGS AND TO KNOW IF AND WHEN PT CAN COME OFF ISOLATION. CM OBTAINED TRILOGY SETTINGS WITH HELP OF RESPIRATORY THERAPIST CIARA: HOME TRILOGY SETTINGS: EVAPS - AE; RATE2.0; VT 475; MAX PRESSURE 28; MIN PRESSURE 20; PRESSURE SUPPORT MIN 10; EPAP MAX PRESSURE 10; EPAP MIN PRESSURE 5; RATE AUTO CM PROVIDED THE ABOVE INFORMATION TO ANGEL MACKENZIE [facility]. CM SPOKE TO [facility] WHO REPORTS THEY ARE CONSIDERING PT FOR REEFER ENGINEER CARE AND WILL SPEAK TO PT VIA PHONE IN ROOM. CM RECEIVED CALL FROM [facility], THEY ARE GOING TO COME AND VISIT WITH PT TODAY FOR WOUND ASSESSMENT IN ROOM. CM RECEIVED CALLS FROM [facility] INFORMING CM THAT THEY CANNOT MEET PT'S NEEDS. THE [facility], [facility], [facility], [place] AND [facility] CANNOT MEET PT'S NEEDS. CM WAITING ADMISSION DETERMINATION FROM [facility], [facility], [facility], [facility], [facility], [facility], [facility] AND [facility]. CM WILL CONTINUE TO WORK TO ATTEMPT TO SECURE PLACEMENT AT ANY ACCEPTING NURSING FACILITY. ANG BASURTO, CASE MANAGEMENT DCP- Discharge Planning Updated by [id number]: Ang Basurto on 11/01/18 4:[address] Patient Name: DOT MIXON Encounter No: [id number] : 1975 Primary Insurance: MEDICAID [facility] DC Date: Planned Disposition: Nursing Facility JS Cert External Planned Provider: [facility] MEDICAID BED DCP follow-up note: CM SPOKE TO ENO[facility], , THEY ARE CONSIDERING PT FOR REEFER ENGINEER CARE AT [facility] OR [facility]. CM FAXED UPDATE TO ENOCH AT [phone]. CM WAITING ADMISSION DETERMINATION FROM [facility], [facility], [facility], [facility], [facility], [place], [facility], [facility], [facility], [facility], [facility] AND [facility]. CM WILL CONTINUE TO WORK TO ATTEMPT TO SECURE PLACEMENT AT ANY ACCEPTING NURSING FACILITY. Ang Basurto CASE MANAGEMENT DCP- Discharge Planning Updated by [id number]: Ang Basurto on 10/31/18 7:[address] Patient Name: DTO MIXON Encounter No: [id number] : 1975 Primary Insurance: [place] Anticipated DC Date: Planned Disposition: Nursing Facility JS Cert External Planned Provider:TO BE DETERMINED DCP follow-up note: CM SPOKE [facility] NURSE, THEY HAVE REMOVED PT FROM BED, ZERO'D THE BED SCALE AND PLACED PT BACK ON FOR CURRENT WEIGHT OF 374 POUNDS. CM SPOKE TO PT WHO IS WILLING FOR SKILLED NURSING CARE PLACEMENT AND WILL WORK WITH HER FIANCE TO ESTABLISH A DISABILITY ACCESSIBLE APARTMENT FOR PT'S EVENTUAL RETURN HOME WITH HER FIANCE WHO IS PT'S PAID CAREGIVER THROUGH MEDICAID. CM FAXED REFERRALS TO [facility], [facility], [facility], [facility], [facility], [facility], [facility], [place], [place], [facility], [facility], [facility], [place], [facility] AND [facility]. CM WAITING ADMISSION DETERMINATION FROM [facility], [facility], [facility], [facility], [facility], [facility], [facility], [place], [place], [facility], [facility], [facility], [facility], [place], [facility] AND [facility]. CM WILL CONTINUE TO WORK TO ATTEMPT TO SECURE PLACEMENT AT ANY ACCEPTING NURSING FACILITY. MYRIAM Reddy DCP- Discharge Planning Updated by [id number]: Ang Basurto on 10/29/18 3:[address] Patient Name: DOT MIXON Encounter No: [id number] : 1975 Primary Insurance: [place] Anticipated DC Date: Planned Disposition: Residential Facility External Planned Provider: TO BE DETERMINED DCP follow-up note: CM SPOKE TO PT VIA PHONE WHO INFORMED CM THAT THEY GOT HER ON A NEW BED AND HER WEIGHT IS 314 POUNDS. CM MET WITH PT IN ROOM, LOOKED AT BED SCALE TO DETERMINE IF IT WAS SHOWING POUNDS OR KILOGRAMS. DURING CONVERSATION WITH PT, PT WAS OFFENDED WHEN CM ASKED ABOUT PT'S KNOWN WEIGHT PRIOR TO HOSPITAL STAY AND WHERE PT'S WEIGHT WAS OBTAINED. CM OBSERVED THAT STANDARD BATHROOM SCALES AVAILABLE AT MOST RETAILERS DO NOT GO UP TO PT'S CURRENT WEIGHT FOR HOME MEEASUREMENT. CM APOLOGIZED TO PT FOR ANY OFFENSE, EXPLAINED THAT ACCURATE WEIGHT WAS ABSOLUTELY NECESSARY TO FIND PLACEMENT FOR PT; PT REPORTED UNDERSTANDING. CM SPOKE TO NURSE AND DISCUSSED NEW BED SCALE. AFTER INVESTIGATION, IT WAS DETERMINED THAT THE BED WAS REGISTERING KILOGRAMS, NOT POUNDS. PT;S CURRENT WEIGHT IS [address] CM SPOKE TO [address] JUAREZ WHO INFORMED CM THAT PT IS STABLE AND HE WANTS HER OUT OF THE HOSPITAL. CM NOTIFIED CM GIS PHYSICAL SCIENTIST OF DR. ORR WISHES AND ASSURED GIS PHYSICAL SCIENTIST THAT CM IS WORKING TO FIND A SAFE DISCHARGE PLACEMENT. CM CALLED [facility] [place] AND [facility] FOR POSSIBLE PLACEMENT, NEITHER HAS CAPABILITY OF CARING FOR PT AT HER CURRENT WEIGHT AND HAD NO RECOMMMENDATIONS. CM CALLED [facility], SPOKE TO SUAD WHO WILL REVIEW PT AND GET BACK WITH CM. CM FAXED REFERRAL TO [facility] FOR FDC CARE. CM FAXED REFERRALS WITH REQUEST FOR PLACEMENT AND TO FORWARD REFERRAL TO ANY FACILITY THAT MIGHT CONSIDER PATIENT FOR SKILLED NURSING CARE TO: [facility], [facility] AND [facility]. CM CALLED [facility] IN [place], THEY CANNOT TAKE PT THEIR EQUIPMENT WILL NOT HANDLE THE WEIGHT AND HAD NO SUGGESTIONS FOR PLACEMENT. CM WAITING ADMISSION DETERMINATION FROM [facility], [facility], [facility] AND [facility] CM WILL CONTINUE TO WORK TO ATTEMPT TO SECURE PLACEMENT AT ANY ACCEPTING NURSING FACILITY. Ang Basurto, CASE MANAGEMENT DCP- Discharge Planning Updated by [id number]: Ang Basurto on 10/28/18 4:[address] Patient Name: DOT MIXON Encounter No: [id number] : 1975 Primary Insurance: MEDICAID [facility] DC Date: Planned Disposition: Residential Facility External Planned Provider: TO BE DETERMINED DCP follow-up note: CM REVIEWED CHART, MET WITH PT IN ROOM. PT CONCERNED THAT HER FIANCE AND "FUR BABIES" ARE BEING EVICTED FROM THE APARTMENT. PT ENCOURAGED PT TO FOCUS ON HER RECOVERY. PT IS AWARE THAT SHE NEEDS REEFER ENGINEER NURSING CARE AND WILL GO TO ANY ACCEPTING FACILITY AT THIS TIME. PT HAS BEEN ASKING THERAPY TO GET HER OUT OF BED BUT THE BED WILL NOT GO LOW ENOUGH AND THE MATTRESS IS TO SLIPPER[place] AND THEY ARE AFRAID THEY WILL DROP HER AND SHE WILL NOT BE ABLE TO GET BACK IN BED. CM CALLED [facility] [place], THEY ARE NOT ABLE TO MEET PT'S NEEDS. CM CALLED [facility] IN [place], THEY HAVE NO AVAILABLE BERIATRIC BED AT THIS TIME. CM CALLED [facility] IN [place], THEY CANNOT MEET PT'S NEEDS. CM WAS DIRECTED IN CONVERSTATIONS WITH ABOVE PROVIDERS TO CALL [facility] IN [place] AND [facility] FOR POSSIBLE PLACEMENT. CM WILL CONTINUE TO WORK TO ATTEMPT TO SECURE PLACEMENT AT ANY ACCEPTING NURSING FACILITY. Ang Basurto, CASE MANAGEMENT DCP- Discharge Planning Updated by [id number]: Eunice Vo on 10/25/18 6:[address] [facility] PATIENT 10/24/18 PM REGARDING SERACH. SHE WANTS TO GO TO FACILITY NEAR [place]. CM EXPLAINED SHE HAD SPECIAL NEEDS THAT COULD NOT BE MET AT ANY FACILITY IN [place]. SHE UNDERSTANDS. SHE STATES SHE CANNOT RETURN TO HER HOME. 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 THE TRAILER WOULD NEED A NEW REINFORCED FLOOR. SHE CANNOT AMBULATE . SHE MISSES HER FRIENDS. INTERNET SEARCH WITH NO FINDINGS FOR FACILITIES. TC TO [facility] CASE MANAGEMENT DEPARTMENT. WANDA SAAVEDRA, TABLEAU DEVELOPER- SUPERVISIOR TO BOGGER OPERATOR. HAD TO LEAVE A VOICE MAIL REQUESTING ASSISTANCE FOR RESOURCE FOR SNF BARIATRIC SERVICES. AWAITED CALL BACK. TELEPHONE CALL TO [facility] [place]. LEFT VOICE MAIL MESSAGE FOR MS ROONEY, ADMISSION COORDINATOR. NO SERVICE AVAILABLE AT HER FACILITY. SHE STATES THERE IS A FACILITY IN [place] , THE ONLY ONE [facility], THAT CAN ACCOMMODATE A PATIENT UP TO 1000 LBS. SHE COULD NOT RECALL THE NAME. SHE STATES THEY GENERALLY HAVE A WAITING LIST. CM WILL SEARCH. DCP- Discharge Planning Updated by [id number]: Eunice Vo on 10/24/18 3:[address] LATE ENTRY 0915 REC TELEPHONE CALL FROM ANGEL SÁNCHEZ THIS AM. [facility] NURSING TO REVIEW CLINICAL TODAY. HE WILL ADVISE THIS AFTERNOON REGARDING ACCEPTANCE. 1325 REC TELEPHONE CALL FROM ANGEL. [facility] CANNOT MEET THE PATIENT'S NEEDS. THEIR BARIATRIC SERVICES HAS CAPABILITY FOR 550 LBS. KADI SINGH, SPOKE WITH ENOCH CARDOZO, CLINICAL LIAISON, FOR [facility] SERVICE. SHE DOES NOT HAVE A FACILITY THAT CAN PROVIDE CARE FOR THIS PATIENT. HER FACILITIES ARE [facility], [facility], [facility] [place], [facility]. WILL CONTINUE TO SEARCH. WILL UPDATE THE PATIENT. DCP- Discharge Planning Updated by [id number]: Eunice Vo on 10/23/18 5:[address] LATE ENTRY 1100 RADHA, BINDERY MANAGER, SPOKE W/ ME THIS AM. SHE HAD NOT REC CB FROM ANGEL AT [facility]. CM WILL FOLLOW UP IN THE AM REGARDING DECISION AND PROJECTED DISCHARGE DATE. FOLLOW UP SPEECH THERAPY EVAL COMPLETED. UPDATED WEIGHT REPORTEDLY IS 660 LBS. PATIENT TO HAVE ABG'S TODAY AFTER TRILOGY. PULMONARY NOTE REQUEST SNF PLACEMENT IN [place]. THE PATIENT'S PLAN IS FOR SNF REHAB AT [facility]. CM WORKING ON PLACEMENT AT APPROPRIATE FACILITY W/ CAPABILITY TO PROVIDE HER NEEDS, [facility]. DCP- Discharge Planning Updated by [id number]: Radha Noel on 10/22/18 10:[address] KADI has been working with patient to try to get in touch with her Igor Schofield. He hasn't been answering the phone. KADI tried to assist by looking up his mother and sister on Facebook to see if there was a phone number linked to their accounts but there wasn't. 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 CM gave patient phone numbers to both PA in [place]. CM also looked up her [facility] phone number so she could call about her belongings in her home. CM will continue to follow and assist as needed with discharge planning / needs. DCP- Discharge Planning Updated by [id number]: Radha Noel on 10/22/18 10:[address] Angel from [facility] came by last week to see patient and to obtain records. KATY was given verbally per patient for Grecia Mckay at that time. Angel later called back and stated to notify him when patient is closer to discharge. CM attempted to call Angel this morning in regards possible discharge by the end of the week. He stated he was in a meeting and would call back later. Meantime I have asked nursing for a weight on patient since there hasn't been one recorded since 10/10/18. Nursing stated that the bed scale isn't working. CM will continue to follow and assist as needed for discharge planning / needs. DCP- Discharge Planning Updated by [id number]: Radha Noel on 10/15/18 7:[address] CM checking with care home facilities regarding possible placement. CM having barriers related to patient's weight and facilities not being able to accommodate a patient of her size. At this time [facility], [facility] [place] [place], and [place] have all denied patient. CM will continue to seek placement. CM will continue to follow and assist as needed with discharge planning / needs. DCP- Discharge Planning Updated by [id number]: Radha Noel on 10/11/18 2:[address] CM spoke with regarding LTACH placement. Patient is Medicaid only therefore patient is not an LTACH candidate. Dr. Juarez states he would like patient transferred back to [facility] once patient is more stable. CM will continue to follow and assist as needed with discharge planning / needs. DCP- Discharge Planning Updated by [id number]: Radha Noel on 10/09/18 4:[address] Patient Name: DOT MIXON Admission Status: Urgent Accout number: [id number] Admission Date: 09-30-2018 : 1975 Admission Diagnosis:ACUTE KIDNEY FAILURE, UNSPECIFIED Attending: Junior Rubalcava Current LOS: 9 Anticipated DC Date: Planned Disposition: Primary Insurance: [place] Discharge Planning Comments: CM met with patient at bedside. She states that she lives [address] [place] [address] . She lives with her fianc? Raquel Antonyes [phone]. She states that she does have home health with [facility] and her fianc? is her caregiver. She states that she has an Electric chair, BSC and trilogy with [facility]. Patient states that she needs a shower chair, walker and suction cup grab bars for shower. Patient would like to go home upon discharge and resume care with Parmjit CEDILL[facility]. KATY form signed for [facility]. Patient is not a candidate for LTACH due Medicaid being a payer source and not covered under Medicaid. CM will continue to follow and assist as needed with discharge planning / needs. Mold Cooler: Radha Noel DCP- Discharge Planning Updated by [id number]: Radha Noel on 10/08/18 6:[address] CM attempted to meet with patient for discharge planning /needs. Patient is currently on BiPap and wasn't able to speak to CM. No family available at this time. CM will continue to follow and assist as needed with discharge planning / needs. DCP- Discharge Planning Updated by [id number]: Radha Noel on 10/01/18 12:[address] CM attempted to meet with patient for discharge planning /needs. Patient is currently sedated on vent no family available at this time. CM will continue to follow and assist as needed with discharge planning / needs. DCPIA - Discharge Planning Initial Assessment Updated by [id number]: Radha Noel on 10/09/18 4:55 pm * Is the patient Alert and Oriented? Yes * How many steps to enter\\exit or inside your home? * PCP Lauren with [facility] * Pharmacy [facility] [place] * Preadmission Environment Home with Family * ADLs Partial Dependent * Partial ADLs (Assistance needed) Ambulation Bathing Dressing Eating Medication Management Toileting Transfers * Other Equipment Electric Lift chair, BSC, Trilogy ([facility]) * List name and contact numbers for known caregivers / representatives who currently or will assist patient after discharge: Raquel celestin? - [phone] * Verbal permission to speak to the caregivers and representatives has been obtained from the patient. Yes * Community resources currently utilized Home Health * Please name any agencies selected above. [facility] * Additional services required to return to the preadmission environment? No * Can the patient safely return to the preadmission environment? Yes * Has this patient been hospitalized within the prior 30 days at any hospital? No External Providers External Provider: [facility] Next Contact Date: 11/05/2018 Service Request Date: Service Type: Resolution: Reviewer: Comments: External Provider: [facility] Next Contact Date: 11/05/2018 Service Request Date: Service Type: Resolution: Reviewer: Comments: Last DP export: 11/05/18 2:26 p Patient Name: DOT MIXON Page [phone] at 1533 All edits/amendments must be made on the electronic document DICTATION DATE: 11/05/18 1532 RIB KNITTER: FLIP 11/05/18 1532 RPT#: [id number] MA DATE: STATUS: ADM IN [facility] [address] [place] [address] END OF REPORT
--- NOTE | 2018-11-05 15:42 | MORECARE ---
CASE MANAGEMENT DISCHARGE SUMMARY PATIENT: DOT MIXON UNIT: [id number] ADM DATE: 09/30/18 AGE: 43 : 75 SEX: F ROOM/BED: D.2101 AUTHOR: PREMA,DOC PHYSICIAN: REFERRING PHYSICIAN: ELOISE GIVENS MD DATE OF SERVICE: 11/05/18 Discharge Plan Patient Name: DOT MIXON Facility: [facility]:[place] : 1975 Planned Disposition: Nursing Facility JS Cert Anticipated Discharge Date: Discharge Date: Expected LOS: Initial Reviewer: [id number] Initial Review Date: 10/09/2018 Generated: 11/05/18 4:42 pm Comments DCP- Discharge Planning Updated by [id number]: Ang Basurto on 11/05/18 2:[address] Patient Name: DOT MIXON Encounter No: [id number] : 1975 Primary Insurance: [place]ID [place] Anticipated DC Date: Planned Disposition: Nursing Facility JS Cert External Planned Provider: FIRST ACCEPTING FACILITY, MANUFACTURING QUALITY ENGINEER CARE MEDICAID BED DCP follow-up note: CM SPOKE TO [facility]NO[facility] OF [facility] WILL NOT ACCEPT PT THEY HAVE INADEQUATE STAFFING TO CARE FOR PT. CM FAXED UPDATE TO [facility] AT [phone] FOR CONSIDERATION AT ANY AND ALL OF HER OTHER HOMES. CM FAXED UDPATE TO [facility], [facility], [facility], [facility], [place], [place], [facility], [facility], [facility] AND [facility]. CM FAXED REFERRALS TO [place], [facility] AND [facility]. [facility], [facility], [facility], [facility], [facility] AND [facility] CANNOT MEET PT'S NEEDS. CM WAITING ADMISSION DETERMINATION FROM [facility], [facility], [facility], [place], [place], [facility], [facility], [facility], [place], [place], [facility], AND [facility]. CM WILL CONTINUE TO WORK TO ATTEMPT TO SECURE PLACEMENT AT ANY ACCEPTING NURSING FACILITY. Ang Basurto, CASE MANAGEMENT DCP- Discharge Planning Updated by [id number]: Ang Basurto on 11/04/18 1:[address] Patient Name: DOT MIXON Encounter No: [id number] : 1975 Primary Insurance: [place] Anticipated DC Date: Planned Disposition: Nursing Facility JS Cert External Planned Provider: [facility] MEDICAID BED DCP follow-up note: CM SPOKE TO [facility] IS CONSIDERING PT FOR ALF CARE AT [facility] OR [facility]. CM FAXED UPDATE TO [facility] AT [phone].CM FAXED UDPATE TO [facility], [facility], [facility], [facility], [facility], [place], [facility], [facility], [facility], [facility] AND [facility]. [facility], [facility] AND [facility] CANNOT MEET PT'S NEEDS. CM WAITING ADMISSION DETERMINATION FROM [facility], [facility], [facility], [facility], [place], [facility], [facility], [facility], [facility], [facility] AND [facility]. CM WILL CONTINUE TO WORK TO ATTEMPT TO SECURE PLACEMENT AT ANY ACCEPTING NURSING FACILITY. Ang Basurto, CASE MANAGEMENT Appended by Ang Basurto on 11/04/2018 14:41 CDT: CM SPOKE TO [facility] ([place], [place]) WHO REPORTS THEY ARE CONSIDERING PT FOR ALF CARE PLACEMENT; THEY NEED TRILOGY SETTINGS AND TO KNOW IF AND WHEN PT CAN COME OFF ISOLATION. CM OBTAINED TRILOGY SETTINGS WITH HELP OF RESPIRATORY THERAPIST CIARA: HOME TRILOGY SETTINGS: EVAPS - AE; RATE2.0; VT 475; MAX PRESSURE 28; MIN PRESSURE 20; PRESSURE SUPPORT MIN 10; EPAP MAX PRESSURE 10; EPAP MIN PRESSURE 5; RATE AUTO CM PROVIDED THE ABOVE INFORMATION TO [facility]. CM SPOKE TO [facility] WHO REPORTS THEY ARE CONSIDERING PT FOR MANUFACTURING QUALITY ENGINEER CARE AND WILL SPEAK TO PT VIA PHONE IN ROOM. CM RECEIVED CALL FROM [facility], THEY ARE GOING TO COME AND VISIT WITH PT TODAY FOR WOUND ASSESSMENT IN ROOM. CM RECEIVED CALLS FROM [facility] AND [facility] INFORMING CM THAT THEY CANNOT MEET PT'S NEEDS. [facility], [facility], [facility], [place] AND [facility] CANNOT MEET PT'S NEEDS. CM WAITING ADMISSION DETERMINATION FROM [facility], [facility], [facility], [facility], [facility], [facility], [place], [facility], [facility], [facility] AND [facility]. CM WILL CONTINUE TO WORK TO ATTEMPT TO SECURE PLACEMENT AT ANY ACCEPTING NURSING FACILITY. ANG BASURTO CASE MANAGEMENT DCP- Discharge Planning Updated by [id number]: Ang Basurto on 11/01/18 4:[address] Patient Name: DOT MIXON Encounter No: [id number] : 1975 Primary Insurance: [place] Anticipated DC Date: Planned Disposition: Nursing Facility [facility] Cert External Planned Provider: [facility], MANUFACTURING QUALITY ENGINEER CARE MEDICAID BED DCP follow-up note: CM SPOKE TO [facility], , THEY ARE CONSIDERING PT FOR ALF CARE AT [facility] OR [facility]. CM FAXED UPDATE TO [facility] AT [phone]. CM WAITING ADMISSION DETERMINATION FROM [facility], [facility], [facility], [facility], [facility], [facility], [facility], [facility], [facility], [facility], [facility], [facility], [facility], [facility], [facility] AND [facility]. CM WILL CONTINUE TO WORK TO ATTEMPT TO SECURE PLACEMENT AT ANY ACCEPTING NURSING FACILITY. Ang Basurto CASE KAMRAN DCP- Discharge Planning Updated by [id number]: Ang Basurto on 10/31/18 7:[address] Patient Name: DOT MIXON Encounter No: [id number] : 1975 Primary Insurance: [place]ID [place] Anticipated DC Date: Planned Disposition: Nursing Facility JS Cert External Planned Provider:TO BE DETERMINED DCP follow-up note: CM SPOKE [facility] CARE NURSE, THEY HAVE REMOVED PT FROM BED, ZERO'D THE BED SCALE AND PLACED PT BACK ON FOR CURRENT WEIGHT OF 374 POUNDS. CM SPOKE TO PT WHO IS WILLING FOR ALF CARE PLACEMENT AND WILL WORK WITH HER FIANCE TO ESTABLISH A DISABILITY ACCESSIBLE APARTMENT FOR PT'S EVENTUAL RETURN HOME WITH HER FIANCE WHO IS PT'S PAID CAREGIVER THROUGH MEDICAID. CM FAXED REFERRALS TO [facility], [facility], [facility], [facility], [facility], [facility], [facility], [facility], [facility], [facility], [facility], [facility], [facility], [facility] AND [facility]. CM WAITING ADMISSION DETERMINATION FROM [facility], [facility], [facility], [facility], [facility], [facility], [facility], [place], [facility], [facility], [facility], [facility], [facility], [facility] AND [facility]. CM WILL CONTINUE TO WORK TO ATTEMPT TO SECURE PLACEMENT AT ANY ACCEPTING NURSING FACILITY. Ang Basurto, CASE MANAGEMENT DCP- Discharge Planning Updated by [id number]: Ang Basurto on 10/29/18 3:[address] Patient Name: DOT MIXON Encounter No: [id number] : 1975 Primary Insurance: [place] Anticipated DC Date: Planned Disposition: Prison Facility External Planned Provider: TO BE DETERMINED DCP follow-up note: CM SPOKE TO PT VIA PHONE WHO INFORMED CM THAT THEY GOT HER ON A NEW BED AND HER WEIGHT IS 314 POUNDS. CM MET WITH PT IN ROOM, LOOKED AT BED SCALE TO DETERMINE IF IT WAS SHOWING POUNDS OR KILOGRAMS. DURING CONVERSATION WITH PT, PT WAS OFFENDED WHEN CM ASKED ABOUT PT'S KNOWN WEIGHT PRIOR TO HOSPITAL STAY AND WHERE PT'S WEIGHT WAS OBTAINED. CM OBSERVED THAT STANDARD BATHROOM SCALES AVAILABLE AT MOST RETAILERS DO NOT GO UP TO PT'S CURRENT WEIGHT FOR HOME MEEASUREMENT. CM APOLOGIZED TO PT FOR ANY OFFENSE, EXPLAINED THAT ACCURATE WEIGHT WAS ABSOLUTELY NECESSARY TO FIND PLACEMENT FOR PT; PT REPORTED UNDERSTANDING. CM SPOKE TO NURSE AND DISCUSSED NEW BED SCALE. AFTER INVESTIGATION, IT WAS DETERMINED THAT THE BED WAS REGISTERING KILOGRAMS, NOT POUNDS. PT;S CURRENT WEIGHT IS [address] CM SPOKE TO [address] JUAREZ WHO INFORMED CM THAT PT IS STABLE AND HE WANTS HER OUT OF THE HOSPITAL. CM NOTIFIED CM FLOOR RUNNER OF DR. ORR WISHES AND ASSURED FLOOR RUNNER THAT CM IS WORKING TO FIND A SAFE DISCHARGE PLACEMENT. CM CALLED [facility] [place] AND [facility] FOR POSSIBLE PLACEMENT, NEITHER HAS CAPABILITY OF CARING FOR PT AT HER CURRENT WEIGHT AND HAD NO RECOMMMENDATIONS. CM CALLED [facility], SPOKE TO SUAD WHO WILL REVIEW PT AND GET BACK WITH CM. CM FAXED REFERRAL TO [facility] FOR FPC CARE. CM FAXED REFERRALS WITH REQUEST FOR PLACEMENT AND TO FORWARD REFERRAL TO ANY FACILITY THAT MIGHT CONSIDER PATIENT FOR MANUFACTURING QUALITY ENGINEER CARE TO: [facility], [facility], [facility] AND [facility]. CM CALLED [facility] IN [place], THEY CANNOT TAKE PT THEIR EQUIPMENT WILL NOT HANDLE THE WEIGHT AND HAD NO SUGGESTIONS FOR PLACEMENT. CM WAITING ADMISSION DETERMINATION FROM [facility], [place], [facility] AND [facility]. CM WILL CONTINUE TO WORK TO ATTEMPT TO SECURE PLACEMENT AT ANY ACCEPTING NURSING FACILITY. Ang Basurto, CASE MANAGEMENT DCP- Discharge Planning Updated by [id number]: Ang Basurto on 10/28/18 4:[address] Patient Name: DOT MIXON Encounter No: [id number] : 1975 Primary Insurance: [place] Anticipated DC Date: Planned Disposition: Prison Facility External Planned Provider: TO BE DETERMINED DCP follow-up note: CM REVIEWED CHART, MET WITH PT IN ROOM. PT CONCERNED THAT HER FIANCE AND "FUR BABIES" ARE BEING EVICTED FROM THE APARTMENT. PT ENCOURAGED PT TO FOCUS ON HER RECOVERY. PT IS AWARE THAT SHE NEEDS ALF NURSING CARE AND WILL GO TO ANY ACCEPTING FACILITY AT THIS TIME. PT HAS BEEN ASKING THERAPY TO GET HER OUT OF BED BUT THE BED WILL NOT GO LOW ENOUGH AND THE MATTRESS IS TO SLIPPER[place] AND THEY ARE AFRAID THEY WILL DROP HER AND SHE WILL NOT BE ABLE TO GET BACK IN BED. CM CALLED [facility] IN [place], THEY ARE NOT ABLE TO MEET PT'S NEEDS. CM CALLED [facility] IN [place], THEY HAVE NO AVAILABLE BERIATRIC BED AT THIS TIME. CM CALLED [facility] IN [place], THEY CANNOT MEET PT'S NEEDS. CM WAS DIRECTED IN CONVERSTATIONS WITH ABOVE PROVIDERS TO CALL [facility] IN [place] AND [facility] FOR POSSIBLE PLACEMENT. CM WILL CONTINUE TO WORK TO ATTEMPT TO SECURE PLACEMENT AT ANY ACCEPTING NURSING FACILITY. Ang Basurto, CASE MANAGEMENT DCP- Discharge Planning Updated by [id number]: Euniceflako Vo on 10/25/18 6:[address] CM SPOKE JOSE CARLOS PATIENT 10/24/18 PM REGARDING SERACH. SHE WANTS TO GO TO FACILITY [place]AR [place]. CM EXPLAINED SHE HAD SPECIAL NEEDS THAT COULD NOT BE MET AT ANY FACILITY IN [place]. SHE UNDERSTANDS. SHE STATES SHE CANNOT RETURN TO HER HOME. 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 THE TRAILER WOULD NEED A NEW REINFORCED FLOOR. SHE CANNOT AMBULATE . SHE MISSES HER FRIENDS. INTERNET SEARCH WITH NO FINDINGS FOR FACILITIES. TC TO [facility] CASE MANAGEMENT DEPARTMENT. AWARANGEL SAAVEDRA, PLANETARIUM TECHNICIAN- SUPERVISIOR TO WAGE AND HOUR INVESTIGATOR. HAD TO LEAVE A VOICE MAIL REQUESTING ASSISTANCE FOR RESOURCE FOR SNF BARIATRIC SERVICES. AWAITED CALL BACK. TELEPHONE CALL TO [facility] , [place]. LEFT VOICE MAIL MESSAGE FOR MS ROONEY, ADMISSION COORDINATOR. NO SERVICE AVAILABLE AT HER FACILITY. SHE STATES THERE IS A FACILITY IN [place] , THE ONLY ONE IN THE [facility], THAT CAN ACCOMMODATE A PATIENT UP TO 1000 LBS. SHE COULD NOT RECALL THE NAME. SHE STATES THEY GENERALLY HAVE A WAITING LIST. CM WILL SEARCH. DCP- Discharge Planning Updated by [id number]: Eunice Vo on 10/24/18 3:[address] LATE ENTRY 09 REC TELEPHONE CALL FROM ANGEL SÁNCHEZ THIS AM. [facility] NURSING TO REVIEW CLINICAL TODAY. HE WILL ADVISE THIS AFTERNOON REGARDING ACCEPTANCE. 1325 REC TELEPHONE CALL FROM ANGEL. [facility] CANNOT MEET THE PATIENT'S NEEDS. THEIR BARIATRIC SERVICES HAS CAPABILITY FOR 550 LBS. KADI SINGH, SPOKE WITH [facility] CARDOZO, CLINICAL LIAISON, FOR [facility]. SHE DOES NOT HAVE A FACILITY THAT CAN PROVIDE CARE FOR THIS PATIENT. HER FACILITIES ARE [facility], [facility], [employer] [place], [facility] AND [facility]. WILL CONTINUE TO SEARCH. WILL UPDATE THE PATIENT. DCP- Discharge Planning Updated by [id number]: Eunice Vo on 10/23/18 5:[address] LATE ENTRY Abel GARCIA, GENERAL PRODUCTION LABORER, SPOKE W/ ME THIS AM. SHE HAD NOT REC CB FROM ANGEL AT [facility]. CM WILL FOLLOW UP IN THE AM REGARDING DECISION AND PROJECTED DISCHARGE DATE. FOLLOW UP SPEECH THERAPY EVAL COMPLETED. UPDATED WEIGHT REPORTEDLY IS 660 LBS. PATIENT TO HAVE ABG'S TODAY AFTER TRILOGY. PULMONARY NOTE REQUEST SNF PLACEMENT IN [place]. THE PATIENT'S PLAN IS FOR SNF REHAB AT [facility]. CM WORKING ON PLACEMENT AT APPROPRIATE FACILITY W/ CAPABILITY TO PROVIDE HER NEEDS, [facility]. DCP- Discharge Planning Updated by [id number]: Aundrea Noel on 10/22/18 10:[address] CM has been working with patient to try to get in touch with her Igor Raquel Chandu. He hasn't been answering the phone. CM tried to assist by looking up his mother and sister on Facebook to see if there was a phone number linked to their accounts but there wasn't. 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 CM gave patient phone numbers to both [place] in [place]. CM also looked up her [facility] phone number so she could call about her belongings in her home. CM will continue to follow and assist as needed with discharge planning / needs. DCP- Discharge Planning Updated by [id number]: Aundrea Noel on 10/22/18 10:[address] Angel from [facility] came by last week to see patient and to obtain records. KATY was given verbally per patient for [facility] at that time. Angel later called back and stated to notify him when patient is closer to discharge. CM attempted to call Angel this morning in regards possible discharge by the end of the week. He stated he was in a meeting and would call back later. Meantime I have asked nursing for a weight on patient since there hasn't been one recorded since 10/10/18. Nursing stated that the bed scale isn't working. CM will continue to follow and assist as needed for discharge planning / needs. DCP- Discharge Planning Updated by [id number]: Aundrea Noel on 10/15/18 7:[address] CM checking with assisted facilities regarding possible placement. CM having barriers related to patient's weight and facilities not being able to accommodate a patient of her size. At this time [facility], [facility], [facility], and [facility] have all denied patient. CM will continue to seek placement. CM will continue to follow and assist as needed with discharge planning / needs. DCP- Discharge Planning Updated by [id number]: Aundrea Noel on 10/11/18 2:[address] CM spoke with regarding LTACH placement. Patient is Medicaid only therefore patient is not an LTACH candidate. Dr. Juarez states he would like patient transferred back to [facility] once patient is more stable. CM will continue to follow and assist as needed with discharge planning / needs. DCP- Discharge Planning Updated by [id number]: Aundrea Noel on 10/09/18 4:[address] Patient Name: DOT MIXON Admission Status: Urgent Accout number: [id number] Admission Date: 09-30-2018 : 1975 Admission Diagnosis:ACUTE KIDNEY FAILURE, UNSPECIFIED Attending: Junior Rubalcava Current LOS: 9 Anticipated DC Date: Planned Disposition: Primary Insurance: MEDICAID [place] Discharge Planning Comments: CM met with patient at bedside. She states that she lives [address] [place] [address] . She lives with her igor Schofield [phone]. She states that she does have home health with [facility] and her fianc? is her caregiver. She states that she has an Electric chair, BSC and trilogy with [facility]. Patient states that she needs a shower chair, walker and suction cup grab bars for shower. Patient would like to go home upon discharge and resume care with [facility] . KATY form signed for [facility] . Patient is not a candidate for LTACH due Medicaid being a payer source and not covered under Medicaid. CM will continue to follow and assist as needed with discharge planning / needs. Orthopedic Radiologic Technologist: Aundrea Noel DCP- Discharge Planning Updated by [id number]: Aundrea Noel on 10/08/18 6:[address] CM attempted to meet with patient for discharge planning /needs. Patient is currently on BiPap and wasn't able to speak to CM. No family available at this time. CM will continue to follow and assist as needed with discharge planning / needs. DCP- Discharge Planning Updated by [id number]: Aundrea Noel on 10/01/18 12:[address] CM attempted to meet with patient for discharge planning /needs. Patient is currently sedated on vent no family available at this time. CM will continue to follow and assist as needed with discharge planning / needs. DCPIA - Discharge Planning Initial Assessment Updated by [id number]: Aundrea Noel on 10/09/18 4:55 pm * Is the patient Alert and Oriented? Yes * How many steps to enter\\exit or inside your home? * PCP Lauren with [facility] * Pharmacy [facility] * Preadmission Environment Home with Family * ADLs Partial Dependent * Partial ADLs (Assistance needed) Ambulation Bathing Dressing Eating Medication Management Toileting Transfers * Other Equipment Electric Lift chair, BSC, Trilogy ([facility]) * List name and contact numbers for known caregivers / representatives who currently or will assist patient after discharge: Raquel celestin? - [phone] * Verbal permission to speak to the caregivers and representatives has been obtained from the patient. Yes * Community resources currently utilized Home Health * Please name any agencies selected above. [facility] * Additional services required to return to the preadmission environment? No * Can the patient safely return to the preadmission environment? Yes * Has this patient been hospitalized within the prior 30 days at any hospital? No Last DP export: 11/05/18 2:32 p Patient Name: DOT MIXON Page [id number] at 1542 All edits/amendments must be made on the electronic document DICTATION DATE: 11/05/181540 INTEGRATION DEVELOPER: FLIP 11/05/181540 RPT#: [id number] DC DATE: STATUS: ADM IN [facility] [address] [place] [address] END OF REPORT
--- NOTE | 2018-11-05 16:09 | NUR ---
PT ADAMENT THAT COME TO THE HOSPITAL AND PERFORM HER DRESSING CHANGES BECAUSE THE NURSES "CAN'T DO IT RIGHT" LEFT MESSAGE WITH OFFICE
--- NOTE | 2018-11-05 17:22 | NUR ---
PT RESTING IN BED EATING SUPPER. DENIES ANY NEEDS AT THIS TIME, WILL CONT TO FOLLOW POC
[2018-11-05 17:26] VITALS: BP 122/66
--- NOTE | 2018-11-05 19:34 | NUR ---
PATIENT LAYING IN BED. HAS NO COMPLAINTS AT THIS TIME. NO DISTRESS NOTED. DRESSING TO HEELS C/D/I. ASSESSMENT COMPLETE.
[2018-11-05 20:00] VITALS: BP 107/60
[2018-11-06] VITALS: BP 116/61
--- NOTE | 2018-11-06 03:26 | NUR ---
PATIENT LAYING IN BED. EYES CLOSED, CHEST RISING AND FALLING. NO DISTRESS NOTED.
[2018-11-06 04:00] VITALS: BP 128/70
[2018-11-06 05:41] LABS: BASOPHILS 0.5 % (0-2); EOSINOPHILS 6.1 % (0-7); HEMATOCRIT 39.7 % (36.0-48.0); HEMOGLOBIN 11.9 g/dL (12-16); MCH 24.3 pg (26.0-34.0); MEAN PLATELET VOLUME 10.1 fL (7.4-10.4); MONOCYTES 7.3 % (2-11); NEUTROPHILS 61.1 % (40-80); PLATELET COUNT 107 10x3/uL (130-400); RDW 19.3 % (11.5-14.5); WBC 6.3 10x3/uL (4.8-10.8)
[2018-11-06 05:59] LABS: CALCIUM 9.1 mg/dL (8.5-10.1); CARBON DIOXIDE 30.4 mmol/L (21.0-32.0); CREATININE - SERUM 1.5 mg/dL (0.6-1.3); MAGNESIUM - SERUM 1.6 mg/dL (1.8-2.4); POTASSIUM - SERUM 3.4 mmol/L (3.5-5.1)
--- NOTE | 2018-11-06 07:29 | NUR ---
ALERT AND ORIENTED. NO C/O PAIN AT THIS TIME. CL IN REACH.
[2018-11-06 08:31] VITALS: BP 121/67
[2018-11-06 11:39] VITALS: BP 136/72
--- NOTE | 2018-11-06 11:53 | NUR ---
DROPLET ISOLATION PRECAUTIONS. RESTING IN BED WO C/O PAIN.
--- NOTE | 2018-11-06 12:59 | MORECARE ---
CASE MANAGEMENT DISCHARGE SUMMARY PATIENT: DOT MIXON UNIT: [id number] ADM DATE: 09/30/18 AGE: 43 : 75 SEX: F ROOM/BED: D.2101 AUTHOR: PREMA,DOC PHYSICIAN: REFERRING PHYSICIAN: ELOISE GIVENS MD DATE OF SERVICE: 11/06/18 Discharge Plan Patient Name: DOT MIXON Facility: [facility]:[place] : 1975 Planned Disposition: Nursing Facility JS Cert Anticipated Discharge Date: Discharge Date: Expected LOS: Initial Reviewer: [id number] Initial Review Date: 10/09/2018 Generated: 11/06/18 1:59 pm Comments DCP- Discharge Planning Updated by [id number]: Ang Basurto on 11/05/18 2:[address] Patient Name: DOT MIXON Encounter No: [id number] : 1975 Primary Insurance: [place]ICAID [place] Anticipated DC Date: Planned Disposition: Nursing Facility JS Cert External Planned Provider: FIRST ACCEPTING FACILITY, HEALTH IT SPECIALIST CARE MEDICAID BED DCP follow-up note: CM SPOKE TO ENOCH OF [facility] WILL NOT ACCEPT PT THEY HAVE INADEQUATE STAFFING TO CARE FOR PT. CM FAXED UPDATE TO ENOCH AT [phone] FOR CONSIDERATION AT ANY AND ALL OF HER OTHER HOMES. CM FAXED UDPATE TO [facility], [facility], [facility], [facility], [facility], [facility], [facility], [facility], [facility] AND [facility] CM FAXED REFERRALS TO [place], [facility] AND [facility]. [facility], [facility], [facility], [facility], [facility] AND [facility] CANNOT MEET PT'S NEEDS. CM WAITING ADMISSION DETERMINATION FROM [facility], [facility], [facility], [facility], [facility], [facility], [facility], [facility], [facility], [place], [facility], AND [facility]. CM WILL CONTINUE TO WORK TO ATTEMPT TO SECURE PLACEMENT AT ANY ACCEPTING NURSING FACILITY. Ang Basurto, CASE MANAGEMENT DCP- Discharge Planning Updated by [id number]: Ang Basurto on 11/04/18 1:[address] Patient Name: DOT MIXON Encounter No: [id number] : 1975 Primary Insurance: [place]ID [place] Anticipated DC Date: Planned Disposition: Nursing Facility JS Cert External Planned Provider: [facility] TERM CARE MEDICAID BED DCP follow-up note: CM SPOKE TO ENOCH [facility] IS CONSIDERING PT FOR HALF-WAY CARE AT [facility]. CM FAXED UPDATE TO ENOCH AT [phone].CM FAXED UDPATE TO [facility], [facility], [facility], [facility], [facility], [facility], [facility], [facility], [facility] AND [facility]. THE [facility], [facility] AND [facility] CANNOT MEET PT'S NEEDS. CM WAITING ADMISSION DETERMINATION FROM [facility], [facility], [facility], [facility], [facility], [facility], [facility], [facility], [place], [facility] AND [facility]. CM WILL CONTINUE TO WORK TO ATTEMPT TO SECURE PLACEMENT AT ANY ACCEPTING NURSING FACILITY. Ang Basurto, CASE MANAGEMENT Appended by Ang Basurto on 11/04/2018 14:41 CDT: CM SPOKE TO [facility] WHO REPORTS THEY ARE CONSIDERING PT FOR HALF-WAY CARE PLACEMENT; THEY NEED TRILOGY SETTINGS AND TO KNOW IF AND WHEN PT CAN COME OFF ISOLATION. CM OBTAINED TRILOGY SETTINGS WITH HELP OF RESPIRATORY THERAPIST CIARA: HOME TRILOGY SETTINGS: EVAPS - AE; RATE2.0; VT 475; MAX PRESSURE 28; MIN PRESSURE 20; PRESSURE SUPPORT MIN 10; EPAP MAX PRESSURE 10; EPAP MIN PRESSURE 5; RATE AUTO CM PROVIDED THE ABOVE INFORMATION TO [facility]. CM SPOKE TO [facility] WHO REPORTS THEY ARE CONSIDERING PT FOR HEALTH IT SPECIALIST CARE AND WILL SPEAK TO PT VIA PHONE IN ROOM. CM RECEIVED CALL FROM ENOCH [facility], THEY ARE GOING TO COME AND VISIT WITH PT TODAY FOR WOUND ASSESSMENT IN ROOM. CM RECEIVED CALLS FROM [place] AND [facility] INFORMING CM THAT THEY CANNOT MEET PT'S NEEDS. THE [facility], [facility], [facility], [facility] AND [facility] CANNOT MEET PT'S NEEDS. CM WAITING ADMISSION DETERMINATION FROM [facility], [facility], [facility], [facility], [facility], [facility], [facility], [facility], [facility], [facility] AND [facility]. CM WILL CONTINUE TO WORK TO ATTEMPT TO SECURE PLACEMENT AT ANY ACCEPTING NURSING FACILITY. ANG BASURTO CASE MANAGEMENT DCP- Discharge Planning Updated by [id number]: Ang Basurto on 11/01/18 4:[address] Patient Name: DOT MIXON Encounter No: [id number] : 1975 Primary Insurance: [place]ID [place] Anticipated DC Date: Planned Disposition: Nursing Facility [facility] Cert External Planned Provider: [facility], HEALTH IT SPECIALIST CARE MEDICAID BED DCP follow-up note: CM SPOKE TO ENOCH [facility], , THEY ARE CONSIDERING PT FOR HALF-WAY CARE AT [facility]. CM FAXED UPDATE TO ENOCH AT [phone]. CM WAITING ADMISSION DETERMINATION FROM [facility], [facility], [facility], [facility], [facility], [facility], [facility], [facility], [facility], [facility], [facility], [facility], [facility], [facility] [place], [facility] AND [facility]. CM WILL CONTINUE TO WORK TO ATTEMPT TO SECURE PLACEMENT AT ANY ACCEPTING NURSING FACILITY. Ang Basurto CASE KAMRAN DCP- Discharge Planning Updated by [id number]: Ang Basurto on 10/31/18 7:[address] Patient Name: DOT MIXON Encounter No: [id number] : 1975 Primary Insurance: [place]ID [place] Anticipated DC Date: Planned Disposition: Nursing Facility JS Cert External Planned Provider:TO BE DETERMINED DCP follow-up note: [facility], THEY HAVE REMOVED PT FROM BED, ZERO'D THE BED SCALE AND PLACED PT BACK ON FOR CURRENT WEIGHT OF 374 POUNDS. CM SPOKE TO PT WHO IS WILLING FOR HALF-WAY CARE PLACEMENT AND WILL WORK WITH HER FIANCE TO ESTABLISH A DISABILITY ACCESSIBLE APARTMENT FOR PT'S EVENTUAL RETURN HOME WITH HER FIANCE WHO IS PT'S PAID CAREGIVER THROUGH MEDICAID. CM FAXED REFERRALS TO [facility], [facility], [facility], [facility], [facility], [facility], [facility], [facility], [facility], [facility], [facility], [facility], [place], [facility] AND [facility]. CM WAITING ADMISSION DETERMINATION FROM [facility], [facility], [facility], [facility], [facility], [facility], [facility], [facility], [place], [facility], [facility], [facility], [facility], [facility] AND [facility]. CM WILL CONTINUE TO WORK TO ATTEMPT TO SECURE PLACEMENT AT ANY ACCEPTING NURSING FACILITY. Ang Basurto, CASE MANAGEMENT DCP- Discharge Planning Updated by [id number]: Ang Basurto on 10/29/18 3:[address] Patient Name: DOT MIXON Encounter No: [id number] : 1975 Primary Insurance: [place]ID [place] Anticipated DC Date: Planned Disposition: [facility] Facility External Planned Provider: TO BE DETERMINED DCP follow-up note: CM SPOKE TO PT VIA PHONE WHO INFORMED CM THAT THEY GOT HER ON A NEW BED AND HER WEIGHT IS 314 POUNDS. CM MET WITH PT IN ROOM, LOOKED AT BED SCALE TO DETERMINE IF IT WAS SHOWING POUNDS OR KILOGRAMS. DURING CONVERSATION WITH PT, PT WAS OFFENDED WHEN CM ASKED ABOUT PT'S KNOWN WEIGHT PRIOR TO HOSPITAL STAY AND WHERE PT'S WEIGHT WAS OBTAINED. CM OBSERVED THAT STANDARD BATHROOM SCALES AVAILABLE AT MOST RETAILERS DO NOT GO UP TO PT'S CURRENT WEIGHT FOR HOME MEEASUREMENT. CM APOLOGIZED TO PT FOR ANY OFFENSE, EXPLAINED THAT ACCURATE WEIGHT WAS ABSOLUTELY NECESSARY TO FIND PLACEMENT FOR PT; PT REPORTED UNDERSTANDING. CM SPOKE TO NURSE AND DISCUSSED NEW BED SCALE. AFTER INVESTIGATION, IT WAS DETERMINED THAT THE BED WAS REGISTERING KILOGRAMS, NOT POUNDS. PT;S CURRENT WEIGHT IS [address] CM SPOKE [address] JUAREZ WHO INFORMED CM THAT PT IS STABLE AND HE WANTS HER OUT OF THE HOSPITAL. CM NOTIFIED CM PLANT PROTECTION OFFICER OF DR. ORR WISHES AND ASSURED PLANT PROTECTION OFFICER THAT CM IS WORKING TO FIND A SAFE DISCHARGE PLACEMENT. CM CALLED [facility] [place] AND [facility] FOR POSSIBLE PLACEMENT, NEITHER HAS CAPABILITY OF CARING FOR PT AT HER CURRENT WEIGHT AND HAD NO RECOMMMENDATIONS. CM CALLED [facility], SPOKE TO SUAD WHO WILL REVIEW PT AND GET BACK WITH CM. CM FAXED REFERRAL TO [facility] FOR [facility]CI CARE. CM FAXED REFERRALS WITH REQUEST FOR PLACEMENT AND TO FORWARD REFERRAL TO ANY FACILITY THAT MIGHT CONSIDER PATIENT FOR HEALTH IT SPECIALIST CARE TO: [facility], [facility], [facility] AND [facility]. CM CALLED [facility] IN [place], THEY CANNOT TAKE PT THEIR EQUIPMENT WILL NOT HANDLE THE WEIGHT AND HAD NO SUGGESTIONS FOR PLACEMENT. CM WAITING ADMISSION DETERMINATION FROM [facility], [facility], [facility] AND [facility] CM WILL CONTINUE TO WORK TO ATTEMPT TO SECURE PLACEMENT AT ANY ACCEPTING NURSING FACILITY. Ang Basurto, CASE MANAGEMENT DCP- Discharge Planning Updated by [id number]: Ang Basurto on 10/28/18 4:[address] Patient Name: DOT MIXON Encounter No: [id number] : 1975 Primary Insurance: [place]ID [place] Anticipated DC Date: Planned Disposition: [facility] Facility External Planned Provider: TO BE DETERMINED DCP follow-up note: CM REVIEWED CHART, MET WITH PT IN ROOM. PT CONCERNED THAT HER FIANCE AND "FUR BABIES" ARE BEING EVICTED FROM THE APARTMENT. PT ENCOURAGED PT TO FOCUS ON HER RECOVERY. PT IS AWARE THAT SHE NEEDS HALF-WAY NURSING CARE AND WILL GO TO ANY ACCEPTING FACILITY AT THIS TIME. PT HAS BEEN ASKING THERAPY TO GET HER OUT OF BED BUT THE BED WILL NOT GO LOW ENOUGH AND THE MATTRESS IS TO SLIPPERY AND THEY ARE AFRAID THEY WILL DROP HER AND SHE WILL NOT BE ABLE TO GET BACK IN BED. CM CALLED [facility] IN [place], THEY ARE NOT ABLE TO MEET PT'S NEEDS. CM CALLED [facility] IN [place], THEY HAVE NO AVAILABLE BERIATRIC BED AT THIS TIME. CM CALLED [facility] [place], THEY CANNOT MEET PT'S NEEDS. CM WAS DIRECTED IN CONVERSTATIONS WITH ABOVE PROVIDERS TO CALL [facility] [place] AND [facility] FOR POSSIBLE PLACEMENT. CM WILL CONTINUE TO WORK TO ATTEMPT TO SECURE PLACEMENT AT ANY ACCEPTING NURSING FACILITY. Ang Basurto, CASE MANAGEMENT DCP- Discharge Planning Updated by [id number]: Euniceflako Vo on 10/25/18 6:[address] CM SPOKE JOSE CARLOS PATIENT 10/24/18 PM REGARDING SERACH. SHE WANTS TO GO TO FACILITY NEAR [place]. CM EXPLAINED SHE HAD SPECIAL NEEDS THAT COULD NOT BE MET AT ANY FACILITY IN [place]. SHE UNDERSTANDS. SHE STATES SHE CANNOT RETURN TO HER HOME. 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 THE TRAILER WOULD NEED A NEW REINFORCED FLOOR. SHE CANNOT AMBULATE . SHE MISSES HER FRIENDS. INTERNET SEARCH WITH NO FINDINGS FOR FACILITIES. TC TO [facility] CASE MANAGEMENT DEPARTMENT. AWARANGEL SAAVEDRA, COLORIST PHOTOGRAPHY- SUPERVISIOR TO MALE INFERTILITY SPECIALIST. HAD TO LEAVE A VOICE MAIL REQUESTING ASSISTANCE FOR RESOURCE FOR SNF BARIATRIC SERVICES. AWAITED CALL BACK. TELEPHONE CALL TO [facility] [place]. LEFT VOICE MAIL MESSAGE FOR MS ROONEY, ADMISSION COORDINATOR. NO SERVICE AVAILABLE AT HER FACILITY. SHE STATES THERE IS A FACILITY IN [place] , THE ONLY ONE IN THE [facility], THAT CAN ACCOMMODATE A PATIENT UP TO 1000 LBS. SHE COULD NOT RECALL THE NAME. SHE STATES THEY GENERALLY HAVE A WAITING LIST. CM WILL SEARCH. DCP- Discharge Planning Updated by [id number]: Eunice Vo on 10/24/18 3:[address] LATE ENTRY 09 REC TELEPHONE CALL FROM ANGEL SÁNCHEZ THIS AM. [facility] NURSING TO REVIEW CLINICAL TODAY. HE WILL ADVISE THIS AFTERNOON REGARDING ACCEPTANCE. 1325 REC TELEPHONE CALL FROM ANGEL. [facility] CANNOT MEET THE PATIENT'S NEEDS. THEIR BARIATRIC SERVICES HAS CAPABILITY FOR 550 LBS. KADI SINGH, SPOKE WITH ENOCH CARDOZO, CLINICAL LIAISON, FOR [facility] SERVICE. SHE DOES NOT HAVE A FACILITY THAT CAN PROVIDE CARE FOR THIS PATIENT. HER FACILITIES ARE [facility], [employer] [facility], [facility], [employer] AND [facility]. WILL CONTINUE TO SEARCH. WILL UPDATE THE PATIENT. DCP- Discharge Planning Updated by [id number]: Eunice Vo on 10/23/18 5:[address] LATE ENTRY Abel GARCIA, SEGMENTAL WALL INSTALLER, SPOKE W/ ME THIS AM. SHE HAD NOT REC CB FROM ANGEL AT [facility]. CM WILL FOLLOW UP IN THE AM REGARDING DECISION AND PROJECTED DISCHARGE DATE. FOLLOW UP SPEECH THERAPY EVAL COMPLETED. UPDATED WEIGHT REPORTEDLY IS 660 LBS. PATIENT TO HAVE ABG'S TODAY AFTER TRILOGY. PULMONARY NOTE REQUEST SNF PLACEMENT IN [place]. THE PATIENT'S PLAN IS FOR SNF REHAB AT [facility]. CM WORKING ON PLACEMENT AT APPROPRIATE FACILITY W/ CAPABILITY TO PROVIDE HER NEEDS, [facility]. DCP- Discharge Planning Updated by [id number]: Aundrea Noel on 10/22/18 10:[address] CM has been working with patient to try to get in touch with her Igor Raquel Chandu. He hasn't been answering the phone. CM tried to assist by looking up his mother and sister on Facebook to see if there was a phone number linked to their accounts but there wasn't. 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 CM gave patient phone numbers to both [place] in [place]. CM also [facility] phone number so she could call about her belongings in her home. CM will continue to follow and assist as needed with discharge planning / needs. DCP- Discharge Planning Updated by [id number]: Aundrea Noel on 10/22/18 10:[address] Angel from [facility] came by last week to see patient and to obtain records. KATY was given verbally per patient for [facility] at that time. Angel later called back and stated to notify him when patient is closer to discharge. CM attempted to call Angel this morning in regards possible discharge by the end of the week. He stated he was in a meeting and would call back later. Meantime I have asked nursing for a weight on patient since there hasn't been one recorded since 10/10/18. Nursing stated that the bed scale isn't working. CM will continue to follow and assist as needed for discharge planning / needs. DCP- Discharge Planning Updated by [id number]: Aundrea Noel on 10/15/18 7:[address] CM checking with penitentiary facilities regarding possible placement. CM having barriers related to patient's weight and facilities not being able to accommodate a patient of her size. At this time [facility], [facility], [facility], and [facility] have all denied patient. CM will continue to seek placement. CM will continue to follow and assist as needed with discharge planning / needs. DCP- Discharge Planning Updated by [id number]: Aundrea Noel on 10/11/18 2:[address] CM spoke with regarding LTACH placement. Patient is Medicaid only therefore patient is not an LTACH candidate. Dr. Juarez states he would like patient transferred back to [facility] once patient is more stable. CM will continue to follow and assist as needed with discharge planning / needs. DCP- Discharge Planning Updated by [id number]: Aundrea Noel on 10/09/18 4:[address] Patient Name: DOT MIXON Admission Status: Urgent Accout number: [id number] Admission Date: 09-30-2018 : 1975 Admission Diagnosis:ACUTE KIDNEY FAILURE, UNSPECIFIED Attending: Junior Rubalcava Current LOS: 9 Anticipated DC Date: Planned Disposition: Primary Insurance: MEDICAID [place] Discharge Planning Comments: CM met with patient at bedside. She states that she lives [address] [place] [address] . She lives with her igor Schofield [phone]. She states that she does have home health with [facility] and her fianc? is her caregiver. She states that she has an Electric chair, BSC and trilogy with [facility]. Patient states that she needs a shower chair, walker and suction cup grab bars for shower. Patient would like to go home upon discharge and resume care with [facility] . KATY form signed for [facility] . Patient is not a candidate for LTACH due Medicaid being a payer source and not covered under Medicaid. CM will continue to follow and assist as needed with discharge planning / needs. Act English Tutor: Aundrea Noel DCP- Discharge Planning Updated by [id number]: Aundrea Noel on 10/08/18 6:[address] CM attempted to meet with patient for discharge planning /needs. Patient is currently on BiPap and wasn't able to speak to CM. No family available at this time. CM will continue to follow and assist as needed with discharge planning / needs. DCP- Discharge Planning Updated by [id number]: Aundrea Noel on 10/01/18 12:[address] CM attempted to meet with patient for discharge planning /needs. Patient is currently sedated on vent no family available at this time. CM will continue to follow and assist as needed with discharge planning / needs. DCPIA - Discharge Planning Initial Assessment Updated by [id number]: Aundrea Noel on 10/09/18 4:55 pm * Is the patient Alert and Oriented? Yes * How many steps to enter\\exit or inside your home? * PCP Lauren with [facility] * Pharmacy [facility] * Preadmission Environment Home with Family * ADLs Partial Dependent * Partial ADLs (Assistance needed) Ambulation Bathing Dressing Eating Medication Management Toileting Transfers * Other Equipment Electric Lift chair, BSC, Trilogy ([facility]) * List name and contact numbers for known caregivers / representatives who currently or will assist patient after discharge: Raquel celestin? - [phone] * Verbal permission to speak to the caregivers and representatives has been obtained from the patient. Yes * Community resources currently utilized Home Health * Please name any agencies selected above. [facility] * Additional services required to return to the preadmission environment? No * Can the patient safely return to the preadmission environment? Yes * Has this patient been hospitalized within the prior 30 days at any hospital? No External Providers External Provider: [facility] Next Contact Date: 11/06/2018 Service Request Date: Service Type: Resolution: Reviewer: Comments: Last DP export: 11/05/18 2:42 p Patient Name: DOT MIXON Page [id number] at 1259 All edits/amendments must be made on the electronic document DICTATION DATE: 11/06/18 1255 TORQUE TESTER: FLIP 11/06/18 1255 RPT#: [id number] DC DATE: STATUS: ADM IN [place] [id number] [place] [address] END OF REPORT
--- NOTE | 2018-11-06 13:07 | MORECARE ---
CASE MANAGEMENT DISCHARGE SUMMARY PATIENT: DOT MIXON UNIT: [id number] ADM DATE: 09/30/18 AGE: 43 : 75 SEX: F ROOM/BED: D.2101 AUTHOR: PREMA,DOC PHYSICIAN: REFERRING PHYSICIAN: ELOISE GIVENS MD DATE OF SERVICE: 11/06/18 Discharge Plan Patient Name: DOT MIXON Facility: [facility]:[place] : 1975 Planned Disposition: Nursing Facility JS Cert Anticipated Discharge Date: Discharge Date: Expected LOS: Initial Reviewer: [id number] Initial Review Date: 10/09/2018 Generated: 11/06/18 2:07 pm Comments DCP- Discharge Planning Updated by [id number]: Ang Basurto on 11/06/18 12:[address] Patient Name: DOT MIXON Encounter No: [id number] : 1975 Primary Insurance: MEDICAID [place] Anticipated DC Date: Planned Disposition: Nursing Facility JS Cert External Planned Provider: FIRST ACCEPTING FACILITY, LIFESTYLE CONSULTANT CARE MEDICAID BED DCP follow-up note: CM FAXED UDPATE TO [facility] AND [facility]. CM SPOKE TO ANGEL OF [facility] AND MS. FERGUSON OF [facility], BOTH ARE CONSIDERING PT FOR FPC CARE. CM SPOKE TO JEFFY OF [facility] AND DISCUSSED PT'S SITUATION, [facility] WILL CONSIDER FOR FPC CARE, CM FAXED REFERRAL TO [facility].. [facility], [facility], [facility], [facility], [facility], [facility] AND [place] CANNOT MEET PT'S NEEDS. CM WAITING ADMISSION DETERMINATION FROM [facility], [facility], [facility], [facility], [facility], [facility], [facility], [facility], [facility], [facility], [facility] AND [facility]. CM WILL CONTINUE TO WORK TO ATTEMPT TO SECURE PLACEMENT AT ANY ACCEPTING NURSING FACILITY. MYRIAM Reddy DCP- Discharge Planning Updated by [id number]: Ang Basurto on 11/05/18 2:[address] Patient Name: DOT MIXON Encounter No: [id number] : 1975 Primary Insurance: MEDICAID [place] Anticipated DC Date: Planned Disposition: Nursing Facility JS Cert External Planned Provider: FIRST ACCEPTING FACILITY, LIFESTYLE CONSULTANT CARE MEDICAID BED DCP follow-up note: CM SPOKE TO [facility] WILL NOT ACCEPT PT THEY HAVE INADEQUATE STAFFING TO CARE FOR PT. CM FAXED UPDATE TO [facility] AT [phone] FOR CONSIDERATION AT ANY AND ALL OF HER OTHER HOMES. CM FAXED UDPATE TO [facility], [facility], [facility], [facility], [facility], [facility], [facility], [facility], [facility] AND [place] CM FAXED REFERRALS TO [facility], [facility] AND [facility]. [facility], [facility], [facility], [facility], [facility] AND [place] CANNOT MEET PT'S NEEDS. CM WAITING AD[facility]ION DETERMINATION FROM [facility], [facility], [facility], [facility], [facility], [facility], [facility], [facility], [place], [facility], [facility], AND [facility] CM WILL CONTINUE TO WORK TO ATTEMPT TO SECURE PLACEMENT AT ANY ACCEPTING NURSING FACILITY. Ang Basurto, CASE MANAGEMENT DCP- Discharge Planning Updated by [id number]: Ang Basurto on 11/04/18 1:[address] Patient Name: DOT MIXON Encounter No: [id number] : 1975 Primary Insurance: MEDICAID [place] Anticipated DC Date: Planned Disposition: Nursing Facility JS Cert External Planned Provider: [facility], LIFESTYLE CONSULTANT CARE MEDICAID BED DCP follow-up note: CM SPOKE TO [facility] IS CONSIDERING PT FOR FPC CARE AT [facility] OR [facility]. CM FAXED UPDATE TO [facility] AT [phone].CM FAXED UDPATE TO [facility], [facility], [facility], [facility], [facility], [place], [facility], [facility], [facility], [place], [place] [place] AND [place]. [facility] [place], [facility] AND [facility] CANNOT MEET PT'S NEEDS. CM WAITING ADMISSION DETERMINATION FROM [facility], [facility], [facility], [facility], [facility], [facility], [facility], [facility], [place], [facility] [place] AND [place]. CM WILL CONTINUE TO WORK TO ATTEMPT TO SECURE PLACEMENT AT ANY ACCEPTING NURSING FACILITY. Ang Basurto, CASE MANAGEMENT Appended by Ang Basurto on 11/04/2018 14:41 CDT: CM SPOKE TO [facility] WHO REPORTS THEY ARE CONSIDERING PT FOR LIFESTYLE CONSULTANT CARE PLACEMENT; THEY NEED TRILOGY SETTINGS AND TO KNOW IF AND WHEN PT CAN COME OFF ISOLATION. CM OBTAINED TRILOGY SETTINGS WITH HELP OF RESPIRATORY THERAPIST [place]: HOME TRILOGY SETTINGS: EVAPS - AE; RATE2.0; VT 475; MAX PRESSURE 28; MIN PRESSURE 20; PRESSURE SUPPORT MIN 10; EPAP MAX PRESSURE 10; EPAP MIN PRESSURE 5; RATE AUTO CM PROVIDED THE ABOVE INFORMATION TO [facility]. CM SPOKE TO [facility] WHO REPORTS THEY ARE CONSIDERING PT FOR FPC CARE AND WILL SPEAK TO PT VIA PHONE IN ROOM. CM RECEIVED CALL FROM [facility], THEY ARE GOING TO COME AND VISIT WITH PT TODAY FOR WOUND ASSESSMENT IN ROOM. CM RECEIVED CALLS FROM [place] AND [facility] INFORMING CM THAT THEY CANNOT MEET PT'S NEEDS. [facility], [facility], [facility], [place] AND [place] CANNOT MEET PT'S NEEDS. CM WAITING ADMISSION DETERMINATION FROM [facility], [facility], [facility], [place] [place], [facility], [facility], [facility] AND [place]. CM WILL CONTINUE TO WORK TO ATTEMPT TO SECURE PLACEMENT AT ANY ACCEPTING NURSING FACILITY. ANG BASURTO, CASE MANAGEMENT DCP- Discharge Planning Updated by [id number]: Ang Basurto on 11/01/18 4:[address] Patient Name: DOT MIXON Encounter No: [id number] : 1975 Primary Insurance: MEDICAID [place] Anticipated DC Date: Planned Disposition: Nursing Facility [facility] Cert External Planned Provider: [facility] [place], [facility]M [facility] MEDICAID BED DCP follow-up note: CM SPOKE TO ENOCH OF [facility], , THEY ARE CONSIDERING PT FOR FPC CARE AT [facility] OR [facility]. CM FAXED UPDATE TO [facility] AT [phone]. CM WAITING ADMISSION DETERMINATION FROM [facility], [facility], [facility], [facility], [facility], [facility], [facility], [place], [facility], [facility], [facility], [facility], [facility], [place], [facility] [place] AND [place]. CM WILL CONTINUE TO WORK TO ATTEMPT TO SECURE PLACEMENT AT ANY ACCEPTING NURSING FACILITY. Ang Basurto, CASE MANAGEMENT DCP- Discharge Planning Updated by [id number]: Ang Basurto on 10/31/18 7:[address] Patient Name: DOT MIXON Encounter No: [id number] : 1975 Primary Insurance: MEDICAID [place] Anticipated DC Date: Planned Disposition: Nursing Facility [facility] Cert External Planned Provider:TO BE DETERMINED DCP follow-up note: CM SPOKE [facility] CARE NURSE, THEY HAVE REMOVED PT FROM BED, ZERO'D THE BED SCALE AND PLACED PT BACK ON FOR CURRENT WEIGHT OF 374 POUNDS. CM SPOKE TO PT WHO IS WILLING FOR LIFESTYLE CONSULTANT CARE PLACEMENT AND WILL WORK WITH HER FIANCE TO ESTABLISH A DISABILITY ACCESSIBLE APARTMENT FOR PT'S EVENTUAL RETURN HOME WITH HER FIANCE WHO IS PT'S PAID CAREGIVER THROUGH MEDICAID. CM FAXED REFERRALS TO [facility], [facility], [facility], [facility], [facility], [facility], [place], [place], [facility], [facility], [facility], [facility], [place], [facility] [place] AND [place]. CM WAITING ADMISSION DETERMINATION FROM [facility], [facility], [facility], [facility], [facility], [facility], [facility], [place], [facility], [facility], [facility], [place], [facility] AND [place]. CM WILL CONTINUE TO WORK TO ATTEMPT TO SECURE PLACEMENT AT ANY ACCEPTING NURSING FACILITY. Ang Basurto, CASE MANAGEMENT DCP- Discharge Planning Updated by [id number]: Ang Basurto on 10/29/18 3:[address] Patient Name: DOT MIXON Encounter No: [id number] : 1975 Primary Insurance: MEDICAID [place] Anticipated DC Date: Planned Disposition: [facility] Facility External Planned Provider: TO BE DETERMINED DCP follow-up note: CM SPOKE TO PT VIA PHONE WHO INFORMED CM THAT THEY GOT HER ON A NEW BED AND HER WEIGHT IS 314 POUNDS. CM MET WITH PT IN ROOM, LOOKED AT BED SCALE TO DETERMINE IF IT WAS SHOWING POUNDS OR KILOGRAMS. DURING CONVERSATION WITH PT, PT WAS OFFENDED WHEN CM ASKED ABOUT PT'S KNOWN WEIGHT PRIOR TO HOSPITAL STAY AND WHERE PT'S WEIGHT WAS OBTAINED. CM OBSERVED THAT STANDARD BATHROOM SCALES AVAILABLE AT MOST RETAILERS DO NOT GO UP TO PT'S CURRENT WEIGHT FOR HOME MEEASUREMENT. CM APOLOGIZED TO PT FOR ANY OFFENSE, EXPLAINED THAT ACCURATE WEIGHT WAS ABSOLUTELY NECESSARY TO FIND PLACEMENT FOR PT; PT REPORTED UNDERSTANDING. CM SPOKE TO NURSE AND DISCUSSED NEW BED SCALE. AFTER INVESTIGATION, IT WAS DETERMINED THAT THE BED WAS REGISTERING KILOGRAMS, NOT POUNDS. PT;S CURRENT WEIGHT IS [address] CM SPOKE TO [address] JUAREZ WHO INFORMED CM THAT PT IS STABLE AND HE WANTS HER OUT OF THE HOSPITAL. CM NOTIFIED CM MARKETING PROGRAMS SPECIALIST OF DR. ORR WISHES AND ASSURED MARKETING PROGRAMS SPECIALIST THAT CM IS WORKING TO FIND A SAFE DISCHARGE PLACEMENT. CM CALLED [facility] [place] AND [facility] FOR POSSIBLE PLACEMENT, NEITHER HAS CAPABILITY OF CARING FOR PT AT HER CURRENT WEIGHT AND HAD NO RECOMMMENDATIONS. CM CALLED [facility], SPOKE TO SUAD WHO WILL REVIEW PT AND GET BACK WITH CM. CM FAXED REFERRAL TO [facility] FOR NURSING HOME CARE. CM FAXED REFERRALS WITH REQUEST FOR PLACEMENT AND TO FORWARD REFERRAL TO ANY FACILITY THAT MIGHT CONSIDER PATIENT FOR FPC CARE TO: [facility], [facility], [facility] AND [facility]. CM CALLED [facility] [place], THEY CANNOT TAKE PT THEIR EQUIPMENT WILL NOT HANDLE THE WEIGHT AND HAD NO SUGGESTIONS FOR PLACEMENT. CM WAITING ADMISSION DETERMINATION FROM [facility], [place], [facility] AND [facility]. CM WILL CONTINUE TO WORK TO ATTEMPT TO SECURE PLACEMENT AT ANY ACCEPTING NURSING FACILITY. Ang Basurto, CASE MANAGEMENT DCP- Discharge Planning Updated by [id number]: Ang Basurto on 10/28/18 4:[address] Patient Name: DOT MIXON Encounter No: [id number] : 1975 Primary Insurance: MEDICAID [facility] DC Date: Planned Disposition: [facility]ci Facility External Planned Provider: TO BE DETERMINED DCP follow-up note: CM REVIEWED CHART, MET WITH PT IN ROOM. PT CONCERNED THAT HER FIANCE AND "FUR BABIES" ARE BEING EVICTED FROM THE APARTMENT. PT ENCOURAGED PT TO FOCUS ON HER RECOVERY. PT IS AWARE THAT SHE NEEDS LIFESTYLE CONSULTANT NURSING CARE AND WILL GO TO ANY ACCEPTING FACILITY AT THIS TIME. PT HAS BEEN ASKING THERAPY TO GET HER OUT OF BED BUT THE BED WILL NOT GO LOW ENOUGH AND THE MATTRESS IS TO [place] AND THEY ARE AFRAID THEY WILL DROP HER AND SHE WILL NOT BE ABLE TO GET BACK IN BED. CM CALLED [facility] [place], THEY ARE NOT ABLE TO MEET PT'S NEEDS. CM CALLED . [facility] IN [place], THEY HAVE NO AVAILABLE BERIATRIC BED AT THIS TIME. CM CALLED [facility] IN [place], THEY CANNOT MEET PT'S NEEDS. CM WAS DIRECTED IN CONVERSTATIONS WITH ABOVE PROVIDERS TO CALL [facility] [place] AND [facility] FOR POSSIBLE PLACEMENT. CM WILL CONTINUE TO WORK TO ATTEMPT TO SECURE PLACEMENT AT ANY ACCEPTING NURSING FACILITY. Ang Basurto, CASE MANAGEMENT DCP- Discharge Planning Updated by [id number]: Eunice Vo on 10/25/18 6:[address] CM SPOKE WITYH PATIENT 10/24/18 PM REGARDING SERACH. SHE WANTS TO GO TO FACILITY [place]AR [place]. CM EXPLAINED SHE HAD SPECIAL NEEDS THAT COULD NOT BE MET AT ANY FACILITY IN [place]. SHE UNDERSTANDS. SHE STATES SHE CANNOT RETURN TO HER HOME. 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 THE TRAILER WOULD NEED A NEW REINFORCED FLOOR. SHE CANNOT AMBULATE . SHE MISSES HER FRIENDS. INTERNET SEARCH WITH NO FINDINGS FOR FACILITIES. TC TO [facility] CASE MANAGEMENT DEPARTMENT. AWAIT MARIMAR SAAVEDRA, PAYMENT PROCESSOR- SUPERVISIOR TO HISTOLOGY SUPERVISOR. HAD TO LEAVE A VOICE MAIL REQUESTING ASSISTANCE FOR RESOURCE FOR SNF BARIATRIC SERVICES. AWAITED CALL BACK. TELEPHONE CALL TO [facility] [place]. LEFT VOICE MAIL MESSAGE FOR MS ROONE[place], ADMISSION COORDINATOR. NO SERVICE AVAILABLE AT HER FACILITY. SHE STATES THERE IS A FACILITY IN [place] , THE ONLY ONE IN THE [facility], THAT CAN ACCOMMODATE A PATIENT UP TO 1000 LBS. SHE COULD NOT RECALL THE NAME. SHE STATES THEY GENERALLY HAVE A WAITING LIST. CM WILL SEARCH. DCP- Discharge Planning Updated by [id number]: Eunice Vo on 10/24/18 3:[address] LATE ENTRY 0915 REC TELEPHONE CALL FROM [facility]EL SÁNCHEZ THIS AM. [facility] NURSING TO REVIEW CLINICAL TODAY. HE WILL ADVISE THIS AFTERNOON REGARDING ACCEPTANCE. 1325 REC TELEPHONE CALL FROM ANGEL. [facility] CANNOT MEET THE PATIENT'S NEEDS. THEIR BARIATRIC SERVICES HAS CAPABILITY FOR 550 LBS. KADI SINGH, SPOKE WITH [facility] CARDO[facility], CLINICAL LIAISON, FOR [facility] SERVICE. SHE DOES NOT HAVE A FACILITY THAT CAN PROVIDE CARE FOR THIS PATIENT. HER FACILITIES ARE [facility], [facility], [facility], [facility] AND [facility]. WILL CONTINUE TO SEARCH. WILL UPDATE THE PATIENT. DCP- Discharge Planning Updated by [id number]: Eunice Vo on 10/23/18 5:[address] LATE ENTRY 1100 RADHA, TECHNOLOGY RECRUITER, SPOKE W/ ME THIS AM. SHE HAD NOT REC CB FROM ANGEL AT [facility]. CM WILL FOLLOW UP IN THE AM REGARDING DECISION AND PROJECTED DISCHARGE DATE. FOLLOW UP SPEECH THERAPY EVAL COMPLETED. UPDATED WEIGHT REPORTEDLY IS 660 LBS. PATIENT TO HAVE ABG'S TODAY AFTER TRILOGY. PULMONARY NOTE REQUEST SNF PLACEMENT IN [place]. THE PATIENT'S PLAN IS FOR SN[facility] REHAB [facility]. CM WORKING ON PLACEMENT AT APPROPRIATE FACILITY W/ CAPABILITY TO PROVIDE HER NEEDS, [facility]. DCP- Discharge Planning Updated by [id number]: Radha Noel on 10/22/18 10:[address] CM has been working with patient to try to get in touch with her Fianc? Raquel Schofield. He hasn't been answering the phone. CM tried to assist by looking up his mother and sister on Facebook to see if there was a phone number linked to their accounts but there wasn't. 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 CM gave patient phone numbers to both [place] in [place]. CM also looked up her landlords phone number so she could call about her belongings in her home. CM will continue to follow and assist as needed with discharge planning / needs. DCP- Discharge Planning Updated by [id number]: Radha Noel on 10/22/18 10:[address] [facility] came by last week to see patient and to obtain records. KATY was given verbally per patient for [facility] at that time. Angel later called back and stated to notify him when patient is closer to discharge. CM attempted to call Angel this morning in regards possible discharge by the end of the week. He stated he was in a meeting and would call back later. Meantime I have asked nursing for a weight on patient since there hasn't been one recorded since 10/10/18. Nursing stated that the bed scale isn't working. CM will continue to follow and assist as needed for discharge planning / needs. DCP- Discharge Planning Updated by [id number]: Radha Noel on 10/15/18 7:[address] CM checking with skilled nursing facilities regarding possible placement. CM having barriers related to patient's weight and facilities not being able to accommodate a patient of her size. At this time [facility], [facility], [facility], and [facility] have all denied patient. CM will continue to seek placement. CM will continue to follow and assist as needed with discharge planning / needs. DCP- Discharge Planning Updated by [id number]: Radha Noel on 10/11/18 2:[address] CM spoke with regarding LTACH placement. Patient is Medicaid only therefore patient is not an LTACH candidate. Dr. Juarez states he would like patient transferred back to [facility] once patient is more stable. CM will continue to follow and assist as needed with discharge planning / needs. DCP- Discharge Planning Updated by [id number]: Radha Noel on 10/09/18 4:[address] Patient Name: DOT MIXON Admission Status: Urgent Accout number: [id number] Admission Date: 09-30-2018 : 1975 Admission Diagnosis:ACUTE KIDNEY FAILURE, UNSPECIFIED Attending: Junior Rubalcava Current LOS: 9 Anticipated DC Date: Planned Disposition: Primary Insurance: MEDICAID [place] Discharge Planning Comments: CM met with patient at bedside. She states that she lives [address] [phone]. She lives with her fianc? Raquel Schofield [phone]. She states that she does have home health with [facility] and her fianc? is her caregiver. She states that she has an Electric chair, BSC and trilogy with [facility]. Patient states that she needs a shower chair, walker and suction cup grab bars for shower. Patient would like to go home upon discharge and resume care with [facility] . KATY form signed for [facility] . Patient is not a candidate for LTACH due Medicaid being a payer source and not covered under Medicaid. CM will continue to follow and assist as needed with discharge planning / needs. Caramel Candy Maker Helper: Radha Noel DCP- Discharge Planning Updated by [id number]: Radha Noel on 10/08/18 6:[address] CM attempted to meet with patient for discharge planning /needs. Patient is currently on BiPap and wasn't able to speak to CM. No family available at this time. CM will continue to follow and assist as needed with discharge planning / needs. DCP- Discharge Planning Updated by [email or web address]: Radha Noel on 10/01/18 12:[address] CM attempted to meet with patient for discharge planning /needs. Patient is currently sedated on vent no family available at this time. CM will continue to follow and assist as needed with discharge planning / needs. DCPIA - Discharge Planning Initial Assessment Updated by [id number]: Radha Noel on 10/09/18 4:55 pm * Is the patient Alert and Oriented? Yes * How many steps to enter\\exit or inside your home? * PCP Lauren with [facility] * Pharmacy [facility] * Preadmission Environment Home with Family * ADLs Partial Dependent * Partial ADLs (Assistance needed) Ambulation Bathing Dressing Eating Medication Management Toileting Transfers * Other Equipment Electric Lift chair, BSC, Trilogy ([facility]) * List name and contact numbers for known caregivers / representatives who currently or will assist patient after discharge: Raquel celestin? - [phone] * Verbal permission to speak to the caregivers and representatives has been obtained from the patient. Yes * Community resources currently utilized Home Health * Please name any agencies selected above. [facility] * Additional services required to return to the preadmission environment? No * Can the patient safely return to the preadmission environment? Yes * Has this patient been hospitalized within the prior 30 days at any hospital? No Last DP export: 11/06/18 11:59 a Patient Name: DOT MIXON Page [id number] at 1307 All edits/amendments must be made on the electronic document DICTATION DATE: 11/06/18 1307 FINANCE CLERK: FLIP 11/06/18 1307 RPT#: [id number] DC DATE: STATUS: ADM IN [facility] [address] [place] [address] END OF REPORT
--- NOTE | 2018-11-06 15:40 | MORECARE ---
CASE MANAGEMENT DISCHARGE SUMMARY PATIENT: DOT MIXON UNIT: [id number] ADM DATE: 09/30/18 AGE: 43 : 75 SEX: F ROOM/BED: D.2101 AUTHOR: PREMA,DOC PHYSICIAN: REFERRING PHYSICIAN: ELOISE GIVENS MD DATE OF SERVICE: 11/06/18 Discharge Plan Patient Name: DOT MIXON Facility: [facility] : 1975 Planned Disposition: Nursing Facility JS Cert Anticipated Discharge Date: 11/07/18 Discharge Date: Expected LOS: 38 Initial Reviewer: [id number] Initial Review Date: 10/09/2018 Generated: 11/06/18 4:40 pm Comments DCP- Discharge Planning Updated by [id number]: Ang Basurto on 11/06/18 2:[address] Patient Name: DOT MIXON Encounter No: [id number] : 1975 Primary Insurance: [place] Anticipated DC Date: 11-07-2018 Planned Disposition: Nursing Facility JS Cert External Planned Provider: [facility], SHELTER CARE MEDICAID BED DCP follow-up note: CM RECEIVED CALL FROM [facility], THEY CANNOT ACCEPT PT. CM RECEIVED CALL FROM MS. FERGUSON OF [facility], THEY HAVE TO GET MEDICAL EQUIPMENT FOR PT AND CAN ACCEPT PT TOMORROW, 11-07-18. PT NOTIFIED AND IN AGREEMENT WITH DISCHARGE TO [facility]. CM PROVIDED PT WITH BROCHURE TO FACILITY TO INFORM HER FAMILY OF NEW PLACEMENT TOMORROW. CM NOTIFIED DR. MAYNARD AND ALEX HEAD. FOR DISCHARGE 11-07, FAX DISCHARGE INFORMATION TO [facility] AT [phone], NURSE REPORT TO BE CALLED TO [facility] AT [phone]. PT TO TRANSPORT VIA AMBULANCE. Ang Basurto, CASE MANAGEMENT DCP- Discharge Planning Updated by [id number]: Ang Basurto on 11/06/18 12:[address] Patient Name: DOT MIXON Encounter No: [id number] : 1975 Primary Insurance: [place] Anticipated DC Date: Planned Disposition: Nursing Facility JS Cert External Planned Provider: [facility] ACCEPTING FACILITY, SHELTER CARE MEDICAID BED DCP follow-up note: CM FAXED UDPATE TO [facility] AND [facility]. CM SPOKE TO ANGEL OF [facility] AND MS. FERGUSON OF [facility], BOTH ARE CONSIDERING PT FOR SHELTER CARE. CM SPOKE TO JEFFY OF [facility] AND DISCUSSED PT'S SITUATION, [facility] WILL CONSIDER FOR TOBACCO SHAKER CARE, CM FAXED REFERRAL TO [facility].. [facility], [facility], [facility], [facility], [facility], [facility] AND [facility] CANNOT MEET PT'S NEEDS. CM WAITING ADMISSION DETERMINATION FROM [facility], [facility], [facility], [place], [facility], [facility], [facility], [place], [place], [facility], [facility] AND [facility]. CM WILL CONTINUE TO WORK TO ATTEMPT TO SECURE PLACEMENT AT ANY ACCEPTING NURSING FACILITY. Ang Basurto, CASE MANAGEMENT DCP- Discharge Planning Updated by [id number]: Ang Basurto on 11/05/18 2:[address] Patient Name: DOT MIXON Encounter No: [id number] : 1975 Primary Insurance: MEDICAID [facility] DC Date: Planned Disposition: Nursing Facility JS Cert External Planned Provider: FIRST ACCEPTING FACILITY, TOBACCO SHAKER CARE MEDICAID BED DCP follow-up note: CM SPOKE TO ENOCH OF [facility] WILL NOT ACCEPT PT THEY HAVE INADEQUATE STAFFING TO CARE FOR PT. CM FAXED UPDATE TO [facility] AT [phone] FOR CONSIDERATION AT ANY AND ALL OF HER OTHER HOMES. CM FA[facility]ED [facility] TO [facility], [facility], [facility], [facility], [facility], [facility], [facility], [facility] AND [facility]. CM FAXED REFERRALS TO [place], [facility] AND [facility]. [facility], [facility], [facility], [facility], [facility] AND [facility] CANNOT MEET PT'S NEEDS. CM WAITING ADMISSION DETERMINATION FROM [facility], [facility], [place], [facility], [facility], [facility], [facility], [facility], [facility], [place], [facility], AND [facility]. CM WILL CONTINUE TO WORK TO ATTEMPT TO SECURE PLACEMENT AT ANY ACCEPTING NURSING FACILITY. Ang Basurto CASE MANAGEMENT DCP- Discharge Planning Updated by [id number]: Ang Basurto on 11/04/18 1:[address] Patient Name: DOT MIXON Encounter No: [id number] : 1975 Primary Insurance: MEDICAID [facility] DC Date: Planned Disposition: Nursing Facility JS Cert External Planned Provider: JONO MARVIN, TOBACCO SHAKER CARE MEDICAID BED DCP follow-up note: CM SPOKE TO E[facility]CH OF [facility] IS CONSIDERING PT FOR TOBACCO SHAKER CARE AT [facility] OR [facility] CM FAXED UPDATE TO [facility] AT [phone].CM FAXED UDPATE TO [facility], [facility], [facility], [facility], [facility], [facility], [facility], [facility], [facility], [place], [facility] AND [place]. [facility], [facility] AND [facility] CANNOT MEET PT'S NEEDS. CM WAITING ADMISSION DETERMINATION FROM [facility], [facility], [facility], [facility], [facility], [facility], [facility], [facility], [place], [facility] AND [place]. CM WILL CONTINUE TO WORK TO ATTEMPT TO SECURE PLACEMENT AT ANY ACCEPTING NURSING FACILITY. Ang Basurto, CASE MANAGEMENT Appended by Ang Basurto on 11/04/2018 14:41 CDT: KADI SPOKE TO AN[facility]EL [facility] WHO REPORTS THEY ARE CONSIDERING PT FOR SHELTER CARE PLACEMENT; THEY NEED TRILOGY SETTINGS AND TO KNOW IF AND WHEN PT CAN COME OFF ISOLATION. CM OBTAINED TRILOGY SETTINGS WITH HELP OF RESPIRATORY THERAPIST CIARA: HOME TRILOGY SETTINGS: EVAPS - AE; RATE2.0; VT 475; MAX PRESSURE 28; MIN PRESSURE 20; PRESSURE SUPPORT MIN 10; EPAP MAX PRESSURE 10; EPAP MIN PRESSURE 5; RATE AUTO CM PROVIDED THE ABOVE INFORMATION TO [facility]EL [facility]. CM SPOKE TO [facility] WHO REPORTS THEY ARE CONSIDERING PT FOR SHELTER CARE AND WILL SPEAK TO PT VIA PHONE IN ROOM. CM RECEIVED CALL FROM [facility], THEY ARE GOING TO COME AND VISIT WITH PT TODAY FOR WOUND ASSESSMENT IN ROOM. CM RECEIVED CALLS FROM [place] AND [facility] INFORMING CM THAT THEY CANNOT MEET PT'S NEEDS. THE [facility], [facility], [facility], [place] AND [facility] CANNOT MEET PT'S NEEDS. CM WAITING ADMISSION DETERMINATION FROM [facility], [facility], [facility], [facility], [place], [facility], [facility], [facility], [facility] AND [place]. CM WILL CONTINUE TO WORK TO ATTEMPT TO SECURE PLACEMENT AT ANY ACCEPTING NURSING FACILITY. ANG BASURTO, CASE MANAGEMENT DCP- Discharge Planning Updated by [id number]: Ang Basurto on 11/01/18 4:[address] Patient Name: DOT MIXON Encounter No: [id number] : 1975 Primary Insurance: MEDICAID [facility] DC Date: Planned Disposition: Nursing Facility JS Cert External Planned Provider: JONO MARVIN, TOBACCO SHAKER CARE MEDICAID BED DCP follow-up note: CM SPOKE TO [facility]CH [facility], , THEY ARE CONSIDERING PT FOR TOBACCO SHAKER CARE AT [facility] OR [facility]. CM FAXED UPDATE TO [facility] AT [phone]. CM WAITING ADMISSION DETERMINATION FROM [facility], [facility], [facility], [facility], [facility], [facility], [facility], [facility], [facility], [facility], [facility], [place], [facility] AND [facility]. CM WILL CONTINUE TO WORK TO ATTEMPT TO SECURE PLACEMENT AT ANY ACCEPTING NURSING FACILITY. Ang Basurto, CASE MANAGEMENT DCP- Discharge Planning Updated by [id number]: Ang Bsaurto on 10/31/18 7:[address] Patient Name: DOT MIXON Encounter No: [id number] : 1975 Primary Insurance: [place] Anticipated DC Date: Planned Disposition: Nursing Facility [facility] External Planned Provider:TO BE DETERMINED DCP follow-up note: CM [facility]KE [facility], THEY HAVE REMOVED PT FROM BED, ZERO'D THE BED SCALE AND PLACED PT BACK ON FOR CURRENT WEIGHT OF 374 POUNDS. CM SPOKE TO PT WHO IS WILLING FOR SHELTER CARE PLACEMENT AND WILL WORK WITH HER FIANCE TO ESTABLISH A DISABILITY ACCESSIBLE APARTMENT FOR PT'S EVENTUAL RETURN HOME WITH HER FIANCE WHO IS PT'S PAID CAREGIVER THROUGH MEDICAID. CM FAXED REFERRALS TO [facility], [facility], [facility], [facility], [facility], [place] [facility], [place], [facility], [facility], [facility], [facility], [place], [facility] AND [facility]. CM WAITING ADMISSION DETERMINATION FROM [facility], [facility], [facility], [facility], [facility], [facility], [place], [place], [facility], [facility], [facility], [place], [facility] AND [place]. CM WILL CONTINUE TO WORK TO ATTEMPT TO SECURE PLACEMENT AT ANY ACCEPTING NURSING FACILITY. Ang Basurto, CASE MANAGEMENT DCP- Discharge Planning Updated by [id number]: Ang Basurto on 10/29/18 3:[address] Patient Name: DOT MIXON Encounter No: [id number] : 1975 Primary Insurance: [place] Anticipated DC Date: Planned Disposition: Penitentiary Facility External Planned Provider: TO BE DETERMINED DCP follow-up note: CM SPOKE TO PT VIA PHONE WHO INFORMED CM THAT THEY GOT HER ON A NEW BED AND HER WEIGHT IS 314 POUNDS. CM MET WITH PT IN ROOM, LOOKED AT BED SCALE TO DETERMINE IF IT WAS SHOWING POUNDS OR KILOGRAMS. DURING CONVERSATION WITH PT, PT WAS OFFENDED WHEN CM ASKED ABOUT PT'S KNOWN WEIGHT PRIOR TO HOSPITAL STAY AND WHERE PT'S WEIGHT WAS OBTAINED. CM OBSERVED THAT STANDARD BATHROOM SCALES AVAILABLE AT MOST RETAILERS DO NOT GO UP TO PT'S CURRENT WEIGHT FOR HOME MEEASUREMENT. CM APOLOGIZED TO PT FOR ANY OFFENSE, EXPLAINED THAT ACCURATE WEIGHT WAS ABSOLUTELY NECESSARY TO FIND PLACEMENT FOR PT; PT REPORTED UNDERSTANDING. CM SPOKE TO NURSE AND DISCUSSED NEW BED SCALE. AFTER INVESTIGATION, IT WAS DETERMINED THAT THE BED WAS REGISTERING KILOGRAMS, NOT POUNDS. PT;S CURRENT WEIGHT IS [address] CM SPOKE TO [address] JUAREZ WHO INFORMED CM THAT PT IS STABLE AND HE WANTS HER OUT OF THE HOSPITAL. CM NOTIFIED CM SURVEYOR MINE OF DR. ORR WISHES AND ASSURED SURVEYOR MINE THAT CM IS WORKING TO FIND A SAFE DISCHARGE PLACEMENT. CM CALLED [facility] [place] AND [facility] FOR POSSIBLE PLACEMENT, NEITHER HAS CAPABILITY OF CARING FOR PT AT HER CURRENT WEIGHT AND HAD NO RECOMMMENDATIONS. CM CALLED [facility], SPOKE TO SUAD WHO WILL REVIEW PT AND GET BACK WITH CM. CM FAXED REFERRAL TO [facility] FOR USP CARE. CM FAXED REFERRALS WITH REQUEST FOR PLACEMENT AND TO FORWARD REFERRAL TO ANY FACILITY THAT MIGHT CONSIDER PATIENT FOR SHELTER CARE TO: [facility], [facility], [facility] AND [facility]. CM [facility] [place], THEY CANNOT TAKE PT THEIR EQUIPMENT WILL NOT HANDLE THE WEIGHT AND HAD NO SUGGESTIONS FOR PLACEMENT. CM WAITING ADMISSION DETERMINATION FROM [facility], [facility] AND [facility]. CM WILL CONTINUE TO WORK TO ATTEMPT TO SECURE PLACEMENT AT ANY ACCEPTING NURSING FACILITY. Ang Basurto, CASE MANAGEMENT DCP- Discharge Planning Updated by [id number]: Ang Basurto on 10/28/18 4:[address] Patient Name: DOT MIXON Encounter No: [id number] : 1975 Primary Insurance: MEDICAID [facility] DC Date: Planned Disposition: Penitentiary Facility External Planned Provider: TO BE DETERMINED DCP follow-up note: CM REVIEWED CHART, MET WITH PT IN ROOM. PT CONCERNED THAT HER FIANCE AND "FUR BABIES" ARE BEING EVICTED FROM THE APARTMENT. PT ENCOURAGED PT TO FOCUS ON HER RECOVERY. PT IS AWARE THAT SHE NEEDS SHELTER NURSING CARE AND WILL GO TO ANY ACCEPTING FACILITY AT THIS TIME. PT HAS BEEN ASKING THERAPY TO GET HER OUT OF BED BUT THE BED WILL NOT GO LOW ENOUGH AND THE MATTRESS IS TO SLIPPERY AND THEY ARE AFRAID THEY WILL DROP HER AND SHE WILL NOT BE ABLE TO GET BACK IN BED. CM CALLED [facility] IN [place], THEY ARE NOT ABLE TO MEET PT'S NEEDS. CM CALLED [facility] IN [place], THEY HAVE NO AVAILABLE BERIATRIC BED AT THIS TIME. CM CALLED [facility] IN [place], THEY CANNOT MEET PT'S NEEDS. CM WAS DIRECTED IN CONVERSTATIONS WITH ABOVE PROVIDERS TO CALL [facility] [place] AND [facility] FOR POSSIBLE PLACEMENT. CM WILL CONTINUE TO WORK TO ATTEMPT TO SECURE PLACEMENT AT ANY ACCEPTING NURSING FACILITY. Ang Basurto, CASE MANAGEMENT DCP- Discharge Planning Updated by [id number]: Eunice Vo on 10/25/18 6:[address] CM SPOKE CECILIA PATIENT 10/24/18 PM REGARDING SERACH. SHE WANTS TO GO TO FACILITY NEAR [place]. CM EXPLAINED SHE HAD SPECIAL NEEDS THAT COULD NOT BE MET AT ANY FACILITY IN [place]. SHE UNDERSTANDS. SHE STATES SHE CANNOT RETURN TO HER HOME. 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 THE TRAILER WOULD NEED A NEW REINFORCED FLOOR. SHE CANNOT AMBULATE . SHE MISSES HER FRIENDS. INTERNET SEARCH WITH NO FINDINGS FOR FACILITIES. TC TO [facility] CASE MANAGEMENT DEPARTMENT. SEIT MARIMAR SAAVEDRA, TICKETING AGENT- SUPERVISIOR TO EMAIL MARKETING PROCESSOR. HAD TO LEAVE A VOICE MAIL REQUESTING ASSISTANCE FOR RESOURCE FOR SNF BARIATRIC SERVICES. AWAITED CALL BACK. TELEPHONE CALL TO [facility] [place]. LEFT VOICE MAIL MESSAGE FOR MS ROONEY, ADMISSION COORDINATOR. NO SERVICE AVAILABLE AT HER FACILITY. SHE STATES THERE IS A FACILITY IN [place] , THE ONLY ONE IN THE [facility], THAT CAN ACCOMMODATE A PATIENT UP TO 1000 LBS. SHE COULD NOT RECALL THE NAME. SHE STATES THEY GENERALLY HAVE A WAITING LIST. CM WILL SEARCH. DCP- Discharge Planning Updated by [id number]: Eunice Vo on 10/24/18 3:[address] LATE ENTRY 914 REC TELEPHONE CALL FROM ANGEL SÁ[facility]HE[facility] THIS AM. [facility] NURSING TO REVIEW CLINICAL TODAY. HE WILL ADVISE THIS AFTERNOON REGARDING ACCEPTANCE. 1325 REC TELEPHONE CALL FROM ANGEL. [facility] CANNOT MEET THE PATIENT'S NEEDS. THEIR BARIATRIC SERVICES HAS CAPABILITY FOR 550 LBS. KADI SINGH, SPOKE WITH [facility] CARD[facility], CLINICAL LIAISON, [facility]. SHE DOES NOT HAVE A FACILITY THAT CAN PROVIDE CARE FOR THIS PATIENT. HER FACILITIES ARE [facility], [facility], [facility], [facility] AND [facility]. WILL CONTINUE TO SEARCH. WILL UPDATE THE PATIENT. DCP- Discharge Planning Updated by [id number]: Eunice Vo on 10/23/18 5:[address] LATE ENTRY 1100 RADHA, SYSTEMS SUPPORT OFFICER, SPOKE W/ ME THIS AM. SHE HAD NOT REC CB FROM ANGEL AT [facility]. CM WILL FOLLOW UP IN THE AM REGARDING DECISION AND PROJECTED DISCHARGE DATE. FOLLOW UP SPEECH THERAPY EVAL COMPLETED. UPDATED WEIGHT REPORTEDLY IS 660 LBS. PATIENT TO HAVE ABG'S TODAY AFTER TRILOGY. PULMONARY NOTE REQUEST SNF PLACEMENT IN [place]. THE PATIENT'S PLAN IS FOR SNF REHAB AT [facility]. CM WORKING ON PLACEMENT AT APPROPRIATE FACILITY W/ CAPABILITY TO PROVIDE HER NEEDS, [facility]. DCP- Discharge Planning Updated by [id number]: Radha Noel on 10/22/18 10:[address] CM has been working with patient to try to get in touch with her Igor Schofield. He hasn't been answering the phone. CM tried to assist by looking up his mother and sister on Facebook to see if there was a phone number linked to their accounts but there wasn't. 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 CM gave patient phone numbers to both [place] in [place]. KADI also looked up her [employer] [facility] [facility] phone number so she could call about her belongings in her home. CM will continue to follow and assist as needed with discharge planning / needs. DCP- Discharge Planning Updated by [id number]: Radha Noel on 10/22/18 10:[address] Angel from [facility] came by last week to see patient and to obtain records. KATY was given verbally per patient for [facility] at that time. Angel later called back and stated to notify him when patient is closer to discharge. KADI attempted to call Angel this morning in regards possible discharge by the end of the week. He stated he was in a meeting and would call back later. Meantime I have asked nursing for a weight on patient since there hasn't been one recorded since 10/10/18. Nursing stated that the bed scale isn't working. CM will continue to follow and assist as needed for discharge planning / needs. DCP- Discharge Planning Updated by [id number]: Radha Noel on 10/15/18 7:[address] CM checking with custodial facilities regarding possible placement. CM having barriers related to patient's weight and facilities not being able to accommodate a patient of her size. At this time [facility] [place] [facility], [facility], [place], and [facility] have all denied patient. CM will continue to seek placement. CM will continue to follow and assist as needed with discharge planning / needs. DCP- Discharge Planning Updated by [id number]: Radha Noel on 10/11/18 2:[address] CM spoke with regarding LTACH placement. Patient is Medicaid only therefore patient is not an LTACH candidate. Dr. Juarez states he would like patient transferred back to [facility] once patient is more stable. CM will continue to follow and assist as needed with discharge planning / needs. DCP- Discharge Planning Updated by [id number]: Radha Noel on 10/09/18 4:[address] Patient Name: DOT MIXON Admission Status: Urgent Accout number: [id number] Admission Date: 09-30-2018 : 1975 Admission Diagnosis:ACUTE KIDNEY FAILURE, UNSPECIFIED Attending: Junior Rubalcava Current LOS: 9 Anticipated DC Date: Planned Disposition: Primary Insurance: [place] Discharge Planning Comments: CM met with patient at bedside. She states that she lives [address] [place] [address] . She lives with her firuth Schofield [phone]. She states that she does have home health with [facility] and her fianc? is her caregiver. She states that she has an Electric chair, BSC and trilogy with [facility]. Patient states that she needs a shower chair, walker and suction cup grab bars for shower. Patient would like to go home upon discharge and resume care with [facility]. KATY form signed for [facility]. Patient is not a candidate for LTACH due Medicaid being a payer source and not covered under Medicaid. CM will continue to follow and assist as needed with discharge planning / needs. Grain Operator: Radha Noel DCP- Discharge Planning Updated by [id number]: Radha Noel on 10/08/18 6:[address] CM attempted to meet with patient for discharge planning /needs. Patient is currently on BiPap and wasn't able to speak to CM. No family available at this time. CM will continue to follow and assist as needed with discharge planning / needs. DCP- Discharge Planning Updated by [id number]: Radha Noel on 10/01/18 12:[address] CM attempted to meet with patient for discharge planning /needs. Patient is currently sedated on vent no family available at this time. CM will continue to follow and assist as needed with discharge planning / needs. DCPIA - Discharge Planning Initial Assessment Updated by [id number]: Radha Noel on 10/09/18 4:55 pm * Is the patient Alert and Oriented? Yes * How many steps to enter\\exit or inside your home? * PCP aLuren with [facility] * Pharmacy [facility] [place] * Preadmission Environment Home with Family * ADLs Partial Dependent * Partial ADLs (Assistance needed) Ambulation Bathing Dressing Eating Medication Management Toileting Transfers * Other Equipment Electric Lift chair, BSC, Trilogy ([facility] [place]) * List name and contact numbers for known caregivers / representatives who currently or will assist patient after discharge: Raquel celestin? - [phone] * Verbal permission to speak to the caregivers and representatives has been obtained from the patient. Yes * Community resources currently utilized Home Health * Please name any agencies selected above. [facility] * Additional services required to return to the preadmission environment? No * Can the patient safely return to the preadmission environment? Yes * Has this patient been hospitalized within the prior 30 days at any hospital? No Last DP export: 11/06/18 12:07 p Patient Name: DOT MIXON Page [id number] at 1540 All edits/amendments must be made on the electronic document DICTATION DATE: 11/06/181538 PHARMACIST IN CHARGE: FLIP 11/06/181538 RPT#: [id number] DC DATE: STATUS: ADM IN [facility] [address] [place] [address] END OF REPORT
[2018-11-06 16:38] VITALS: BP 128/75
--- NOTE | 2018-11-06 17:26 | NUR ---
NO CHANGE IN ASSESSMENT. CL IN REACH. PAIN MED GIVEN.
--- NOTE | 2018-11-06 17:27 | NUR ---
NO CHANGE IN ASSESSMENT. RESTING WO DISTRESS. CL IN REACH.
--- NOTE | 2018-11-06 19:00 | NUR ---
PATIENT LAYING IN BED. HAS NO COMPLAINTS AT THIS TIME. NO DISTRESS NOTED.
[2018-11-06 20:00] VITALS: BP 157/64
--- NOTE | 2018-11-06 23:33 | NUR ---
PATIENT LAYING IN BED. HAS NO COMPLAINTS AT THIS TIME. NO DISTRESS NOTED.
[2018-11-07] VITALS: BP 117/68
[2018-11-07 04:00] VITALS: BP 100/61
--- NOTE | 2018-11-07 04:22 | NUR ---
I have reviewed this patient and I concur with the Shift Assessment completed by the Licensed Practical Nurse today this shift.
[2018-11-07 06:49] LABS: ANION GAP 11.4 mmol/L (8-16); CARBON DIOXIDE 29.1 mmol/L (21.0-32.0); CREATININE - SERUM 1.5 mg/dL (0.6-1.3); MAGNESIUM - SERUM 1.6 mg/dL (1.8-2.4); POTASSIUM - SERUM 3.5 mmol/L (3.5-5.1)
--- NOTE | 2018-11-07 07:30 | NUR ---
A/A/OX4. DENIES ANY PAIN OR DISCOMFORT AND VOICES NO REQUESTS. STATES SHE IS EXCITED ABOUT BEING DISCHARGED TODAY. PATIÑO PATENT AND DRAINING LIGHT YELLOW COLORED URINE. CALL LIGHT IN REACH. DRESSINGS TO BOTH HEELS C/D/I.
[2018-11-07 07:35] LABS: BASOPHILS 0.4 % (0-2); EOSINOPHILS 5.4 % (0-7); HEMATOCRIT 38.5 % (36.0-48.0); HEMOGLOBIN 11.7 g/dL (12-16); IMMATURE GRANULOCYTES 0.7 % (0-5); LYMPHOCYTES 24.5 % (15-50); MCH 24.7 pg (26.0-34.0); MCHC 30.4 g/dL (31.0-37.0); MCV 81.2 fL (80.0-100.0); MEAN PLATELET VOLUME 10.7 fL (7.4-10.4); MONOCYTES 6.5 % (2-11); NEUTROPHILS 62.5 % (40-80); PLATELET COUNT 102 10x3/uL (130-400); RBC 4.74 10x6/uL (4.00-5.40); RDW 19.5 % (11.5-14.5); WBC 5.6 10x3/uL (4.8-10.8)
[2018-11-07 07:40] VITALS: BP 136/76
--- NOTE | 2018-11-07 09:07 | MORECARE ---
CASE MANAGEMENT DISCHARGE SUMMARY PATIENT: DOT MIXON UNIT: [id number] ADM DATE: 09/30/18 AGE: 43 : 75 SEX: F ROOM/BED: D.2101 AUTHOR: PREMA,DOC PHYSICIAN: REFERRING PHYSICIAN: ELOISE GIVENS MD DATE OF SERVICE: 11/07/18 Discharge Plan Patient Name: DOT MIXON [facility] : 1975 Planned Disposition: Nursing Facility JS Cert Anticipated Discharge Date: 11/07/18 Discharge Date: Expected LOS: 38 Initial Reviewer: [id number] Initial Review Date: 10/09/2018 Generated: 11/07/18 10:07 am Comments DCP- Discharge Planning Updated by [id number]: Ang Basurto on 11/06/18 2:[address] Patient Name: DOT MIXON Encounter No: [id number] : 1975 Primary Insurance: [place] Anticipated DC Date: 11-07-2018 Planned Disposition: Nursing Facility JS Cert External Planned Provider: [facility], CERTIFIED PEDORTHOTIST CARE MEDICAID BED DCP follow-up note: CM RECEIVED CALL FROM ANGEL [facility], THEY CANNOT ACCEPT PT. CM RECEIVED CALL FROM MS. FERGUSON OF [facility], THEY HAVE TO GET MEDICAL EQUIPMENT FOR PT AND CAN ACCEPT PT TOMORROW, 11-07-18. PT NOTIFIED AND IN AGREEMENT WITH DISCHARGE TO [facility]. CM PROVIDED PT WITH BROCHURE TO FACILITY TO INFORM HER FAMILY OF NEW PLACEMENT TOMORROW. CM NOTIFIED DR. MAYNARD AND ALEX HEAD. FOR DISCHARGE 11-07, FAX DISCHARGE INFORMATION TO [facility] AT [phone], NURSE REPORT TO BE CALLED TO [facility] AT [phone]. PT TO TRANSPORT VIA AMBULANCE. Ang Basurto, CASE MANAGEMENT DCP- Discharge Planning Updated by [id number]: Ang Basurto on 11/06/18 12:[address] Patient Name: DOT MIXON Encounter No: [id number] : 1975 Primary Insurance: [place] Anticipated DC Date: Planned Disposition: Nursing Facility JS Cert External Planned Provider: FIRST ACCEPTING FACILITY, CERTIFIED PEDORTHOTIST CARE MEDICAID BED DCP follow-up note: CM FAXED UDPATE TO [facility] AND [facility]. CM SPOKE TO ANGEL OF [facility] AND MS. FERGUSON OF [facility], BOTH ARE CONSIDERING PT FOR CERTIFIED PEDORTHOTIST CARE. CM SPOKE TO JEFFY OF [facility] AND DISCUSSED PT'S SITUATION, [facility] WILL CONSIDER FOR CERTIFIED PEDORTHOTIST CARE, CM FAXED REFERRAL TO [facility].. [facility], [facility], [facility], [facility], [facility] AND [place] CANNOT MEET PT'S NEEDS. CM WAITING ADMISSION DETERMINATION FROM [facility], [facility], [place], [place], [facility], [facility], [facility], [place], [place], [facility], [facility] AND [facility]. CM WILL CONTINUE TO WORK TO ATTEMPT TO SECURE PLACEMENT AT ANY ACCEPTING NURSING FACILITY. Ang Basurto, CASE MANAGEMENT DCP- Discharge Planning Updated by [id number]: Ang Basurto on 11/05/18 2:[address] Patient Name: DOT MIXON Encounter No: [id number] : 1975 Primary Insurance: MEDICAID [facility] DC Date: Planned Disposition: Nursing Facility JS Cert External Planned Provider: FIRST ACCEPTING FACILITY, CERTIFIED PEDORTHOTIST CARE MEDICAID BED DCP follow-up note: CM SPOKE TO ENOCH OF [facility] WILL NOT ACCEPT PT THEY HAVE INADEQUATE STAFFING TO CARE FOR PT. CM FAXED UPDATE TO [facility] AT [phone] FOR CONSIDERATION AT ANY AND ALL OF HER OTHER HOMES. CM FAXED UDPATE TO [facility] AND [facility], [facility], [facility], [facility], [facility], [facility], [facility], [facility] AND [place]. CM FAXED REFERRALS TO [place], [facility] AND [facility]. [facility], [facility], [facility], [facility], [facility] AND [place] CANNOT MEET PT'S NEEDS. CM WAITING ADMISSION DETERMINATION FROM [facility] AND [facility], [facility], [place] [facility], [facility], [place], [facility], [facility], [place], [place], [facility], AND [facility]. CM WILL CONTINUE TO WORK TO ATTEMPT TO SECURE PLACEMENT AT ANY ACCEPTING NURSING FACILITY. Ang Basurto CASE MANAGEMENT DCP- Discharge Planning Updated by [id number]: Ang Basurto on 11/04/18 1:[address] Patient Name: DOT MIXON Encounter No: [id number] : 1975 Primary Insurance: MEDICAID [facility] DC Date: Planned Disposition: Nursing Facility JS Cert External Planned Provider: JONO MARVIN, [facility] CARE MEDICAID BED DCP follow-up note: CM SPOKE TO [facility] OF [facility] IS CONSIDERING PT FOR CERTIFIED PEDORTHOTIST CARE AT [facility] OR [facility]. CM FAXED UPDATE TO [facility] AT [phone].CM FAXED UDPATE TO [facility], [facility], [facility], [facility], [facility], [place], [facility], [facility], [place], [facility] AND [place]. [facility], [facility] AND [facility] CANNOT MEET PT'S NEEDS. CM WAITING ADMISSION DETERMINATION FROM [facility], [facility], [facility], [facility], [place], [facility], [facility], [facility], [place], [facility] AND [place]. CM WILL CONTINUE TO WORK TO ATTEMPT TO SECURE PLACEMENT AT ANY ACCEPTING NURSING FACILITY. Ang Basurto, CASE MANAGEMENT Appended by Ang Basurto on 11/04/2018 14:41 CDT: KADI SPOKE TO ANGEL [facility] WHO REPORTS THEY ARE CONSIDERING PT FOR CERTIFIED PEDORTHOTIST CARE PLACEMENT; THEY NEED TRILOGY SETTINGS AND TO KNOW IF AND WHEN PT CAN COME OFF ISOLATION. CM OBTAINED TRILOGY SETTINGS WITH HELP OF RESPIRATORY THERAPIST CIARA: HOME TRILOGY SETTINGS: EVAPS - AE; RATE2.0; VT 475; MAX PRESSURE 28; MIN PRESSURE 20; PRESSURE SUPPORT MIN 10; EPAP MAX PRESSURE 10; EPAP MIN PRESSURE 5; RATE AUTO CM PROVIDED THE ABOVE INFORMATION TO ANGEL [facility]. CM SPOKE TO [facility] WHO REPORTS THEY ARE CONSIDERING PT FOR CERTIFIED PEDORTHOTIST CARE AND WILL SPEAK TO PT VIA PHONE IN ROOM. CM RECEIVED CALL FROM [facility], THEY ARE GOING TO COME AND VISIT WITH PT TODAY FOR WOUND ASSESSMENT IN ROOM. CM RECEIVED CALLS FROM [place] AND [facility] INFORMING CM THAT THEY CANNOT MEET PT'S NEEDS. THE [facility], [facility], [facility], [place] AND [place] [place] CANNOT MEET PT'S NEEDS. CM WAITING ADMISSION DETERMINATION FROM [facility], [facility], [facility], [facility], [place], [facility], [facility], [facility] AND [place]. CM WILL CONTINUE TO WORK TO ATTEMPT TO SECURE PLACEMENT AT ANY ACCEPTING NURSING FACILITY. ANG BASURTO, CASE MANAGEMENT DCP- Discharge Planning Updated by [id number]: Ang Basutro on 11/01/18 4:[address] Patient Name: DOT MIXON Encounter No: [id number] : 1975 Primary Insurance: MEDICAID [facility] DC Date: Planned Disposition: Nursing Facility JS Cert External Planned Provider: JONO MARVIN, [facility]CI CARE MEDICAID BED DCP follow-up note: CM SPOKE TO [facility], , THEY ARE CONSIDERING PT FOR [facility]CI CARE AT [facility] OR [facility]. CM FAXED UPDATE TO E[facility] AT [phone]. CM WAITING ADMISSION DETERMINATION FROM [facility], [facility], [facility], [facility], [facility], [facility], [facility], [facility], [facility], [facility], [facility], [place], [facility] AND [place]. CM WILL CONTINUE TO WORK TO ATTEMPT TO SECURE PLACEMENT AT ANY ACCEPTING NURSING FACILITY. Ang Basurto, CASE MANAGEMENT DCP- Discharge Planning Updated by [id number]: Ang Basurto on 10/31/18 7:[address] Patient Name: DOT MIXON Encounter No: [id number] : 1975 Primary Insurance: [place] Anticipated DC Date: Planned Disposition: Nursing Facility [facility] External Planned Provider:TO BE DETERMINED DCP follow-up note: [facility], THEY HAVE REMOVED PT FROM BED, ZERO'D THE BED SCALE AND PLACED PT BACK ON FOR CURRENT WEIGHT OF 374 POUNDS. CM SPOKE TO PT WHO IS WILLING FOR CERTIFIED PEDORTHOTIST CARE PLACEMENT AND WILL WORK WITH HER FIANCE TO ESTABLISH A DISABILITY ACCESSIBLE APARTMENT FOR PT'S EVENTUAL RETURN HOME WITH HER FIANCE WHO IS PT'S PAID CAREGIVER THROUGH MEDICAID. CM FAXED REFERRALS TO [facility], [facility], [facility] AND [facility], [facility], [facility], [facility], [facility], [place], [facility], [facility], [facility], [facility], [place], [facility] AND [place]. CM WAITING ADMISSION DETERMINATION FROM [facility], [facility], [facility], [facility], [facility], [facility], [place] [facility], [place], [facility], [facility], [facility], [facility], [place], [place] AND [place]. CM WILL CONTINUE TO WORK TO ATTEMPT TO SECURE PLACEMENT AT ANY ACCEPTING NURSING FACILITY. Ang Basurto, CASE MANAGEMENT DCP- Discharge Planning Updated by [id number]: Ang Basurto on 10/29/18 3:[address] Patient Name: DOT MIXON Encounter No: [id number] : 1975 Primary Insurance: [place] Anticipated DC Date: Planned Disposition: Retirement Facility External Planned Provider: TO BE DETERMINED DCP follow-up note: CM SPOKE TO PT VIA PHONE WHO INFORMED CM THAT THEY GOT HER ON A NEW BED AND HER WEIGHT IS 314 POUNDS. CM MET WITH PT IN ROOM, LOOKED AT BED SCALE TO DETERMINE IF IT WAS SHOWING POUNDS OR KILOGRAMS. DURING CONVERSATION WITH PT, PT WAS OFFENDED WHEN CM ASKED ABOUT PT'S KNOWN WEIGHT PRIOR TO HOSPITAL STAY AND WHERE PT'S WEIGHT WAS OBTAINED. CM OBSERVED THAT STANDARD BATHROOM SCALES AVAILABLE AT MOST RETAILERS DO NOT GO UP TO PT'S CURRENT WEIGHT FOR HOME MEEASUREMENT. CM APOLOGIZED TO PT FOR ANY OFFENSE, EXPLAINED THAT ACCURATE WEIGHT WAS ABSOLUTELY NECESSARY TO FIND PLACEMENT FOR PT; PT REPORTED UNDERSTANDING. CM SPOKE TO NURSE AND DISCUSSED NEW BED SCALE. AFTER INVESTIGATION, IT WAS DETERMINED THAT THE BED WAS REGISTERING KILOGRAMS, NOT POUNDS. PT;S CURRENT WEIGHT IS [address] CM SPOKE TO [address] JUAREZ WHO INFORMED CM THAT PT IS STABLE AND HE WANTS HER OUT OF THE HOSPITAL. CM NOTIFIED CM MASS SPECTROSCOPIST OF DR. ORR WISHES AND ASSURED MASS SPECTROSCOPIST THAT CM IS WORKING TO FIND A SAFE DISCHARGE PLACEMENT. CM CALLED [facility] [place] AND [facility] FOR [facility], NEITHER HAS CAPABILITY OF CARING FOR PT AT HER CURRENT WEIGHT AND HAD NO RECOMMMENDATIONS. CM CALLED [facility], SPOKE TO SUAD WHO WILL REVIEW PT AND GET BACK WITH CM. CM FAXED REFERRAL TO [facility] FOR [facility]ARY CARE. CM FAXED REFERRALS WITH REQUEST FOR PLACEMENT AND TO FORWARD REFERRAL TO ANY FACILITY THAT MIGHT CONSIDER PATIENT FOR CERTIFIED PEDORTHOTIST CARE TO: [facility], [facility], [facility] AND [facility] CM CALLED [facility] [place], THEY CANNOT TAKE PT THEIR EQUIPMENT WILL NOT HANDLE THE WEIGHT AND HAD NO SUGGESTIONS FOR PLACEMENT. CM WAITING ADMISSION DETERMINATION FROM [facility], [facility] AND [facility]. CM WILL CONTINUE TO WORK TO ATTEMPT TO SECURE PLACEMENT AT ANY ACCEPTING NURSING FACILITY. Ang Basurto, CASE MANAGEMENT DCP- Discharge Planning Updated by [id number]: Ang Basurto on 10/28/18 4:[address] Patient Name: DOT MIXON Encounter No: [id number] : 1975 Primary Insurance: MEDICAID [facility] DC Date: Planned Disposition: Retirement Facility External Planned Provider: TO BE DETERMINED DCP follow-up note: CM REVIEWED CHART, MET WITH PT IN ROOM. PT CONCERNED THAT HER FIANCE AND "FUR BABIES" ARE BEING EVICTED FROM THE APARTMENT. PT ENCOURAGED PT TO FOCUS ON HER RECOVERY. PT IS AWARE THAT SHE NEEDS FCI NURSING CARE AND WILL GO TO ANY ACCEPTING FACILITY AT THIS TIME. PT HAS BEEN ASKING THERAPY TO GET HER OUT OF BED BUT THE BED WILL NOT GO LOW ENOUGH AND THE MATTRESS IS TO SLIPPERY AND THEY ARE AFRAID THEY WILL DROP HER AND SHE WILL NOT BE ABLE TO GET BACK IN BED. CM CALLED [facility] IN [place], THEY ARE NOT ABLE TO MEET PT'S NEEDS. CM CALLED [facility] IN [place], THEY HAVE NO AVAILABLE BERIATRIC BED AT THIS TIME. CM CALLED [facility] IN [place], THEY CANNOT MEET PT'S NEEDS. CM WAS DIRECTED IN CONVERSTATIONS WITH ABOVE PROVIDERS TO CALL [facility] IN [place] AND [facility] FOR POSSIBLE PLACEMENT. CM WILL CONTINUE TO WORK TO ATTEMPT TO SECURE PLACEMENT AT ANY ACCEPTING NURSING FACILITY. Ang Basurto, CASE MANAGEMENT DCP- Discharge Planning Updated by [id number]: Eunice Vo on 10/25/18 6:[address] CM SPOKE CECILIA PATIENT 10/24/18 PM REGARDING SERACH. SHE WANTS TO GO TO FACILITY NEAR [place]. CM EXPLAINED SHE HAD SPECIAL NEEDS THAT COULD NOT BE MET AT ANY FACILITY IN [place]. SHE UNDERSTANDS. SHE STATES SHE CANNOT RETURN TO HER HOME. 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 THE TRAILER WOULD NEED A NEW REINFORCED FLOOR. SHE CANNOT AMBULATE . SHE MISSES HER FRIENDS. INTERNET SEARCH WITH NO FINDINGS FOR FACILITIES. TC TO [facility] CASE MANAGEMENT DEPARTMENT. SEIT MARIMAR SAAVEDRA, SIGN BUILDER- SUPERVISIOR TO TECHNICAL COMMUNICATOR. HAD TO LEAVE A VOICE MAIL REQUESTING ASSISTANCE FOR RESOURCE FOR SNF BARIATRIC SERVICES. AWAITED CALL BACK. TELEPHONE CALL TO [facility] [place]. LEFT VOICE MAIL MESSAGE FOR MS ROONEY, ADMISSION COORDINATOR. NO SERVICE AVAILABLE AT HER FACILITY. SHE STATES THERE IS A FACILITY IN [place] , THE ONLY ONE IN THE [facility], THAT CAN ACCOMMODATE A PATIENT UP TO 1000 LBS. SHE COULD NOT RECALL THE NAME. SHE STATES THEY GENERALLY HAVE A WAITING LIST. CM WILL SEARCH. DCP- Discharge Planning Updated by [id number]: Eunice Vo on 10/24/18 3:[address] LATE ENTRY 914 REC TELEPHONE CALL FROM ANGEL SÁNCHEZ THIS AM. [facility] NURSING TO REVIEW CLINICAL TODAY. HE WILL ADVISE THIS AFTERNOON REGARDING ACCEPTANCE. 1325 REC TELEPHONE CALL FROM ANGEL. [facility] CANNOT MEET THE PATIENT'S NEEDS. THEIR BARIATRIC SERVICES HAS CAPABILITY FOR 550 LBS. KADI SINGH, SPOKE WITH ENOCH CARDO[facility], CLINICAL LIAISON, FOR [facility]. SHE DOES NOT HAVE A FACILITY THAT CAN PROVIDE CARE FOR THIS PATIENT. HER FACILITIES ARE [facility], [facility], [facility], [facility] AND [facility]. WILL CONTINUE TO SEARCH. WILL UPDATE THE PATIENT. DCP- Discharge Planning Updated by [id number]: Eunice Vo on 10/23/18 5:[address] LATE ENTRY 1100 RADHA, SULFATE DRIER MACHINE OPERATOR, SPOKE W/ ME THIS AM. SHE HAD NOT REC CB FROM ANGEL AT [facility]. CM WILL FOLLOW UP IN THE AM REGARDING DECISION AND PROJECTED DISCHARGE DATE. FOLLOW UP SPEECH THERAPY EVAL COMPLETED. UPDATED WEIGHT REPORTEDLY IS 660 LBS. PATIENT TO HAVE ABG'S TODAY AFTER TRILOGY. PULMONARY NOTE REQUEST SNF PLACEMENT IN [place]. THE PATIENT'S PLAN IS FOR SN[facility] REHAB AT [facility]. CM WORKING ON PLACEMENT AT APPROPRIATE FACILITY W/ CAPABILITY TO PROVIDE HER NEEDS, [facility]. DCP- Discharge Planning Updated by [id number]: Radha Noel on 10/22/18 10:[address] CM has been working with patient to try to get in touch with her Igor Schofield. He hasn't been answering the phone. CM tried to assist by looking up his mother and sister on Facebook to see if there was a phone number linked to their accounts but there wasn't. 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 CM gave patient phone numbers to both [place] in [place]. KADI also looked up [facility] phone number so she could call about her belongings in her home. CM will continue to follow and assist as needed with discharge planning / needs. DCP- Discharge Planning Updated by [id number]: Radha Noel on 10/22/18 10:[address] Angel from [facility] came by last week to see patient and to obtain records. KATY was given verbally per patient for [facility] at that time. Angel later called back and stated to notify him when patient is closer to discharge. KADI attempted to call Angel this morning in regards possible discharge by the end of the week. He stated he was in a meeting and would call back later. Meantime I have asked nursing for a weight on patient since there hasn't been one recorded since 10/10/18. Nursing stated that the bed scale isn't working. CM will continue to follow and assist as needed for discharge planning / needs. DCP- Discharge Planning Updated by [id number]: Radha Noel on 10/15/18 7:[address] CM checking with senior care facilities regarding possible placement. CM having barriers related to patient's weight and facilities not being able to accommodate a patient of her size. At this time [facility], [facility], [facility], and [place] have all denied patient. CM will continue to seek placement. CM will continue to follow and assist as needed with discharge planning / needs. DCP- Discharge Planning Updated by [id number]: Radha Noel on 10/11/18 2:[address] CM spoke with regarding LTACH placement. Patient is Medicaid only therefore patient is not an LTACH candidate. Dr. Juarez states he would like patient transferred back to [facility] once patient is more stable. CM will continue to follow and assist as needed with discharge planning / needs. DCP- Discharge Planning Updated by [id number]: Radha Noel on 10/09/18 4:[address] Patient Name: DOT MIXON Admission Status: Urgent Accout number: [id number] Admission Date: 09-30-2018 : 1975 Admission Diagnosis:ACUTE KIDNEY FAILURE, UNSPECIFIED Attending: Junior Rubalcava Current LOS: 9 Anticipated DC Date: Planned Disposition: Primary Insurance: [place] Discharge Planning Comments: CM met with patient at bedside. She states that she lives [address] [place] [address] . She lives with her firuth Schofield [phone]. She states that she does have home health with [facility] and her fianc? is her caregiver. She states that she has an Electric chair, BSC and trilogy with [facility]. Patient states that she needs a shower chair, walker and suction cup grab bars for shower. Patient would like to go home upon discharge and resume care with [facility]. KATY form signed for [facility]. Patient is not a candidate for LTACH due Medicaid being a payer source and not covered under Medicaid. CM will continue to follow and assist as needed with discharge planning / needs. Cleaners: Radha Noel DCP- Discharge Planning Updated by [id number]: Radha Noel on 10/08/18 6:[address] CM attempted to meet with patient for discharge planning /needs. Patient is currently on BiPap and wasn't able to speak to CM. No family available at this time. CM will continue to follow and assist as needed with discharge planning / needs. DCP- Discharge Planning Updated by [id number]: Radha Noel on 10/01/18 12:[address] CM attempted to meet with patient for discharge planning /needs. Patient is currently sedated on vent no family available at this time. CM will continue to follow and assist as needed with discharge planning / needs. DCPIA - Discharge Planning Initial Assessment Updated by [id number]: Radha Noel on 10/09/18 4:55 pm * Is the patient Alert and Oriented? Yes * How many steps to enter\\exit or inside your home? * PCP Lauren with [facility] * Pharmacy [facility] [place] * Preadmission Environment Home with Family * ADLs Partial Dependent * Partial ADLs (Assistance needed) Ambulation Bathing Dressing Eating Medication Management Toileting Transfers * Other Equipment Electric Lift chair, BSC, Trilogy ([facility]) * List name and contact numbers for known caregivers / representatives who currently or will assist patient after discharge: Raquel celestin? - [phone] * Verbal permission to speak to the caregivers and representatives has been obtained from the patient. Yes * Community resources currently utilized Home Health * Please name any agencies selected above. [facility] * Additional services required to return to the preadmission environment? No * Can the patient safely return to the preadmission environment? Yes * Has this patient been hospitalized within the prior 30 days at any hospital? No External Providers External Provider: [facility] Next Contact Date: 11/05/2018 Service Request Date: Service Type: Resolution: Reviewer: Comments: Last DP export: 11/06/18 2:40 p Patient Name: DOT MIXON Page [id number] at 0907 All edits/amendments must be made on the electronic document DICTATION DATE: 11/07/18906 PHOTOGRAPHIC PROCESS ATTENDANT: FLIP 11/07/18906 RPT#: [id number] DC DATE: STATUS: ADM IN [facility] [address] [place] [address] END OF REPORT
[2018-11-07] MEDS ORDERED: BUMEX2 MG PO (10:06)
[2018-11-07] MEDS ORDERED: DIAMOX250 MG PO (10:09)
[2018-11-07] MEDS ORDERED: LEXAPRO10 MG PO (10:10)
[2018-11-07] MEDS ORDERED: CARDIZEM60 MG PO (10:11)
[2018-11-07] MEDS ORDERED: PROTONIX40 MG PO (10:12)
--- NOTE | 2018-11-07 11:25 | MORECARE ---
CASE MANAGEMENT DISCHARGE SUMMARY PATIENT: DOT MIXON UNIT: [id number] ADM DATE: 09/30/18 AGE: 43 : 75 SEX: F ROOM/BED: D.2101 AUTHOR: PREMA,DOC PHYSICIAN: REFERRING PHYSICIAN: ELOISE GIVENS MD DATE OF SERVICE: 11/07/18 Discharge Plan Patient Name: DOT MIXON Facility: [facility] : 1975 Planned Disposition: Nursing Facility JS Cert Anticipated Discharge Date: 11/07/18 Discharge Date: Expected LOS: 38 Initial Reviewer: [id number] Initial Review Date: 10/09/2018 Generated: 11/07/18 12:25 pm Comments DCP- Discharge Planning Updated by [id number]: Ang Basurto on 11/06/18 2:[address] Patient Name: DOT MIXON Encounter No: [id number] : 1975 Primary Insurance: [place]ID [place] Anticipated DC Date: 11-07-2018 Planned Disposition: Nursing Facility JS Cert External Planned Provider: [facility], STAFF CYTOTECHNOLOGIST CARE MEDICAID BED DCP follow-up note: CM RECEIVED CALL FROM [facility], THEY CANNOT ACCEPT PT. CM RECEIVED CALL FROM MS. FERGUSON OF [facility], THEY HAVE TO GET MEDICAL EQUIPMENT FOR PT AND CAN ACCEPT PT TOMORROW, 11-07-18. PT NOTIFIED AND IN AGREEMENT WITH DISCHARGE TO [facility]. CM PROVIDED PT WITH BROCHURE TO FACILITY TO INFORM HER FAMILY OF NEW PLACEMENT TOMORROW. CM NOTIFIED DR. MAYNARD AND ALEX HEAD. FOR DISCHARGE 11-07, FAX DISCHARGE INFORMATION TO [facility] AT [phone], NURSE REPORT TO BE CALLED TO [facility] AT [phone]. PT TO TRANSPORT VIA AMBULANCE. Ang Basurto, CASE MANAGEMENT DCP- Discharge Planning Updated by [id number]: Ang Basurto on 11/06/18 12:[address] Patient Name: DOT MIXON Encounter No: [id number] : 1975 Primary Insurance: [place] Anticipated DC Date: Planned Disposition: Nursing Facility JS Cert External Planned Provider: FIRST ACCEPTING FACILITY, STAFF CYTOTECHNOLOGIST CARE MEDICAID BED DCP follow-up note: CM FAXED UDPATE TO [facility] AND [facility]. CM SPOKE TO ANGEL OF [facility] AND MS. FERGUSON OF [facility], BOTH ARE CONSIDERING PT FOR STAFF CYTOTECHNOLOGIST CARE. CM SPOKE TO JEFFY OF [facility] AND DISCUSSED PT'S SITUATION, [facility] WILL CONSIDER FOR STAFF CYTOTECHNOLOGIST CARE, CM FAXED REFERRAL TO [facility].. [facility], [facility], [facility], [facility], [facility], [facility] AND [facility] CANNOT MEET PT'S NEEDS. CM WAITING ADMISSION DETERMINATION FROM [facility], [facility], [facility], [place], [facility], [facility], [facility], [facility], [place], [place], [facility], [facility] AND [facility]. CM WILL CONTINUE TO WORK TO ATTEMPT TO SECURE PLACEMENT AT ANY ACCEPTING NURSING FACILITY. Ang Basurto, CASE MANAGEMENT DCP- Discharge Planning Updated by [id number]: Ang Basurto on 11/05/18 2:[address] Patient Name: DOT MIXON Encounter No: [id number] : 1975 Primary Insurance: MEDICAID [facility] DC Date: Planned Disposition: Nursing Facility JS Cert External Planned Provider: FIRST ACCEPTING FACILITY, STAFF CYTOTECHNOLOGIST CARE MEDICAID BED DCP follow-up note: CM SPOKE TO ENOCH OF [facility] WILL NOT ACCEPT PT THEY HAVE INADEQUATE STAFFING TO CARE FOR PT. CM FAXED UPDATE TO [facility] AT [phone] FOR CONSIDERATION AT ANY AND ALL OF HER OTHER HOMES. CM FAXED UDPATE TO [facility], [facility], [facility], [facility], [facility], [facility], [facility], [facility] AND [place]. CM FAXED REFERRALS TO [place], [facility] AND [facility]. [facility], [facility], [facility], [facility], [facility], [facility] AND [facility] CANNOT MEET PT'S NEEDS. CM WAITING ADMISSION DETERMINATION FROM [facility], [facility], [place], [place], [facility], [facility], [facility], [place], [place], [facility], AND [facility]. CM WILL CONTINUE TO WORK TO ATTEMPT TO SECURE PLACEMENT AT ANY ACCEPTING NURSING FACILITY. Ang Basurto CASE MANAGEMENT DCP- Discharge Planning Updated by [id number]: Ang Basurto on 11/04/18 1:[address] Patient Name: DOT MIXON Encounter No: [id number] : 1975 Primary Insurance: MEDICAID [facility] DC Date: Planned Disposition: Nursing Facility JS Cert External Planned Provider: JONO MARVIN, CARE HOME CARE MEDICAID BED DCP follow-up note: CM SPOKE TO ENOCH OF [facility] IS CONSIDERING PT FOR STAFF CYTOTECHNOLOGIST CARE AT [facility] OR [facility]. CM FAXED UPDATE TO [facility] AT [phone].CM FAXED UDPATE TO [facility] AND [facility], [facility], [facility], [facility], [facility], [facility], [facility], [facility], [place], [facility] AND [place]. [facility], [facility] AND [facility] CANNOT MEET PT'S NEEDS. CM WAITING ADMISSION DETERMINATION FROM [facility], [facility], [facility], [facility], [facility], [facility], [facility], [facility], [place], [facility] AND [place]. CM WILL CONTINUE TO WORK TO ATTEMPT TO SECURE PLACEMENT AT ANY ACCEPTING NURSING FACILITY. Ang Basurto, CASE MANAGEMENT Appended by Ang Basurto on 11/04/2018 14:41 CDT: KADI SPOKE TO [facility] WHO REPORTS THEY ARE CONSIDERING PT FOR STAFF CYTOTECHNOLOGIST CARE PLACEMENT; THEY NEED TRILOGY SETTINGS AND TO KNOW IF AND WHEN PT CAN COME OFF ISOLATION. CM OBTAINED TRILOGY SETTINGS WITH HELP OF RESPIRATORY THERAPIST CIARA: HOME TRILOGY SETTINGS: EVAPS - AE; RATE2.0; VT 475; MAX PRESSURE 28; MIN PRESSURE 20; PRESSURE SUPPORT MIN 10; EPAP MAX PRESSURE 10; EPAP MIN PRESSURE 5; RATE AUTO CM PROVIDED THE ABOVE INFORMATION TO [facility]. CM SPOKE TO [facility] WHO REPORTS THEY ARE CONSIDERING PT FOR STAFF CYTOTECHNOLOGIST CARE AND WILL SPEAK TO PT VIA PHONE IN ROOM. CM RECEIVED CALL FROM [facility], THEY ARE GOING TO COME AND VISIT WITH PT TODAY FOR WOUND ASSESSMENT IN ROOM. CM RECEIVED CALLS FROM [place] AND [facility] INFORMING CM THAT THEY CANNOT MEET PT'S NEEDS. [facility], [facility], [facility], [place] AND [facility] [place] CANNOT MEET PT'S NEEDS. CM WAITING ADMISSION DETERMINATION FROM [facility], [facility], [facility], [facility], [place], [facility], [facility], [facility], [facility] AND [place]. CM WILL CONTINUE TO WORK TO ATTEMPT TO SECURE PLACEMENT AT ANY ACCEPTING NURSING FACILITY. ANG BASURTO, CASE MANAGEMENT DCP- Discharge Planning Updated by [id number]: Ang Basurto on 11/01/18 4:[address] Patient Name: DOT MIXON Encounter No: [id number] : 1975 Primary Insurance: MEDICAID [facility] DC Date: Planned Disposition: Nursing Facility JS Cert External Planned Provider: JONO MARVIN, CARE HOME CARE MEDICAID BED DCP follow-up note: CM SPOKE TO ENOCH [facility], , THEY ARE CONSIDERING PT FOR CARE HOME CARE AT [facility]. CM FAXED UPDATE TO ENOCH AT [phone]. CM WAITING ADMISSION DETERMINATION FROM [facility], [facility], [facility], [facility], [facility], [facility], [facility], [facility], [facility], [facility], [facility], [place], [facility] AND [place]. CM WILL CONTINUE TO WORK TO ATTEMPT TO SECURE PLACEMENT AT ANY ACCEPTING NURSING FACILITY. Ang Basurto, CASE MANAGEMENT DCP- Discharge Planning Updated by [id number]: Ang Basurto on 10/31/18 7:[address] Patient Name: DOT MIXON Encounter No: [id number] : 1975 Primary Insurance: [place] Anticipated DC Date: Planned Disposition: Nursing Facility [facility] External Planned Provider:TO BE DETERMINED DCP follow-up note: CM SPOKE [facility], THEY HAVE REMOVED PT FROM BED, ZERO'D THE BED SCALE AND PLACED PT BACK ON FOR CURRENT WEIGHT OF 374 POUNDS. CM SPOKE TO PT WHO IS WILLING FOR STAFF CYTOTECHNOLOGIST CARE PLACEMENT AND WILL WORK WITH HER FIANCE TO ESTABLISH A DISABILITY ACCESSIBLE APARTMENT FOR PT'S EVENTUAL RETURN HOME WITH HER FIANCE WHO IS PT'S PAID CAREGIVER THROUGH MEDICAID. CM FAXED REFERRALS TO [facility], [facility], [facility], [facility], [facility], [facility], [facility], [place], [place], [facility], [facility], [facility], [facility], [place], [facility] AND [place]. CM WAITING ADMISSION DETERMINATION FROM [facility], [facility], [facility], [facility], [facility], [facility], [facility], [place], [place], [facility], [facility], [facility], [facility], [place], [facility] AND [place]. CM WILL CONTINUE TO WORK TO ATTEMPT TO SECURE PLACEMENT AT ANY ACCEPTING NURSING FACILITY. Ang Basurto, CASE MANAGEMENT DCP- Discharge Planning Updated by [id number]: Ang Basurto on 10/29/18 3:[address] Patient Name: DOT MIXON Encounter No: [id number] : 1975 Primary Insurance: [place] Anticipated DC Date: Planned Disposition: [facility] Facility External Planned Provider: TO BE DETERMINED DCP follow-up note: CM SPOKE TO PT VIA PHONE WHO INFORMED CM THAT THEY GOT HER ON A NEW BED AND HER WEIGHT IS 314 POUNDS. CM MET WITH PT IN ROOM, LOOKED AT BED SCALE TO DETERMINE IF IT WAS SHOWING POUNDS OR KILOGRAMS. DURING CONVERSATION WITH PT, PT WAS OFFENDED WHEN CM ASKED ABOUT PT'S KNOWN WEIGHT PRIOR TO HOSPITAL STAY AND WHERE PT'S WEIGHT WAS OBTAINED. CM OBSERVED THAT STANDARD BATHROOM SCALES AVAILABLE AT MOST RETAILERS DO NOT GO UP TO PT'S CURRENT WEIGHT FOR HOME MEEASUREMENT. CM APOLOGIZED TO PT FOR ANY OFFENSE, EXPLAINED THAT ACCURATE WEIGHT WAS ABSOLUTELY NECESSARY TO FIND PLACEMENT FOR PT; PT REPORTED UNDERSTANDING. CM SPOKE TO NURSE AND DISCUSSED NEW BED SCALE. AFTER INVESTIGATION, IT WAS DETERMINED THAT THE BED WAS REGISTERING KILOGRAMS, NOT POUNDS. PT;S CURRENT WEIGHT IS [address] CM SPOKE TO [address] JUAREZ WHO INFORMED CM THAT PT IS STABLE AND HE WANTS HER OUT OF THE HOSPITAL. CM NOTIFIED CM DIRECTOR LIFE OF DR. ORR WISHES AND ASSURED DIRECTOR LIFE THAT CM IS WORKING TO FIND A SAFE DISCHARGE PLACEMENT. CM CALLED [facility] [place] AND [facility] FOR [facility]AC[facility], NEITHER HAS CAPABILITY OF CARING FOR PT AT HER CURRENT WEIGHT AND HAD NO RECOMMMENDATIONS. CM CALLED [facility], SPOKE TO SUAD WHO WILL REVIEW PT AND GET BACK WITH CM. CM FAXED REFERRAL TO [facility] FOR CUSTODIAL CARE. CM FAXED REFERRALS WITH REQUEST FOR PLACEMENT AND TO FORWARD REFERRAL TO ANY FACILITY THAT MIGHT CONSIDER PATIENT FOR STAFF CYTOTECHNOLOGIST CARE TO: [facility], [facility], [facility] AND [facility]. CM CALLED [facility] [place], THEY CANNOT TAKE PT THEIR EQUIPMENT WILL NOT HANDLE THE WEIGHT AND HAD NO SUGGESTIONS FOR PLACEMENT. CM WAITING ADMISSION DETERMINATION FROM [facility], [facility] AND [facility]. CM WILL CONTINUE TO WORK TO ATTEMPT TO SECURE PLACEMENT AT ANY ACCEPTING NURSING FACILITY. Ang Basurto, CASE MANAGEMENT DCP- Discharge Planning Updated by [id number]: Ang Basurto on 10/28/18 4:[address] Patient Name: DOT MIXON Encounter No: [id number] : 1975 Primary Insurance: MEDICAID [facility] DC Date: Planned Disposition: [facility]way Facility External Planned Provider: TO BE DETERMINED DCP follow-up note: CM REVIEWED CHART, MET WITH PT IN ROOM. PT CONCERNED THAT HER FIANCE AND "FUR BABIES" ARE BEING EVICTED FROM THE APARTMENT. PT ENCOURAGED PT TO FOCUS ON HER RECOVERY. PT IS AWARE THAT SHE NEEDS CARE HOME NURSING CARE AND WILL GO TO ANY ACCEPTING FACILITY AT THIS TIME. PT HAS BEEN ASKING THERAPY TO GET HER OUT OF BED BUT THE BED WILL NOT GO LOW ENOUGH AND THE MATTRESS IS TO SLIPPERY AND THEY ARE AFRAID THEY WILL DROP HER AND SHE WILL NOT BE ABLE TO GET BACK IN BED. CM CALLED [facility] IN [place], THEY ARE NOT ABLE TO MEET PT'S NEEDS. CM CALLED [facility] IN [place], THEY HAVE NO AVAILABLE BERIATRIC BED AT THIS TIME. CM CALLED [facility] IN [place], THEY CANNOT MEET PT'S NEEDS. CM WAS DIRECTED IN CONVERSTATIONS WITH ABOVE PROVIDERS TO CALL [facility] [place] AND [facility] FOR POSSIBLE PLACEMENT. CM WILL CONTINUE TO WORK TO ATTEMPT TO SECURE PLACEMENT AT ANY ACCEPTING NURSING FACILITY. Ang Basurto, CASE MANAGEMENT DCP- Discharge Planning Updated by [id number]: Eunice Vo on 10/25/18 6:[address] CM SPOKE CECILIA PATIENT 10/24/18 PM REGARDING SERACH. SHE WANTS TO GO TO FACILITY NEAR [place]. CM EXPLAINED SHE HAD SPECIAL NEEDS THAT COULD NOT BE MET AT ANY FACILITY IN [place]. SHE UNDERSTANDS. SHE STATES SHE CANNOT RETURN TO HER HOME. 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 THE TRAILER WOULD NEED A NEW REINFORCED FLOOR. SHE CANNOT AMBULATE . SHE MISSES HER FRIENDS. INTERNET SEARCH WITH NO FINDINGS FOR FACILITIES. TC TO [facility] CASE MANAGEMENT DEPARTMENT. SEIT MARIMAR SAAVEDRA, CAD PROGRAMMER- SUPERVISIOR TO SENIOR TREASURY CONSULTANT. HAD TO LEAVE A VOICE MAIL REQUESTING ASSISTANCE FOR RESOURCE FOR SNF BARIATRIC SERVICES. AWAITED CALL BACK. TELEPHONE CALL TO [facility] [place]. LEFT VOICE MAIL MESSAGE FOR MS ROONEY, ADMISSION COORDINATOR. NO SERVICE AVAILABLE AT HER FACILITY. SHE STATES THERE IS A FACILITY IN [place] , THE ONLY ONE IN THE [facility], THAT CAN ACCOMMODATE A PATIENT UP TO 1000 LBS. SHE COULD NOT RECALL THE NAME. SHE STATES THEY GENERALLY HAVE A WAITING LIST. CM WILL SEARCH. DCP- Discharge Planning Updated by [id number]: Eunice Vo on 10/24/18 3:[address] LATE ENTRY 914 REC TELEPHONE CALL FROM [facility] THIS AM. [facility] NURSING TO REVIEW CLINICAL TODAY. HE WILL ADVISE THIS AFTERNOON REGARDING ACCEPTANCE. 1325 REC TELEPHONE CALL FROM ANGEL. [facility] CANNOT MEET THE PATIENT'S NEEDS. THEIR BARIATRIC SERVICES HAS CAPABILITY FOR 550 LBS. KADI SINGH, SPOKE WITH ENOCH CARDOZO, CLINICAL LIAISON, FOR [facility] SERVICE. SHE DOES NOT HAVE A FACILITY THAT CAN PROVIDE CARE FOR THIS PATIENT. HER FACILITIES ARE [facility], [facility], [facility], [facility] AND [facility]. WILL CONTINUE TO SEARCH. WILL UPDATE THE PATIENT. DCP- Discharge Planning Updated by [id number]: Eunice Vo on 10/23/18 5:[address] LATE ENTRY 1100 RADHA, PAINTER HELPER, SPOKE W/ ME THIS AM. SHE HAD NOT REC CB FROM ANGEL AT [facility]. CM WILL FOLLOW UP IN THE AM REGARDING DECISION AND PROJECTED DISCHARGE DATE. FOLLOW UP SPEECH THERAPY EVAL COMPLETED. UPDATED WEIGHT REPORTEDLY IS 660 LBS. PATIENT TO HAVE ABG'S TODAY AFTER TRILOGY. PULMONARY NOTE REQUEST SNF PLACEMENT IN [place]. THE PATIENT'S PLAN IS FOR SNF REHAB AT [facility]. CM WORKING ON PLACEMENT AT APPROPRIATE FACILITY W/ CAPABILITY TO PROVIDE HER NEEDS, [facility]. DCP- Discharge Planning Updated by [id number]: Radha Noel on 10/22/18 10:[address] CM has been working with patient to try to get in touch with her Igor Schofield. He hasn't been answering the phone. CM tried to assist by looking up his mother and sister on Facebook to see if there was a phone number linked to their accounts but there wasn't. 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 CM gave patient phone numbers to both [place] in [place]. KADI also looked up her [facility] phone number so she could call about her belongings in her home. CM will continue to follow and assist as needed with discharge planning / needs. DCP- Discharge Planning Updated by [id number]: Radha Noel on 10/22/18 10:[address] Angel from [facility] came by last week to see patient and to obtain records. KATY was given verbally per patient for [facility] at that time. Angel later called back and stated to notify him when patient is closer to discharge. KADI attempted to call Angel this morning in regards possible discharge by the end of the week. He stated he was in a meeting and would call back later. Meantime I have asked nursing for a weight on patient since there hasn't been one recorded since 10/10/18. Nursing stated that the bed scale isn't working. CM will continue to follow and assist as needed for discharge planning / needs. DCP- Discharge Planning Updated by [id number]: Radha Noel on 10/15/18 7:[address] CM checking with shelter facilities regarding possible placement. CM having barriers related to patient's weight and facilities not being able to accommodate a patient of her size. At this time [facility], [facility], [place], and [place] have all denied patient. CM will continue to seek placement. CM will continue to follow and assist as needed with discharge planning / needs. DCP- Discharge Planning Updated by [id number]: Radha Noel on 10/11/18 2:[address] CM spoke with regarding LTACH placement. Patient is Medicaid only therefore patient is not an LTACH candidate. Dr. Juarez states he would like patient transferred back to [facility] once patient is more stable. CM will continue to follow and assist as needed with discharge planning / needs. DCP- Discharge Planning Updated by [id number]: Radha Noel on 10/09/18 4:[address] Patient Name: DOT MIXON Admission Status: Urgent Accout number: [id number] Admission Date: 09-30-2018 : 1975 Admission Diagnosis:ACUTE KIDNEY FAILURE, UNSPECIFIED Attending: Junior Rubalcava Current LOS: 9 Anticipated DC Date: Planned Disposition: Primary Insurance: [place]ID [place] Discharge Planning Comments: CM met with patient at bedside. She states that she lives [address] [place] [address] . She lives with her firuth Schofield [phone]. She states that she does have home health with [facility] and her fianc? is her caregiver. She states that she has an Electric chair, BSC and trilogy with [employer]. Patient states that she needs a shower chair, walker and suction cup grab bars for shower. Patient would like to go home upon discharge and resume care with [facility]. KATY form signed for [facility]. Patient is not a candidate for LTACH due Medicaid being a payer source and not covered under Medicaid. CM will continue to follow and assist as needed with discharge planning / needs. Virtualization Engineer: Radha Noel DCP- Discharge Planning Updated by [id number]: Radha Noel on 10/08/18 6:[address] CM attempted to meet with patient for discharge planning /needs. Patient is currently on BiPap and wasn't able to speak to CM. No family available at this time. CM will continue to follow and assist as needed with discharge planning / needs. DCP- Discharge Planning Updated by [id number]: Radha Noel on 10/01/18 12:[address] CM attempted to meet with patient for discharge planning /needs. Patient is currently sedated on vent no family available at this time. CM will continue to follow and assist as needed with discharge planning / needs. DCPIA - Discharge Planning Initial Assessment Updated by [id number]: Radha Noel on 10/09/18 4:55 pm * Is the patient Alert and Oriented? Yes * How many steps to enter\\exit or inside your home? * PCP Lauren with [facility] * Pharmacy [facility] [place] * Preadmission Environment Home with Family * ADLs Partial Dependent * Partial ADLs (Assistance needed) Ambulation Bathing Dressing Eating Medication Management Toileting Transfers * Other Equipment Electric Lift chair, BSC, Trilogy ([facility]) * List name and contact numbers for known caregivers / representatives who currently or will assist patient after discharge: Raquel celestin? - [phone] * Verbal permission to speak to the caregivers and representatives has been obtained from the patient. Yes * Community resources currently utilized Home Health * Please name any agencies selected above. [facility] * Additional services required to return to the preadmission environment? No * Can the patient safely return to the preadmission environment? Yes * Has this patient been hospitalized within the prior 30 days at any hospital? No Last DP export: 11/07/18 8:07 a Patient Name: DOT MIXON Page [id number] at 1125 All edits/amendments must be made on the electronic document DICTATION DATE: 11/07/181123 SALES ROUTE DRIVER: FLIP 11/07/18 112 RPT#: [id number] DC DATE: STATUS: ADM IN [facility] [address] [place] [address] END OF REPORT
--- NOTE | 2018-11-07 11:30 | NUR ---
DISCHARGE INSTRUCTION REVIEWED WITH PT AND HAS NO QUESTIONS. REPORT CALLED TO LEO CULP AT [facility]. AMBULANCE NOTIFIED OF NEED FOR TRANSPORT.
--- NOTE | 2018-11-07 11:35 | MORECARE ---
CASE MANAGEMENT DISCHARGE SUMMARY PATIENT: DOT MIXON UNIT: [id number] ADM DATE: 09/30/18 AGE: 43 : 75 SEX: F ROOM/BED: D.2101 AUTHOR: PREMA,DOC PHYSICIAN: REFERRING PHYSICIAN: ELOISE GIVENS MD DATE OF SERVICE: 11/07/18 Discharge Plan Patient Name: DOT MIXON Facility: [facility] : 1975 Planned Disposition: Nursing Facility [facility] Cert Anticipated Discharge Date: 11/07/18 Discharge Date: Expected LOS: 38 Initial Reviewer: [id number] Initial Review Date: 10/09/2018 Generated: 11/07/18 12:34 pm Comments DCP- Discharge Planning Updated by [email or web address]: Ang Basurto on 11/07/18 10:[address] Patient Name: DOT MIXON Encounter No: [id number] : 1975 Primary Insurance: MEDICAID [place] Anticipated DC Date: 11-07-2018 Planned Disposition: Nursing Facility [facility] Cert External Planned Provider: [facility], LONG TERM CARE MEDICAID BED DCP follow-up note: CM RECEIVED DISCHARGE ORDER. CM FAXED DISCHARGE INFORMATION TO [facility] AT [phone]. NURSE REPORT TO BE CALLED TO [facility] AT [phone]. PT TO TRANSPORT VIA AMBULANCE. MYRIAM Reddy DCP- Discharge Planning Updated by [id number]: Ang Basurto on 11/06/18 2:[address] Patient Name: DOT MIXON Encounter No: [id number] : 1975 Primary Insurance: [place] Anticipated DC Date: 11-07-2018 Planned Disposition: Nursing Facility [facility] Cert External Planned Provider: [facility], LONG TERM CARE MEDICAID BED DCP follow-up note: CM RECEIVED CALL FROM ANGEL MACKENZIE [facility], THEY CANNOT ACCEPT PT. CM RECEIVED CALL FROM MS. FERGUSON OF [facility], THEY HAVE TO GET MEDICAL EQUIPMENT FOR PT AND CAN ACCEPT PT TOMORROW, 11-07-18. PT NOTIFIED AND IN AGREEMENT WITH DISCHARGE TO [facility]. CM PROVIDED PT WITH BROCHURE TO FACILITY TO INFORM HER FAMILY OF NEW PLACEMENT TOMORROW. CM NOTIFIED DR. MAYNARD AND ALEX HEAD. FOR DISCHARGE 11-07, FAX DISCHARGE INFORMATION TO [facility] AT [phone], NURSE REPORT TO BE CALLED TO [facility] AT [phone]. PT TO TRANSPORT VIA AMBULANCE. Ang Basurto CASE MANAGEMENT DCP- Discharge Planning Updated by [id number]: Ang Basurto on 11/06/18 12:[address] Patient Name: DOT MIXON Encounter No: [id number] : 1975 Primary Insurance: [place] Anticipated DC Date: Planned Disposition: Nursing Facility JS Cert External Planned Provider: FIRST ACCEPTING FACILITY, [facility] MEDICAID BED DCP follow-up note: CM FAXED UDPATE TO [facility] AND [facility]. CM SPOKE TO ANGEL OF [facility] AND MS. FERGUSON OF [facility], BOTH ARE CONSIDERING PT FOR [facility] CODER CARE. CM SPOKE TO JEFFY MACKENZIE [facility] AND DISCUSSED PT'S SITUATION, [facility] FOR [facility] C[facility], CM FAXED REFERRAL TO [facility].. [facility], [facility], [facility], [facility], [facility], [facility], [facility] AND [place] CANNOT MEET PT'S NEEDS. CM WAITING ADMISSION DETERMINATION FROM [facility], [facility], [facility], [facility], [facility], [place] [place], [facility], [facility], [place], [facility], [facility] AND [facility]. CM WILL CONTINUE TO WORK TO ATTEMPT TO SECURE PLACEMENT AT ANY ACCEPTING NURSING FACILITY. Ang Basurto, CASE MANAGEMENT DCP- Discharge Planning Updated by [id number]: Ang Basurto on 11/05/18 2:[address] Patient Name: DOT MIXON Encounter No: [id number] : 1975 Primary Insurance: [place] Anticipated DC Date: Planned Disposition: Nursing Facility JS Cert External Planned Provider: FIRST ACCEPTING FACILITY, GROUP HOME CARE MEDICAID BED DCP follow-up note: CM SPOKE TO ENOCH OF [place] WILL NOT ACCEPT PT THEY HAVE INADEQUATE STAFFING TO CARE FOR PT. CM FAXED UPDATE TO E[facility]CH AT [phone] FOR CONSIDERATION AT ANY AND ALL OF HER OTHER HOMES. CM FAXED UDPATE TO [facility], [facility], [facility], [place] [facility] [place], [facility], [facility], [facility], [facility] AND [place]. CM FAXED REFERRALS TO [place], [facility] AND [facility]. [facility], [facility], [facility], [facility], [facility], [facility], [facility] AND [place] CANNOT MEET PT'S NEEDS. CM WAITING AD[facility]ION DET[facility]MINATION FROM [facility], [facility], [facility], [facility], [facility], [facility], [facility], [place], [place], [facility], AND [facility]. CM WILL CONTINUE TO WORK TO ATTEMPT TO SECURE PLACEMENT AT ANY ACCEPTING NURSING FACILITY. Ang Basurto, CASE MANAGEMENT DCP- Discharge Planning Updated by [id number]: Ang Basurto on 11/04/18 1:[address] Patient Name: DOT MIXON Encounter No: [id number] : 1975 Primary Insurance: MEDICAID [facility] DC Date: Planned Disposition: Nursing Facility JS Cert External Planned Provider: [facility], GROUP HOME CARE MEDICAID BED DCP follow-up note: CM SPOKE TO ENOCH OF [facility] IS CONSIDERING PT FOR [facility] CARE AT [facility]. CM FAXED UPDATE TO ENOCH AT [phone].CM FA[facility]ED UDPATE TO [facility], [facility], [facility], [facility] [facility], [place], [facility], [facility], [facility], [place], [facility] AND [place]. [place], [place] AND [place] CANNOT MEET PT'S NEEDS. CM WAITING ADMISSION DETERMINATION FROM [facility], [facility], [facility], [facility], [facility], [place], [facility], [facility], [place], [facility] AND [place]. CM WILL CONTINUE TO WORK TO ATTEMPT TO SECURE PLACEMENT AT ANY ACCEPTING NURSING FACILITY. Ang Basurto, CASE MANAGEMENT Appended by Ang Basurto on 11/04/2018 14:41 CDT: [facility] WHO [facility] ARE CONSIDERING PT FOR GROUP HOME CARE PLACEMENT; THEY NEED TRILOGY SETTINGS AND TO KNOW IF AND WHEN PT CAN COME OFF ISOLATION. CM OBTAINED TRILOGY SETTINGS WITH HELP OF RESPIRATORY THERAPIST CIARA: HOME TRILOGY SETTINGS: EVAPS - AE; RATE2.0; VT 475; MAX PRESSURE 28; MIN PRESSURE 20; PRESSURE SUPPORT MIN 10; EPAP MAX PRESSURE 10; EPAP MIN PRESSURE 5; RATE AUTO CM PROVIDED THE ABOVE INFORMATION TO ANGEL MACKENZIE [facility]. CM SPOKE TO [facility] WHO REPORTS THEY ARE CONSIDERING PT FOR [facility] CODER CARE AND WILL SPEAK TO PT VIA PHONE IN ROOM. CM RECEIVED CALL FROM [facility], THEY ARE GOING TO COME AND VISIT WITH PT TODAY FOR WOUND ASSESSMENT IN ROOM. CM RECEIVED CALLS FROM [place] AND [facility] INFORMING CM THAT THEY CANNOT MEET PT'S NEEDS. [facility], [facility], [facility], [place] AND [facility] CANNOT MEET PT'S NEEDS. CM WAITING ADMISSION DETERMINATION FROM [facility], [facility], [facility], [facility], [facility], [facility], [facility], [facility] [place], [facility], [facility], [facility] AND [facility]. CM WILL CONTINUE TO WORK TO ATTEMPT TO SECURE PLACEMENT AT ANY ACCEPTING NURSING FACILITY. ANG BASURTO, CASE MANAGEMENT DCP- Discharge Planning Updated by [id number]: Ang Basurto on 11/01/18 4:[address] Patient Name: DOT MIXON Encounter No: [id number] : 1975 Primary Insurance: [place] Anticipated DC Date: Planned Disposition: Nursing Facility JS Cert External [facility] DCP follow-up note: CM SPOKE TO [facility], , THEY ARE CONSIDERING PT FOR GROUP HOME CARE AT [facility]. CM FAXED UPDATE TO ENOCH AT [phone]. CM WAITING ADMISSION DETERMINATION FROM [facility], [facility], [facility], [facility], [facility], [facility] [place], [facility], [facility] [place], [place], [facility], [place], [facility] AND [place]. CM WILL CONTINUE TO WORK TO ATTEMPT TO SECURE PLACEMENT AT ANY ACCEPTING NURSING FACILITY. Ang Basurto, CASE MANAGEMENT DCP- Discharge Planning Updated by [id number]: Ang Basurto on 10/31/18 7:[address] Patient Name: DOT MIXON Encounter No: [id number] : 1975 Primary Insurance: [place]ID [place] Anticipated DC Date: Planned Disposition: Nursing Facility JS Cert External Planned Provider:TO BE DETERMINED DCP follow-up note: CM SPOKE [facility], THEY HAVE REMOVED PT FROM BED, ZERO'D THE BED SCALE AND PLACED PT BACK ON FOR CURRENT WEIGHT OF 374 POUNDS. CM SPOKE TO PT WHO IS WILLING FOR [facility] PLACEMENT AND WILL WORK WITH HER FIANCE TO ESTABLISH A DISABILITY ACCESSIBLE APARTMENT FOR PT'S EVENTUAL RETURN HOME WITH HER FIANCE WHO IS PT'S PAID CAREGIVER THROUGH MEDICAID. CM FAXED REFERRALS TO [facility], [facility], [facility], [facility], [facility] [place], [facility] [place], [place], [facility], [place], [place] AND [place]. CM WAITING ADMISSION DETERMINATION FROM [facility], [facility], [facility], [facility], [facility], [facility] [facility] [place] [place], [place], [facility], [place], [place] AND [place]. CM WILL CONTINUE TO WORK TO ATTEMPT TO SECURE PLACEMENT AT ANY ACCEPTING NURSING FACILITY. Ang Basurto CASE MANAGEMENT DCP- Discharge Planning Updated by [id number]: Ang Basurto on 10/29/18 3:[address] Patient Name: DOT MIXON Encounter No: [id number] : 1975 Primary Insurance: MEDICAID [facility] DC Date: Planned Disposition: Custodial Facility External Planned Provider: TO BE DETERMINED DCP follow-up note: CM SPOKE TO PT VIA PHONE WHO INFORMED CM THAT THEY GOT HER ON A NEW BED AND HER WEIGHT IS 314 POUNDS. CM MET WITH PT IN ROOM, LOOKED AT BED SCALE TO DETERMINE IF IT WAS SHOWING POUNDS OR KILOGRAMS. DURING CONVERSATION WITH PT, PT WAS OFFENDED WHEN CM ASKED ABOUT PT'S KNOWN WEIGHT PRIOR TO HOSPITAL STAY AND WHERE PT'S WEIGHT WAS OBTAINED. CM OBSERVED THAT STANDARD BATHROOM SCALES AVAILABLE AT MOST RETAILERS DO NOT GO UP TO PT'S CURRENT WEIGHT FOR HOME MEEASUREMENT. CM APOLOGIZED TO PT FOR ANY OFFENSE, EXPLAINED THAT ACCURATE WEIGHT WAS ABSOLUTELY NECESSARY TO FIND PLACEMENT FOR PT; PT REPORTED UNDERSTANDING. CM SPOKE TO NURSE AND DISCUSSED NEW BED SCALE. AFTER INVESTIGATION, IT WAS DETERMINED THAT THE BED WAS REGISTERING KILOGRAMS, NOT POUNDS. PT;S CURRENT WEIGHT IS [address] CM SPOKE TO [address] JUAREZ WHO INFORMED CM THAT PT IS STABLE AND HE WANTS HER OUT OF THE HOSPITAL. CM NOTIFIED CM GAS REFRIGERATOR SERVICER OF DR. ORR WISHES AND ASSURED GAS REFRIGERATOR SERVICER THAT CM IS WORKING TO FIND A SAFE DISCHARGE PLACEMENT. CM CALLED [facility] [place] AND [facility] [place] FOR POSSIBLE PLACEMENT, NEITHER HAS CAPABILITY OF CARING FOR PT AT HER CURRENT WEIGHT AND HAD NO RECOMMMENDATIONS. CM CALLED [facility], SPOKE TO SUAD WHO WILL REVIEW PT AND GET BACK WITH CM. CM FAXED REFERRAL TO [facility] FOR [facility] CARE. CM FAXED REFERRALS WITH REQUEST FOR PLACEMENT AND TO FORWARD REFERRAL TO ANY FACILITY THAT MIGHT CONSIDER PATIENT FOR [facility]ODER CARE TO: [facility], [facility], [place], [facility] AND [facility]. CM CALLED [facility] IN [place], THEY CANNOT TAKE PT THEIR EQUIPMENT WILL NOT HANDLE THE WEIGHT AND HAD NO SUGGESTIONS FOR PLACEMENT. CM WAITING ADMISSION DETERMINATION FROM [facility], [place], [facility] AND [employer] [place]. CM WILL CONTINUE TO WORK TO ATTEMPT TO SECURE PLACEMENT AT ANY ACCEPTING NURSING FACILITY. Ang Basurto, CASE MANAGEMENT DCP- Discharge Planning Updated by [id number]: Ang Basurto on 10/28/18 4:[address] Patient Name: DOT MIXON Encounter No: [id number] : 1975 Primary Insurance: [place]ID [place] Anticipated DC Date: Planned Disposition: Custodial Facility External Planned Provider: TO BE DETERMINED DCP follow-up note: CM REVIEWED CHART, MET WITH PT IN ROOM. PT CONCERNED THAT HER FIANCE AND "FUR BABIES" ARE BEING EVICTED FROM THE APARTMENT. PT ENCOURAGED PT TO FOCUS ON HER RECOVERY. PT IS AWARE THAT SHE NEEDS GROUP HOME NURSING CARE AND WILL GO TO ANY ACCEPTING FACILITY AT THIS TIME. PT HAS BEEN ASKING THERAPY TO GET HER OUT OF BED BUT THE BED WILL NOT GO LOW ENOUGH AND THE MATTRESS IS TO SLIPPERY AND THEY ARE AFRAID THEY WILL DROP HER AND SHE WILL NOT BE ABLE TO GET BACK IN BED. [facility] [place], THEY ARE NOT ABLE TO MEET PT'S NEEDS. CM CALLED [facility] [place], THEY HAVE NO AVAILABLE BERIATRIC BED AT THIS TIME. CM CALLED [facility] IN [place], THEY CANNOT MEET PT'S NEEDS. CM WAS DIRECTED IN CONVERSTATIONS WITH ABOVE PROVIDERS TO CALL [facility] [place] AND [facility] FOR POSSIBLE PLACEMENT. CM WILL CONTINUE TO WORK TO ATTEMPT TO SECURE PLACEMENT AT ANY ACCEPTING NURSING FACILITY. Ang Basurto, CASE MANAGEMENT DCP- Discharge Planning Updated by [id number]: Eunice Vo on 10/25/18 6:[address] CM SPOKE [facility] PATIENT 10/24/18 PM REGARDING SERACH. SHE WANTS TO GO TO FACILITY [place]AR [place]. CM EXPLAINED SHE HAD SPECIAL NEEDS THAT COULD NOT BE MET AT ANY FACILITY IN [place]. SHE UNDERSTANDS. SHE STATES SHE CANNOT RETURN TO HER HOME. 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 THE TRAILER WOULD NEED A NEW REINFORCED FLOOR. SHE CANNOT AMBULATE . SHE MISSES HER FRIENDS. INTERNET SEARCH WITH NO FINDINGS FOR FACILITIES. TC TO [facility] CASE MANAGEMENT DEPARTMENT. WANDA SAAVEDRA, LEGUILLON DEBEADER- SUPERVISIOR TO ENTEROSTOMAL NURSE. HAD TO LEAVE A VOICE MAIL REQUESTING ASSISTANCE FOR RESOURCE FOR SNF BARIATRIC SERVICES. AWAITED CALL BACK. TELEPHONE CALL TO [facility]. LEFT VOICE MAIL MESSAGE FOR MS ROONEY, ADMISSION COORDINATOR. NO SERVICE AVAILABLE AT HER FACILITY. SHE STATES THERE IS A FACILITY IN [place] , THE ONLY ONE IN THE [facility], THAT CAN ACCOMMODATE A PATIENT UP TO 1000 LBS. SHE COULD NOT RECALL THE NAME. SHE STATES THEY GENERALLY HAVE A WAITING LIST. CM WILL SEARCH. DCP- Discharge Planning Updated by [id number]: Eunice Alonsos on 10/24/18 3:[address] LATE ENTRY 0915 REC TELEPHONE CALL FROM ANGEL SÁNCHEZ THIS AM. [facility] NURSING TO REVIEW CLINICAL TODAY. HE WILL ADVISE THIS AFTERNOON REGARDING ACCEPTANCE. 1325 REC TELEPHONE CALL FROM ANGEL. [facility] CANNOT MEET THE PATIENT'S NEEDS. THEIR BARIATRIC SERVICES HAS CAPABILITY FOR 550 LBS. KADI SINGH, SPOKE WITH ENOCH CARDOZO, CLINICAL LIAISON, FOR [facility] SERVICE. SHE DOES NOT HAVE A FACILITY THAT CAN PROVIDE CARE FOR THIS PATIENT. HER FACILITIES ARE [facility], [facility], [facility], [facility] AND [facility]. WILL CONTINUE TO SEARCH. WILL UPDATE THE PATIENT. DCP- Discharge Planning Updated by [id number]: Eunice Vo on 10/23/18 5:[address] LATE ENTRY 1100 RADHA, DENTAL LABORATORY TECHNOLOGY TEACHER, SPOKE W/ ME THIS AM. SHE HAD NOT REC CB FROM ANGEL AT [facility]. CM WILL FOLLOW UP IN THE AM REGARDING DECISION AND PROJECTED DISCHARGE DATE. FOLLOW UP SPEECH THERAPY EVAL COMPLETED. UPDATED WEIGHT REPORTEDLY IS 660 LBS. PATIENT TO HAVE ABG'S TODAY AFTER TRILOGY. PULMONARY NOTE REQUEST SNF PLACEMENT IN [place]. THE PATIENT'S PLAN IS FOR SNF REHAB AT [facility]. CM WORKING ON PLACEMENT AT APPROPRIATE FACILITY W/ CAPABILITY TO PROVIDE HER NEEDS, [facility]. DCP- Discharge Planning Updated by [id number]: Radha Noel on 10/22/18 10:[address] CM has been working with patient to try to get in touch with her Igor Schofield. He hasn't been answering the phone. CM tried to assist by looking up his mother and sister on Facebook to see if there was a phone number linked to their accounts but there wasn't. 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 CM gave patient phone numbers to both [place] in [place]. CM also looked up her landlords phone number so she could call about her belongings in her home. CM will continue to follow and assist as needed with discharge planning / needs. DCP- Discharge Planning Updated by [id number]: Radha Noel on 10/22/18 10:[address] Angel from [facility] came by last week to see patient and to obtain records. KATY was given verbally per patient for [facility] at that time. Angel later called back and stated to notify him when patient is closer to discharge. CM attempted to call Angel this morning in regards possible discharge by the end of the week. He stated he was in a meeting and would call back later. Meantime I have asked nursing for a weight on patient since there hasn't been one recorded since 10/10/18. Nursing stated that the bed scale isn't working. CM will continue to follow and assist as needed for discharge planning / needs. DCP- Discharge Planning Updated by [id number]: Radha Noel on 10/15/18 7:[address] CM checking with jail facilities regarding possible placement. CM having barriers related to patient's weight and facilities not being able to accommodate a patient of her size. At this time [facility], [facility], [place], and [place] have all denied patient. CM will continue to seek placement. CM will continue to follow and assist as needed with discharge planning / needs. DCP- Discharge Planning Updated by [id number]: Radha Noel on 10/11/18 2:[address] CM spoke with regarding LTACH placement. Patient is Medicaid only therefore patient is not an LTACH candidate. Dr. Juarez states he would like patient transferred back to [facility] once patient is more stable. CM will continue to follow and assist as needed with discharge planning / needs. DCP- Discharge Planning Updated by [id number]: Radha Noel on 10/09/18 4:[address] Patient Name: DOT MIXON Admission Status: Urgent Accout number: [id number] Admission Date: 09-30-2018 : 1975 Admission Diagnosis:ACUTE KIDNEY FAILURE, UNSPECIFIED Attending: Junior Rubalcava Current LOS: 9 Anticipated DC Date: Planned Disposition: Primary Insurance: [place]ID [place] Discharge Planning Comments: CM met with patient at bedside. She states that she lives [address] , [place], [place] [phone]. She lives with her fianc? Raquel Schofield [phone]. She states that she does have home health with [facility] and her fianc? is her caregiver. She states that she has an Electric chair, BSC and [facility]. Patient states that she needs a shower chair, walker and suction cup grab bars for shower. Patient would like to go home upon discharge and resume care with [facility] . KATY form signed for [facility] . Patient is not a candidate for LTACH due Medicaid being a payer source and not covered under Medicaid. CM will continue to follow and assist as needed with discharge planning / needs. Mobile Home Lot Utility Worker: Radha Noel DCP- Discharge Planning Updated by [id number]: Radha Noel on 10/08/18 6:[address] CM attempted to meet with patient for discharge planning /needs. Patient is currently on BiPap and wasn't able to speak to CM. No family available at this time. CM will continue to follow and assist as needed with discharge planning / needs. DCP- Discharge Planning Updated by [id number]: Radha Noel on 10/01/18 12:[address] CM attempted to meet with patient for discharge planning /needs. Patient is currently sedated on vent no family available at this time. CM will continue to follow and assist as needed with discharge planning / needs. DCPIA - Discharge Planning Initial Assessment Updated by [id number]: Radha Noel on 10/09/18 4:55 pm * Is the patient Alert and Oriented? Yes * How many steps to enter\\exit or inside your home? * PCP Lauren with [facility] * Pharmacy [facility] * Preadmission Environment Home with Family * ADLs Partial Dependent * Partial ADLs (Assistance needed) Ambulation Bathing Dressing Eating Medication Management Toileting Transfers * Other Equipment Electric Lift chair, BSC, Trilogy ([employer]) * List name and contact numbers for known caregivers / representatives who currently or will assist patient after discharge: Raquel Schofield - fawad? - [phone] * Verbal permission to speak to the caregivers and representatives has been obtained from the patient. Yes * Community resources currently utilized Home Health * Please name any agencies selected above. [facility] * Additional services required to return to the preadmission environment? No * Can the patient safely return to the preadmission environment? Yes * Has this patient been hospitalized within the prior 30 days at any hospital? No Last DP export: 11/07/18 10:25 a Patient Name: DOT MIXON Page [id number] at 1135 All edits/amendments must be made on the electronic document DICTATION DATE: 11/07/18 113 CLINICAL DATA COORDINATOR: FILP 11/07/18 1134 RPT#: [id number] ND DATE: STATUS: ADM IN [facility] [address] [place] [address] END OF REPORT
--- NOTE | 2018-11-07 13:10 | NUR ---
left floor via ambulance stretcher and left facility via [facility]. All personal belongings with pt.
== END 2018-11-07 13:17 | DRG 166 ==
LOC: D.ICU 11:50 → D.M2 20:35 → D.ICU 10-09 09:52 → D.M2 10-22 13:22
PROVIDERS: Family Medicine; Internal Medicine Nephrology; Internal Medicine Pulmonary Disease; ADMIT Family Medicine; ATTEND Family Medicine
PROC: 5A1955Z Respiratory Ventilation, Greater than 96 Consecutive Hours (ICD-10-PCS; 2018-09-30)
PROC: 0BH17EZ Insertion of Endotracheal Airway into Trachea, Via Natural or Artificial Opening (ICD-10-PCS; 2018-09-30)
PROC: 05HN33Z Insertion of Infusion Device into Left Internal Jugular Vein, Percutaneous Approach (ICD-10-PCS; principal; 2018-10-01)
PROC: 0JBQ0ZZ Excision of Right Foot Subcutaneous Tissue and Fascia, Open Approach (ICD-10-PCS; 2018-10-28)
DX: J96.22 Acute and chronic respiratory failure with hypercapnia (principal); J15.212 Pneumonia due to Methicillin resistant Staphylococcus aureus; L89.613 Pressure ulcer of right heel, stage 3; L89.893 Pressure ulcer of other site, stage 3; N17.9 Acute kidney failure, unspecified; E87.2 Acidosis; J44.1 Chronic obstructive pulmonary disease with (acute) exacerbation; J44.0 Chronic obstructive pulmonary disease with (acute) lower respiratory infection; Z68.45 Body mass index [BMI] 70 or greater, adult; N39.0 Urinary tract infection, site not specified; E87.3 Alkalosis; J96.21 Acute and chronic respiratory failure with hypoxia; E66.01 Morbid (severe) obesity due to excess calories; E87.5 Hyperkalemia; I89.0 Lymphedema, not elsewhere classified; E78.5 Hyperlipidemia, unspecified; F17.200 Nicotine dependence, unspecified, uncomplicated; E11.65 Type 2 diabetes mellitus with hyperglycemia; I87.8 Other specified disorders of veins; G47.33 Obstructive sleep apnea (adult) (pediatric); B95.62 Methicillin resistant Staphylococcus aureus infection as the cause of diseases classified elsewhere; I27.20 Pulmonary hypertension, unspecified; D50.9 Iron deficiency anemia, unspecified; R53.81 Other malaise; I12.9 Hypertensive chronic kidney disease with stage 1 through stage 4 chronic kidney disease, or unspecified chronic kidney disease; E11.22 Type 2 diabetes mellitus with diabetic chronic kidney disease; N18.9 Chronic kidney disease, unspecified